=== PATIENT | female | born 1955 | race Hispanic/Latino ===

== ENCOUNTER 2017-12-31 16:38 | Inpatient (IN) | payer OTHER, MEDICAID ==
[2017-12-31] MEDS ORDERED: ONDANSETRON 4 MG/2 ML VIAL ONE ×2 (16:56→17:12)
[2017-12-31] MEDS ORDERED: MORPHINE 4 MG/ML SYR ONE (16:56)
[2017-12-31] MEDS ORDERED: cloNIDine HCl 0.1 MG TAB ONE ×2 (17:12→19:41)
[2017-12-31] MEDS ORDERED: NA CHLORIDE 0.9% 1,000 ML ONE (17:12)
[2017-12-31 17:23] LABS: Absolute Lymphocytes (CBC) 1.5 K/uL (0.7-4.9); Absolute Monocytes 0.6 K/uL (0.1-1.3); Absolute Neutrophil 5.3 K/uL (1.8-8.0); Basophils % 1.1 % (0-1.3); Eosinophils % 1.5 % (0-4.4); Hematocrit 31.8 % (36.0-45.0); Lymphocytes % 19.3 % (15.3-44.8); MCH 29.3 pg (27.0-35.0); MPV 8.7 fL (7.6-11.3); Monocytes % 8.3 % (3.3-12.3)
--- NOTE | 2017-12-31 17:24 | RAD REPORT ---
EXAM DESCRIPTION: RAD - Chest Single View - 12/31/2017 5:18 pm CLINICAL HISTORY: Dyspnea COMPARISON: None. TECHNIQUE: AP portable chest image was obtained 1715 hours . FINDINGS: Lung volumes are low. Film technique, body habitus and shallow inspiration accentuate hear t, vasculature and lung markings. Baseline for the patient is unknown. The prominence of the intersti tial markings is suspected to be edema or infiltrate. Central vasculature is mildly prominent. Mild c ardiomegaly is present. No pneumothorax or large pleural effusion. No gross bony abnormality seen. No acute aortic findings suspected. IMPRESSION: Limited baseline examination shows evidence for a mild failure or volume overload. In the absence of comparison, interstitial infiltrate cannot be excluded.
[2017-12-31 17:45] LABS: ALT/SGPT 31 U/L (12-78); AST/SGOT 25 U/L (15-37); Albumin 3.3 g/dL (3.4-5.0); Alkaline Phosphatase 90 U/L (45-117); BUN Blood Urea Nitrogen 13 mg/dL (7-18); Bicarbonate 25 mmol/L (21-32); Bilirubin Direct < 0.1 mg/dL (0-0.2); Bilirubin Total 0.3 mg/dL (0.2-1.0); Glucose Level 307 mg/dL (74-106); Lipase 150 U/L (73-393); Potassium 4.9 mmol/L (3.5-5.1); Protein, Total 7.4 g/dL (6.4-8.2); Sodium Level 140 mmol/L (136-145)
[2017-12-31] MEDS ORDERED: HYDRALAZINE HCL 20 MG/ML VIAL ONE (18:09)
[2017-12-31 19:02] LABS: Urine Bacteria <20 /HPF (<20); Urine Culture Reflex Order NOT NEEDED; Urine Mucus SLIGHT /HPF (NONE SEEN); Urine RBC <5 /HPF (NONE SEEN)
--- NOTE | 2017-12-31 19:10 | EDPHYS ---
Physician Documentation [facility] Name: Elzbieta Higgins Age: 62 yrs Sex: Female : 1955 Arrival Date: 12/31/2017 Time: 16:42 Bed 3 Private MD: ED Physician Cayden Kolb HPI: 12/31 17:10 This 62 yrs old Female presents to ER via Ambulatory with complaints of High kav Blood Pressure. 17:10 The patient has elevated blood pressure and discovered this at home, with a home kav device. Onset: The symptoms/episode began/occurred acutely, just prior to arrival. Modifying factors: The symptoms are aggravated by unknown, The symptoms are alleviated by nothing. Associated signs and symptoms: Pertinent positives: nausea. Severity of symptoms: At its worst the blood pressure was severe, just prior to arrival. The patient has not experienced similar symptoms in the past. The patient has been recently seen by a physician: Dr. Sherman. current blood pressure medication regimen: Hydralazine po tid, Lisinopril 10 mg po q daily, Metoprolol 100 mg po bid. BP 223/101 on admission to ED. 17:18 Patient reports that her blood pressure has been elevated x 1 week and that her PCP kav increased the dose of her b/p med from Hydralazine 25 mg po tid to Hydralazine 50 mg po tid.. Historical: - Allergies: 16:48 No Known Allergies; aj - Home Meds: 16:48 lisinopril 10 mg Oral tab 1 tab once daily [Active]; metoprolol tartrate 100 mg Oral aj tab 1 tab 2 times per day [Active]; hydralazine 25 mg Oral tab 1 tab three times a day [Active]; Victoza 2-Luca 0.6 mg/0.1 mL (18 mg/3 mL) subcutaneous pnij 0.3 mL once daily [Active]; glimepiride 4 mg Oral tab 1 tab once daily [Active]; Tradjenta 5 mg oral tab 1 tab once daily [Active]; - PMHx: 16:48 Diabetes - IDDM; Hypertension; aj - PSHx: 16:48 None; aj - Immunization history:: Adult Immunizations up to date. - Social history:: Smoking status: Patient/guardian denies using tobacco. - Ebola Screening: : Patient negative for fever greater than or equal to 101.5 degrees Fahrenheit, and additional compatible Ebola Virus Disease symptoms Patient denies exposure to infectious person Patient denies travel to an Ebola-affected area in the 21 days before illness onset No symptoms or risks identified at this time. - Family history:: not pertinent. - Hospitalizations: : No recent hospitalization is reported. - History obtained from: . ROS: 17:19 Constitutional: Negative for fever, chills, and weight loss, Eyes: Negative for injury, kav pain, redness, and discharge, ENT: Negative for injury, pain, and discharge, Neck: Negative for injury, pain, and swelling, Respiratory: Negative for shortness of breath, cough, wheezing, and pleuritic chest pain, Abdomen/GI: Negative for abdominal pain, nausea, vomiting, diarrhea, and constipation, Back: Negative for injury and pain, : Negative for injury, bleeding, discharge, and swelling, MS/Extremity: Negative for injury and deformity, Skin: Negative for injury, rash, and discoloration, Neuro: Negative for headache, weakness, numbness, tingling, and seizure, Psych: Negative for depression, anxiety, suicide ideation, homicidal ideation, and hallucinations, Allergy/Immunology: Negative for hives, rash, and allergies, Endocrine: Negative for neck swelling, polydipsia, polyuria, polyphagia, and marked weight changes, Hematologic/Lymphatic: Negative for swollen nodes, abnormal bleeding, and unusual bruising. 17:19 Cardiovascular: Positive for HTN, Negative for chest pain, edema. Exam: 17:19 Constitutional: This is a well developed, well nourished patient who is awake, alert, kav and in no acute distress. Head/Face: Normocephalic, atraumatic. Eyes: Pupils equal round and reactive to light, extra-ocular motions intact. Lids and lashes normal. Conjunctiva and sclera are non-icteric and not injected. Cornea within normal limits. Periorbital areas with no swelling, redness, or edema. ENT: Nares patent. No nasal discharge, no septal abnormalities noted. Tympanic membranes are normal and external auditory canals are clear. Oropharynx with no redness, swelling, or masses, exudates, or evidence of obstruction, uvula midline. Mucous membranes moist. Neck: Trachea midline, no thyromegaly or masses palpated, and no cervical lymphadenopathy. Supple, full range of motion without nuchal rigidity, or vertebral point tenderness. No Meningismus. Chest/axilla: Normal chest wall appearance and motion. Nontender with no deformity. No lesions are appreciated. Respiratory: Lungs have equal breath sounds bilaterally, clear to auscultation and percussion. No rales, rhonchi or wheezes noted. No increased work of breathing, no retractions or nasal flaring. Abdomen/GI: Soft, non-tender, with normal bowel sounds. No distension or tympany. No guarding or rebound. No evidence of tenderness throughout. Back: No spinal tenderness. No costovertebral tenderness. Full range of motion. Skin: Warm, dry with normal turgor. Normal color with no rashes, no lesions, and no evidence of cellulitis. MS/ Extremity: Pulses equal, no cyanosis. Neurovascular intact. Full, normal range of motion. Neuro: Awake and alert, GCS 15, oriented to person, place, time, and situation. Cranial nerves II-XII grossly intact. Motor strength 5/5 in all extremities. Sensory grossly intact. Cerebellar exam normal. Normal gait. Psych: Awake, alert, with orientation to person, place and time. Behavior, mood, and affect are within normal limits. 17:19 Cardiovascular: Rate: normal. Vital Signs: 16:48 BP 223 / 101; Pulse 111; Resp 20; Temp 98.7; Pulse Ox 98% on R/A; Weight 65.77 kg; aj Height 5 ft. 2 in. (157.48 cm); 17:15 BP 212 / 174; Pulse 106; Resp 18; Pulse Ox 98% on R/A; Pain 3/10; mg2 18:02 BP 202 / 76; Pulse 103; Resp 18; Pulse Ox 97% on R/A; mg2 18:19 BP 177 / 67; Pulse 106; Resp 18; Pulse Ox 100% on R/A; Pain 0/10; mg2 19:44 BP 190 / 73; Pulse 103; Resp 18; Pulse Ox 98% on R/A; Pain 0/10; ea 20:05 BP 179 / 68; Pulse 100; Resp 18; Pulse Ox 98% on R/A; Pain 0/10; ea 21:02 BP 185 / 62; Pulse 99; Resp 18; Pulse Ox 97% on NC; ea 21:17 BP 178 / 69; Pulse 97; Resp 18; Temp 97.8; Pulse Ox 99% on R/A; Pain 0/10; ea 16:48 Body Mass Index 26.52 (65.77 kg, 157.48 cm) aj MDM: 16:43 Patient medically screened. rn 18:10 Data reviewed: vital signs, nurses notes, lab test result(s), EKG, radiologic studies, ka plain films. 18:58 Physician consultation: Jazzmine Oreilly MD was called at 18:58, was contacted at 18:58, [facility] regarding admission, to the telemetry unit. to the medical/surgical unit. and will see patient in ED. 18:58 ED course: Patient status and troponin 0.09 reviewed with ED attending /Dr. Kolb. [facility] Plan: admit to inpatient telemetry. 19:31 ED course: patient report very light chest pain 2/. [facility] 08/09 16:48 Order name: Basic Metabolic Panel; Complete Time: 18:10 rn 09 16:48 Order name: CBC with Diff; Complete Time: 17:40 rn 09 16:48 Order name: Hepatic Function; Complete Time: 18:10 rn 09 16:49 Order name: Lipase; Complete Time: 18:10 rn 09 16:49 Order name: Urine Microscopic Only; Complete Time: 19:12 rn 12/31 16:49 Order name: Troponin (emerg Dept Use Only); Complete Time: 18:10 rn /09 16:49 Order name: XRAY Chest (1 view); Complete Time: 17:40 rn /09 18:40 Order name: Troponin (emerg Dept Use Only): redraw now \T\ 1839; Complete Time: 19:27 [facility] 09 19:09 Order name: Urine Dipstick--Ancillary (enter results); Complete Time: 19:12 or 12/31 16:49 Order name: IV Saline Lock; Complete Time: 17:13 rn 12/31 16:49 Order name: Labs collected and sent; Complete Time: 17:13 rn 09 16:49 Order name: Urine Dipstick-Ancillary (obtain specimen); Complete Time: 19:06 rn 12/31 16:49 Order name: EKG; Complete Time: 16:49 rn 12/31 16:49 Order name: EKG - Nurse/Tech; Complete Time: 17:13 rn 12/31 17:00 Order name: VS Recheck: recheck vital signs 30 min after clonidine administration \T\ kav document; Complete Time: 18:06 12/31 20:09 Order name: EKG - Nurse/Tech: stat; Complete Time: 20:50 kav Administered Medications: 16:53 Not Given (Duplicate Order): morphine 2 mg IVP once kav 16:53 Not Given (Duplicate Order): Zofran 4 mg IVP once; over 2 minutes kav 17:21 Drug: NS 0.9% 1000 ml Route: IV; Rate: 125 ml/hr; Site: left antecubital; mg2 20:00 Follow up: Response: No adverse reaction; IV Status: Infusion continued upon admission ea 17:21 Drug: Zofran 4 mg Route: IVP; Site: left antecubital; mg2 18:07 Follow up: Response: No adverse reaction mg2 17:22 Drug: cloNIDine 0.2 mg Route: PO; mg2 18:08 Follow up: Response: No adverse reaction; Blood pressure is unchanged mg2 18:08 Drug: hydrALAZINE 10 mg Route: IV; Rate: bolus; Site: left antecubital; mg2 19:00 Follow up: Response: No adverse reaction; Blood pressure is lowered; IV Status: ea Completed infusion 19:39 Drug: cloNIDine 0.2 mg Route: PO; ea 20:50 Follow up: Response: Blood pressure is lowered ea Disposition: 12/31/17 19:10 Hospitalization ordered by Jazzmine Oreilly for Observation. Preliminary diagnosis are Hypertensive Urgency, Elevated troponin, ST Elevation, Acute Renal Failure. - Bed requested for Telemetry/MedSurg (observation). - Status is Observation. ea - Condition is Stable. - Problem is new. - Symptoms have improved. UTI on Admission? No Addendum: 01/02/2018 07:07 Co-signature as Attending Physician, Cayden Kolb MD. r n Signatures: Dispatcher [employer] Pilar Ceron RN Sherry Fenton RN RN aj Vern, Katherine, [employer]ING W[employer]ER REC[employer]IL SPRING WINDER Cayden Morris MD MD rn Antunez, Elena, RN RN ea Gardose, Michele, RN RN mg2 Corrections: (The following items were deleted from the chart) 12/31 16:52 16:50 Family history: not pertinent, rn rn 16:52 16:50 Hospitalizations: No recent hospitalization is reported. rn rn 16:52 16:50 The history from the nurse's notes was reviewed. rn rn 16:52 16:49 This 62 yrs old Female presents to ER via Ambulatory with complaints of rn flank pain. rn 16:52 16:50 The patient complains of pain in the right mid back, rn rn 16:52 16:50 The pain radiates to the pelvis, rn rn 16:52 16:50 Onset: The symptoms/episode began/occurred 1.5 hour(s) ago, rn rn 16:52 16:50 Associated signs and symptoms: Pertinent positives: nausea, vomiting, Pertinent rn negatives: fever, urinary frequency, hematuria, rn 16:52 16:50 Severity of pain: At its worst the pain was moderate in the emergency department rn the pain is unchanged rn 16:52 16:50 The patient has not experienced similar symptoms in the past, rn rn 16:52 16:50 Reports sudden onset right flank pain, began at rest, reports assoc with rn nausea/vomiting/diarrhea, no fever, starts right flank and radiates to groin, no hx of kidney stones, intermittent pain, feels like cramping.. rn 16:53 16:50 Constitutional: Negative for fever, chills, and weight loss, Eyes: Negative for rn injury, pain, redness, and discharge, Neck: Negative for injury, pain, and swelling, Cardiovascular: Negative for chest pain, palpitations, and edema, Respiratory: Negative for shortness of breath, cough, wheezing, and pleuritic chest pain, Abdomen/GI: Negative for abdominal pain, nausea, vomiting, diarrhea, and constipation, MS/Extremity: Negative for injury and deformity, Skin: Negative for injury, rash, and discoloration, Neuro: Negative for headache, weakness, numbness, tingling, and seizure, rn 17:06 16:49 Stone Protocol+CT.RAD.MELISSAZ ordered. EDMS EDMS 19:12 19:10 Hospitalization Ordered by Jazzmine Oreilly MD for Observation. Preliminary kav diagnosis is Hypertensive Urgency; Elevated troponin. Bed requested for Telemetry/MedSurg (observation). Status is Observation. Condition is Stable. Problem is new. Symptoms have improved. UTI on Admission? No. kav 19:13 19:12 12/31/2017 19:10 Hospitalization Ordered by Jazzmine Oreilly MD for Observation. kav Preliminary diagnosis is Hypertensive Urgency; Elevated troponin; ST Elevation. Bed requested for Telemetry/MedSurg (observation). Status is Observation. Condition is Stable. Problem is new. Symptoms have improved. UTI on Admission? No. kav 21:11 19:13 12/31/2017 19:10 Hospitalization Ordered by Jazzmine Oreilly MD for Observation. kl Preliminary diagnosis is Hypertensive Urgency; Elevated troponin; ST Elevation; Acute Renal Failure. Bed requested for Telemetry/MedSurg (observation). Status is Observation. Condition is Stable. Problem is new. Symptoms have improved. UTI on Admission? No. kav 21:32 21:11 12/31/2017 19:10 Hospitalization Ordered by Jazzmine Oreilly MD for Observation. ea Preliminary diagnosis is Hypertensive Urgency; Elevated troponin; ST Elevation; Acute Renal Failure. Bed requested for Telemetry/MedSurg (observation). Status is Observation. Condition is Stable. Problem is new. Symptoms have improved. UTI on Admission? No. kl
--- NOTE | 2017-12-31 19:10 | ER ---
Nurse's Notes [facility] Name: Elzbieta Higgins Age: 62 yrs Sex: Female : 1955 Arrival Date: 12/31/2017 Time: 16:42 Bed 3 Private MD: Diagnosis: Hypertensive Urgency;Elevated troponin;ST Elevation;Acute Renal Failure Presentation: 12/31 16:45 Presenting complaint: Patient states: Reports HTN after medication was changed recently aj for poor control. Transition of care: patient was not received from another setting of care. Onset of symptoms was December 31, 2017. Risk Assessment: Do you want to hurt yourself or someone else? Patient reports no desire to harm self or others. Initial Sepsis Screen: Does the patient meet any 2 criteria? No. Patient's initial sepsis screen is negative. Does the patient have a suspected source of infection? No. Patient's initial sepsis screen is negative. Care prior to arrival: None. 16:45 Method Of Arrival: Ambulatory aj 16:45 Acuity: YAMILET 2 aj Triage Assessment: 16:48 General: Appears in no apparent distress. comfortable, Behavior is calm, cooperative, aj appropriate for age. Pain: Complains of pain in face and scalp. Neuro: Level of Consciousness is awake, alert, obeys commands, Oriented to person, place, time, situation, Appropriate for age Reports headache. Respiratory: Airway is patent Respiratory effort is even, unlabored, Respiratory pattern is regular, symmetrical. Derm: Skin is intact, is healthy with good turgor, Skin is pink, warm \T\ dry. normal. Historical: - Allergies: 16:48 No Known Allergies; aj - Home Meds: 16:48 lisinopril 10 mg Oral tab 1 tab once daily [Active]; metoprolol tartrate 100 mg Oral aj tab 1 tab 2 times per day [Active]; hydralazine 25 mg Oral tab 1 tab three times a day [Active]; Victoza 2-Luca 0.6 mg/0.1 mL (18 mg/3 mL) subcutaneous pnij 0.3 mL once daily [Active]; glimepiride 4 mg Oral tab 1 tab once daily [Active]; Tradjenta 5 mg oral tab 1 tab once daily [Active]; - PMHx: 16:48 Diabetes - IDDM; Hypertension; aj - PSHx: 16:48 None; aj - Immunization history:: Adult Immunizations up to date. - Social history:: Smoking status: Patient/guardian denies using tobacco. - Ebola Screening: : Patient negative for fever greater than or equal to 101.5 degrees Fahrenheit, and additional compatible Ebola Virus Disease symptoms Patient denies exposure to infectious person Patient denies travel to an Ebola-affected area in the 21 days before illness onset No symptoms or risks identified at this time. - Family history:: not pertinent. - Hospitalizations: : No recent hospitalization is reported. - History obtained from: . Screenin:22 Abuse screen: Denies threats or abuse. Denies injuries from another. Nutritional mg2 screening: No deficits noted. Tuberculosis screening: No symptoms or risk factors identified. Fall Risk IV access (20 points). Assessment: 17:22 General: Appears in no apparent distress. comfortable, Behavior is calm, cooperative. mg2 Pain: Complains of pain in right mid back Pain does not radiate. Pain currently is 4 out of 10 on a pain scale. Quality of pain is described as aching, Pain began gradually, Is intermittent, Alleviated by rest. Neuro: Level of Consciousness is awake, alert, obeys commands, Oriented to person, place, time, situation. Cardiovascular: Capillary refill < 3 seconds Patient's skin is warm and dry. Respiratory: Airway is patent Respiratory effort is even, unlabored, Respiratory pattern is regular, symmetrical. GI: No signs and/or symptoms were reported involving the gastrointestinal system. : No signs and/or symptoms were reported regarding the genitourinary system. EENT: No signs and/or symptoms were reported regarding the EENT system. Derm: Skin is intact, Skin is pink, warm \T\ dry. normal. Musculoskeletal: No signs and/or symptoms reported regarding the musculoskeletal system. 19:43 General: Appears in no apparent distress. Behavior is calm, cooperative, appropriate ea for age. Pain: Denies pain. Neuro: Level of Consciousness is awake, alert, obeys commands, Oriented to person, place, time, situation. Cardiovascular: Heart tones S1 S2 present Patient's skin is warm and dry. Respiratory: Airway is patent Respiratory effort is even, unlabored, Respiratory pattern is regular, symmetrical, Breath sounds are clear bilaterally. GI: Abdomen is non-distended, Bowel sounds present X 4 quads. : No signs and/or symptoms were reported regarding the genitourinary system. Derm: Skin is pink, warm \T\ dry. Musculoskeletal: No signs and/or symptoms reported regarding the musculoskeletal system. Circulation, motion, and sensation intact. 19:50 Reassessment: Dr. Russell at bedside updating patient and family on plan of care. ea 20:00 Reassessment: Patient and/or family updated on plan of care and expected duration. Pain ea level reassessed. Patient is alert, oriented x 3, equal unlabored respirations, skin warm/dry/pink. 21:03 Reassessment: Patient and/or family updated on plan of care and expected duration. Pain ea level reassessed. Patient is alert, oriented x 3, equal unlabored respirations, skin warm/dry/pink. 21:26 Reassessment: Patient and/or family updated on plan of care and expected duration. Pain ea level reassessed. Patient is alert, oriented x 3, equal unlabored respirations, skin warm/dry/pink. Report given to Leola JESUS on second floor. Vital Signs: 16:48 BP 223 / 101; Pulse 111; Resp 20; Temp 98.7; Pulse Ox 98% on R/A; Weight 65.77 kg; aj Height 5 ft. 2 in. (157.48 cm); 17:15 BP 212 / 174; Pulse 106; Resp 18; Pulse Ox 98% on R/A; Pain 3/10; mg2 18:02 BP 202 / 76; Pulse 103; Resp 18; Pulse Ox 97% on R/A; mg2 18:19 BP 177 / 67; Pulse 106; Resp 18; Pulse Ox 100% on R/A; Pain 0/10; mg2 19:44 BP 190 / 73; Pulse 103; Resp 18; Pulse Ox 98% on R/A; Pain 0/10; ea 20:05 BP 179 / 68; Pulse 100; Resp 18; Pulse Ox 98% on R/A; Pain 0/10; ea 21:02 BP 185 / 62; Pulse 99; Resp 18; Pulse Ox 97% on NC; ea 21:17 BP 178 / 69; Pulse 97; Resp 18; Temp 97.8; Pulse Ox 99% on R/A; Pain 0/10; ea 16:48 Body Mass Index 26.52 (65.77 kg, 157.48 cm) ED Course: 16:42 Patient arrived in ED. mr 16:43 Cayden Kolb MD is Attending Physician. rn 16:46 Triage completed. aj 16:48 Arm band placed on left wrist. Patient placed in an exam room. aj 16:[address] vm2 16:52 [facility] kav 17:05 Blair Esquivel, RN is Primary Nurse. mg2 17:11 EKG done, by mechanical facilities technician. reviewed by Sherrill RICHARDSON. 3 17:12 Initial lab(s) drawn, by dc, sent to lab. Inserted saline lock: 22 gauge in left jb1 antecubital area, using aseptic technique. Blood collected. 17:14 X-ray completed. Portable x-ray completed in exam room. Patient tolerated procedure ml well. 17:16 XRAY Chest (1 view) In Process Unspecified. EDMS 19:00 Patient has correct armband on for positive identification. Bed in low position. Call ea light in reach. Side rails up X2. 19:08 Jazzmine Oreilly MD is Hospitalizing Provider. kav 19:57 No provider procedures requiring assistance completed. Patient admitted, IV remains in ea place. Administered Medications: 16:53 Not Given (Duplicate Order): morphine 2 mg IVP once kav 16:53 Not Given (Duplicate Order): Zofran 4 mg IVP once; over 2 minutes kav 17:21 Drug: NS 0.9% 1000 ml Route: IV; Rate: 125 ml/hr; Site: left antecubital; mg2 20:00 Follow up: Response: No adverse reaction; IV Status: Infusion continued upon admission ea 17:21 Drug: Zofran 4 mg Route: IVP; Site: left antecubital; mg2 18:07 Follow up: Response: No adverse reaction mg2 17:22 Drug: cloNIDine 0.2 mg Route: PO; mg2 18:08 Follow up: Response: No adverse reaction; Blood pressure is unchanged mg2 18:08 Drug: hydrALAZINE 10 mg Route: IV; Rate: bolus; Site: left antecubital; mg2 19:00 Follow up: Response: No adverse reaction; Blood pressure is lowered; IV Status: ea Completed infusion 19:39 Drug: cloNIDine 0.2 mg Route: PO; ea 20:50 Follow up: Response: Blood pressure is lowered ea Outcome: 19:10 Decision to Hospitalize by Provider. kav 19:30 Instructed on the need for admit, Demonstrated understanding of instructions. yoly 21:31 Admitted to Med/surg accompanied by tech, room 232, with chart, Report called to yoly Bhagat RN 21:31 Condition: stable 21:32 Patient left the ED. yoly Signatures: Dispatcher [employer] EDMS Isaiah Spence jb1 Sherry Estevez, RN Sherrill Rivera, WAITER/WAITRESS TOURIST CLASS WAITER/WAITRESS TOURIST CLASS Elzbieta Lucero mr Jevon, Cayden Farfan MD MD rn McGuire, Victoria vm2 Kimberly Pandya RN Blair Teran ea RN Radha Scott 3 Corrections: (The following items were deleted from the chart) 16:52 16:50 Family history: not pertinent, rn oliver 16:52 16:50 Hospitalizations: No recent hospitalization is reported. rn rn 16:52 16:50 The history from the nurse's notes was reviewed. rn rn
[2017-12-31 19:11] LABS: Urine Blood NEGATIVE (NEG); Urine Glucose 2+ (NEG); Urine Protein 3+ (NEG); Urine pH 7.5 (5.0-7.0)
--- NOTE | 2017-12-31 20:08 | P.HP ---
Certification for Inpatient Patient admitted to: Observation With expected LOS: <2 Midnights Practitioner: I am a practitioner with admitting privileges, knowledge of patient current condition, hospital course, and medical plan of care. Services: Services provided to patient in accordance with Admission requirements found in Title 42 Section 412.3 of the Code of Federal Regulations Patient History Date of Service: 12/31/17 Reason for admission: hypertensive urgency History of Present Illness: Ms Higgins is a 62 years old woman with history of DM II HTN, who takes metoprolol, lisinopril and hydralazyne. Last week her PCP increased the dose of hydralazyne since her BP was significantly elevated. She also started taking victoza last week for diabetes mellitus. Today, she felt lightheadedness, headache, and took her blood pressure, and she SBP was above 200. She called her PCP who directed the patient to come to ED for further evaluation. She denied chest pain or SOB. She states that her legs are swollen since about 2 month ago, and her PCP told her that it was a side effect of her previous BP medication, I assume it was amlodipine probably. CXR remarkable for mild venous congestion. EKG sinus rhythm at 108 bpm, ST depression in inferolateral area, possible subendocardial injury. Initial trop I is 0.08. Allergies No Known Allergies Allergy (Unverified 12/31/17 20:04) Home medications list reviewed: Yes - Past Medical/Surgical History -: HTN -: DM II Past Surgical History: Reviewed- Non-Contributory - Family History Family History: Reviewed- Non-Contributory - Social History Smoking Status: Never smoker Alcohol use: No CD- Drugs: No Caffeine use: No Place of Residence: Home Review of Systems 10-point ROS is otherwise unremarkable Physical Examination - Physical Exam General: Alert, In no apparent distress HEENT: Atraumatic, PERRLA, Mucous membr. moist/pink, EOMI, Sclerae nonicteric Neck: Supple, 2+ carotid pulse no bruit, No LAD, Without JVD or thyroid abnormality Respiratory: Clear to auscultation bilaterally, Normal air movement Cardiovascular: Regular rate/rhythm, Normal S1 S2 Gastrointestinal: Normal bowel sounds, No tenderness Musculoskeletal: No tenderness Integumentary: No rashes Neurological: Normal speech, Normal strength at 5/5 x4 extr, Normal tone, Normal affect Lymphatics: No axilla or inguinal lymphadenopathy - Studies Laboratory Data (last 24 hrs) 12/31/17 17:10: WBC 7.7, Hgb 10.8 L, Hct 31.8 L, Plt Count 279 12/31/17 17:10: Sodium 140, Potassium 4.9, BUN 13, Creatinine 1.90 H, Glucose 307 H, Total Bilirubin 0.3, AST 25, ALT 31, Alkaline Phosphatase 90, Lipase 150 Assessment and Plan - Problems (Diagnosis) (1) Diabetes mellitus Current Visit: Yes Status: Acute Qualifiers: Diabetes mellitus type: type 2 Diabetes mellitus prison insulin use: without rn long term care use Diabetes mellitus complication status: with unspecified complications Qualified Code(s): E11.8 - Type 2 diabetes mellitus with unspecified complications (2) Hypertensive urgency Current Visit: Yes Status: Acute (3) Acute renal injury Current Visit: Yes Status: Acute - Plan The patient will be admitted to the hospital due to hypertensive urgency. She has EKG changes consistent with subendocardial injury of unknown age, no previous EKG to compare. She has no chest pain, Trop I is mildly elevated in context of renal failure. Will repeat EKG, will do ECHO, consider to change diagnosis to hypertensive emergency if found signs consistent with acute subendocarial injury. Consult Cardiology team. Will resume beta rola, PO hydralazyne, and PRN IV medication. Will order HGBa1C and SSI for blood sugar control. - Advance Directives Does patient have a Living Will: No Does patient have a Durable POA for Healthcare: No - Code Status/Comfort Care Code Status Assessed: Yes Code Status: Full Code
--- NOTE | 2017-12-31 21:20 | EKG ---
Test Date: 2017-12-31 Test Time: 17:03:32 Blower Room Attendant: VY MEASUREMENT RESULTS: Intervals: Rate: 108 SD: 178 QRSD: 88 QT: 302 QTc: 404 [place]: P: 50 SD: 178 QRS: -19 T: 149 INTERPRETIVE STATEMENTS: Sinus tachycardia Septal infarct, age undetermined Marked ST abnormality, possible lateral subendocardial injury Abnormal ECG No previous ECG available for comparison Electronically Signed On 12-31-17 21:20:01 CDT by Satinder Kruger
[2017-12-31] MEDS ORDERED: ONDANSETRON 4 MG/2 ML VIAL IV PRN (21:58)
[2017-12-31] MEDS: INSULIN -REGULAR HUMAN 50 UNIT/0.5 ML ML SQ SCH (23:03)
[2018-01-01] MEDS: HYDRALAZINE HCL 20 MG/ML VIAL IV PRN (01:30)
[2018-01-01] MEDS: ACETAMINOPHEN 500 MG TAB PO PRN ×2 (05:28→17:25)
[2018-01-01] MEDS ORDERED: METOPROLOL TAR 25 MG TAB PO SCH (06:00)
[2018-01-01 06:05] LABS: Absolute Lymphocytes (CBC) 1.8 K/uL (0.7-4.9); Absolute Monocytes 0.9 K/uL (0.1-1.3); Eosinophils % 1.8 % (0-4.4); Hematocrit 27.3 % (36.0-45.0); Lymphocytes % 20.2 % (15.3-44.8); MCH 30.5 pg (27.0-35.0); MCV 86.9 fL (80-100); MPV 8.6 fL (7.6-11.3); Monocytes % 10.1 % (3.3-12.3); RBC Red Blood Cell Count 3.14 M/uL (3.86-4.86)
[2018-01-01 06:29] LABS: BUN Blood Urea Nitrogen 14 mg/dL (7-18); Bicarbonate 27 mmol/L (21-32); Glucose Level 254 mg/dL (74-106); HDL Cholesterol 38 mg/dL (40-60); LDL Cholesterol, Calculated ND (<130); Phosphorus 4.2 mg/dL (2.5-4.9); Potassium 4.9 mmol/L (3.5-5.1); Sodium Level 140 mmol/L (136-145)
[2018-01-01 06:41] LABS: LDL, Direct 74 mg/dL (100-129)
--- NOTE | 2018-01-01 08:20 | EKG ---
Test Date: 2017-12-31 Test Time: 20:25:14 Plastic Welder: BRUCE MEASUREMENT RESULTS: Intervals: Rate: 101 NM: 186 QRSD: 84 QT: 316 QTc: 409 [place]: P: 41 NM: 186 QRS: -22 T: 154 INTERPRETIVE STATEMENTS: Sinus tachycardia Possible Anteroseptal infarct, age undetermined Marked ST abnormality, possible lateral subendocardial injury Abnormal ECG Compared to ECG 12/31/2017 17:03:32 No significant changes Electronically Signed On 01-01-18 08:19:30 CDT by Satinder Kruger
[2018-01-01] MEDS: INSULIN -REGULAR HUMAN 50 UNIT/0.5 ML ML SQ SCH ×4 (08:56→22:38)
[2018-01-01] MEDS: ASPIRIN 81 MG CHEWABLE TABLET PO SCH (08:57)
[2018-01-01] MEDS: LISINOPRIL 20 MG TAB PO SCH (08:58)
[2018-01-01] MEDS ORDERED: ENOXAPARIN 80 MG/0.8 ML SQ SCH (09:00)
--- NOTE | 2018-01-01 11:54 | CON ---
Identification: A 62-year-old woman. Chief Complaint: Nausea. History Of Present Illness: Ms. Higgins started having nausea as soon as she took a dose of Victoza . She also developed headache, high blood pressure. She did not throw up. She feels back to normal now. She did not have chest pain during any of this. No shortness of breath. There may have been some sweating when she was throwing up. She has never had myocardial infarction or vascular disease before. Her EKG does show an old anterior ND, undetermined age. She has had diabetes for several ye ars. Social History: Uses no tobacco. No illegal drugs. Physical Examination: Vital Signs: 5 feet 2 inches, 145 pounds. HEENT: Normal. Lungs: Clear. Heart: Within normal limits. Abdomen: Soft. Extremities: No cyanosis, clubbing, or edema. Distal pulses are palpable. Skin: Looks healthy, well perfused. Medications: Outpatient medications have been linagliptin, glimepiride, hydralazine, lisinopril, met oprolol, and Victoza, although I think she is planning on not using Victoza anymore. Apparently, she was on amlodipine in the recent past, but it was stopped because she had edema. Primary Care Physician: Karon Sherman D.O. Laboratory Data: Reveals troponin levels that ARE elevated. Impression: The patient probably does have some degree of coronary artery disease. I would be hesit ant to call it unstable angina since she isn't having any chest pain. All of her troponins are exact ly the same. They range from 0.08 to 0.11 over a period of more than 24 hours. I think we would be healy to give her dual anti-platelet therapy, lipid therapy, treat her with higher doses of MELVA inhibi tors or something to get her blood pressure better and do a pharmacologic nuclear stress test and ech o and see if she is a candidate for a cardiac cath or any intervention. At this point with her asymp tomatic minimal troponins, it is probably best to pursue medical therapy with aims at reducing risk o f coronary events. ELISABETH/EMILY Voice ID: [id number] Report ID: [id number]
[2018-01-01] MEDS ORDERED: REGADENOSON 0.4 MG/5 ML SYR IV ONE (12:18)
--- NOTE | 2018-01-01 13:21 | ECHO ---
HEIGHT: 5 ft 2 in WEIGHT: 145 lb 0 oz DATE OF STUDY: 01/01/[address]: 2-DIMENSIONAL: YES M.MODE: YES DOPPLER: YES COLOR FLOW: YES TDS: NO PORTABLE: NO DEFINITY: NO BUBBLE STUDY: NO DIAGNOSIS: UNCONTROLLEC HYPERTENSION CARDIAC HISTORY: CATHERIZATION: NO SURGERY: NO PROSTHETIC VALVE: NO PACEMAKER: NO MEASUREMENTS (cm) DIASTOLIC (NORMALS) SYSTOLIC (NORMALS) IVSd 1.0 (0.6-1.2) LA Diam 3.7 (1.9-4.0) LVEF 63% LVIDd 3.6 (3.5-5.7) LVIDs 2.4 (2.0-3.5) %FS 34% LVPWd 1.0 (0.6-1.2) Ao Diam 2.9 (2.0-3.7) 2 DIMENSIONAL ASSESSMENT: RIGHT ATRIUM: NORMAL LEFT ATRIUM: NORMAL RIGHT VENTRICLE: NORMAL LEFT VENTRICLE: NORMAL TRICUSPID VALVE: NORMAL MITRAL VALVE: NORMAL PULMONIC VALVE: NORMAL AORTIC VALVE: NORMAL PERICARDIAL EFFUSION: NONE AORTIC ROOT: NORMAL LEFT VENTRICULAR WALL MOTION: NORMAL. DOPPLER/COLOR FLOW: MILD TRICUSPID REGURGITATION. NORMAL RIGHT VENTRICULAR SYSTOLIC PRESSURE. COMMENTS: NORMAL 2D ECHOCARDIOGRAM. MILD TRICUSPID REGURGITATION. TECHNOLOGIST: LUCITA CARDENAS RDCS
--- NOTE | 2018-01-01 14:42 | TREADPHA ---
DX: ABNORMAL TROPONIN I Date of Study: 01/01/18 Ht: 5 2 Wt: 145 lb 0 oz Consulting Physician: CHAD MEDICATIONS: TYLENOL, ASPIRIN, LOVENOX, APRESOLINE, NOVLIN-R, PRINIVIL, LOPRESSOR, ZOFRAN. HISTORY: 62 YEAR OLD FEMALE WITH ABNORMAL TROPONIN. HISTORY OF DIABETES, HYPERTENSION. PHYSICIAL EXAMINATION: RESTING B.P.: 170/70 RESTING H.R.: 78 RESTING EKG: SINUS. NORMAL ST. PROTOCOL: LEXISCAN EXERCISE TIME: 3:30 B.P. AT PEAK STRESS: 175/52 IMPRESSION: LEXISCAN INJECTED, CARDIOLITE INJECTED, SEE NUCLEAR MEDICINE REPORT. NON DIAGNOSTIC EKG WITH LEXISCAN STRESS.
--- NOTE | 2018-01-01 14:53 | RAD REPORT ---
EXAM DESCRIPTION: NM - Rest Stress Cardiac Imaging - 01/01/2018 2:45 pm CLINICAL HISTORY: Chest pain, abnormal cardiac enzymes COMPARISON: None. TECHNIQUE: The patient was administered 11 mCi of Tc 99m Sestamibi prior to resting SPECT imaging of the heart. The patient was then administered 33.1 mCi of Tc 99m Sestamibi following exercise or phar macologic stress. Multiplanar SPECT images were reviewed. FINDINGS: The end diastolic volume is 73 ml, the end systolic volume is 25 ml, and the ejection frac tion is 65 %. Small focus of diminished activity on stress imaging in the inferolateral wall not clearly different between rest and stress imaging. Anteroseptal defect near the base on stress imaging is not present o n the rest sequencing. Finding is suspicious for a small focus of stress-induced ischemic change. IMPRESSION: Small focus of stress ischemia anteroseptal wall near the base. Small fixed defect inferolateral wall from scarring or attenuation artifact. Ventricular volumes and ejection fraction are normal range.
--- NOTE | 2018-01-01 16:15 | PN ---
Date of Progress Note: 01/01/2018 Subjective: The patient seen and examined, chart reviewed and case discussed with RN and Dr. Kruger. The patient denies any active chest pain. Blood pressure is improved. The patient went for stress test today which was positive. Review of Systems: Negative except as above. Medications: List reviewed. Objective: Vital Signs: Temperature 97.6, heart rate 80, blood pressure 139/62, respirations 16, O2 95% on room air. General: Awake, alert, oriented x3. Some mild distress. Elderly female, somewhat ill-appearing. CV: S1, S2. Regular rate and rhythm. Peripheral pulses present. No murmurs. Respiratory: Moving air well bilaterally. No wheezing. No stridor. No use of accessory muscles Ga strointestinal: Abdomen is soft, nontender, nondistended. Positive bowel sounds. Extremities: No clubbing, cyanosis, or edema. Neurologic: Nonfocal. Laboratory Data: Sodium 140, potassium 4.9, chloride 108, CO2 27, BUN 14, creatinine 2.20, glucose 2 54. Hemoglobin A1c 8%. Calcium 8.8, phosphorus 4.2. Troponin 0.09, 0.08, 0.1, 0.11. Triglycerides 4.5, cholesterol 152, LDL 74, HDL 38. WBC 8.9, H and H 9.6, 27.3, platelets 248. The echocardiogra m shows EF 34%, mild tricuspid regurgitation. Nuclear stress test shows small focus of stress ischem ia, atrial septal wall near the base, small fixed defect, inferolateral wall from scarring or attenua tion artifact. Assessment: A 62-year-old female with; 1.Hypertensive emergency. The patient's blood pressure is 200 systolic with cardiac injury. Tropon ins are elevated. Blood pressure is significantly better controlled now. We will continue to monito r closely and p.r.n. medications. 2.Acute kidney injury. Creatinine worse today. We will continue with IV fluids. Avoid NSAIDs and continue to monitor, unclear baseline. 3.Diabetes mellitus type 2 without long-term use of insulin, uncontrolled. Hemoglobin A1c 8% with h yperglycemia. 4.Elevated troponin level. Stress test is positive. Discuss with Cardiology regarding further inte rvention. May have to be cautious due to creatinine being elevated if the patient go for cardiac cath eterization. 5.Cardiomyopathy. The patient has reduced ejection fraction 34%. Maybe ischemic. The patient is o n MELVA inhibitor and beta-rola. Plan: Follow up with cardiology regarding further intervention and plan. /EMILY Voice ID: [id number] Report ID: [id number]
[2018-01-01] MEDS: NA CHLORIDE 0.9% 1,000 ML IV SCH ×2 (17:10→22:39)
[2018-01-01] MEDS: METOPROLOL TAR 50 MG TAB PO SCH (17:11)
--- NOTE | 2018-01-01 22:24 | RAD REPORT ---
EXAM DESCRIPTION: US - Renal Ultrasound-Complete - 01/01/2018 9:33 pm CLINICAL HISTORY: Acute kidney injury COMPARISON: None. FINDINGS: The right kidney measures 10.4 x 5.2 x 5.5 cm. The left kidney measures 10.2 x 4.7 x 5.2 cm. Renal cortical thickness and echogenicity are normal. No hydronephrosis. In the upper pole right kidney a 2.1 centimeter oval hyperechoic mass is present. 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 CT i maging could be used for confirmation. No left-sided mass. Bladder cannot be adequately visualized. IMPRESSION: No hydronephrosis. 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 CT could be used for confirmation.
[2018-01-02] MEDS: HYDRALAZINE HCL 20 MG/ML VIAL IV PRN ×2 (03:55→20:23)
[2018-01-02] MEDS: METOPROLOL TAR 50 MG TAB PO SCH ×2 (06:23→18:20)
[2018-01-02 08:42] LABS: Potassium 4.9 mmol/L (3.5-5.1)
[2018-01-02] MEDS: ENOXAPARIN 30 MG/0.3 ML SQ SCH (08:58)
[2018-01-02] MEDS: LISINOPRIL 20 MG TAB PO SCH (08:59)
[2018-01-02] MEDS: CLOPIDOGREL 75 MG TABLET PO SCH (08:59)
[2018-01-02] MEDS: GLIMEPIRIDE 2 MG TABLET PO SCH (08:59)
[2018-01-02] MEDS: INSULIN -REGULAR HUMAN 50 UNIT/0.5 ML ML SQ SCH ×4 (08:59→22:33)
[2018-01-02] MEDS: ASPIRIN 81 MG CHEWABLE TABLET PO SCH (08:59)
[2018-01-02] MEDS: HOME MED 1 EA UNK (Linagliptin [Tradjenta] 1 TAB) PO SCH (09:00)
[2018-01-02] MEDS: ACETYLCYST 20% 800 MG/4 ML VIAL PO SCH ×2 (11:00→22:38)
[2018-01-02 11:53] LABS: Urine Appearance CLEAR; Urine Bilirubin NEGATIVE (NEG); Urine Blood NEGATIVE (NEG); Urine Color YELLOW; Urine Glucose 1+ (NEG); Urine Protein 3+ (NEG); Urine Urobilinogen 0.2 mg/dL (0.2-1.0); Urine pH 6.5 (5.0-7.0)
[2018-01-02 12:05] LABS: Urine Protein/Creatinine Ratio 4.19 ratio (<0.15)
[2018-01-02 12:08] LABS: Urine Bacteria 20-50 /HPF (<20); Urine Culture Reflex Order REFLEXED; Urine RBC NONE SEEN /HPF (NONE SEEN)
--- NOTE | 2018-01-02 12:27 | P.CNS ---
Date of Consult: 01/02/18 Reason for Consult: CONSTANCE Requesting Physician: Griselda Mccarthy Chief Complaint: hypertensive urgency History of Present Illness: 62 yo HF HTN, DM presented to the ER with moderate, persistent lightheadedness in the setting of uncontrolled HTN. Multiple recent medication changes. Discontinued ibuprofen one year ago on advice from her PCP. No urinary difficulties. She is feeling better today except for shoulder pain. Ms Higgins is a 62 years old woman with history of DM II HTN, who takes metoprolol, lisinopril and hydralazyne. Last week her PCP increased the dose of hydralazyne since her BP was significantly elevated. She also started taking victoza last week for diabetes mellitus. Today, she felt lightheadedness, headache, and took her blood pressure, and she SBP was above 200. She called her PCP who directed the patient to come to ED for further evaluation. She denied chest pain or SOB. She states that her legs are swollen since about 2 month ago, and her PCP told her that it was a side effect of her previous BP medication, I assume it was amlodipine probably. CXR remarkable for mild venous congestion. EKG sinus rhythm at 108 bpm, ST depression in inferolateral area, possible subendocardial injury. Initial trop I is 0.08. 17:10 This 62 yrs old Female presents to ER via Ambulatory with complaints of High kav Blood Pressure. 17:10 The patient has elevated blood pressure and discovered this at home, with a home kav device. Onset: The symptoms/episode began/occurred acutely, just prior to arrival. Modifying factors: The symptoms are aggravated by unknown, The symptoms are alleviated by nothing. Associated signs and symptoms: Pertinent positives: nausea. Severity of symptoms: At its worst the blood pressure was severe, just prior to arrival. The patient has not experienced similar symptoms in the past. The patient has been recently seen by a physician: Dr. Sherman. current blood pressure medication regimen: Hydralazine po tid, Lisinopril 10 mg po q daily, Metoprolol 100 mg po bid. BP 223/101 on admission to ED. 17:18 Patient reports that her blood pressure has been elevated x 1 week and that her PCP kav increased the dose of her b/p med from Hydralazine 25 mg po tid to Hydralazine 50 mg po tid.. Allergies No Known Allergies Allergy (Verified 12/31/17 21:46) Home medications list reviewed: Yes Home Medications: Glimepiride 1 tab PO BREAKFAST 12/31/17 Hydralazine HCl 1 tab PO TID 12/31/17 Linagliptin [Tradjenta] 1 tab PO DAILY 12/31/17 Liraglutide [Victoza 2-Luca] 0.6 units SQ BEDTIME 12/31/17 Lisinopril 1 tab PO DAILY 12/31/17 Metoprolol Tartrate [Lopressor] 1 tab PO BID 12/31/17 - Past Medical/Surgical History Diabetic: Yes -: HTN -: DM II -: - Family History Mother History Unknown: Yes Notes: none Father History Unknown: Yes Notes: none - Social History Alcohol use: No CD- Drugs: No Caffeine use: No Place of Residence: Home Review of Systems 10-point ROS is otherwise unremarkable Musculoskeletal: Shoulder Pain Physical Examination Temp Pulse Resp BP Pulse Ox 98.5 F 84 18 122/58 L 97 01/02/18 08:00 01/02/18 08:00 01/02/18 08:00 01/02/18 08:00 01/02/18 08:00 General: In no apparent distress, Oriented x3, Cooperative HEENT: Atraumatic, Mucous membr. moist/pink Neck: Supple Respiratory: Clear to auscultation bilaterally, Normal air movement Cardiovascular: No edema, Regular rate/rhythm, No rubs Gastrointestinal: Soft and benign, Non-distended, No guarding Musculoskeletal: No clubbing, No contractures Integumentary: No rashes, No cyanosis Neurological: Normal speech Blood work reviewed in the chart. Initial serum creatinine 1.9 Imagings Data: EXAM DESCRIPTION: US - Renal Ultrasound-Complete - 01/01/2018 9:33 pm CLINICAL HISTORY: Acute kidney injury COMPARISON: None. FINDINGS: The right kidney measures 10.4 x 5.2 x 5.5 cm. The left kidney measures 10.2 x 4.7 x 5.2 cm. Renal cortical thickness and echogenicity are normal. No hydronephrosis. In the upper pole right kidney a 2.1 centimeter oval hyperechoic mass is present. 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 CT imaging could be used for confirmation. No left-sided mass. Bladder cannot be adequately visualized. IMPRESSION: No hydronephrosis. 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 CT could be used for confirmation. HEIGHT: 5 ft 2 in WEIGHT: 145 lb 0 oz DATE OF STUDY: 01/01/[address]: 2-DIMENSIONAL: YES M.MODE: YES DOPPLER: YES COLOR FLOW: YES TDS: NO PORTABLE: NO DEFINITY: NO BUBBLE STUDY: NO DIAGNOSIS: UNCONTROLLEC HYPERTENSION CARDIAC HISTORY: CATHERIZATION: NO SURGERY: NO PROSTHETIC VALVE: NO PACEMAKER: NO MEASUREMENTS (cm) DIASTOLIC (NORMALS) SYSTOLIC (NORMALS) IVSd 1.0 (0.6-1.2) LA Diam 3.7 (1.9-4.0) LVEF 63% LVIDd 3.6 (3.5-5.7) LVIDs 2.4 (2.0-3.5) %FS 34% LVPWd 1.0 (0.6-1.2) Ao Diam 2.9 (2.0-3.7) 2 DIMENSIONAL ASSESSMENT: RIGHT ATRIUM: NORMAL LEFT ATRIUM: NORMAL RIGHT VENTRICLE: NORMAL LEFT VENTRICLE: NORMAL TRICUSPID VALVE: NORMAL MITRAL VALVE: NORMAL PULMONIC VALVE: NORMAL AORTIC VALVE: NORMAL PERICARDIAL EFFUSION: NONE AORTIC ROOT: NORMAL LEFT VENTRICULAR WALL MOTION: NORMAL DOPPLER/COLOR FLOW: MILD TRICUSPID REGURGITATION. NORMAL RIGHT VENTRICULAR SYSTOLIC PRESSURE. COMMENTS: NORMAL 2D ECHOCARDIOGRAM. MILD TRICUSPID REGURGITATION. Conclusions/Impression: A/ CONSTANCE in the setting of uncontrolled HTN. CKD III with proteinuria. Nephrotic. HTN with CKD. DM II with CKD. Hypocalcemia. Anemia in CKD. P/ Continue current POC and Medications. Give one liter of IVF. Discontinue amlodipine due to hx of edema. Start Doxazosin 2mg at bedtime. Will titrate as needed. Agree with Mucomyst prior to cardiac cath. Encouraged patient to proceed with cardiac cath despite CKD; Risks and benefits discussed. No NSAIDs. AM labs. Daily weight. Thank you kindly for the consultation.
--- NOTE | 2018-01-02 13:40 | PN ---
Date of Progress Note: 01/02/2018 Subjective: The patient seen and examined. Chart reviewed and case discussed with RN. The patient doing well. No chest pain. Shortness of breath has improved. Review of Systems: Negative except as above. Medications: List reviewed. Physical Examination: Vital Signs: Temperature 98.5, heart rate 84, blood pressure 122/58, respirations 18, O2 of 97% on room air. General: Awake, alert, oriented x3. No acute distress. Elderly female. CV: S1, S2. No murmurs. Regular rate and rhythm. Peripheral pulses present. Respiratory: Moving air well bilaterally. No wheezing. No stridor. Gastrointestinal: Abdomen is soft, nontender, nondistended. Positive bowel sounds. Extremities: No clubbing, cyanosis, edema. Neurologic: Nonfocal. Laboratory Data: Sodium 145, potassium 4.9, chloride 116, CO2 of 23, BUN 20, creatinine 2.1, glucose 235. Uric acid is 7, calcium 8. CK level was 46. Echocardiogram shows EF 63%. Assessment And Plan: A 62-year-old female with: 1. Hypertensive emergency, resolved. 2. Acute coronary syndrome. The patient going for heart catheterization on Thursday. Appreciate Dr. Kruger' input. 3. Acute kidney injury. Creatinine is slightly improved. We will continue with IV fluids. Avoid nonsteroidal anti-inflammatory drugs. Nephrology has been consulted. 4. Diabetes mellitus type 2 without long-term use of insulin, uncontrolled. Hemoglobin A1c is 8%. The patient has hyperglycemia. 5. Cardiomyopathy: Ejection fraction of 63%. Continue beta-blockers and MELVA inhibitor. Plan: Anticipate heart catheterization on Thursday. YAMIL Voice ID: [id number] Report ID: [id number] MTDD
--- NOTE | 2018-01-02 14:01 | PN ---
Ms. Higgins has an abnormal troponin, abnormal Cardiolite stress test. I would recommend we do a ca rdiac cath on Thursday, had a long discussion with the son, was hopeful to the point of being a little bit ride that he wanted her to be sent home. I recommended against doing that since she is post ND. She has renal dysfunction. I think we can use this time to try to improve her kidney function and d o a cardiac cath on Thursday. Recent non-STEMI patient, and I do not recommend her to go home. They a re seem to be in understanding at the end of the discussion. ELISABETH/EMILY Voice ID: [id number] Report ID: [id number]
[2018-01-02] MEDS ORDERED: NACHLORIDE 0.45% 1,000 ML IV SCH (21:00)
[2018-01-02] MEDS: DOXAZOSIN 2 MG TAB PO SCH (22:30)
[2018-01-03 04:46] LABS: Absolute Lymphocytes (CBC) 1.8 K/uL (0.7-4.9); Absolute Monocytes 0.8 K/uL (0.1-1.3); Absolute Neutrophil 4.8 K/uL (1.8-8.0); Basophils % 0.8 % (0-1.3); Eosinophils % 2.1 % (0-4.4); Lymphocytes % 24.1 % (15.3-44.8); MCH 30.3 pg (27.0-35.0); MCV 87.2 fL (80-100); MPV 8.9 fL (7.6-11.3); RBC Red Blood Cell Count 2.75 M/uL (3.86-4.86)
[2018-01-03 05:21] LABS: Magnesium 1.9 mg/dL (1.8-2.4); Phosphorus 3.7 mg/dL (2.5-4.9); Potassium 4.2 mmol/L (3.5-5.1); Uric Acid 6.9 mg/dL (2.6-6.0)
[2018-01-03] MEDS: METOPROLOL TAR 50 MG TAB PO SCH ×2 (05:32→17:36)
[2018-01-03 06:24] VITALS: BMI 27.3
[2018-01-03] MEDS: INSULIN -REGULAR HUMAN 50 UNIT/0.5 ML ML SQ SCH ×4 (08:34→21:43)
[2018-01-03] MEDS: LISINOPRIL 20 MG TAB PO SCH (08:35)
[2018-01-03] MEDS: GLIMEPIRIDE 2 MG TABLET PO SCH (08:35)
[2018-01-03] MEDS: HOME MED 1 EA UNK (Linagliptin [Tradjenta] 1 TAB) PO SCH (09:00)
[2018-01-03] MEDS: ACETYLCYST 20% 800 MG/4 ML VIAL PO SCH ×2 (11:15→21:43)
[2018-01-03] MEDS: ENOXAPARIN 30 MG/0.3 ML SQ SCH (11:16)
[2018-01-03] MEDS: CLOPIDOGREL 75 MG TABLET PO SCH (11:16)
[2018-01-03] MEDS: ASPIRIN 81 MG CHEWABLE TABLET PO SCH (11:16)
--- NOTE | 2018-01-03 11:17 | PN ---
Mrs. Higgins is having no more pain. Her renal function is better. She is getting hydration and Mu comyst, and I think with that, we can say it is reasonably safe to do a cardiac cath on her tomorrow. We will do an LV gram. We used the smallest amount of dye possible. We will attempt a radial appr oach first. The patient and her and other family members present seemed to understand. They agreed to proceed. They understand the radial approach may not work out and we will have to use the femoral approach in addition. They seemed to understand the potential benefits, indications, risks, and agreed to proceed. ELISABETH/EMILY Voice ID: [id number] Report ID: [id number]
--- NOTE | 2018-01-03 12:01 | P.PN ---
Date of Service: 01/03/18 Vital Signs Temp Pulse Resp BP Pulse Ox 97.0 F 66 18 171/72 H 98 01/03/18 08:00 01/03/18 08:00 01/03/18 08:00 01/03/18 08:35 01/03/18 08:00 Medications Acetaminophen (Tylenol -Extra Strength) 500 mg PO Q4HP PRN PRN Reason: [id number] Stop: 01/30/18 21:59 Last Admin: 01/01/18 17:25 Dose: 500 mg Acetylcysteine (Mucomyst 20% (Oral)) 600 mg PO BID [facility] Stop: 01/03/18 21:01 Last Admin: 01/03/18 11:15 Dose: 600 mg Aspirin (Aspirin Chewable) 162 mg PO DAILY [facility] Stop: 01/31/18 09:01 Last Admin: 01/03/18 11:16 Dose: 162 mg Clopidogrel Bisulfate (Plavix) 75 mg PO DAILY [facility] Stop: 02/01/18 09:01 Last Admin: 01/03/18 11:16 Dose: 75 mg Doxazosin Mesylate (Cardura) 2 mg PO BEDTIME [facility] Stop: 02/01/18 21:01 Last Admin: 01/02/18 22:30 Dose: 2 mg Enoxaparin Sodium (Lovenox 30 Mg Inj) 30 mg SQ DAILY [facility] Stop: 02/01/18 09:01 Last Admin: 01/03/18 11:16 Dose: 30 mg Glimepiride (Amaryl) 4 mg PO DAILY WITH BREAKFAST [facility] Stop: 02/01/18 08:01 Last Admin: 01/03/18 08:35 Dose: 4 mg Home Med (Linagliptin [Tradjenta]) 1 tab PO DAILY [facility] Stop: 02/01/18 09:01 Last Admin: 01/03/18 09:00 Dose: Not Given Hydralazine HCl (Apresoline) 10 mg IV Q4HP PRN PRN Reason: HIGH BP Stop: 01/30/18 21:59 Last Admin: 01/02/18 20:23 Dose: 10 mg Insulin Human Regular (Novolin -R) 0 unit SQ ACHS [facility]; Protocol Stop: 01/30/18 21:59 Last Admin: 01/03/18 11:51 Dose: 3 unit Lisinopril (Prinivil) 40 mg PO DAILY [facility] Stop: 01/31/18 09:01 Last Admin: 01/03/18 08:35 Dose: 40 mg Metoprolol Tartrate (Lopressor) 100 mg PO BID 6AM 6PM [facility] Stop: 01/31/18 18:01 Last Admin: 01/03/18 05:32 Dose: 100 mg Ondansetron HCl (Zofran) 4 mg IV Q6HP PRN PRN Reason: NAUSEA / VOMITING Stop: 01/30/18 21:59 Sodium Chloride (Normal Saline Flush) 10 ml IV BID [facility] Stop: 01/30/18 21:59 Last Admin: 01/03/18 11:19 Dose: 10 ml Lab Results (last 24 hrs) 01/02/18 11:32: Urine Color Yellow, Urine Appearance Clear, Urine pH 6.5, Ur Specific Babb 1.010, Urine Ketones Negative, Urine Blood Negative, Urine Nitrite Negative, Urine Bilirubin Negative, Urine Urobilinogen 0.2, Ur Leukocyte Esterase Negative, Urine RBC None seen, Urine WBC <5, Ur Squamous Epith Cells 10-20 H, Urine Bacteria 20-50 H, Urine Culture Reflexed Reflexed, Urine Glucose 1+ H, Urine Total Protein 3+ H 01/02/18 11:32: U Random Total Protein 239 H, Urine Creatinine 57.0, Protein/ Creatinin Ratio 4.19 H 01/02/18 11:32: Ur Random Microalbumin 205.0 H, Urine Creatinine 56.0, Microalb/ Creat Ratio 3660.7 H 01/02/18 11:14: POC Glucose 213 H Microbiology Results 01/02/18 11:32 Clean Catch Urine [place] Count - Preliminary <10,000 CFU/ML. 01/02/18 11:32 Clean Catch Urine - Preliminary Assessment/ Plan: Nephrology Doing well. CPS stable without CP or SOB. Good urine output. Vitals, medications, blood work and imaging reviewed in the chart. General: In no apparent distress, Oriented x3, Cooperative HEENT: Atraumatic, Mucous membr. moist/pink Neck: Supple Respiratory: Clear to auscultation bilaterally, Normal air movement Cardiovascular: No edema, Regular rate/rhythm, No rubs Gastrointestinal: Soft and benign, Non-distended, No guarding Musculoskeletal: No clubbing, No contractures Integumentary: No rashes, No cyanosis Neurological: Normal speech Blood work reviewed in the chart. Initial serum creatinine 1.9 Imagings Data: EXAM DESCRIPTION: US - Renal Ultrasound-Complete - 01/01/2018 9:33 pm CLINICAL HISTORY: Acute kidney injury COMPARISON: None. FINDINGS: The right kidney measures 10.4 x 5.2 x 5.5 cm. The left kidney measures 10.2 x 4.7 x 5.2 cm. Renal cortical thickness and echogenicity are normal. No hydronephrosis. In the upper pole right kidney a 2.1 centimeter oval hyperechoic mass is present. 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 CT imaging could be used for confirmation. No left-sided mass. Bladder cannot be adequately visualized. IMPRESSION: No hydronephrosis. 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 CT could be used for confirmation. HEIGHT: 5 ft 2 in WEIGHT: 145 lb 0 oz DATE OF STUDY: 01/01/[address]: 2-DIMENSIONAL: YES M.MODE: YES DOPPLER: YES COLOR FLOW: YES TDS: NO PORTABLE: NO DEFINITY: NO BUBBLE STUDY: NO DIAGNOSIS: UNCONTROLLEC HYPERTENSION CARDIAC HISTORY: CATHERIZATION: NO SURGERY: NO PROSTHETIC VALVE: NO PACEMAKER: NO MEASUREMENTS (cm) DIASTOLIC (NORMALS) SYSTOLIC (NORMALS) IVSd 1.0 (0.6-1.2) LA Diam 3.7 (1.9-4.0) LVEF 63% LVIDd 3.6 (3.5-5.7) LVIDs 2.4 (2.0-3.5) %FS 34% LVPWd 1.0 (0.6-1.2) Ao Diam 2.9 (2.0-3.7) 2 DIMENSIONAL ASSESSMENT: RIGHT ATRIUM: NORMAL LEFT ATRIUM: NORMAL RIGHT VENTRICLE: NORMAL LEFT VENTRICLE: NORMAL TRICUSPID VALVE: NORMAL MITRAL VALVE: NORMAL PULMONIC VALVE: NORMAL AORTIC VALVE: NORMAL PERICARDIAL EFFUSION: NONE AORTIC ROOT: NORMAL LEFT VENTRICULAR WALL MOTION: NORMAL DOPPLER/COLOR FLOW: MILD TRICUSPID REGURGITATION. NORMAL RIGHT VENTRICULAR SYSTOLIC PRESSURE. COMMENTS: NORMAL 2D ECHOCARDIOGRAM. MILD TRICUSPID REGURGITATION. Conclusions/Impression: A/ CONSTANCE in the setting of uncontrolled HTN. CKD III with proteinuria. Nephrotic. HTN with CKD. DM II with CKD. Hypocalcemia. Anemia in CKD. P/ Continue current POC and Medications. Will consider a liter of bicarb overnight in preparation for cardiac cath. Will titrate doxazosin as needed. Agree with Mucomyst prior to cardiac cath. Plan for cardiac cath in AM. No NSAIDs. AM labs. Daily weight.
--- NOTE | 2018-01-03 13:33 | PN ---
Date of Progress Note: 01/03/2018 Subjective: The patient seen and examined. Chart reviewed and case discussed with RN. The patient states she feels better. No shortness of breath or chest pain. Review of Systems: Negative except as above. Medications: Reviewed. Physical Examination: Vital Signs: Temperature 97, heart rate 66, blood pressure 171/72, respirations 18, O2 98% on room a ir. General: Awake, alert, oriented x3, not in any acute distress. Elderly female. CV: S1, S2. No murmurs. Regular rate and rhythm. Peripheral pulses present. Respiratory: Moving air well bilaterally. No wheezing. No stridor. No use of accessory muscles. Gastrointestinal: Abdomen is soft, nontender, nondistended. Positive bowel sounds. No guarding or rigidity. Extremities: No clubbing, cyanosis, or edema. Neurologic: Nonfocal. Laboratory Data: Sodium 142, potassium 4.2, chloride 112, CO2 21, BUN 19, creatinine 1.6, glucose 14 1, uric acid 6.9, calcium 8.1, phosphorus 3.7, magnesium 1.9. WBC 7.6, H and H 8.3 and 24, platelets 204. Urine culture, mixed parker. Assessment And Plan: 1.Acute coronary syndrome. 2.Hypertensive emergency. 3.Acute kidney injury. Creatinine has improved. We will continue with IV fluids. Appreciate Nephr ology input. Avoid NSAIDs. 4.Diabetes mellitus type 2 without long-term use of insulin, uncontrolled. Hemoglobin A1c 8% with h yperglycemia. 5.Cardiomyopathy. Plan: Heart catheterization in a.m., kidney function has improved. We will discuss further with [facility] hrology. /EMILY Voice ID: [id number] Report ID: [id number]
[2018-01-03] MEDS: VITAMIN D 5,000 UNIT CAP PO SCH (13:49)
[2018-01-03] MEDS: CALCITROL 0.25 MCG CAP PO SCH (13:49)
[2018-01-03] MEDS ORDERED: D5W 1,000 ML with NA BICARB 8.4% 50 MEQ IV SCH ×2 (19:30)
[2018-01-03] MEDS: DOXAZOSIN 2 MG TAB PO SCH (21:42)
[2018-01-04 05:03] LABS: Absolute Monocytes 0.9 K/uL (0.1-1.3); Basophils % 0.9 % (0-1.3); Eosinophils % 2.7 % (0-4.4); Hematocrit 23.7 % (36.0-45.0); Lymphocytes % 28.3 % (15.3-44.8); MCH 30.2 pg (27.0-35.0); MCV 86.4 fL (80-100); MPV 8.9 fL (7.6-11.3); Monocytes % 12.3 % (3.3-12.3); RBC Red Blood Cell Count 2.74 M/uL (3.86-4.86)
[2018-01-04 05:51] LABS: Folic Acid, (Folate) 18.9 ng/mL (3.1-17.5); Magnesium 2.1 mg/dL (1.8-2.4); Phosphorus 3.3 mg/dL (2.5-4.9); Uric Acid 7.3 mg/dL (2.6-6.0)
[2018-01-04] MEDS: CLOPIDOGREL 75 MG TABLET PO SCH (06:05)
[2018-01-04] MEDS: ASPIRIN 81 MG CHEWABLE TABLET PO SCH (06:06)
[2018-01-04] MEDS: LISINOPRIL 20 MG TAB PO SCH (06:07)
[2018-01-04] MEDS: METOPROLOL TAR 50 MG TAB PO SCH (06:07)
[2018-01-04] MEDS ORDERED: NA CHLORIDE 0.9% 500 ML ONE (07:34)
[2018-01-04] MEDS ORDERED: HEPA 1000U/500MLS 1,000 UNIT/500 ML BAG IV ONE (07:34)
[2018-01-04] MEDS ORDERED: LIDOCAINE 1% MPF 2 ML AMPULE ONE (07:34)
[2018-01-04] MEDS ORDERED: NA CHLORIDE 0.9% 0 ML ONE (07:35)
[2018-01-04] MEDS ORDERED: ATROPINE SULF 1 MG/10 ML SYR IV ONE (07:35)
[2018-01-04] MEDS ORDERED: FENTANYL CITR 100 MCG/2 ML ONE (07:35)
[2018-01-04] MEDS ORDERED: NICARDIPINE HCL 25 MG/10 ML IV ONE (07:35)
[2018-01-04] MEDS ORDERED: NITROGLYCERIN/D5W 25 MG/250 ML BTL IV ONE (07:35)
[2018-01-04] MEDS ORDERED: MIDAZOLAM HCL 2 MG/2 ML INJ ONE (07:35)
[2018-01-04] MEDS ORDERED: HEPARIN 5000 UNIT/ML 1 ML VIAL ONE (07:38)
[2018-01-04] MEDS ORDERED: LIDOCAINE 1% MPF 5 ML VIAL ONE (07:53)
[2018-01-04] MEDS: GLIMEPIRIDE 2 MG TABLET PO SCH (08:00)
[2018-01-04] MEDS ORDERED: HYDRALAZINE HCL 20 MG/ML VIAL ONE (08:02)
[2018-01-04] MEDS: HOME MED 1 EA UNK (Linagliptin [Tradjenta] 1 TAB) PO SCH (09:00)
[2018-01-04] MEDS: VITAMIN D 5,000 UNIT CAP PO SCH (09:00)
[2018-01-04] MEDS: CALCITROL 0.25 MCG CAP PO SCH (09:00)
[2018-01-04] MEDS: INSULIN -REGULAR HUMAN 50 UNIT/0.5 ML ML SQ SCH ×2 (09:03→12:22)
[2018-01-04] MEDS ORDERED: INSULIN -REGULAR HUMAN 50 UNIT/0.5 ML ML ONE (09:06)
[2018-01-04 12:13] VITALS: BP 132/63; TEMP 97.2
[2018-01-04 12:14] VITALS: O2SAT 97
--- NOTE | 2018-01-04 12:21 | OP ---
Surgeon: Satinder Kruger MD Procedure: Left heart catheterization, coronary angiography, left ventricular angiogram was not done . Procedure Findings: The patient has a right coronary that is free of any stenosis. Her left coronar y system in general is small in diameter, diffusely diseased. LAD has sequential stenosis of 90%. C ircumflex has a 99% and a 70% lesion. Her ejection fraction was normal by echocardiography a few day s ago and the recommendation is that she undergo bypass surgery. Procedure In Detail: The patient was brought to the cardiac maintenance shop laborer in a fasting state sedated with Versed and fentanyl. Prepared and draped in usual sterile fashion. First the right radial approach was used. The artery was entered using a 21-gauge needle, 0.021 inch diameter guidewire, 6-Pu[place]ican T erumo radial sheath, flushed, radial cocktail was given. We were then able to guide the catheter int o the ascending aorta, but there was so much tortuosity of the brachiocephalic artery in the aorta an d aortic root, we could not manipulate the catheter at all. So we abandoned the radial approach, tur paul our attention to the right femoral artery. We were able to angiogram left coronary with a JL-4, right coronary with a 3DRC, all 4-Pu[place]ican. We entered the artery using modified Seldinger technique. After lidocaine, 0.035 inch, a short J-wire was used modified, Seldinger technique, 4-[place]ican sheath, JL4, 3DRC. We took pressures in the left ventricle using the 3DRC catheter, but did not do an LV gr am. Estimated blood loss 20 cc. No complications. Closure of the right femoral artery arteriotomy was done with Angio-Seal, right radial artery using a TR band. ELISABETH/EMILY Voice ID: [id number] Report ID: [id number]
--- NOTE | 2018-01-05 11:43 | DS ---
Date of Discharge: 01/04/2018 Consultants: Dr. Kruger with Cardiology, Dr. Crenshaw with Nephrology. Procedures: On 01/04/2018, cardiac catheterization showed right coronary free of stenosis, left david nary system small in diameter, diffusely diseased LAD, sequential stenosis of 90%. Circumflex has a 99% and a 70% lesion. EF normal by echocardiography. Recommended to undergo bypass surgery. Admitting Diagnoses: 1.Diabetes mellitus type 2 without long-term use of insulin. 2.Hypertensive emergency. 3.Acute kidney injury. Discharge Diagnoses: 1.Acute coronary syndrome. 2.Hypertensive emergency. 3.Acute kidney injury. 4.Diabetes mellitus type 2 without long-term use of insulin, uncontrolled. Hemoglobin A1c 8% with h yperglycemia. 5.Cardiomyopathy. Hospital Course: The patient is a 62-year-old female with past medical history of diabetes, hyperten galina, comes in with uncontrolled blood pressure and with lightheadedness and headache. Systolic was in the 200s. She had abnormal EKG with some ST depressions in inferior lateral area. Troponin was 0 .08. The patient's blood pressure was controlled with IV medications. The patient did have some hector vated creatinine level above her baseline. The patient was seen by Nephrology. IV fluids were initi ated. She did have some improvement in her creatinine. Her hemoglobin A1c showed 8%, which is not w ell controlled. She was seen by Dr. Kruger with Cardiology, recommended the heart catheterization. In the meanwhile, she was on dual anti-platelet therapy. The patient was taken for the procedure as mentioned above, tolerated the procedure well. Had diffuse disease and Dr. Kruger recommended transf er to [facility] for coronary artery bypass graft. Transfer was initiated, the patient was accepted an d transferred to [facility] in a stable condition. Total time spent transferring the patient was 37 minutes. Physical Examination: General: Awake, alert, oriented x3. Mild distress. CV: S1, S2. No murmurs. Peripheral pulses present. Respiratory: Moving air well bilaterally. Abdomen: Soft, nontender, nondistended. Positive bowel sounds. Extremities: No clubbing, cyanosis, or edema. Cath site, no hematoma. Neurologic: Nonfocal. SA/MODL Voice ID: [id number] Report ID: [id number]
== END 2018-01-04 12:50 | disposition short-term general hospital (02) | DRG 281 ==
LOC: ER 16:38 → ERHOLD 20:01 → 2ND 21:15 → 4TH 01-01 21:31 → OBSVTOIN 01-02 12:41
PROVIDERS: ADMIT Internal Medicine; ATTEND Family Medicine
PROC: 4A023N7 Measurement of Cardiac Sampling and Pressure, Left Heart, Percutaneous Approach (ICD-10-PCS; principal; 2018-01-04)
PROC: B2111ZZ Fluoroscopy of Multiple Coronary Arteries using Low Osmolar Contrast (ICD-10-PCS; 2018-01-04)
DX: I21.4 Non-ST elevation (NSTEMI) myocardial infarction (principal); N17.9 Acute kidney failure, unspecified; I25.10 Atherosclerotic heart disease of native coronary artery without angina pectoris; I16.0 Hypertensive urgency; E11.65 Type 2 diabetes mellitus with hyperglycemia; I25.5 Ischemic cardiomyopathy; E11.22 Type 2 diabetes mellitus with diabetic chronic kidney disease; I12.9 Hypertensive chronic kidney disease with stage 1 through stage 4 chronic kidney disease, or unspecified chronic kidney disease; N18.3 Chronic kidney disease, stage 3 (moderate); D63.1 Anemia in chronic kidney disease; E83.51 Hypocalcemia
CPT/HCPCS: 36415; 71045; 76770; 78452; 80048; 80061; 80076; 81001; 81003; 81015; 82043; 82550; 82570; 82607; 82746; 82962; 83036; 83540; 83690; 83735; 84100; 84156; 84300; 84466; 84484; 84550; 85025; 86335; 87086; 87088; 93005; 93017; 93306; 96361; 96365; 96375; 99285; A9500; G0378; J0360; J0583; J1644; J1650; J2001; J2250; J2405; J2785; J3010; J7030

== ENCOUNTER 2018-01-27 22:43 | Emergency (ER) | payer OTHER, MEDICAID ==
--- OUTSIDE RECORDS SUMMARY | 2018-01-27 22:46 | XMS REPORT ---
:1955 Author Organization e[employer] Care Team Providers Name Role Phone Sherman, Na Provider Role Unavailable Allergies, Adverse Reactions, Alerts Substance Reaction Event Type N.K.D.A. Info Not Available Non Drug Allergy Problems Problem Type Condition Code Onset Dates Condition Status Problem Lymphadenopathy R59.1 Active Problem Type 2 diabetes E11.9 Active Problem CKD (chronic kidney disease) stage N18.3 Active 3, GFR 30-59 ml/min Problem Vitreous hemorrhage, bilateral H43.13 Active Assessment Proteinuria, unspecified R80.9 Active Problem Iron deficiency anemia, unspecified D50.9 Active iron deficiency anemia type Assessment Type 2 diabetes mellitus with other E11.29 Active diabetic kidney complication Problem Type 2 diabetes mellitus with other E11.29 Active diabetic kidney complication Problem Hypertension I10 Active Problem Cataract H26.9 Active Problem 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, without long-term current use of insulin, unspecified retinopathy severity Problem Hyperlipidemia E78.5 Active Assessment Hyperlipidemia E78.5 Active Assessment Hypertension I10 Active Assessment CKD (chronic kidney disease) stage N18.3 Active 3, GFR 30-59 ml/min Assessment Iron deficiency anemia, unspecified D50.9 Active iron deficiency anemia type Problem Goiter E04.9 Active Problem Iron deficiency anemia due to D50.0 Active chronic blood loss Assessment 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, without long-term current use of insulin, unspecified retinopathy severity Problem Subclinical hyperthyroidism E05.90 Active Problem Thyromegaly E04.9 Active Medications Medication Code Code Instructions Start End Status Dosage System Date Date HydrALAZINE HCl [facility] 40809226963 25 MG Orally November 17, Active 1 tablet Three times a 2018 with food day Metoprolol ND 11160006285 100 MG Orally Active 1 tablet Succinate ER Once a day Amlodipine ND 42686788320 10 MG Orally Active 1 tablet Besylate Once a day Tradjenta ND 92443988750 5 MG Orally November 17, Active 1 tablet Once a day 2017 Amlodipine [facility] 87180995662 10 MG Orally Inactive 1 tablet Besylate Once a day Lisinopril [facility] 76965084181 10MG Active TAKE ONE TABLET BY MOUTH ONCE DAILY Ferrous Sulfate [facility] 50444461643 325 (65 Fe) MG Active 1 tablet Orally three times a day Atorvastatin [facility] 40880210525 40MG Active TAKE ONE Calcium TABLET BY MOUTH ONCE DAILY Glimepiride [facility] 48670541887 4 MG Orally November 17, Active 1 tablet Once a day 2017 with breakfast or the first main meal of the day GlipiZIDE-Metfo [facility] 32245032051 5-500MG Inactive TAKE TWO rmin HCl TABLETS BY MOUTH TWICE DAILY Lipitor [facility] 34305289323 40 MG Orally Active 1 tablet Once a day Metoprolol [facility] 64557010814 100MG Active TAKE ONE Tartrate TABLET BY MOUTH TWICE DAILY Results Name Result Date Reference Range Unit Abnormality Flag HEMOGLOBIN A1c MICROALBUMIN, RANDOM URINE (W/CREATININE) Summary Purpose eClinicalWorks Submission
--- OUTSIDE RECORDS SUMMARY | 2018-01-27 22:46 | XMS REPORT ---
:1955 Author Organization [employer] Care Team Providers Name Role Phone Sherman, Na Provider Role Unavailable Allergies, Adverse Reactions, Alerts Substance Reaction Event Type N.K.D.A. Info Not Available Non Drug Allergy Problems Problem Type Condition Code Onset Dates Condition Status Problem Goiter E04.9 Active Problem Subclinical hyperthyroidism E05.90 Active Problem Iron deficiency anemia due to D50.0 Active chronic blood loss Problem Hypertension I10 Active Problem Cataract H26.9 Active Problem Hyperlipidemia E78.5 Active Problem Lymphadenopathy R59.1 Active Problem Thyromegaly E04.9 Active Problem Type 2 diabetes E11.9 Active Problem CKD (chronic kidney disease) stage N18.3 Active 3, GFR 30-59 ml/min Assessment Welcome to Medicare preventive Z00.00 Active visit Problem 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 65154549512 10 MG Orally August 20, Active 1 tablet Besylate Once a day 2017 Ferrous [place] 72110696022 325 (65 Fe) MG Active 1 tablet Sulfate Orally three times a day GlipiZIDE-Metf [facility] 52771051293 5-500MG Active TAKE TWO ormin HCl TABLETS BY MOUTH TWICE DAILY Lisinopril [facility] 82171460802 10MG Active TAKE ONE TABLET BY MOUTH ONCE DAILY Metoprolol ND 49032689786 100 MG Orally Active 1 tablet Succinate ER Once a day Lipitor ND 06293403391 40 MG Orally Active 1 tablet Once a day Results No Known Results Summary Purpose eClinicalWorks Submission
--- OUTSIDE RECORDS SUMMARY | 2018-01-27 22:46 | XMS REPORT | Clinical Summary ---
:1955 Author Organization [facility] Address [address] [place] [address] Phone Care Team Providers Name Role Phone Unavailable Primary Care Provider Unavailable Allergies No Known Allergies Current Medications Prescription Sig. Disp. Refills Start End Date Status Date amiodarone Take 1 tablet (200 60 tablet 1 01/22/20 Active (PACERONE) 200 MG mg total) by mouth 8 19 tablet 2 (two) times daily. aspirin 81 MG Take 1 tablet (81 30 tablet 1 01/23/20 Active chewable tablet mg total) by mouth 8 19 daily. atorvastatin Take 1 tablet (80 30 tablet 1 01/22/20 Active (LIPITOR) 80 MG mg total) by mouth 8 19 tablet nightly. carvedilol Take 1 tablet (25 60 tablet 1 01/22/20 Active (COREG) 25 MG mg total) by mouth 8 19 tablet 2 (two) times daily. hydrALAZINE Take 3 tablets (75 360 tablet 1 01/22/20 Active (APRESOLINE) 25 mg total) by mouth 8 19 MG tablet every 6 (six) hours. lisinopril Take 1 tablet (20 30 tablet 1 01/23/20 Active (PRINIVIL,ZESTRIL mg total) by mouth 8 19 ) 20 MG tablet daily. isosorbide Take 1 tablet (30 30 tablet 1 01/23/20 Active mononitrate mg total) by mouth 8 19 (IMDUR) 30 MG 24 daily. hr tablet insulin glargine Inject 25 Units 15 mL 0 Active (LANTUS SOLOSTAR subcutaneously 8 U-100 INSULIN) every morning And 100 unit/mL (3 15 units sq qhs. mL) InPn insulin lispro Inject 8 Units 3 mL 1 Active (HUMALOG KWIKPEN subcutaneously 3 8 INSULIN) 100 (three) times daily unit/mL InPn with meals. metoprolol Take 100 mg by 01/22/20 Discontinued (LOPRESSOR) 100 mouth 2 (two) times 18 MG tablet daily. lisinopril Take 10 mg by mouth 01/22/20 Discontinued (PRINIVIL,ZESTRIL daily. 18 ) 10 MG tablet hydrALAZINE Take 50 mg by mouth 01/22/20 Discontinued (APRESOLINE) 25 3 (three) times 18 MG tablet daily. glimepiride Take 4 mg by mouth 01/22/20 Discontinued (AMARYL) 4 MG every morning 18 tablet before breakfast. linagliptin Take 5 mg by mouth 01/22/20 Discontinued (TRADJENTA) 5 mg daily. 18 Tab liraglutide 0.6 Inject 01/22/20 Discontinued mg/0.1 mL (18 subcutaneously 18 mg/3 mL) PnIj nightly. 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) Respiratory insufficiency 01/11/2018 Anemia due to blood loss 01/11/2018 Hyperglycemia 01/11/2018 CAD (coronary artery disease), [place] coronary artery 01/04/2018 Encounters Date Type Specialty Care Team Description 01/11/2018 Procedure Pass 01/11/2018 Surgery Dioni Smith BYPASS,AORTO CORONARY MD Jason SAL/SVG 01/05/2018 Procedure Pass 01/04/2018 - Hospital Encounter Cardiology Meño Paredes Coronary artery 01/21/2018 MD Winston disease involving Dioni Smith [place] artery of MD Jason transplanted heart Brian Smith V., with unstable angina MD pectoris (HCC) 01/04/2018 Anesthesia Event Corby Hanson MD 01/04/2018 Orders Only Dioni Smith MD after 01/26/2017 Social History Tobacco Use Types Packs/Day Years Used Date Never Assessed Sex Assigned at Date Recorded Not on file Last Filed Vital Signs Vital Sign Reading Time Taken Blood Pressure 157/66 01/21/2018 7:39 AM CDT Pulse 81 01/21/2018 7:39 AM CDT Temperature 37.2 C (99 F) 01/21/2018 7:39 AM CDT Respiratory Rate 18 01/21/2018 7:39 AM CDT Oxygen Saturation 93% 01/21/2018 7:39 AM CDT Inhaled Oxygen Concentration - - Weight 66.8 kg (147 lb 4.8 oz) 01/20/2018 5:35 AM CDT Height 157.5 cm (5' 2") 01/05/2018 2:00 AM CDT Body Mass Index 26.94 01/20/2018 5:35 AM CDT Plan of Treatment Date Type Specialty Care Team Description 02/01/2018 Office Visit Cardiology Dioni Smith MD [address] [facility] [address] [id number] Procedures Procedure Name Priority Date/Time Associated Diagnosis Comments ENDOSCOPIC HARVEST,VEIN 01/11/2018 9:00 AM Coronary artery CDT disease due to calcified coronary lesion BYPASS,AORTO CORONARY 01/11/2018 9:00 AM Coronary artery SAL/SVG CDT disease due to calcified coronary lesion after 01/26/2017 Results RHYTHM STRIP - SCAN (01/22/2018 10:40 AM)VASCULAR DIAGRAM -SCAN (01/22/2018 10: 40 AM)POC-Glucose meter (01/21/2018 9:34 AM)Only the most recent of72 resultswithin the time period is included. Component Value Ref Range POC-Glucose Meter 120 (H)Comment: TESTED AT [address] 70 - 110 mg/[place] [address] Specimen Performing Laboratory Blood [facility] [address] [address] Basic Metabolic Panel (01/21/2018 5:00 AM)Only the most recent of18 resultswithin the time period is included. Component Value Ref Range Sodium 138 136 - 145 meq/L Potassium 4.0 3.5 - 5.1 meq/L Chloride 103 98 - 107 meq/L CO2 26 22 - 29 meq/L BUN 21 7 - 21 mg/dL Creatinine 1.90 (H) 0.57 - 1.25 mg/dL Glucose 112 (H) 70 - 105 mg/dL Calcium 8.6 8.4 - 10.2 mg/dL EGFR Comment: INSUFFICIENT CLINICAL DATA TO CALCULATE mL/min/1.73 sq m ESTIMATED GFR. Specimen Performing Laboratory Blood - Arm, Right [facility] [address] [address] XR chest 1 view portable / bedside (01/19/2018 12:47 PM)Only the most recent of5 resultswithin the time period is included. Specimen Performing Laboratory GE RIS Narrative FINAL REPORT TECHNIQUE: Frontal chest radiograph dated 01/19/2018. CLINICAL HISTORY: Possible fluid overload COMPARISON STUDY: Chest radiograph dated 01/13/2018 IMPRESSION: No change in airspace opacity in the left lung base. Minimal atelectasis is seen in the right lung base. No pleural effusion or pneumothorax. Cardiomediastinal silhouette is stable in size. No pulmonary edema. Midline sternotomy wires are intact and well aligned. No fracture. Signed: Lulu Nino MD Report Verified Date/Time:01/19/2018 13:20:02 Reading Location: [facility] Radiology Reading Room Procedure Note Interface, External Ris In - 01/19/2018 1:22 PM CDT FINAL REPORT TECHNIQUE: Frontal chest radiograph dated 01/19/2018. CLINICAL HISTORY: Possible fluid overload COMPARISON STUDY: Chest radiograph dated 01/13/2018 IMPRESSION: No change in airspace opacity in the left lung base. Minimal atelectasis is seen in the right lung base. No pleural effusion or pneumothorax. Cardiomediastinal silhouette is stable in size. No pulmonary edema. Midline sternotomy wires are intact and well aligned. No fracture. Signed: Lulu Nino MD Report Verified Date/Time: 01/19/2018 13:20:02 Reading Location: [facility] Radiology Reading Room with platelet count + automated diff (01/19/2018 10:31 AM)Only the most recent of16 resultswithin the time period is included. Component Value Ref Range WBC 12.6 (H) 3.5 - 10.5 K/L RBC 3.09 (L) 3.93 - 5.22 M/L Hemoglobin 8.8 (L) 11.2 - 15.7 GM/DL Hematocrit 28.0 (L) 34.1 - 44.9 % MCV 90.6 79.4 - 94.8 fL MCH 28.5 25.6 - 32.2 pg MCHC 31.4 (L) 32.2 - 35.5 GM/DL RDW 14.3 11.7 - 14.4 % Platelets 407 150 - 450 K/CU MM MPV 9.9 9.4 - 12.3 fL nRBC 0 0 - 0 /100 WBC % Neutros 71 % % Lymphs 15 % % Monos 10 % % Eos 2 % % Baso 1 % # Neutros 8.95 (H) 1.56 - 6.13 K/L # Lymphs 1.94 1.18 - 3.74 K/L # Monos 1.29 (H) 0.24 - 0.36 K/L # Eos 0.20 0.04 - 0.36 K/L # Baso 0.08 0.01 - 0.08 K/L Immature Granulocytes-Relative 1 0 - 1 % Specimen Performing Laboratory Blood [address] [address] CBC with platelet count + automated diff (01/19/2018 10:31 AM)Only the most recent of16 resultswithin the time period is included. Specimen Performing Laboratory Blood Narrative The following orders were created for panel order CBC with platelet count + automated diff. Procedure Abnormality Status --------- ------ CBC with platelet count ...[[id number]]AbnormalFinal result Please view results for these tests on the individual orders. B-type Natriuretic Factor (BNP) (01/19/2018 10:31 AM) Component Value Ref Range BNP 1089 (H) 0 - 100 pg/mL Specimen Performing Laboratory Blood [address] [address] Magnesium (01/15/2018 5:12 AM)Only the most recent of15 resultswithin the time period is included. Component Value Ref Range Magnesium 2.5 1.6 - 2.6 mg/dL Specimen Performing Laboratory Blood - Arm, Left [address] [address] TRANSFUSION SERVICE REPORT - SCAN (01/13/2018 6:00 PM)Only the most recent of4 resultswithin the time period is included.Urinalysis w/Microscopic + Reflex to Culture (01/13/2018 4:52 PM) Component Value Ref Range Color, UA Yellow Clarity, UA Hazy Specific [place], UA 1.016 1.001 - 1.035 pH, UA 5.5 5.0 - 8.0 Protein, UA 200 mg/dL (A) Negative Glucose, UA 30 mg/dL (A) Negative Ketones, UA Trace (A) Negative Bilirubin, UA Negative Negative Blood, UA Negative Negative Nitrite, UA Negative Negative Leukocytes, UA Negative Negative Urobilinogen, UA 0.2 0.2 - 1.0 mg/dL RBC, UA 1 /HPF WBC, UA 3 /HPF Bacteria, UA Rare Mucus Rare Squam Epithel, UA 2 /HPF Specimen Source Specimen Performing Laboratory Urine - Urine, Clean Catch [address] [address] EKG 12 lead (01/13/2018 6:58 AM)Only the most recent of5 resultswithin the time period is included. Specimen Performing Laboratory GE MUSE Narrative Ventricular Rate 80 BPM Atrial Rate 80 BPM P-R Interval 172 ms QRS Duration 82 ms Q-T Interval 336 ms QTC Calculation(Bazett) 387 ms P [place] 27 degrees R [place] -16 degrees T [place] 19 degrees Normal sinus rhythm Possible Anterolateral infarct , age undetermined Abnormal ECG When compared with ECG of 11-JAN-2018 ST-T abnormality has resolved Reconfirmed by MD NIRMAL, IHAB ([id number]) on 01/13/2018 2:49:19 PM Procedure Note Interface, External Ris In - 01/13/2018 2:49 PM CDT Ventricular Rate 80 BPM Atrial Rate 80 BPM P-R Interval 172 ms QRS Duration 82 ms Q-T Interval 336 ms QTC Calculation(Bazett) 387 ms P [place] 27 degrees R [place] -16 degrees T [place] 19 degrees Normal sinus rhythm Possible Anterolateral infarct , age undetermined Abnormal ECG When compared with ECG of 11-JAN-2018 ST-T abnormality has resolved Reconfirmed by MD NIRMAL, IHAB ([id number]) on 01/13/2018 2:49:19 PM pH, venous (01/13/2018 6:41 AM) Component Value Ref Range pH, Clive 7.31 (L) 7.32 - 7.42 Specimen Performing Laboratory Blood [address] [address] Manual Differential (01/13/2018 5:12 AM) Component Value Ref Range % Neutros 83 % % Lymphs 3 % % Monos 3 % % Bands 11 (H) 0 - 10 % # Neutros 13.86 (H) 1.56 - 6.13 K/ul # Lymphs 0.50 (L) 1.18 - 3.74 K/ul # Monos 0.50 (H) 0.24 - 0.36 K/uL # Bands 1.84 (H) 0.00 - 0.80 K/uL Total Counted 100 WBC Morphology Normal Platelet Morphology Normal Polychromasia 1+ few Anisocytosis 1+ few Artifact Present Platelet Conc Adequate Specimen Performing Laboratory Blood - Arm, [address] [address] Narrative Received comment: User comments: Slide comments: Phosphorus (01/13/2018 5:12 AM)Only the most recent of4 resultswithin the time period is included. Component Value Ref Range Phosphorus 6.4 (H) 2.3 - 4.7 mg/dL Specimen Performing Laboratory Blood - Arm, [address] [address] Prepare RBC (01/12/2018 11:54 PM) Component Value Ref Range CROSSMATCH COMPATIBLE Unit ABO O Pos UNIT NUMBER [id number] Status TRANSFUSED Blood Bank Product RED BLOOD CELLS PRODUCT CODE R0605N92 CROSSMATCH COMPATIBLE Unit ABO O Pos UNIT NUMBER [id number] Status RETURNED FROM ISSUE Blood Bank Product RED BLOOD CELLS PRODUCT CODE E2983L58 CROSSMATCH COMPATIBLE Unit ABO O Pos UNIT NUMBER [id number] Status TRANSFUSED Blood Bank Product RED BLOOD CELLS PRODUCT CODE D6428A08 CROSSMATCH COMPATIBLE Unit ABO O Pos UNIT NUMBER [id number] Status RETURNED FROM ISSUE Blood Bank Product RED BLOOD CELLS PRODUCT CODE [id number] Specimen Performing Laboratory [place] Blood gas, arterial (01/11/2018 10:33 PM)Only the most recent of9 resultswithin the time period is included. Component Value Ref Range pH, Arterial 7.33 (L) 7.35 - 7.45 pCO2, Arterial 39 35 - 45 mmHg pO2, Arterial 96 (H) 80 - 90 mmHg O2 Sat, Arterial 96.9 96.0 - 97.0 % HCO3, Arterial 20 (L) 21 - 29 mmol/L Base Excess, Arterial -5.2 (L) -2.0 - 3.0 mmol/L Patient Temperature 37.3 C FIO2 36.0 % Specimen Performing Laboratory Blood, Arterial - Line, Arterial [address] [address] Potassium-Stat Lab (01/11/2018 6:00 PM)Only the most recent of7 resultswithin the time period is included. Component Value Ref Range Potassium 4.6 3.6 - 5.5 meq/L Specimen Performing Laboratory Blood, Arterial - Line, Arterial [address] [address] Potassium-STAT (01/11/2018 4:20 PM) Component Value Ref Range Potassium 5.4 (H) 3.5 - 5.1 meq/L Specimen Performing Laboratory Blood - Line, [address] [address] Narrative Done at stat lab. Glucose-STAT (01/11/2018 4:20 PM)Only the most recent of2 resultswithin the time period is included. Component Value Ref Range Glucose 189 (H) 70 - 105 mg/dL Specimen Performing Laboratory Blood - Line, [address] [address] Narrative Done at stat lab. Lactic acid, arterial, whole blood (01/11/2018 3:39 PM) Component Value Ref Range Lactate, Art 0.7 0.5 - 2.2 mmol/L Specimen Performing Laboratory Blood, Arterial - Line, Arterial [address] [address] Narrative Effective 09/26/2015: Units/Reference Range Change New: 0.5-2.2 mmol/LPrevious: 5-20 mg/dL Oxygen saturation, measured (01/11/2018 3:05 PM) Component Value Ref Range O2 Saturation (Measured) 76.7 % Specimen Performing Laboratory Blood [address] [address] RRL Critical Labs (ABG,NA,K,H&H,GLU) (01/11/2018 3:00 PM)Only the most recent of6 resultswithin the time period is included. Specimen Performing Laboratory Blood, Arterial Narrative The following orders were created for panel order L Critical Labs (ABG,NA,K,H&H,GLU). Procedure Abnormality Status --------- ------ Blood gas, arterial[[id number]]AbnormalFinal result Sodium Na-Stat Lab[[id number]] NormalFinal result Potassium-Stat Lab[[id number]] AbnormalFinal result Glucose-Stat Lab[[id number]] AbnormalFinal result HGB/HCT (H&H)-Stat Lab[[id number]] Abnormal Final result Please view results for these tests on the individual orders. Sodium Na-Stat Lab (01/11/2018 3:00 PM)Only the most recent of6 resultswithin the time period is included. Component Value Ref Range Sodium 141 135 - 148 meq/L Specimen Performing Laboratory Blood, Arterial [address] [address] Glucose-Stat Lab (01/11/2018 3:00 PM)Only the most recent of6 resultswithin the time period is included. Component Value Ref Range Glucose 182 (H) 70 - 110 mg/dL Specimen Performing Laboratory Blood, Arterial [address] [address] HGB/HCT (H&H)-Stat Lab (01/11/2018 3:00 PM)Only the most recent of6 resultswithin the time period is included. Component Value Ref Range Hemoglobin 9.8 (L) 12.0 - 15.0 g/dL Hematocrit 29.0 (L) 36.0 - 45.0 % Specimen Performing Laboratory Blood, Arterial [address] [address] Sodium (01/11/2018 3:00 PM) Component Value Ref Range Sodium 140 136 - 145 meq/L Specimen Performing Laboratory Blood [address] [address] Calcium, Ionized (01/11/2018 1:37 PM)Only the most recent of2 resultswithin the time period is included. Component Value Ref Range Calcium, Ion 1.02 (L) 1.12 - 1.27 mmol/L pH, Blood 7.28 Specimen Performing Laboratory [address] [address] POC ACTIVATED CLOTTING TIME (01/11/2018 1:37 PM)Only the most recent of4 resultswithin the time period is included. Component Value Ref Range Activated Clotting Time 120Comment: TESTED AT [address] sec [address] Specimen Performing Laboratory [address] [address] Blood gas, venous (01/11/2018 12:49 PM) Component Value Ref Range pH, Clive 7.30 (L) 7.32 - 7.42 pCO2, Clive 43 41 - 51 mmHg pO2, Clive 43 (H) 25 - 40 mmHg O2 Sat, Clive 89.5 (H) 40.0 - 70.0 % HCO3, Clive 22 21 - 29 mmol/L Base Excess, Clive -5.2 (L) -2.0 - 3.0 mmol/L Patient Temperature 30.0 C FIO2 60.0 % Specimen Performing Laboratory [address] [address] PT/aPTT (01/11/2018 4:07 AM)Only the most recent of2 resultswithin the time period is included. Component Value Ref Range Protime 14.2 11.7 - 14.7 seconds INR 1.1 <=5.9 PTT 41.3 (H) 22.5 - 36.0 seconds Specimen Performing Laboratory Blood [address] [address] Narrative RECOMMENDED COUMADIN/WARFARIN INR THERAPY RANGES STANDARD DOSE: 2.0 - 3.0 Includes: PROPHYLAXIS for venous thrombosis, systemic embolization; TREATMENT for venous thrombosis and/or pulmonary embolus. HIGH RISK: Target INR is 2.5-3.5 for patients with mechanical heart valves. aPTT (01/11/2018 4:07 AM)Only the most recent of2 resultswithin the time period is included. Component Value Ref Range PTT 41.3 (H) 22.5 - 36.0 seconds Specimen Performing Laboratory Blood [address] [address] Prothrombin time/INR (01/11/2018 4:07 AM)Only the most recent of2 resultswithin the time period is included. Component Value Ref Range Protime 14.2 11.7 - 14.7 seconds INR 1.1 <=5.9 Specimen Performing Laboratory Blood [address] [address] Narrative RECOMMENDED COUMADIN/WARFARIN INR THERAPY RANGES STANDARD DOSE: 2.0 - 3.0 Includes: PROPHYLAXIS for venous thrombosis, systemic embolization; TREATMENT for venous thrombosis and/or pulmonary embolus. HIGH RISK: Target INR is 2.5-3.5 for patients with mechanical heart valves. TSH (01/11/2018 4:07 AM)Only the most recent of2 resultswithin the time period is included. Component Value Ref Range TSH 0.13 (L) 0.35 - 4.94 uIU/mL Specimen Performing Laboratory Blood [address] [address] Hemoglobin A1c (01/11/2018 4:07 AM)Only the most recent of3 resultswithin the time period is included. Component Value Ref Range Hemoglobin A1C 7.7 (H) 4.3 - 6.1 % Specimen Performing Laboratory Blood [address] [address] Lipid panel (01/11/2018 4:07 AM)Only the most recent of2 resultswithin the time period is included. Component Value Ref Range Triglycerides 227 mg/dL Cholesterol 156 mg/dL HDL 38 mg/dL LDL Calculated 73 mg/dL Specimen Performing Laboratory [address] [address] Narrative Triglyceride Reference Range: Low Risk <150 [id number] High Risk 200-499 Very High Risk>=500 Cholesterol Reference Range: Low Risk <200 Musycmcifv651-474 High Risk>240 HDL Cholesterol Reference Range: Low Risk >=60 High Risk <40 LDL Cholesterol Reference Range: Optimal<100 Near Bvpqprx824-250 Ditlcantld166-240 Bhhy774-293 Very High >=190 Comprehensive metabolic panel (01/11/2018 4:07 AM)Only the most recent of2 resultswithin the time period is included. Component Value Ref Range Protein, Total 5.8 (L) 6.0 - 8.3 gm/dL Albumin 3.0 (L) 3.5 - 5.0 g/dL Alkaline Phosphatase 64 40 - 150 U/L Total Bilirubin 0.2 0.2 - 1.2 mg/dL Sodium 139 136 - 145 meq/L Potassium 4.2 3.5 - 5.1 meq/L Chloride 112 (H) 98 - 107 meq/L CO2 19 (L) 22 - 29 meq/L BUN 28 (H) 7 - 21 mg/dL Creatinine 1.91 (H) 0.57 - 1.25 mg/dL Glucose 158 (H) 70 - 105 mg/dL Calcium 8.7 8.4 - 10.2 mg/dL AST 19 5 - 34 U/L ALT 20 6 - 55 U/L EGFR Comment: INSUFFICIENT CLINICAL DATA TO mL/min/1.73 sq m CALCULATE ESTIMATED GFR. Specimen Performing Laboratory Blood [address] [address] Type and screen, automated (01/10/2018 4:12 PM)Only the most recent of2 resultswithin the time period is included. Component Value Ref Range ABO/RH AUTOMATED (BEAKER) O POSITIVE Ab Scrn NEGATIVE Specimen Performing Laboratory Blood [address] [address] Urine Protein Electrophoresis, random (01/08/2018 5:07 AM) Component Value Ref Range Protein, Urine 276 (H) 0 - 14 mg/dL Albumin %, Urine 63.2 % Globulin %, Urine 36.8 % UPEP,ID No monoclonal bands detected. Pathologist: Ping Chiang MD (electronic signature) Specimen Performing Laboratory Urine [address] [address] HIV-1 Antigen with HIV-1/2 Antibody (01/08/2018 4:44 AM) Component Value Ref Range HIV-1 Antigen with HIV 1&2 Antibody Nonreactive Nonreactive Specimen Performing Laboratory Blood - Arm, Right [address] [address] Hepatitis panel, acute (01/08/2018 4:44 AM) Component Value Ref Range Hep A IgM Nonreactive Nonreactive Hep B C IgM Nonreactive Nonreactive Hepatitis C Ab Nonreactive Nonreactive hepatitis B Surface Ag Nonreactive Nonreactive Specimen Performing Laboratory Blood - Arm, Right [address] [address] RPR (01/08/2018 4:44 AM) Component Value Ref Range RPR Nonreactive Nonreactive Specimen Performing Laboratory Blood - Arm, Right [address] [address] Protein electrophoresis, serum (01/08/2018 4:44 AM) Component Value Ref Range Albumin Fraction 2.6 (L) 3.5 - 5.5 g/dL Alpha 1 Fraction 0.3 0.2 - 0.4 g/dL Alpha 2 Fraction 0.9 0.5 - 0.9 g/dL Beta Fraction 0.8 0.6 - 1.1 g/dL Gamma Globulin Fraction 0.8 0.7 - 1.7 g/dL Interpretation Pattern consistent with acute inflammatory response. No monoclonal bands detected. Pathologist: Ping Chiang MD (electronic signature) Protein, Total 5.4 (L) 6.0 - 8.3 gm/dL Specimen Performing Laboratory Blood - Arm, Right [address] [address] US renal complete (01/07/2018 4:07 AM) Specimen Performing Laboratory feedPack FINAL REPORT EXAM: RENAL ULTRASOUND CLINICAL HISTORY:ACUTE RENAL FAILURE TECHNIQUE: A complete renal ultrasound was performed in the usual fashion with transabdominal imaging. FINDINGS: The right kidney measures 11 x 5 x 5 cm. The left kidney measures 11 x 5 x 6 cm. No evidence of hydronephrosis or nephrolithiasis. The kidneys demonstrate subtle diffuse increased cortical echogenicity. The right renal cortical thickness measures 1.5 cm. The left renal cortical thickness measures 1.6 cm. The interpolar region of the right kidney is associated with an echogenic 1.9 cm nodule. The superior-lateral aspect of the left kidney is associated with a 1.5 cm echogenic nodule. The main renal arteries and veins were patent where visible. The bladder volume was 96 cc. IMPRESSION: Small echogenic cortical nodules involving both kidneys. Findings are nonspecific and may reflect cortical scarring and/or angiomyolipomas. However, a more aggressive underlying renal neoplasm cannot be excluded. A dedicated renal protocol CT or MRI would be beneficial in further characterization. Mild increased renal echogenicity suggesting a component of chronic medical renal disease. No evidence of an acute obstructive uropathy. Signed: Toribio Becerril MD Report Verified Date/Time:01/07/2018 04:53:04 Reading Location: [address] Transitional Reading Room Procedure Note Interface, External Ris In - 01/07/2018 4:55 AM CDT FINAL REPORT EXAM: RENAL ULTRASOUND CLINICAL HISTORY: ACUTE RENAL FAILURE TECHNIQUE: A complete renal ultrasound was performed in the usual fashion with transabdominal imaging. FINDINGS: The right kidney measures 11 x 5 x 5 cm. The left kidney measures 11 x 5 x 6 cm. No evidence of hydronephrosis or nephrolithiasis. The kidneys demonstrate subtle diffuse increased cortical echogenicity. The right renal cortical thickness measures 1.5 cm. The left renal cortical thickness measures 1.6 cm. The interpolar region of the right kidney is associated with an echogenic 1.9 cm nodule. The superior-lateral aspect of the left kidney is associated with a 1.5 cm echogenic nodule. The main renal arteries and veins were patent where visible. The bladder volume was 96 cc. IMPRESSION: Small echogenic cortical nodules involving both kidneys. Findings are nonspecific and may reflect cortical scarring and/or angiomyolipomas. However, a more aggressive underlying renal neoplasm cannot be excluded. A dedicated renal protocol CT or MRI would be beneficial in further characterization. Mild increased renal echogenicity suggesting a component of chronic medical renal disease. No evidence of an acute obstructive uropathy. Signed: Toribio Becerril MD Report Verified Date/Time: 01/07/2018 04:53:04 Reading Location: [address] Transitional Reading Room Protein, random urine (01/05/2018 7:38 PM)Only the most recent of2 resultswithin the time period is included. Component Value Ref Range Protein, Urine 455 (H) 0 - 14 mg/dL Specimen Performing Laboratory Urine [facility] [address] [address] Creatinine, random urine (01/05/2018 7:38 PM)Only the most recent of2 resultswithin the time period is included. Component Value Ref Range Creatinine, Ur 68.6 mg/dL Specimen Performing Laboratory Urine [facility] [address] [address] Narrative Reference Range: No Normals CT chest with IV contrast (01/05/2018 12:19 AM) Specimen Performing Laboratory GE RIS Narrative FINAL REPORT CT, CHEST, WITH CONTRAST INDICATION: mediastinal mass mediastinal mass COMPARISON: None TECHNIQUE:Noncontrast axially oriented images were obtained from the thoracic inlet through the lung bases.Coronal and sagittal reformats were provided. DOSE REDUCTION: Dose modulation, iterative reconstruction, and/or weight-based adjustment of the mA/kV was utilized to reduce the radiation dose to as low as reasonably achievable. FINDINGS: There is a large, partially calcified mass arising from the left thyroid lobe, extending superiorly outside the imaging volume. There is inferior extension into the superior mediastinum with mass effect displacing the trachea laterally to the right. Maximal dimensions are 5.2 x 5.5 x 3.0 cm. A smaller, similar mass is present in the right thyroid lobe, also extending superiorly outside the imaging volume. Neither of these lesions demonstrate extension outside the thyroid capsule. There is no pathologic adenopathy within the mediastinum, axillary or supraclavicular station. Cardiac size is within normal limits. There is no pericardial effusion. Calcified coronary artery disease is present. The trachea and mainstem bronchi are patent. Great thoracic vessels demonstrate normal caliber. There is no focal consolidation in the lungs. No effusion or pneumothorax is present. Review of osseous structures reveals no aggressive lesion. Included portions of the upper abdomen demonstrate no acute abnormalities. IMPRESSION: Partially calcified masses in both thyroid lobes with extension into the superior mediastinum. No invasive features. Correlation with thyroid function tests recommended. Mass effect displaces the trachea laterally to the right without invasion or occlusion. No evidence of intrathoracic metastatic disease. Signed: JR Velásquez Robert MD Report Verified Date/Time:01/05/2018 00:35:47 Reading Location: [facility] B1 C013Y CT Body Reading Room Procedure Note Interface, External Ris In - 01/05/2018 12:38 AM CDT FINAL REPORT CT, CHEST, WITH CONTRAST INDICATION: mediastinal mass mediastinal mass COMPARISON: None TECHNIQUE: Noncontrast axially oriented images were obtained from the thoracic inlet through the lung bases. Coronal and sagittal reformats were provided. DOSE REDUCTION: Dose modulation, iterative reconstruction, and/or weight-based adjustment of the mA/kV was utilized to reduce the radiation dose to as low as reasonably achievable. FINDINGS: There is a large, partially calcified mass arising from the left thyroid lobe, extending superiorly outside the imaging volume. There is inferior extension into the superior mediastinum with mass effect displacing the trachea laterally to the right. Maximal dimensions are 5.2 x 5.5 x 3.0 cm. A smaller, similar mass is present in the right thyroid lobe, also extending superiorly outside the imaging volume. Neither of these lesions demonstrate extension outside the thyroid capsule. There is no pathologic adenopathy within the mediastinum, axillary or supraclavicular station. Cardiac size is within normal limits. There is no pericardial effusion. Calcified coronary artery disease is present. The trachea and mainstem bronchi are patent. Great thoracic vessels demonstrate normal caliber. There is no focal consolidation in the lungs. No effusion or pneumothorax is present. Review of osseous structures reveals no aggressive lesion. Included portions of the upper abdomen demonstrate no acute abnormalities. IMPRESSION: Partially calcified masses in both thyroid lobes with extension into the superior mediastinum. No invasive features. Correlation with thyroid function tests recommended. Mass effect displaces the trachea laterally to the right without invasion or occlusion. No evidence of intrathoracic metastatic disease. Signed: JR Christen, Migel VALVERDE Report Verified Date/Time: 01/05/2018 00:35:47 Reading Location: [facility] C0Y CT Body Reading Room Urinalysis Microscopic Only (01/04/2018 6:29 PM) Component Value Ref Range RBC, UA 0 /HPF WBC, UA 2 /HPF Bacteria, UA Occasional Mucus Rare Squam Epithel, UA 1 /HPF Specimen Performing Laboratory Urine - Urine, Voided [facility] [address] [address] Urinalysis with Microscopic If Indicated (01/04/2018 6:29 PM) Component Value Ref Range Color, UA Light Yellow Clarity, UA Clear Specific [place], UA 1.020 1.001 - 1.035 pH, UA 6.0 5.0 - 8.0 Protein, UA 300 mg/dL (A) Negative Glucose, UA 150 mg/dL (A) Negative Ketones, UA Negative Negative Bilirubin, UA Negative Negative Blood, UA Negative Negative Nitrite, UA Negative Negative Leukocytes, UA Negative Negative Urobilinogen, UA 0.2 0.2 - 1.0 mg/dL Specimen Source Specimen Performing Laboratory Urine - Urine, Voided [address] [address] Sodium, random urine (01/04/2018 6:29 PM) Component Value Ref Range Sodium Urine 46 meq/L Specimen Performing Laboratory Urine - Urine, Voided [address] [address] Narrative Reference Range: No Normals TSH/Free T4 If Indicated (01/04/2018 4:24 PM) Component Value Ref Range TSH 0.08 (L) 0.35 - 4.94 uIU/mL Specimen Performing Laboratory Blood [address] [address] T4, free (01/04/2018 4:24 PM) Component Value Ref Range Free T4 1.25 0.70 - 1.48 ng/dL Specimen Performing Laboratory Blood [address] [address] Hepatic function panel (01/04/2018 4:24 PM) Component Value Ref Range Protein, Total 5.9 (L) 6.0 - 8.3 gm/dL Albumin 3.1 (L) 3.5 - 5.0 g/dL Total Bilirubin 0.2 0.2 - 1.2 mg/dL Bilirubin, Direct 0.1 0.1 - 0.5 mg/dL Alkaline Phosphatase 67 40 - 150 U/L AST 54 (H) 5 - 34 U/L ALT 50 6 - 55 U/L Specimen Performing Laboratory Blood [address] [address] after 01/26/2017
--- OUTSIDE RECORDS SUMMARY | 2018-01-27 22:46 | XMS REPORT ---
:1955 Author Organization eClinicalWorks Care Team Providers Name Role Phone Sherman, Na Provider Role Unavailable Allergies No Known Allergies Problems Problem Type Condition Code Onset Dates Condition Status Problem Lymphadenopathy R59.1 Active Problem Type 2 diabetes E11.9 Active Problem CKD (chronic kidney disease) stage N18.3 Active 3, GFR 30-59 ml/min Problem Vitreous hemorrhage, bilateral H43.13 Active Problem Iron deficiency anemia, unspecified D50.9 Active iron deficiency anemia type Problem Type 2 diabetes mellitus with other E11.29 Active diabetic kidney complication Problem Hypertension I10 Active Problem Cataract H26.9 Active Problem 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, without long-term current use of insulin, unspecified retinopathy severity Problem Hyperlipidemia E78.5 Active Problem Goiter E04.9 Active Problem Iron deficiency anemia due to D50.0 Active chronic blood loss Assessment 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, without long-term current use of insulin, unspecified retinopathy severity Problem Subclinical hyperthyroidism E05.90 Active Problem Thyromegaly E04.9 Active Medications Medication Code Code Instructions Start End Status Dosage System Date Date GlipiZIDE-Metf [facility] 33092750201 5-500 MG Orally November 26, Inactive 2 tablet ormin HCl Twice a day 2017 with a meal Glimepiride ND 35770784009 4 MG Orally November 17, Active 1 tablet Once a day 2017 with breakfast or the first main meal of the day Amlodipine ND 18964925300 10 MG Orally Inactive 1 tablet Besylate Once a day Results No Known Results Summary Purpose eClinicalWorks Submission
--- OUTSIDE RECORDS SUMMARY | 2018-01-27 22:46 | XMS REPORT ---
[...] Problem Thyromegaly E04.9 Active Medications Medication Code System Code Instructions Start Date End Date Status Dosage Tradjenta [facility] [id number] 5 MG Orally Once November 17, Active 1 tablet a day 2017 Results No Known Results Summary Purpose eClinicalWorks Submission
--- OUTSIDE RECORDS SUMMARY | 2018-01-27 22:46 | XMS REPORT ---
[...] to D50.0 Active chronic blood loss Problem Subclinical hyperthyroidism E05.90 Active Problem Thyromegaly E04.9 Active Medications Medication Code Code Instructions Start End Date Status Dosage System Date [facility] 69778689679 5-500 MG Orally November 26, Active 2 tablet ormin HCl Twice a day 2017 with a meal Results No Known Results Summary Purpose eClinicalWorks Submission
--- OUTSIDE RECORDS SUMMARY | 2018-01-27 22:46 | XMS REPORT ---
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 03402468773 100 MG Orally Active 1 tablet Succinate ER Once a day Lisinopril [facility] 94560973603 10MG Active TAKE ONE TABLET BY MOUTH ONCE DAILY Ferrous [facility] [address]-72 325 (65 Fe) MG Active 1 tablet Sulfate Orally three times a day Amlodipine ND 75226520514 10 MG Orally July Active 1 tablet Besylate Once a day 2017 Lipitor [facility] 49606076422 40 MG Orally Active 1 tablet Once a day GlipiZIDE-Metf [facility] 78909850655 5-500MG Active TAKE TWO ormin HCl TABLETS BY MOUTH TWICE DAILY Results No Known Results Summary Purpose eClinicalWorks Submission
--- OUTSIDE RECORDS SUMMARY | 2018-01-27 22:47 | XMS REPORT ---
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, without long-term current use of insulin, unspecified retinopathy severity Problem Type 2 diabetes mellitus with other E11.29 Active diabetic kidney complication Problem Vitreous hemorrhage, bilateral H43.13 Active Problem CKD (chronic kidney disease) stage N18.3 Active 3, GFR 30-59 ml/min Problem Hypertension I10 Active Problem Hyperlipidemia E78.5 Active Problem Type 2 diabetes E11.9 Active Problem Goiter E04.9 Active Problem Cataract H26.9 Active Problem Iron deficiency anemia due to D50.0 Active chronic blood loss Medications No Known Medications Results No Known Results Summary Purpose eClinicalWorks Submission
[2018-01-27 23:19] LABS: Absolute Lymphocytes (CBC) 1.2 K/uL (0.7-4.9); Absolute Monocytes 0.8 K/uL (0.1-1.3); Basophils % 1.1 % (0-1.3); Eosinophils % 2.9 % (0-4.4); Hematocrit 21.4 % (36.0-45.0); MCH 30.1 pg (27.0-35.0); MCV 86.4 fL (80-100); MPV 7.9 fL (7.6-11.3); Monocytes % 8.6 % (3.3-12.3); RBC Red Blood Cell Count 2.48 M/uL (3.86-4.86)
[2018-01-27 23:22] LABS: Protime INR 0.98
[2018-01-27 23:34] LABS: Albumin 2.5 g/dL (3.4-5.0); Bilirubin Direct 0.1 mg/dL (0-0.2); Bilirubin Total 0.3 mg/dL (0.2-1.0); Magnesium 2.2 mg/dL (1.8-2.4); Potassium 4.9 mmol/L (3.5-5.1); Protein, Total 6.4 g/dL (6.4-8.2); Troponin (Emerg Dept Use Only) 0.02 ng/mL (0.0-0.045)
[2018-01-27] MEDS ORDERED: FUROSEMIDE 40 MG/4 ML VIAL ONE (23:49)
[2018-01-28 00:43] LABS: Urine Blood NEGATIVE (NEG); Urine Glucose NEGATIVE (NEG); Urine Protein 2+ (NEG); Urine Specific Gravity 1.015 (1.005-1.030)
--- NOTE | 2018-01-28 01:40 | ER ---
Nurse's Notes [facility] Name: Elzbieta Higgins Age: 62 yrs Sex: Female : 1955 Arrival Date: 01/27/2018 Time: 22:44 Bed 4 Private MD: Karon Sherman Diagnosis: Chest pain, unspecified;Pleural effusion in conditions classified elsewhere Presentation: 01/27 22:48 Presenting complaint: Patient states: that she is having right upper quad pain along fc with chest pain. All started yesterday. Positive cough and shortness of breath but no nausea or vomiting. Also bloated but had bm yesterday. Pt is status post double bypass on 01/11/18 at [facility] in [place]. Transition of care: patient was not received from another setting of care. Onset of symptoms was January 26, 2018. Risk Assessment: Do you want to hurt yourself or someone else? Patient reports no desire to harm self or others. Initial Sepsis Screen: Does the patient meet any 2 criteria? No. Patient's initial sepsis screen is negative. Does the patient have a suspected source of infection? No. Patient's initial sepsis screen is negative. 22:48 Method Of Arrival: Ambulatory fc 22:48 Acuity: YAMILET 2 fc 23:46 Care prior to arrival: None. ak1 Historical: - Allergies: 23:10 No Known Allergies; fc - Home Meds: 23:10 Novolog 100 unit/mL Sub-Q soln sliding scale with meals [Active]; aspirin 81 mg Oral fc TbEC 1 tab once daily [Active]; lisinopril 20 mg oral tab 1 tab once daily [Active]; isosorbide mononitrate 30 mg Oral Tb24 1 tab once daily [Active]; Levemir 100 unit/mL subcutaneous soln 25 units in am and 15 units pm [Active]; atorvastatin 80 mg oral tab 1 tab once daily [Active]; hydralazine 25 mg Oral tab 3 tab q 6 hrs [Active]; amiodarone 200 mg Oral tab 1 tab 2 times per day [Active]; Coreg 25 mg Oral tab 1 tab 2 times per day [Active]; - PMHx: 23:10 Diabetes - IDDM; Hypertension; CAD; fc - PSHx: 23:10 CABG; fc - Immunization history:: Last tetanus immunization: up to date. - Social history:: Smoking status: Patient/guardian denies using tobacco. - Ebola Screening: : Patient negative for fever greater than or equal to 101.5 degrees Fahrenheit, and additional compatible Ebola Virus Disease symptoms Patient denies exposure to infectious person Patient denies travel to an Ebola-affected area in the 21 days before illness onset. Screenin:48 Abuse screen: Denies threats or abuse. Nutritional screening: No deficits noted. fc Tuberculosis screening: No symptoms or risk factors identified. Fall Risk None identified. Assessment: 23:08 General: Appears uncomfortable, Behavior is anxious. Pain: Complains of pain in lp1 epigastric area Pain radiates to chest Pain began gradually. Neuro: Level of Consciousness is awake, alert, obeys commands, Oriented to person, place, time, situation. Cardiovascular: Patient's skin is warm and dry. Rhythm is sinus rhythm. Respiratory: Reports shortness of breath Respiratory effort is even, unlabored, Respiratory pattern is regular, Breath sounds are clear bilaterally. GI: Abdomen is distended, Bowel sounds present X 4 quads. Abdomen is tender to palpation in epigastric area Reports bloating. : No signs and/or symptoms were reported regarding the genitourinary system. EENT: No signs and/or symptoms were reported regarding the EENT system. Derm: Skin is pink, warm \T\ dry. Sutures intact to mid sternal chest. Musculoskeletal: Circulation, motion, and sensation intact. 23:52 Neuro: Level of Consciousness is awake, alert, obeys commands. Respiratory: Respiratory lp1 effort is even, shallow, Respiratory pattern is symmetrical. 01/28 01:01 Reassessment: Assisted patient to bedside commode. [facility] 01:36 Reassessment: Patient and family asked if patient could take home med of Hydralazine lp1 25mg tablet, 3 tabs PO, Provider states okay. 02:07 Reassessment: Patient assisted to bedside commode; family at bedside; Aware of pending 1 transfer to [facility]. General: Appears in no apparent distress. Neuro: Level of Consciousness is awake, alert, obeys commands. Respiratory: Respiratory effort is even, shallow, Respiratory pattern is regular. 02:10 Reassessment: Report given to Erin Lima RN at [facility] for patient going to 1 room 1046. 02:42 Reassessment: EMS at bedside. lp1 Vital Signs: 01/27 22:48 BP 148 / 62; Pulse 70; Resp 20; Temp 97.5(T); Pulse Ox 92% on R/A; Weight 68.95 kg (R); fc Height 5 ft. 2 in. (157.48 cm) (R); Pain 4/10; 23:31 BP 147 / 53; Pulse 64; Resp 26; Pulse Ox 95% on R/A; lp1 23:45 BP 146 / 51; Pulse 65; Pulse Ox 95% on R/A; ak1 23:52 Pulse Ox 97% on 2 lpm NC; lp1 01/28 00:24 BP 158 / 68; Pulse 66; Resp 28; Pulse Ox 96% on 2 lpm NC; ak1 01:30 BP 166 / 72; Pulse 67; Resp 20; Pulse Ox 97% on 2 lpm NC; lp1 02:06 BP 155 / 64; Pulse 67; Resp 23; Pulse Ox 97% on 2 lpm NC; lp1 02:30 BP 152 / 60; Pulse 66; Resp 21; Pulse Ox 97% on 2 lpm NC; lp1 01/27 22:48 Body Mass Index 27.80 (68.95 kg, 157.48 cm) fc ED Course: 01/27 22:44 Patient arrived in ED. am2 22:45 Karon Sherman MD is Private Physician. am2 22:48 Arm band placed on Patient placed in an exam room, on a stretcher. fc 22:48 Patient has correct armband on for positive identification. Placed in gown. Bed in low fc position. Call light in reach. quality assurance monitor chassis on. Pulse ox on. NIBP on. 22:48 No provider procedures requiring assistance completed. Patient maintains SpO2 fc saturation greater than 95% on room air. 22:51 Luis A Humphrey PA is PHCP. jr8 22:51 Cayden Kolb MD is Attending Physician. jr8 23:05 Triage completed. fc 23:06 Gauri Pino, EDIN is Primary Nurse. lp1 23:07 EKG done, by ED staff, reviewed by Luis A AHUJA. lp1 23:08 Missed attempt(s): 22 gauge in right antecubital area. mt 23:10 Inserted saline lock: 22 gauge in right antecubital area, using aseptic technique. ak1 23:25 X-ray completed. Portable x-ray completed in exam room. Patient tolerated procedure az well. 23:25 Notified Nurse Practitioner and/or Physician [facility] [employer] of a critical lab result(s), hemoglobin of 7.5. 23:26 XRAY Chest (1 view) In Process Unspecified. EDMS 23:[address] stretcher. lp1 01/28 00:16 Chest Abd Pelvis Wo Con In Process Unspecified. EDMS 00:30 CT completed. Patient tolerated procedure well. Patient moved back from CT. 02:43 Patient transferred, IV remains in place. lp1 Administered Medications: 01/27 23:51 Drug: Lasix 40 mg Route: IVP; Site: right antecubital; lp1 01/28 01:07 Follow up: Urine output 750 ml; Response: No adverse reaction lp1 Output: 01:06 Urine: 450ml (Voided); Total: 450ml. lp1 01:07 Urine: 750ml; Total: 1200ml. lp1 Outcome: 01:40 ER care complete, transfer ordered by . binh 02:43 Transferred by ground EMS to [facility], Transfer form completed. lp1 X-rays sent w/ patient. 02:43 Condition: stable 02:43 Instructed on the need for transfer. 02:49 Patient left the ED. lp1 Signatures: Dispatcher [employer] EDWI Jonah Cabezas Evon Clement RN RN Gauri Pino RN RN lp1 Luis A Humphrey PA PA Liset Rosales RN RN Sherry Duran Moriah mt Zavala, Araceli az Corrections: (The following items were deleted from the chart) 01/27 23:20 23:08 Cardiovascular: Patient's skin is warm and dry. lp1 lp1 23:34 23:08 Derm: Skin is pink, warm \T\ dry. lp1 lp1
--- NOTE | 2018-01-28 01:41 | EDPHYS ---
Physician Documentation [facility] Name: Elzbieta Higgins Age: 62 yrs Sex: Female : 1955 Arrival Date: 01/27/2018 Time: 22:44 Bed 4 Private MD: Karon Sherman ED Physician Cayden Kolb HPI: 01/27 23:45 This 62 yrs old Female presents to ER via Ambulatory with complaints of Chest jr8 Pain > 30 y/o, Post Surgical Pain. 23:45 Onset: acutely, today. The pain does not radiate. Associated signs and symptoms: jr8 Pertinent positives: abdominal pain. The chest pain is described as sharp. Duration: The patient or guardian reports multiple episodes. Modifying factors: The symptoms are alleviated by nothing. the symptoms are aggravated by nothing. Severity of pain: At its worst the pain was moderate in the emergency department the pain is unchanged. The patient has not experienced similar symptoms in the past. The patient has been recently seen by a physician:. Family stated that patient had a CABG done 2 weeks ago. Today started with chest pain and abdominal pain . Historical: - Allergies: 23:10 No Known Allergies; fc - Home Meds: 23:10 Novolog 100 unit/mL Sub-Q soln sliding scale with meals [Active]; aspirin 81 mg Oral fc TbEC 1 tab once daily [Active]; lisinopril 20 mg oral tab 1 tab once daily [Active]; isosorbide mononitrate 30 mg Oral Tb24 1 tab once daily [Active]; Levemir 100 unit/mL subcutaneous soln 25 units in am and 15 units pm [Active]; atorvastatin 80 mg oral tab 1 tab once daily [Active]; hydralazine 25 mg Oral tab 3 tab q 6 hrs [Active]; amiodarone 200 mg Oral tab 1 tab 2 times per day [Active]; Coreg 25 mg Oral tab 1 tab 2 times per day [Active]; - PMHx: 23:10 Diabetes - IDDM; Hypertension; CAD; fc - PSHx: 23:10 CABG; fc - Immunization history:: Last tetanus immunization: up to date. - Social history:: Smoking status: Patient/guardian denies using tobacco. - Ebola Screening: : Patient negative for fever greater than or equal to 101.5 degrees Fahrenheit, and additional compatible Ebola Virus Disease symptoms Patient denies exposure to infectious person Patient denies travel to an Ebola-affected area in the 21 days before illness onset. ROS: 23:45 Eyes: Negative for injury, pain, redness, and discharge, ENT: Negative for injury, jr8 pain, and discharge, Neck: Negative for injury, pain, and swelling, Respiratory: Negative for shortness of breath, cough, wheezing, and pleuritic chest pain, Back: Negative for injury and pain, MS/Extremity: Negative for injury and deformity, Skin: Negative for injury, rash, and discoloration, Neuro: Negative for headache, weakness, numbness, tingling, and seizure. 23:45 Cardiovascular: Positive for chest pain, Negative for edema, orthopnea, palpitations, paroxysmal nocturnal dyspnea. 23:45 Abdomen/GI: Positive for abdominal pain, Negative for nausea, vomiting, and diarrhea, abdominal cramps, abdominal distension, anorexia, dysphagia, hematemesis, black/tarry stool, rectal pain, rectal bleeding, bowel incontinence, flatulence. Exam: 23:45 Eyes: Pupils equal round and reactive to light, extra-ocular motions intact. Lids and jr8 lashes normal. Conjunctiva and sclera are non-icteric and not injected. Cornea within normal limits. Periorbital areas with no swelling, redness, or edema. ENT: Nares patent. No nasal discharge, no septal abnormalities noted. Tympanic membranes are normal and external auditory canals are clear. Oropharynx with no redness, swelling, or masses, exudates, or evidence of obstruction, uvula midline. Mucous membranes moist. Neck: Trachea midline, no thyromegaly or masses palpated, and no cervical lymphadenopathy. Supple, full range of motion without nuchal rigidity, or vertebral point tenderness. No Meningismus. Cardiovascular: Regular rate and rhythm with a normal S1 and S2. No gallops, murmurs, or rubs. Normal PMI, no JVD. No pulse deficits. Back: No spinal tenderness. No costovertebral tenderness. Full range of motion. Skin: Warm, dry with normal turgor. Normal color with no rashes, no lesions, and no evidence of cellulitis. MS/ Extremity: Pulses equal, no cyanosis. Neurovascular intact. Full, normal range of motion. Neuro: Awake and alert, GCS 15, oriented to person, place, time, and situation. Cranial nerves II-XII grossly intact. Motor strength 5/5 in all extremities. Sensory grossly intact. Cerebellar exam normal. Normal gait. 23:45 Respiratory: the patient does not display signs of respiratory distress, Respirations: tachypnea, Breath sounds: decreased breath sounds, that are moderate, are heard in the left upper lobe, left lower lobe, left posterior upper lobe and left posterior lower lobe. 23:45 Abdomen/GI: Inspection: obese Bowel sounds: active, all quadrants, Palpation: soft, in all quadrants, moderate abdominal tenderness, in the epigastric area, Indicators: McBurney's point is not tender, Rico's sign is negative, Rovsing's sign is negative, Liver: tenderness, is not appreciated. Vital Signs: 22:48 BP 148 / 62; Pulse 70; Resp 20; Temp 97.5(T); Pulse Ox 92% on R/A; Weight 68.95 kg (R); fc Height 5 ft. 2 in. (157.48 cm) (R); Pain 4/10; 23:31 BP 147 / 53; Pulse 64; Resp 26; Pulse Ox 95% on R/A; lp1 23:45 BP 146 / 51; Pulse 65; Pulse Ox 95% on R/A; ak1 23:52 Pulse Ox 97% on 2 lpm NC; lp1 01/28 00:24 BP 158 / 68; Pulse 66; Resp 28; Pulse Ox 96% on 2 lpm NC; ak1 01:30 BP 166 / 72; Pulse 67; Resp 20; Pulse Ox 97% on 2 lpm NC; lp1 02:06 BP 155 / 64; Pulse 67; Resp 23; Pulse Ox 97% on 2 lpm NC; lp1 02:30 BP 152 / 60; Pulse 66; Resp 21; Pulse Ox 97% on 2 lpm NC; lp1 01/27 22:48 Body Mass Index 27.80 (68.95 kg, 157.48 cm) fc MDM: 01/27 22:51 Patient medically screened. jr8 01/28 01:38 Data reviewed: vital signs, nurses notes, lab test result(s), EKG, radiologic studies, jr8 CT scan, plain films, and as a result, I will admit patient. Data interpreted: Pulse oximetry: on room air is 90 %. Interpretation: borderline. Counseling: I had a detailed discussion with the patient and/or guardian regarding: the historical points, exam findings, and any diagnostic results supporting the discharge/admit diagnosis, lab results, radiology results, the need to transfer to another facility, [facility] does not immediately have the required specialist. 01/27 22:51 Order name: Basic Metabolic Panel; Complete Time: 23:37 01/27 22:51 Order name: CBC with Diff; Complete Time: 23:26 01/27 22:51 Order name: CPK; Complete Time: 23:37 01/27 22:51 Order name: LFT's; Complete Time: 23:37 01/27 22:51 Order name: Magnesium; Complete Time: 23:37 01/27 22:51 Order name: NT PRO-BNP; Complete Time: 23:37 01/27 22:51 Order name: PT-INR; Complete Time: 23:33 01/27 22:51 Order name: Ptt, Activated; Complete Time: 23:33 01/27 22:51 Order name: Troponin (emerg Dept Use Only); Complete Time: 23:37 01/27 22:51 Order name: XRAY Chest (1 view) 01/27 22:58 Order name: Lipase; Complete Time: 23:33 01/28 00:11 Order name: Chest Abd Pelvis Wo Con EDMS 01/28 00:26 Order name: Urine Dipstick--Ancillary (enter results); Complete Time: 00:49 2 01/27 22:51 Order name: EKG; Complete Time: 22:52 01/27 22:51 Order name: Cardiac monitoring; Complete Time: 23:07 01/27 22:51 Order name: EKG - Nurse/Tech; Complete Time: 23:07 01/27 22:51 Order name: IV Saline Lock; Complete Time: 23:01/27 22:51 Order name: Labs collected and sent; Complete Time: 23:08 01/27 22:51 Order name: O2 Per Protocol; Complete Time: 23:08 01/27 22:51 Order name: O2 Sat Monitoring; Complete Time: 23:08 01/27 22:51 Order name: Urine Dipstick-Ancillary (obtain specimen); Complete Time: 00:43 Administered Medications: 01/27 23:51 Drug: Lasix 40 mg Route: IVP; Site: right antecubital; lp1 01/28 01:07 Follow up: Urine output 750 ml; Response: No adverse reaction lp1 Disposition: 04:49 Co-signature as Attending Physician, Cayden Kolb MD. rn Disposition: 01/28/18 01:40 Transfer ordered to [facility]. Diagnosis are Chest pain, unspecified, Pleural effusion in conditions classified elsewhere. - Reason for transfer: Higher level of care. - Accepting physician is Dr. Smith . - Condition is Stable. - Problem is new. - Symptoms have improved. Signatures: Dispatcher [employer] [facility] Evon Clement RN Cayden Jenkins MD MD rn Pena, Laura, RN RN lp1 Luis A Humphrey PA PA jr8 Corrections: (The following items were deleted from the chart) 00:11 01/27 23:38 Abdomen Pelvis Wo Con+CT.RAD.BRZ ordered. [facility] 01/28 02:49 01:40 01/28/2018 01:40 Transfer ordered to [facility]. Diagnosis is lp1 Chest pain, unspecified; Pleural effusion in conditions classified elsewhere. Reason for transfer: Higher level of care. Accepting physician is Dr. Smith . Condition is Stable. Problem is new. Symptoms have improved. jr8
[2018-01-28 03:04] VITALS: BP 152/60
[2018-01-28 03:15] VITALS: TEMP 97.8; O2SAT 100
--- NOTE | 2018-01-28 06:48 | EKG ---
Test Date: 2018-01-27 Test Time: 22:56:36 Physician Relations Manager: MALIA MEASUREMENT RESULTS: Intervals: Rate: 69 ME: 196 QRSD: 90 QT: 414 QTc: 443 [place]: P: 27 ME: 196 QRS: -9 T: 96 INTERPRETIVE STATEMENTS: Normal sinus rhythm Septal infarct, age undetermined Abnormal ECG Compared to ECG 12/31/2017 20:25:14 Sinus tachycardia no longer present ST (T wave) deviation no longer present Myocardial infarct finding still present Electronically Signed On 01-28-18 06:47:09 CDT by Rolo Keane
--- NOTE | 2018-01-28 08:28 | RAD REPORT ---
EXAM DESCRIPTION: CT - Chest Abd Pelvis Wo Con - 01/28/2018 2:26 am CLINICAL HISTORY: Chest and abdomen pain. no iv or oral;Abd pain COMPARISON: No comparisons TECHNIQUE: A limited noncontrast study was performed. All CT scans are performed using dose optimization technique as appropriate and may include automated exposure control or mA/KV adjustment according to patient size. FINDINGS: Prominent thyroid goiter noted with multiple calcified nodules. Large left pleural effusion is seen with evidence of loculation superiorly. Minimal right pleural flu id is noted. Airspace opacity in the left lower lobe is noted probably representing atelectasis altho ugh pneumonia not excluded in this region.Changes of a recent CABG noted.Trace pericardial fluid seen .No intrathoracic adenopathy. The liver, spleen, pancreas, adrenal glands and left kidney are within normal limits. 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 Aortoiliac atherosclerosis. No bowel obstruction, free air, free fluid or abscess. Normal appendix. Small fat containing right in guinal hernia. No pathologic lymphadenopathy in the abdomen or pelvis. No worrisome osseous finding. IMPRESSION: Large left pleural effusion is present with compressive atelectasis or pneumonia in the left base. Trace right pleural effusion. Thyroid goiter with multiple calcified nodules. No acute intra-abdominal/pelvic finding.
--- NOTE | 2018-01-28 08:29 | RAD REPORT ---
EXAM DESCRIPTION: RAD - Chest Single View - 01/27/2018 11:28 pm CLINICAL HISTORY: CHEST PAIN Chest pain. COMPARISON: Chest Single View dated 12/31/2017 FINDINGS: Portable technique limits examination quality. Moderate to large left pleural effusion is noted. The right lung is grossly clear. The heart is enlar ged in size with sternotomy wires present. No acute fracture demonstrated.
== END 2018-01-28 02:49 | disposition short-term general hospital (02) ==
LOC: ER 22:43
DX: J90 Pleural effusion, not elsewhere classified (principal); I10 Essential (primary) hypertension; E11.9 Type 2 diabetes mellitus without complications; Z79.4 Long term (current) use of insulin; Z79.82 Long term (current) use of aspirin; Z95.1 Presence of aortocoronary bypass graft
CPT/HCPCS: 36415; 71045; 71250; 74176; 80048; 80076; 81003; 82550; 83690; 83735; 83880; 84484; 85025; 85610; 85730; 93005; 96374; 99285

== ENCOUNTER 2018-03-24 09:53 | Inpatient (IN) | payer OTHER ==
[2018-03-24] MEDS ORDERED: IPRATROPIUM BROM 0.5MG/2.5ML ONE (11:01)
[2018-03-24] MEDS ORDERED: ALBUTEROL 2.5 MG/3 ML NEB SOL ONE (11:01)
[2018-03-24 11:12] LABS: Absolute Monocytes 0.7 K/uL (0.1-1.3); Absolute Neutrophil 6.9 K/uL (1.8-8.0); Basophils % 0.8 % (0-1.3); Eosinophils % 1.1 % (0-4.4); Lymphocytes % 11.9 % (15.3-44.8); MCH 29.6 pg (27.0-35.0); MCV 87.7 fL (80-100); MPV 8.5 fL (7.6-11.3); Monocytes % 7.8 % (3.3-12.3); RBC Red Blood Cell Count 3.19 M/uL (3.86-4.86)
[2018-03-24 11:14] LABS: Protime INR 0.98
--- NOTE | 2018-03-24 11:17 | RAD REPORT ---
EXAM DESCRIPTION: [place] Single View03/24/2018 10:49 am CLINICAL HISTORY: Shortness of breath COMPARISON: March 05, 2018 FINDINGS: Moderate left pleural effusion is present. Mild bilateral pulmonary opacities are seen. The heart is enlarged. Postsurgical changes involve the chest. IMPRESSION: These findings most likely represent CHF
[2018-03-24 11:25] LABS: Albumin 3.3 g/dL (3.4-5.0); Bilirubin Direct 0.1 mg/dL (0-0.2); Bilirubin Total 0.3 mg/dL (0.2-1.0); Magnesium 2.4 mg/dL (1.8-2.4); Protein, Total 6.9 g/dL (6.4-8.2); Troponin (Emerg Dept Use Only) 0.02 ng/mL (0.0-0.045)
[2018-03-24 11:36] LABS: Arterial Blood Carboxyhemoglob 1.1 % (0-1.5)
[2018-03-24] MEDS ORDERED: FUROSEMIDE 40 MG/4 ML VIAL ONE (11:57)
[2018-03-24] MEDS ORDERED: HYDRALAZINE HCL 20 MG/ML VIAL ONE ×2 (12:12→17:12)
--- NOTE | 2018-03-24 12:22 | ER ---
Nurse's Notes [facility] Name: Elzbieta Higgins Age: 62 yrs Sex: Female : 1955 Arrival Date: 03/24/2018 Time: 09:53 Bed 14 Private MD: Karon Sherman Diagnosis: Pleural effusion in other conditions classified elsewhere;Unspecified combined systolic (congestive) and diastolic (congestive) heart failure Presentation: 03/24 10:14 Presenting complaint: Patient states: SOB and dyspnea with exertion, back pain since sv Thursday. Transition of care: patient was not received from another setting of care. Onset of symptoms was March 22, 2018. Care prior to arrival: None. 10:14 Method Of Arrival: Wheelchair sv 10:14 Acuity: YAMILET 3 sv 10:48 Risk Assessment: Do you want to hurt yourself or someone else? Patient reports no la1 desire to harm self or others. Initial Sepsis Screen: Does the patient meet any 2 criteria? No. Patient's initial sepsis screen is negative. Does the patient have a suspected source of infection? No. Patient's initial sepsis screen is negative. 10:48 Acuity: YAMILET 2 la1 Historical: - Allergies: 12:00 No Known Allergies; la1 - Home Meds: 12:00 lisinopril 20 mg Oral tab 1 tab once daily [Active]; amiodarone 200 mg Oral tab 1 tab 2 la1 times per day [Active]; aspirin 81 mg Oral TbEC 1 tab once daily [Active]; atorvastatin 80 mg Oral tab 1 tab once daily [Active]; Coreg 25 mg Oral tab 1 tab 2 times per day [Active]; hydralazine 25 mg Oral tab 3 tab q 6 hrs [Active]; isosorbide mononitrate 30 mg Oral Tb24 1 tab once daily [Active]; Levemir 100 unit/mL subcutaneous soln 25 units in am and 15 units pm [Active]; Novolog 100 unit/mL Sub-Q soln sliding scale with meals [Active]; - PMHx: 10:15 CAD; Diabetes - IDDM; Hypertension; CHF; sv - PSHx: 10:15 CABG; sv - Immunization history:: Adult Immunizations up to date. - Social history:: Smoking status: Patient/guardian denies using tobacco. - Ebola Screening: : No symptoms or risks identified at this time. Screenin:58 Abuse screen: Denies threats or abuse. Nutritional screening: No deficits noted. la1 Tuberculosis screening: No symptoms or risk factors identified. Fall Risk None identified. Assessment: 10:57 General: Appears uncomfortable, Behavior is cooperative. Pain: Denies pain. Neuro: la1 Level of Consciousness is awake, alert, obeys commands, Oriented to person, place, time, situation. Cardiovascular: Heart tones S1 S2 present Patient's skin is warm and dry. Rhythm is sinus rhythm Chest pain is denied. Respiratory: Airway is patent Respiratory effort is even, labored, Respiratory pattern is regular, tachypnea Breath sounds are coarse Breath sounds are diminished bilaterally. GI: No signs and/or symptoms were reported involving the gastrointestinal system. : No signs and/or symptoms were reported regarding the genitourinary system. 11:22 Reassessment: Respiratory at bedside evaluating pt for bipap due to worsening dyspnea. la1 12:33 Reassessment: Patient appears in no apparent distress at this time. No changes from la1 previously documented assessment. Patient states feeling better. Patient states symptoms have improved. 13:30 Respiratory: Airway is patent Respiratory effort is even, labored, Respiratory pattern la1 is regular, tachypnea Pt on bipap, tolerating it well, air huger improving. Vital Signs: 10:16 BP 176 / 53; Pulse 67; Resp 20; Temp 97.5; Pulse Ox 88% on R/A; Weight 64.86 kg; Height sv 5 ft. 2 in. (157.48 cm); Pain 7/10; 10:57 Resp 36; Pulse Ox 94% on 3 lpm NC; la1 11:22 BP 200 / 76; Pulse 61; Resp 35; Pulse Ox 94% on 3 lpm NC; la1 11:51 BP 207 / 63; Pulse 65; Resp 30; Pulse Ox 97% on BiPAP; la1 12:18 BP 200 / 59; Pulse 64; Resp 28; Pulse Ox 98% on BiPAP; la1 12:51 BP 198 / 55; Pulse 64; Resp 23; Pulse Ox 98% on BiPAP; kr2 13:28 BP 188 / 54; Pulse 61; Resp 16; Pulse Ox 98% on BiPAP; la1 14:41 BP 181 / 61; Pulse 61; Resp 26; Pulse Ox 98% on BiPAP; la1 10:16 Body Mass Index 26.15 (64.86 kg, 157.48 cm) sv 10:16 Pt placed on O2 \T\ 3L per NC. O2 sat up to 94%. sv ED Course: 09:53 Patient arrived in ED. mr 09:54 Karon Sherman MD is Private Physician. mr 10:15 Triage completed. sv 10:21 Lai Medina, RN is Primary Nurse. la1 10:24 Arm band placed on Patient placed in an exam room, on a stretcher, on pulse oximetry. sv 10:31 Roman Godinez PA is PHCP. cp 10:31 Roman Neal MD is Attending Physician. cp 10:48 XRAY Chest (1 view) In Process Unspecified. EDMS 10:58 Placed in gown. Bed in low position. Call light in reach. relay man on. Pulse ox la1 on. NIBP on. 10:59 Inserted saline lock: 20 gauge in right antecubital area, using aseptic technique. la1 Blood collected. 11:06 EKG done, by poured concrete wall technician. reviewed by Roman Neal MD. dt2 12:17 Monica Busby MD is Hospitalizing Provider. cp Administered Medications: 10:57 Drug: Albuterol - atroVENT (3:1) (2.5 mg - 0.5 mg) 3 ml Route: Nebulizer; la1 11:34 Follow up: Response: No adverse reaction la1 11:57 Drug: Lasix 40 mg Route: IVP; Site: right antecubital; la1 13:29 Follow up: Response: increased urinary output la1 12:10 Drug: hydrALAZINE 5 mg Route: IV; Rate: calculated rate; Site: right antecubital; la1 13:29 Follow up: IV Status: Completed infusion la1 Outcome: 12:20 Decision to Hospitalize by Provider. cp 14:41 Patient left the ED. la1 Signatures: Dispatcher [employer] EDKY Narda Alvares RN RN sv RobertDoris mr Lai Medina RN RN la1 Roman Godinez PA PA cp Portia Larry RN RN kr2 Teague, Danielle dt2 Corrections: (The following items were deleted from the chart) 12:00 10:15 Allergies: No Known Allergies; sv la1
--- NOTE | 2018-03-24 12:22 | EDPHYS ---
Physician Documentation [facility] Name: Elzbieta Higgins Age: 62 yrs Sex: Female : 1955 Arrival Date: 03/24/2018 Time: 09:53 Bed 14 Private MD: Karon Sherman ED Physician Roman Neal HPI: 03/24 10:46 This 62 yrs old Female presents to ER via Wheelchair with complaints of cp shortness of breath. 10:46 The patient has shortness of breath at rest. cp 10:46 Onset: The symptoms/episode began/occurred 2 day(s) ago. cp 10:46 Duration: The symptoms are continuous, and are steadily getting worse. The patient's cp shortness of breath is aggravated by light activity. Associated signs and symptoms: Pertinent positives: right upper back pain, Pertinent negatives: chest pain, productive cough, diaphoresis, fever, hemoptysis, vomiting. Severity of symptoms: in the emergency department the symptoms are unchanged despite home interventions. Historical: - Allergies: 12:00 No Known Allergies; la1 - Home Meds: 12:00 lisinopril 20 mg Oral tab 1 tab once daily [Active]; amiodarone 200 mg Oral tab 1 tab 2 la1 times per day [Active]; aspirin 81 mg Oral TbEC 1 tab once daily [Active]; atorvastatin 80 mg Oral tab 1 tab once daily [Active]; Coreg 25 mg Oral tab 1 tab 2 times per day [Active]; hydralazine 25 mg Oral tab 3 tab q 6 hrs [Active]; isosorbide mononitrate 30 mg Oral Tb24 1 tab once daily [Active]; Levemir 100 unit/mL subcutaneous soln 25 units in am and 15 units pm [Active]; Novolog 100 unit/mL Sub-Q soln sliding scale with meals [Active]; - PMHx: 10:15 CAD; Diabetes - IDDM; Hypertension; CHF; sv - PSHx: 10:15 CABG; sv - Immunization history:: Adult Immunizations up to date. - Social history:: Smoking status: Patient/guardian denies using tobacco. - Ebola Screening: : No symptoms or risks identified at this time. ROS: 10:50 Constitutional: Negative for body aches, chills, fever, poor PO intake. cp 10:50 Eyes: Negative for injury, pain, redness, and discharge. cp 10:50 ENT: Negative for drainage from ear(s), ear pain, sore throat, difficulty swallowing, difficulty handling secretions. 10:50 Cardiovascular: Positive for edema, Negative for chest pain, palpitations. 10:50 Respiratory: Positive for shortness of breath, Negative for wheezing. 10:50 Abdomen/GI: Negative for abdominal pain, nausea, vomiting, and diarrhea, black/tarry stool, rectal bleeding. 10:50 Back: Positive for pain at rest, of the right trapezius and right scapular area. 10:50 Skin: Negative for cellulitis, rash. 10:50 Neuro: Negative for altered mental status, headache, syncope, near syncope, weakness. 10:50 All other systems are negative. Exam: 11:00 Head/Face: Normocephalic, atraumatic. Eyes: Pupils equal round and reactive to light, cp extra-ocular motions intact. Lids and lashes normal. Conjunctiva and sclera are non-icteric and not injected. Cornea within normal limits. Periorbital areas with no swelling, redness, or edema. ENT: Nares patent. No nasal discharge, no septal abnormalities noted. Tympanic membranes are normal and external auditory canals are clear. Oropharynx with no redness, swelling, or masses, exudates, or evidence of obstruction, uvula midline. Mucous membranes moist. 11:00 Constitutional: The patient appears alert, awake, non-diaphoretic, non-toxic, well developed, well nourished, in obvious distress, mildly distressed. 11:00 Neck: ROM/movement: is normal, is supple, no range of motions limitations, no meningismus, no nuchal rigidity, Lymph nodes: no appreciated lymphadenopathy. 11:00 Chest/axilla: Inspection: normal, Palpation: is normal, no crepitus, no tenderness. 11:00 Cardiovascular: Rate: normal, Rhythm: regular, Pulses: Pulses are 2+ in right radial artery and left radial artery. Edema: bilateral lower legs, JVD: is not appreciated. 11:00 Respiratory: mild respiratory distress is noted, Respirations: labored breathing, that is mild, tachypnea, that is mild, Breath sounds: decreased breath sounds, are located in both bases, stridor, is not appreciated, wheezing: is not appreciated. 11:00 Abdomen/GI: Inspection: abdomen appears normal, Bowel sounds: active, all quadrants, Palpation: abdomen is soft and non-tender, in all quadrants, rebound tenderness, is not appreciated, involuntary guarding, is not appreciated. 11:00 Back: pain, that is mild, of the right trapezius and right scapular area, ROM is normal, vertebral tenderness, is not appreciated. 11:00 Musculoskeletal/extremity: Exam is negative for calf tenderness, decreased range of motion, deformity, injury. 11:00 Skin: cellulitis, is not appreciated, no rash present. 11:00 Neuro: Orientation: to person, place \T\ time. Mentation: is normal, Cerebellar function: is grossly normal, Motor: moves all fours, strength is normal, Sensation: no obvious gross deficits. 11:05 ECG was reviewed by the Attending Physician. cp Vital Signs: 10:16 BP 176 / 53; Pulse 67; Resp 20; Temp 97.5; Pulse Ox 88% on R/A; Weight 64.86 kg; Height sv 5 ft. 2 in. (157.48 cm); Pain 7/10; 10:57 Resp 36; Pulse Ox 94% on 3 lpm NC; la1 11:22 BP 200 / 76; Pulse 61; Resp 35; Pulse Ox 94% on 3 lpm NC; la1 11:51 BP 207 / 63; Pulse 65; Resp 30; Pulse Ox 97% on BiPAP; la1 12:18 BP 200 / 59; Pulse 64; Resp 28; Pulse Ox 98% on BiPAP; la1 12:51 BP 198 / 55; Pulse 64; Resp 23; Pulse Ox 98% on BiPAP; kr2 13:28 BP 188 / 54; Pulse 61; Resp 16; Pulse Ox 98% on BiPAP; la1 14:41 BP 181 / 61; Pulse 61; Resp 26; Pulse Ox 98% on BiPAP; la1 10:16 Body Mass Index 26.15 (64.86 kg, 157.48 cm) sv 10:16 Pt placed on O2 \T\ 3L per NC. O2 sat up to 94%. sv MDM: 10:31 Patient medically screened. cp 12:00 Data reviewed: vital signs, nurses notes, lab test result(s), EKG, radiologic studies, cp plain films, and as a result, I will admit patient. 12:00 Antibiotic administration: Not indicated, the patient does not have an appreciated cp infiltrate. Test interpretation: by ED physician or midlevel provider: ECG, plain radiologic studies. Response to treatment: the patient's symptoms have markedly improved after treatment. 12:15 Physician consultation: Monica Busby MD was called at 12:15, was contacted at 12:15, regarding admission, to the telemetry unit. patient's condition. 03/24 10:37 Order name: Basic Metabolic Panel; Complete Time: 11:26 cp 03/24 11:26 Interpretation: Normal except: CL 110; CO2 19; GLUC 186; BUN 40; CRE 2.20; GFR 23. cp 03/24 10:37 Order name: CBC with Diff; Complete Time: 11:15 cp 03/24 11:15 Interpretation: Normal except: RBC 3.19; HGB 9.4; HCT 28.0; RDW 15.6; JIL% 78.4; LYM% cp 11.9. 03/24 10:37 Order name: LFT's; Complete Time: 11:27 cp 03/24 11:27 Interpretation: Normal except: ALB 3.3; GLOB 3.6; A/G 0.9. cp 03/24 10:37 Order name: Magnesium; Complete Time: 11:27 cp 03/24 10:37 Order name: NT PRO-BNP; Complete Time: 11:26 cp 03/24 11:26 Interpretation: Abnormal: NT PRO-BNP 9733. cp 03/24 10:37 Order name: PT-INR; Complete Time: 11:26 cp 03/24 10:37 Order name: Troponin (emerg Dept Use Only); Complete Time: 11:27 cp 03/24 10:37 Order name: Blood Culture Adult (2) cp 03/24 10:37 Order name: Procalcitonin; Complete Time: 11:59 cp 03/24 11:59 Interpretation: Reviewed. cp 03/24 10:37 Order name: Lactate; Complete Time: 11:26 cp 03/24 11:31 Order name: ABG eb 03/24 12:33 Order name: CBC with Automated Diff EDMS 03/24 12:34 Order name: CBC with Automated Diff EDMS 03/24 12:34 Order name: CBC with Automated Diff EDMS 03/24 10:37 Order name: XRAY Chest (1 view); Complete Time: 11:26 cp 03/24 10:37 Order name: EKG; Complete Time: 10:38 cp 03/24 10:37 Order name: Cardiac monitoring; Complete Time: 10:49 cp 03/24 10:37 Order name: EKG - Nurse/Tech; Complete Time: 10:49 cp 03/24 10:37 Order name: IV Saline Lock; Complete Time: 10:49 cp 03/24 12:33 Order name: CONS Physician Consult EDMD 03/24 12:33 Order name: Heart Healthy EDMD 03/24 12:34 Order name: CBC with Automated Diff EDMD 03/24 12:34 Order name: Comprehensive Metabolic Panel EDMD 03/24 12:34 Order name: Comprehensive Metabolic Panel EDMD 03/24 12:34 Order name: Comprehensive Metabolic Panel EDMD 03/24 12:34 Order name: Comprehensive Metabolic Panel EDMD 03/24 13:44 Order name: Urine Dipstick--Ancillary (enter results) 03/24 10:37 Order name: Labs collected and sent; Complete Time: 10:49 cp 03/24 10:37 Order name: O2 Per Protocol; Complete Time: 10:49 cp 03/24 10:37 Order name: O2 Sat Monitoring; Complete Time: 10:49 cp EC:05 Rate is 66 beats/min. Rhythm is regular. NV interval is normal. QRS interval is cp prolonged at 102 msec. QT interval is normal. T waves are Inverted in lead aVL. Interpreted by me. Reviewed by me. Administered Medications: 10:57 Drug: Albuterol - atroVENT (3:1) (2.5 mg - 0.5 mg) 3 ml Route: Nebulizer; la1 11:34 Follow up: Response: No adverse reaction la1 11:57 Drug: Lasix 40 mg Route: IVP; Site: right antecubital; la1 13:29 Follow up: Response: increased urinary output la1 12:10 Drug: hydrALAZINE 5 mg Route: IV; Rate: calculated rate; Site: right antecubital; la1 13:29 Follow up: IV Status: Completed infusion la1 Disposition: 03/25 06:46 Co-signature as Attending Physician, Roman VALVERDE I agree with the assessment and mark plan of care. Disposition: 03/24/18 12:20 Hospitalization ordered by Monica Busby for Inpatient Admission. Preliminary diagnosis are Pleural effusion in other conditions classified elsewhere, Unspecified combined systolic (congestive) and diastolic (congestive) heart failure. - Bed requested for Telemetry/MedSurg (Inpatient). - Status is Inpatient Admission. la1 - Condition is Stable. - Problem is an acute exacerbation. - Symptoms have improved. UTI on Admission? No Signatures: Dispatcher [employer] EDMS Narda Alvares RN RN Roman Neal MD MD cha Attema, Lee, RN RN la Roman Godinez PA PA cp Botello, Elizabeth eb Corrections: (The following items were deleted from the chart) 03/24 12:00 10:15 Allergies: No Known Allergies; la1 13:48 12:20 Hospitalization Ordered by Monica Busby MD for Inpatient Admission. Preliminary eb diagnosis is Pleural effusion in other conditions classified elsewhere; Unspecified combined systolic (congestive) and diastolic (congestive) heart failure. Bed requested for Telemetry/MedSurg (Inpatient). Status is Inpatient Admission. Condition is Stable. Problem is an acute exacerbation. Symptoms have improved. UTI on Admission? No. cp 14:41 13:48 03/24/2018 12:20 Hospitalization Ordered by Monica Busby MD for Inpatient la1 Admission. Preliminary diagnosis is Pleural effusion in other conditions classified elsewhere; Unspecified combined systolic (congestive) and diastolic (congestive) heart failure. Bed requested for Telemetry/MedSurg (Inpatient). Status is Inpatient Admission. Condition is Stable. Problem is an acute exacerbation. Symptoms have improved. UTI on Admission? No. eb
[2018-03-24] MEDS ORDERED: GLUCAGON 1 MG/VIAL IM PRN (12:32)
[2018-03-24] MEDS ORDERED: D50W 25 GM/50 ML SYRINGE IV PRN (12:32)
--- NOTE | 2018-03-24 15:17 | EKG ---
Test Date: 2018-03-24 Test Time: 10:56:58 Obiee Consultant: MAVIS MEASUREMENT RESULTS: Intervals: Rate: 66 LA: 194 QRSD: 102 QT: 434 QTc: 454 [place]: P: 40 LA: 194 QRS: 2 T: 84 INTERPRETIVE STATEMENTS: Normal sinus rhythm Nonspecific T wave abnormality Abnormal ECG Compared to ECG 01/27/2018 22:56:36 T-wave abnormality now present Myocardial infarct finding no longer present Electronically Signed On 03-24-18 15:16:27 CDT by Satinder Kruger
[2018-03-24] MEDS: HYDRALAZINE HCL 20 MG/ML VIAL IV ONE ×2 (16:15→17:30)
[2018-03-24] MEDS: INSULIN -REGULAR HUMAN 50 UNIT/0.5 ML ML SQ SCH ×2 (16:30→21:00)
[2018-03-24 17:00] LABS: Urine Blood NEGATIVE (NEG); Urine Glucose NEGATIVE (NEG); Urine Protein 3+ (NEG); Urine pH 5.5 (5.0-7.0)
[2018-03-24] MEDS ORDERED: ENOXAPARIN 40 MG/0.4 ML SQ SCH (17:00)
[2018-03-24] MEDS ORDERED: FUROSEMIDE 40 MG/4 ML VIAL IV SCH ×2 (17:00)
[2018-03-24] MEDS ORDERED: INSULIN DETEMIR 15 UNIT SQ SCH (17:00)
--- NOTE | 2018-03-24 17:55 | RAD REPORT ---
EXAM DESCRIPTION: USExtremity Venous Uni Ltd03/24/2018 5:35 pm CLINICAL HISTORY: left leg pain and swelling. COMPARISON: None. FINDINGS: Left common femoral, superficial femoral, popliteal and posterior tibial veins are compre ssible and demonstrate augmentation. Doppler demonstrates good flow. IMPRESSION: No evidence of deep venous thrombosis involving the left lower extremity.
[2018-03-24 19:47] VITALS: BMI 25.4
[2018-03-24] MEDS ORDERED: METOPROLOL TAR 25 MG TAB PO SCH (21:00)
--- NOTE | 2018-03-24 21:02 | CON ---
History Of Present Illness: Ms. Higgins came to the hospital with dyspnea, orthopnea, weight gain, was found to have left pleural effusion, congestive heart failure, volume overload. She had bypass surgery in December of this year. Her arteries were diffusely diseased. She seemed to do well for a few months. She just started getting her symptoms 48 hours before admission. Medications: Outpatient medications have been Tradjenta, glimepiride, hydralazine, lisinopril, metoprolol, and Victoza. I feel certain that the patient has been on a statin and not sure why it is not on the list of medicine she takes. She should be on a statin. She is also known to be taking amiodarone 200 mg daily, atorvastatin 80 mg per day, Coreg, hydralazine, isosorbide mononitrate. She is known to have severe renal dysfunction. Physical Examination: General: She is alert, oriented, pleasant, not in distress. Lungs: Reveal decreased breath sounds in both lung bases, probably more so on the left than the right. There are pulmonary crackles. Heart: Regular rate and rhythm. Abdomen: Mildly obese, nontender. All of her wounds look great. Diagnostic Data: Her EKG shows sinus rhythm, nonspecific T-wave abnormality. Recommendations: I am going to recommend that we stop the amiodarone. I consider it a possibility that she has pulmonary toxicity from amiodarone. Continue the Coreg, Lipitor, and she needs to be diuresed with regular doses of Lasix. We will get an echocardiogram tomorrow. ELISABETH/EMILY Voice ID: [id number] Report ID: [id number] MICHELL
[2018-03-24] MEDS: CARVEDILOL 25 MG TAB PO SCH (22:10)
[2018-03-24] MEDS: ATORVASTATIN 80 MG TAB PO SCH (22:10)
--- NOTE | 2018-03-25 04:28 | HP ---
Date of Admission: 03/24/2018 Chief Complaint: Shortness of breath and weakness. Code Status: Full. Consultants: Dr. Kruger, Cardiology; Dr. Sanchez, Pulmonology. History Of Present Illness: The patient is a 62-year-old female with past medical history of hyperte nsion; diabetes mellitus type 2, insulin requiring; as well as coronary artery disease with recent co ronary artery bypass graft at [facility], 2-vessel disease. The patient was adm itted to this facility in December with chest pain and elevated blood pressure. Had a cardiac cath wit h severe multivessel disease, was transferred to [facility], had a 2-vessel CABG done on December h. The patient stayed in the hospital for approximately 1 week at [facility]. The patien t did well. She was discharged; however, 3 days later, developed shortness of breath. Returned to [facility] ER, was transferred back to [facility] and had a drainage procedure for pleural effusion. The p atahmet subsequently has been doing okay. Has followed up with her CT surgeon, who did not recommend any further intervention and the patient's graft was doing well. The patient since the past several days has been complaining of progressive shortness of breath, worse with exertion, along with general ized weakness. The patient denies any cough, fever, chills. No ill contacts. The patient's symptom s are constant, moderate, progressively worsening. Alleviated by resting. The patient also reported some lower extremity edema, especially of her left lower extremity with a vein graft was taken. The patient otherwise denies any chest pain, but states that her blood pressure is out of control. The patient therefore came into the ER for further evaluation. Upon arrival, her vital signs were stable . Her blood pressure was elevated at 176/53. The patient did receive hydralazine in the ER as her b lood pressure climbed up to 190 systolic. Her workup revealed a creatinine level of 2.2, which is ab ove her baseline of 1.5. The patient's BNP is elevated at 9733. Troponin level is negative. Procal citonin and lactate were also negative. White count was normal. The patient was therefore referred for admission for acute CHF exacerbation. Her chest x-ray did show CHF findings. When the patient w as seen in the ER, she was awake, alert, oriented x3. The patient is primarily English speaking with limited Burmese proficiency. [employer] plant clerk was in [place]; however, daughter declined the use of the plant clerk stated that she would rather interpret for the patient. Past Medical History: Hypertension; diabetes mellitus type 2, insulin requiring; coronary artery dis ease, status post CABG. Past Surgical History: Coronary artery bypass graft on 01/21/2018 at [facility] 2-vessel [facility]. Allergies: NO KNOWN DRUG ALLERGIES. Medications: List reviewed. Family History: The patient denies any premature coronary artery disease in the family. Social History: The patient denies any tobacco use, alcohol use, or illicit drug use. Review of Systems: An 11-point system reviewed, negative except as per HPI. Physical Examination: Vital Signs: Temperature 97.5, heart rate 67, blood pressure 176/53, respirations 20, O2 88%, improv ed to 94% on 3 L via nasal cannula and eventually put on BiPAP. General: Awake, alert, oriented x3, ill-appearing female in moderate respiratory distress. HEENT: Normocephalic, atraumatic. PERRLA. EOMI. Dry mucous membranes. Oropharynx is clear. Conjunctiva is anicteric. Normal dentition. Ne ck: Supple. The patient does have jugular venous distention. Trachea midline. CV: S1 and S2. Re gular rate and rhythm. No murmurs. Peripheral pulses present. Respiratory: Diminished breath sounds. No wheezing or stridor. The patient is tachypneic. No use of accessory muscles. Gastrointestinal: Abdomen is soft, nontender, nondistended. Positive bowel s ounds. No guarding or rigidity. Extremities: No clubbing, cyanosis. The patient does have 3+ edema of the left lower extremity. Ri ght lower extremity is not edematous. Skin: Healing incision scar from previous CABG and leg vein g raft on the left lower extremity. No rashes. Neuro: Cranial nerves 2 through 12 intact grossly. N o focal neurological deficit. Speech is normal. Strength is 5/5 bilateral upper and lower extremiti es. Sensation intact to light touch. Psych: Deferred. Laboratory Data: ABG, pH 7.35, pCO2 32, pO2 75, bicarb 17. UA is pending. Sodium 137, potassium 5, chloride 110, CO2 19, BUN 40, creatinine 2.2, glucose 186, lactate 1.2, calcium 8.7, magnesium 2.4. BNP 9733. Troponin 0.02. Albumin 3.3. Procalcitonin was less than 0.05. INR 0.98. WBC 8.9, H an d H 9.4 and 28, platelets 293, neutrophils 78%. Blood cultures pending. Chest x-ray shows CHF findi ngs. EKG shows normal sinus rhythm, nonspecific T-wave abnormality, rate of 66, compared to previous . T-wave abnormalities now present. Assessment And Plan: A 62-year-old female with: 1.Acute respiratory distress secondary to pulmonary edema. 2.Acute congestive heart failure, likely systolic dysfunction. Suspect that her EF has declined sin ce her surgery. We will continue with diuresis. Started on congestive heart failure guidelines. Ho ld lisinopril due to elevated creatinine level. Appreciate Dr. Kruger' input. We will repeat echoca rdiogram to assess LV function. We will monitor I's and O's. Fluid-restricted diet, 2-gram sodium r estriction, daily weights. 3.Hypertensive emergency. The patient's blood pressure is 200 systolic. The patient did receive hy dralazine in the ER, likely cause of her flash pulmonary edema may be due to her elevated and uncontr olled blood pressure. We will add p.r.n. medications and monitor closely. Resume home medications. Hold MELVA inhibitor due to elevated creatinine. 4.Acute versus qwmfu-ic-dysxjmn kidney injury. Baseline from previous visit in December will show 1.5 at best. However, true baseline is unknown. We will avoid NSAIDs and nephrotoxins for now. We emil l continue to monitor creatinine. Avoid IV fluids due to congestive heart failure. We will hold MELVA inhibitor and amiodarone. 5.Diabetes mellitus type 2. We will resume home dose of insulin. Start on sliding scale insulin an d monitor Accu-Cheks. 6.Normocytic normochromic anemia. We will monitor H and H, likely anemia of chronic disease. Plan: Admit the patient to Med-Surg, place as inpatient with remote cardiac telemetry. Estimated le ngth of stay greater than 2 midnights. Overall, the patient has a poor prognosis. Dr. aSnchez with Pulmonology has been consulted as well. We will obtain venous Doppler to rule out DVT of the left lo wer extremity. YAMIL Voice ID: [id number]
[2018-03-25] MEDS: ACETAMINOPHEN 500 MG TAB PO PRN ×2 (04:50→15:40)
[2018-03-25] MEDS: HYDRALAZINE HCL 20 MG/ML VIAL IV PRN (04:51)
[2018-03-25 06:12] LABS: Absolute Lymphocytes (CBC) 1.3 K/uL (0.7-4.9); Absolute Neutrophil 5.5 K/uL (1.8-8.0); Basophils % 1.1 % (0-1.3); Eosinophils % 1.9 % (0-4.4); Lymphocytes % 16.1 % (15.3-44.8); MCV 86.5 fL (80-100); MPV 8.6 fL (7.6-11.3); Monocytes % 12.2 % (3.3-12.3)
[2018-03-25 06:31] LABS: Albumin 3.2 g/dL (3.4-5.0); Bilirubin Total 0.3 mg/dL (0.2-1.0); Potassium 4.7 mmol/L (3.5-5.1); Protein, Total 6.5 g/dL (6.4-8.2)
[2018-03-25] MEDS: INSULIN -REGULAR HUMAN 50 UNIT/0.5 ML ML SQ SCH ×4 (07:30→21:00)
[2018-03-25] MEDS ORDERED: HOME MED 1 EA UNK (Insulin Detemir [Levemir] 25 UNITS) SQ SCH (08:00)
--- NOTE | 2018-03-25 08:41 | P.CNS ---
Date of Consult: 03/25/18 Reason for Consult: Pleural effusion Chief Complaint: Shortness of breath History of Present Illness: Patient is 62 years of age I had CABG done about 2 months ago admitted with shortness of breath Nauruan-speaking only denies any arm fever chills has some chest discomfort patient has at thoracenteses before has significant effusion on the left side otherwise she feels fine Allergies No Known Allergies Allergy (Verified 12/31/17 21:46) Home Medications: Amiodarone HCl [Pacerone] 200 mg PO BID 03/24/18 Aspirin [Adult Low Dose Aspirin EC] 81 mg PO DAILY 03/24/18 Atorvastatin Calcium [Lipitor] 80 mg PO DAILY 03/24/18 Carvedilol [Coreg*] 25 mg PO BID 03/24/18 Hydralazine [Apresoline] 75 mg PO Q6HR 03/24/18 Insulin Detemir [Levemir] 15 units SQ DAILY AT SUPPER 03/24/18 Insulin Detemir [Levemir] 25 units SQ DAILY WITH BREAKFAST 03/24/18 Isosorbide Mononitrate [Isosorbide Mononitrate ER] 30 mg PO DAILY 03/24/18 Lisinopril [Zestril] 20 mg PO DAILY 03/24/18 - Past Medical/Surgical History Diabetic: Yes -: HTN -: DM II -: CHF -: -: C.A. Bypass - Family History Mother Notes: none Father Notes: none - Social History Alcohol use: No CD- Drugs: No Caffeine use: No Place of Residence: Home Review of Systems is unable to be obtained Physical Examination Temp Pulse Resp BP Pulse Ox 97.8 F 70 22 H 137/60 98 03/25/18 04:00 03/25/18 06:19 03/25/18 04:00 03/25/18 06:19 03/25/18 04:00 General: Alert HEENT: Atraumatic Neck: Supple Respiratory: Diminished (Diminished on the left side) Cardiovascular: No edema, Normal S1 S2 Laboratory Data (last 24 hrs) 03/24/18 10:45: PT 11.6, INR 0.98 03/24/18 10:45: WBC 8.9, Hgb 9.4 L, Hct 28.0 L, Plt Count 293 10/31/18 10:45: Sodium 137, Potassium 5.0, BUN 40 H, Creatinine 2.20 H, Glucose 186 H, Magnesium 2.4, Total Bilirubin 0.3, AST 19, ALT 43, Alkaline Phosphatase 80 - Problems (1) Pleural effusion Current Visit: Yes Status: Acute Plan: Patient is 62 years of age admitted with shortness of breath recurrent left- sided pleural effusions is status post 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 I have also added some colchicine 0.5 mg twice a day for 30 days patient is scheduled for a left-sided thoracentesis and possible discharge home 2D echo with Doppler BNP is also elevated possible underlying heart failure agree with Lasix warp changer to p.o. reduce dose of Lasix patient does not take Lasix at home echocardiogram pending possible discharge home today follow up with me in 2 weeks room-air oxygenation satisfactory
[2018-03-25] MEDS ORDERED: ASPIRIN EC 81 MG TAB PO SCH (09:00)
[2018-03-25] MEDS ORDERED: LISINOPRIL 10 MG TAB PO SCH (09:00)
[2018-03-25] MEDS ORDERED: ATORVASTATIN 80 MG TAB PO SCH (09:00)
[2018-03-25] MEDS: INSULIN GLARGINE 100 UNITS/ML SQ SCH ×2 (09:28→18:38)
[2018-03-25] MEDS: CARVEDILOL 25 MG TAB PO SCH ×2 (09:29→21:48)
[2018-03-25] MEDS: ISOSORBIDE MONO SR 30 MG TAB PO SCH (09:29)
[2018-03-25] MEDS: FUROSEMIDE 40 MG/4 ML VIAL IV SCH (09:29)
--- NOTE | 2018-03-25 13:09 | ECHO ---
HEIGHT: 5 ft 2 in WEIGHT: 136 lb 1.6 oz DATE OF STUDY: 03/25/[address]: Griselda Mccarthy MD 2-DIMENSIONAL: YES M.MODE: YES DOPPLER: YES COLOR FLOW: YES TDS: YES PORTABLE: NO DEFINITY: NO BUBBLE STUDY: NO DIAGNOSIS: CONGESTIVE HEART FAILURE; ACUTE DECOMPENSATION CARDIAC HISTORY: CATHERIZATION: NO SURGERY: YES PROSTHETIC VALVE: NO PACEMAKER: NO MEASUREMENTS (cm) DIASTOLIC (NORMALS) SYSTOLIC (NORMALS) IVSd (0.6-1.2) LA Diam 5.0 (1.9-4.0) LVEF 74% LVIDd (3.5-5.7) LVIDs 2.3 (2.0-3.5) %FS 43% LVPWd (0.6-1.2) Ao Diam (2.0-3.7) 2 DIMENSIONAL ASSESSMENT: RIGHT ATRIUM: NORMAL LEFT ATRIUM: DILATED RIGHT VENTRICLE: NORMAL LEFT VENTRICLE: NORMAL TRICUSPID VALVE: NORMAL MITRAL VALVE: NORMAL PULMONIC VALVE: NORMAL AORTIC VALVE: NORMAL PERICARDIAL EFFUSION: NONE AORTIC ROOT: NORMAL LEFT VENTRICULAR WALL MOTION: NORMAL DOPPLER/COLOR FLOW: MILD TRICUSPID REGURGITATION. COMMENTS: MILD TRICUSPID REGURGITATION. NORMAL LEFT VENTRICULAR SIZE AND FUNCTION. LEFT ATRIAL ENLARGEMENT. NO PERICARDIAL EFFUSION. TECHNOLOGIST: Kemar JUAREZ
--- NOTE | 2018-03-25 16:10 | PN ---
Date of Progress Note: 03/25/2018 The patient is 62, was admitted by Dr. Mccarthy for shortness of breath. She was found to have a left p leural effusion. She is status post CABG. 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 She is still short of breath. Examination shows decreased breath sounds in the left l rom, otherwise her vital signs are stable. She was afebrile. Dr. Sanchez saw the patient. She is now on colchicine. There is a thoracentesis planned. 2D echocardiogram is pending. I agree with th e present regimen by Dr. Mccarthy and Dr. Sanchez. No changes in her cardiac therapy at this point. ENRIQUETA/EMILY Voice ID: [id number] Report ID: [id number]
[2018-03-25] MEDS: HYDRALAZINE HCL 25 MG TABLET PO SCH (18:39)
--- NOTE | 2018-03-25 20:17 | PN ---
Date of Progress Note: 03/25/2018 Subjective: The patient is seen and examined. Chart reviewed and case discussed with RN and Dr. Sanchez. The patient will be scheduled for thoracentesis. Review of Systems: Negative except as above. Medications: List reviewed. Physical Examination: Vital Signs: Temperature 98, heart rate 63, blood pressure 138/52, respirations 18, O2 of 97% on 1 L via nasal cannula. General: Awake, alert, oriented x3. Some mild respiratory distress, now off BiPAP. CV: S1, S2. Peripheral pulses present. No murmurs. Respiratory: Diminished breath sounds in the bases, somewhat improved from previous. Gastrointestinal: Abdomen is soft, nontender, nondistended. Positive bowel sounds. Extremities: No clubbing or cyanosis. The patient has left lower extremity edema. Neurologic: Nonfocal. Laboratory Data: Sodium 143, potassium 4.7, chloride 112, CO2 of 22, BUN 41, creatinine 2.1, glucose 109, calcium 8.8. WBC 8, H and H 8.7/26, platelets 286. Blood cultures, no growth to date. Doppler venous shows no DVT in the left lower extremity. Echocardiogram shows EF 74%, mild tricuspid regurg, left atrial enlargement. No pericardial effusion. Assessment And Plan: A 62-year-old female with: 1. Acute respiratory distress, secondary to pulmonary edema. 2. Acute congestive heart failure, diastolic dysfunction, EF is 74%. Continue diuresis. Lasix dose has been adjusted. Continue congestive heart failure guidelines. Hold MELVA inhibitor due to elevated creatinine. Appreciate Cardiology input. Echocardiogram reviewed. We will continue with a fluid- restricted diet and monitor daily weights. 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 Hypertensive emergency. Blood pressure was initially 200s systolic, significantly improved. Medications have been adjusted. The patient is still requiring IV hydralazine. We will adjust medications further. 4. Acute versus nwtfj-se-verwjss kidney injury. Baseline from previous visit was 1.5, baseline unclear. We will avoid NSAIDs and nephrotoxins. Continue monitoring creatinine. Somewhat trending down, creatinine 2.1. Hold MELVA inhibitor. 5. Diabetes mellitus type 2 with hyperglycemia, insulin requiring. We will continue home dose of insulin and sliding scale insulin. Monitor Accu-Cheks. 6. Normocytic, normochromic anemia, likely anemia of chronic disease. Monitor hemoglobin and hematocrit and transfuse if needed. 7. Gastrointestinal and deep venous thrombosis prophylaxis. Hold Lovenox for thoracentesis. 8. Moderate left pleural effusion, going for thoracentesis. We will follow up on cytology results. Appreciate Dr. Sanchez's input. Disposition: Home in 48 to 72 hours with home health. YAMIL Voice ID: [id number] Report ID: [id number] MTDD
[2018-03-25] MEDS: ATORVASTATIN 80 MG TAB PO SCH (21:48)
[2018-03-26] MEDS: HYDRALAZINE HCL 25 MG TABLET PO SCH ×4 (00:46→17:42)
[2018-03-26] MEDS: INSULIN -REGULAR HUMAN 50 UNIT/0.5 ML ML SQ SCH ×4 (07:30→21:00)
[2018-03-26] MEDS ORDERED: MORPHINE 2 MG/ML SYR IV ONE (07:58)
[2018-03-26] MEDS: INSULIN GLARGINE 100 UNITS/ML SQ SCH ×2 (08:00→17:00)
[2018-03-26 08:20] LABS: Albumin 3.1 g/dL (3.4-5.0); Bilirubin Total 0.3 mg/dL (0.2-1.0); Potassium 4.1 mmol/L (3.5-5.1); Protein, Total 6.5 g/dL (6.4-8.2)
[2018-03-26 08:22] LABS: Absolute Lymphocytes (CBC) 1.4 K/uL (0.7-4.9); Absolute Monocytes 0.9 K/uL (0.1-1.3); Absolute Neutrophil 5.4 K/uL (1.8-8.0); Eosinophils % 3.3 % (0-4.4); Hematocrit 26.5 % (36.0-45.0); Lymphocytes % 17.4 % (15.3-44.8); MCH 29.2 pg (27.0-35.0); MCV 87.2 fL (80-100); Monocytes % 11.3 % (3.3-12.3); RBC Red Blood Cell Count 3.04 M/uL (3.86-4.86)
[2018-03-26] MEDS: FUROSEMIDE 40 MG/4 ML VIAL IV SCH ×2 (09:00→13:44)
[2018-03-26] MEDS: ISOSORBIDE MONO SR 30 MG TAB PO SCH ×2 (09:00→13:43)
[2018-03-26] MEDS: CARVEDILOL 25 MG TAB PO SCH ×3 (09:00→20:39)
[2018-03-26] MEDS ORDERED: D5 0.45 NS 1,000 ML IV SCH (10:00)
[2018-03-26] MEDS ORDERED: HYDROCODONE/APAP 7.5/325 MG TAB PO PRN (11:33)
[2018-03-26] MEDS: HYDRALAZINE HCL 20 MG/ML VIAL IV PRN (11:37)
--- NOTE | 2018-03-26 11:56 | RAD REPORT ---
EXAM DESCRIPTION: US - Thoracentesis w/ US Guide - 03/26/2018 10:56 am CLINICAL HISTORY: Left pleural effusion COMPARISON: Portable chest March 24 TECHNIQUE: The patient presents for ultrasound-guided left-sided thoracentesis. The procedure, risk s and alternatives were discussed with the patient in detail. Oral and written consent were obtained. Time out procedure was performed. Video news copy editor service was utilized for this procedure. The pat ient had no contraindicated allergy or medication history. Patient was sufficiently off anticoagulati on medication. Preliminary sonographic evaluation identified posterior left chest access site. The skin and deeper tissues were anesthetized with 1 percent lidocaine. Under direct sonographic visualization, a Safe-T -Centesis thoracentesis catheter was advanced into the posterior left pleural cavity. Approximately 950 mL of pleural fluid removed. Approximately 20 mL of fluid retained for laboratory studies. At the conclusion of the procedure, catheter was withdrawn and a bandage placed at the puncture site. Post thoracentesis chest film was obtained. Patient was transferred back to the floor for continued care. Nursing service was notified that the pleural fluid sample was delivered to the laboratory. Nursing s ervice was notified by the technologist that fluid was present in the lab awaiting orders. Referring physician was notified by interpreting radiologist as well. IMPRESSION: Ultrasound-guided left-sided thoracentesis performed as detailed.
--- NOTE | 2018-03-26 11:58 | RAD REPORT ---
EXAM DESCRIPTION: RAD - Chest Single View - 03/26/2018 11:11 am CLINICAL HISTORY: Post thoracentesis chest film COMPARISON: Portable chest March 24 TECHNIQUE: AP portable chest image was obtained in expiration at 1054 hours . FINDINGS: Left-sided pleural fluid collection has substantially reduced. There remains minimal left costophrenic angle blunting and left lung base atelectasis. No pneumothorax is identifiable on this i mmediate post thoracentesis chest film. No change to the right hemithorax. Trachea remains midline. H eart size is upper normal. IMPRESSION: No post thoracentesis pneumothorax identifiable.
[2018-03-26 12:28] LABS: Body Fluid WBC 466 /mm^3
[2018-03-26 13:10] LABS: Appearance SLT. TURBID (CLEAR); Body Fluid Source PLEURAL; Color of fluid Yellow (COLORLESS)
--- NOTE | 2018-03-26 13:40 | P.PN ---
Subjective Date of Service: 03/26/18 Chief Complaint: Status post thoracentesis Patient is currently drowsy status post thoracentesis approximately 900 cc of fluid was removed from her left chest by radiology Review of Systems is unable to be obtained Physical Examination - Vital Signs Temperature: 97.7 F Blood Pressure: 183/73 Pulse: 70 Respirations: 18 Pulse Ox (%): 100 - Physical Exam General: Unresponsive (The shortly after her procedure) Respiratory: Clear to auscultation bilaterally Assessment & Plan - Problems (Diagnosis) (1) Pleural effusion Onset Date: 03/25/18 Current Visit: Yes Status: Acute Plan: Patient is status post right-sided thoracentesis fluid has been sent for appropriate chemistries cytology chest x-ray is clear repeat chest x-ray 2:00 p.m. I have added colchicine 0.6 mg twice a day for 30 days and Lasix 40 mg daily patient's echocardiogram is normal patient has renal insufficiency pleural fluid shows a predominance of lymphocytes and be discharged home if chest x-ray negative postprocedure follow up with me in 2 weeks
--- NOTE | 2018-03-26 15:28 | RAD REPORT ---
EXAM DESCRIPTION: Nickt Single View03/26/2018 3:04 pm CLINICAL HISTORY: Thoracentesis COMPARISON: 03/26/2018 FINDINGS: A pneumothorax is not seen status post thoracentesis. Mild bibasilar lung opacities are n oted. Heart is mildly enlarged. Postsurgical changes involve the chest IMPRESSION: No pneumothorax status post thoracentesis
--- NOTE | 2018-03-26 16:02 | PN ---
Date of Progress Note: 03/26/2018 Subjective: The patient is seen and examined. Chart reviewed, and case discussed with RN. Spoke wi th son at length yesterday. Treatment plan was explained. All questions were answered. The patient going for thoracentesis today. Complaining of some back pain. Continues to have shortness of breat h. Review of Systems: Negative except as above. Medications: List reviewed. Physical Examination: Vital Signs: Temperature 98.7, heart rate 65, blood pressure 176/74, respirations 18, O2 of 100% on 1 L via nasal cannula. General: Awake, alert, oriented x3, in mild distress. An ill-appearing female. CV: S1, S2. Regular rate and rhythm. Peripheral pulses present. Respiratory: Diminished breath sounds. No wheezing or crackles. Gastrointestinal: Abdomen is soft, nontender, nondistended. Positive bowel sounds. No guarding or rigidity. Extremities: No clubbing or cyanosis. Pedal edema. Neurologic: Nonfocal. Laboratory Data: Sodium 143, potassium 4.1, chloride 113, CO2 of 22, BUN 41, creatinine 2, glucose 7 7, calcium 8.8. WBC 8, H and H of 8.9 and 26.5, platelets 278, neutrophils 67. Blood cultures, no g rowth to date. Assessment: A 62-year-old female with: 1.Acute respiratory distress with hypoxia, secondary to pulmonary edema. The patient is still requi ring supplemental oxygen. Will need thoracentesis for significant improvement. 2.Acute congestive heart failure, diastolic dysfunction, EF is 74%. We will continue diuresis, Lasi x 40 mg IV. We will continue congestive heart failure guidelines. Hold lisinopril due to elevated c reatinine. Continue daily weight monitoring and fluid-restricted diet. 3.Hypertensive emergency. Blood pressure still requiring p.r.n. medications, however, improved, cur rently in the 160s to 170s. Hydralazine added. 4.Acute versus unchc-jn-oiasvui kidney injury. Creatinine is somewhat improved today at 2, however, not quite back to baseline. We will continue to monitor creatinine and avoid nephrotoxins and avoid NSAIDs, MELVA inhibitor. 5.Diabetes mellitus type 2 with hyperglycemia, insulin requiring. We will continue sliding scale in sulin. Monitor Accu-Cheks. The patient was somewhat lower today at 80 due to being n.p.o. We will add D5 half NS until procedure, which is in the afternoon time. 6.Normocytic, normochromic anemia, likely anemia of chronic disease. We will monitor hemoglobin and hematocrit. No need for transfusion at this time. 7.Moderate left pleural effusion, going for thoracentesis today. Follow up on cytology results. Dr Leandro Sanchez on board. 8.Gastrointestinal and deep venous thrombosis prophylaxis. Lovenox on hold for thoracentesis. Plan: We will monitor the patient post procedure. Likely discharge in the next 24 to 48 hours depen hank on clinical improvement. Watch for signs of complications from thoracentesis including pneumoth orax. SA/MODL Voice ID: [id number] Report ID: [id number]
[2018-03-26] MEDS: ONDANSETRON 4 MG/2 ML VIAL IV PRN ×2 (16:42→20:45)
[2018-03-26] MEDS: ATORVASTATIN 80 MG TAB PO SCH (20:39)
[2018-03-27] MEDS: HYDRALAZINE HCL 25 MG TABLET PO SCH ×3 (00:30→12:00)
[2018-03-27 05:07] LABS: Absolute Lymphocytes (CBC) 1.1 K/uL (0.7-4.9); Absolute Monocytes 0.9 K/uL (0.1-1.3); Absolute Neutrophil 5.4 K/uL (1.8-8.0); Basophils % 0.8 % (0-1.3); Eosinophils % 1.1 % (0-4.4); Hematocrit 24.6 % (36.0-45.0); Lymphocytes % 14.5 % (15.3-44.8); MCH 29.6 pg (27.0-35.0); MCV 87.1 fL (80-100); MPV 8.1 fL (7.6-11.3); Monocytes % 12.1 % (3.3-12.3); RBC Red Blood Cell Count 2.82 M/uL (3.86-4.86)
[2018-03-27 05:18] LABS: Albumin 2.8 g/dL (3.4-5.0); Bilirubin Total 0.2 mg/dL (0.2-1.0); Potassium 4.6 mmol/L (3.5-5.1)
[2018-03-27] MEDS: INSULIN -REGULAR HUMAN 50 UNIT/0.5 ML ML SQ SCH ×2 (07:30→11:30)
[2018-03-27] MEDS: INSULIN GLARGINE 100 UNITS/ML SQ SCH (08:00)
[2018-03-27 08:45] VITALS: O2SAT 99
[2018-03-27] MEDS: ISOSORBIDE MONO SR 30 MG TAB PO SCH (10:33)
[2018-03-27] MEDS: CARVEDILOL 25 MG TAB PO SCH (10:33)
[2018-03-27] MEDS: FUROSEMIDE 40 MG/4 ML VIAL IV SCH (10:34)
[2018-03-27 12:39] VITALS: BP 124/56; TEMP 97.9
--- NOTE | 2018-03-27 13:46 | PN ---
Ms. Higgins is diuresed nicely. She feels well, and I believe she is ready to be discharged home. She got volume overloaded. I hope they have gotten the message about sodium restriction. There is a language barrier. I am never quite sure what they understand. I do plan to follow her as an outpat ient in the office. ALCIRA Voice ID: [id number] Report ID: [id number]
--- NOTE | 2018-03-27 22:11 | DS ---
Date of Discharge: 03/27/2018 Consultants: Dr. Sanchez with Pulmonology, Dr. Keane with Cardiology. Procedures: Thoracentesis in 03/2018 by Interventional Radiology. Admitting Diagnoses: 1.Acute respiratory distress. 2.Acute congestive heart failure. 3.Hypertensive emergency. 4.Acute versus acute on chronic kidney injury. 5.Diabetes mellitus type 2. 6.Normocytic normochromic anemia. 7.Coronary artery disease status post recent coronary artery bypass graft. Discharge Diagnoses: 1.Acute respiratory distress with hypoxia, improved. 2.Acute congestive heart failure, diastolic dysfunction, ejection fraction 74%, resolving. 3.Hypertensive emergency. Blood pressure improved. 4.Acute on chronic kidney injury stage IIIB. 5.Diabetes mellitus type 2 with hyperglycemia, insulin requiring. 6.Normocytic normochromic anemia, anemia of chronic disease. 7.Moderate left pleural effusion status post thoracentesis. 8.Coronary artery disease status post recent coronary artery bypass graft. 9.Sahra syndrome. Hospital Course: The patient is a 62-year-old female with recent bypass surgery at [facility], who returns to the hospital several weeks after the surgery with shortness of breath, weakn ess, and pain. The patient was found to have pleural effusion, which required drainage as mentioned above. The patient was seen by Dr. Sanchez with Pulmonology. The patient was thought to have Dress ler syndrome, was started on colchicine, which improved her symptoms. Cardiology also saw the patien t. The patient's echocardiogram showed an EF of 74%. She has diastolic dysfunction. The patient wi ll now be on Lasix going forward. The patient also had severely elevated blood pressure with hyperte nsive emergency, systolic in the 200s. Her medications were adjusted. She did improve with treatmen t. Cardiology recommended discontinuing amiodarone due to pulmonary toxicity, which was discontinued . Her kidney function did improve slightly close to baseline. The patient does have chronic kidney disease. After the thoracentesis, the patient felt better. Approximately 950 mL were taken out and removed. Cytology studies were sent off which are currently pending. The patient did well. She was able to be weaned off oxygen, initially required BiPAP. She did require multiple p.r.n. medications for her blood pressure. The patient will need repeat chest x-ray in 1 to 2 weeks. Her kidney funct ion needs to be repeated in about a week to ensure that her kidney function is not worsening, given n ew medications including Lasix, and to monitor her potassium level. The patient was then cleared for discharge. Will need to follow up with her primary care physician in 2 to 3 days. Needs to follow up with net finisher, Dr. Sanchez in 2 weeks. Follow up with stores assistant, Dr. Kruger in 2 weeks. Follow up with CT surgeon in [place] as scheduled. Return to ER for worsening condition. Diet: Low-sodium, fluid-restricted diet. Activity: As tolerated. Medications: As per medication reconciliation list. Physical Examination: General: Awake, alert, oriented x3, not in any acute distress, elderly female. CV: S1, S2. No murmurs. Respiratory: Moving air well bilaterally. Abdomen: Soft, nontender, nondistended. Positive bowel sounds. Extremities: No clubbing, cyanosis. Trace pedal edema. Neurologic: Nonfocal. Total time spent discharging the patient was 41 minutes. Family at the bedside, explained treatment plan and went over discharge instructions with the son as well as the patient. /EMILY Voice ID: [id number] Report ID: [id number]
== END 2018-03-27 16:02 | disposition home or self-care (01) | DRG 291 ==
LOC: ER 09:53 → ERHOLD 13:13 → 4TH 14:24
PROVIDERS: ADMIT Family Medicine; ATTEND Family Medicine
PROC: 0W9B3ZX Drainage of Left Pleural Cavity, Percutaneous Approach, Diagnostic (ICD-10-PCS; principal; 2018-03-26)
DX: I13.0 Hypertensive heart and chronic kidney disease with heart failure and stage 1 through stage 4 chronic kidney disease, or unspecified chronic kidney disease (principal); I50.33 Acute on chronic diastolic (congestive) heart failure; I24.1 Dressler's syndrome; N17.9 Acute kidney failure, unspecified; J90 Pleural effusion, not elsewhere classified; I16.1 Hypertensive emergency; I25.10 Atherosclerotic heart disease of native coronary artery without angina pectoris; Z95.1 Presence of aortocoronary bypass graft; N18.3 Chronic kidney disease, stage 3 (moderate); E11.22 Type 2 diabetes mellitus with diabetic chronic kidney disease; E11.65 Type 2 diabetes mellitus with hyperglycemia; Z79.4 Long term (current) use of insulin; D63.1 Anemia in chronic kidney disease; R06.03 Acute respiratory distress
CPT/HCPCS: 32555; 36415; 71045; 80048; 80053; 80076; 81003; 82805; 82962; 83605; 83735; 83880; 84145; 84484; 85025; 85610; 85730; 87040; 87070; 88108; 88305; 89050; 89060; 93005; 93306; 93971; 94640; 94660; 94760; 96365; 96375; 99285; J0360; J1650; J2270; J2405

== ENCOUNTER 2021-06-28 14:43 | Inpatient (IN) | payer OTHER ==
--- OUTSIDE RECORDS SUMMARY | 2021-06-28 14:51 | XMS REPORT | Continuity of Care Document ---
:1955 Author Organization [facility] t Address [address] [place] [address] Care Team Providers Name Role Phone [facility] Physician Jodi Sherman Attending Clinician Unavailable SIMON Attending Clinician Unavailable Doctor Unassigned, Name Attending Clinician Unavailable Kemar SMITH Attending Clinician Unavailable LUCY WEBB Attending Clinician Unavailable Kemar SMITH Admitting Clinician Unavailable LUCY WEBB Admitting Clinician Unavailable Payers Payer Name Policy Type Policy Number Effective Date Expiration Date S ource Problems Condition Condition Condition Status Onset Resolution Last Treating Co mments Source Name Details Category Date Date Treatment Clinician Date 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 Social History Social Habit Start Date Stop Date Quantity Comments Source Alcohol intake 2015-03-27 2015-03-27 0 /d [facility] 00:00:00 00:00:00 Medical Branch Sex Ass[birth year] [facility] 00:00:00 00:00:00 Medical Branch Smoking Status Start Date Stop Date Source Never smoker [facility] Branch Medications Ordered Filled Start Stop Current Ordering Indication Dosage Frequency Signature Comments Components Source Medication Medication Date Date Medication? Clinician (SIG) Name Name HydrALAZINE HydrALAZINE Yes Na Sherman [address] [facility] HCl HCl 8-07 with food [facility] 00[facility]: [facility] 00 [facility] Victoza Victoza Yes Na Sherman as [facility] 8-07 directed [facility] - 00:[facility]: [facility] 00 [facility] NovoFine NovoFine Yes Na Sherman as [facility] Plus Plus 8-07 directed [facility] - 00:00: [facility]oria [facility] HydrALAZINE HydrALAZINE Yes Na Sherman [address] [facility] HCl HCl 6-26 with food [facility] - 00:00: [facility] 00 [facility] Blood 2014-05 Yes [id number] Use as Univer s Pressure 03 directed ity of Monitor 00:00: [place] (BLOOD 00 Medical PRESSURE Branch KIT) Kit metoprolol 2014-05 Yes Univers tartrate 0-27 ity of (LOPRESSOR) 00:00: [place] 25 mg 00 Medical tablet Branch glipizide-m 2014-05 Yes Univmaxim s etformin 0-13 ity of (METAGLIP) 00:00: [place] 2.5-250 mg 00 Medical per tablet Branch lisinopril 2014-05 Yes Univers (PRINIVIL,Z 0-05 ity of ESTRIL) 10 00:00: [place] mg tablet 00 Medical Branch ferrous Yes Univers sulfate 325 09 ity of mg (65 mg 00:00: [place] iron) 00 Medical tablet Branch atorvastati Yes Univmaxim s n (LIPITOR) 01-31 ity of 20 mg 00:00: [place] tablet 00 Medical Branch Isosorbide Isosorbide Yes Na Sherman [address] [facility] Mononitrate Mononitrate in the [facility] ER morning [facility] Atorvastati Atorvastati Yes Na Sherman [address] [facility] n Calcium n Calcium [facility] Carvedilol Carvedilol Yes Na Sherman [address] [facility] Tradjenta Tradjenta Yes Na Sherman [address] [facility] Atorvastati Atorvastati Yes Na Sherman [address] [facility] n Calcium n Calcium [facility] Methimazole Methimazole Yes Na Sherman TAKE [address] [facility] TABLET BY [facility] - MOUTH Memoria THREE l TIMES Outpati DAILY WITH ent FOOD FOR Clinics 90 DAYS Levemir Levemir Yes Na Sherman [address] FlexTouch FlexTouch in AM and [facility] - 15 units [facility] Amiodarone Amiodarone Yes Na Sherman [address] [facility] HCl HCl [facility] Levemir Levemir Yes Na Sherman as [facility] directed [facility] Furosemide Furosemide Yes Na Sherman [address] [facility] Lisinopril Lisinopril Yes Na Sherman TAKE ONE [facility] TABLET BY [facility] - MOUTH ONCE [facility] DA[facility] Aspir-Low Aspir-Low Yes Na Sherman [address] [facility] Metoprolol Metoprolol Yes Na Sherman [address] [facility] [address] Succinate Succinate [facility] Metoprolol Metoprolol Yes Na Sherman TAKE ONE [facility] Tartrate Tartrate TABLET BY Dora kes - MOUTH Memoria TWICE l DAILY [facility] Ferrous Ferrous Yes Na Sherman [address] Sulfate Sulfate [facility] glipiZIDE-m glipiZIDE-m Yes Na Sherman [address] etFORMIN etFORMIN with a [facility] - HCl HCl meal [facility] Sertraline Sertraline Yes Na Sherman [address] HCl HCl [facility] GlipiZIDE GlipiZIDE Yes Na Sherman [address] [facility] with main [facility] - meal [facility] Amiodarone Amiodarone Yes Na Sherman [address] [facility] [facility] HCl HCl [facility] NovoLog NovoLog Yes Na Sherman as [facility] Flexpen Flexpen directed [facility] Procedures Procedure Date / Time Performed Performing Clinician [facility] e REFERRAL- 2021-03-12 05:01:00 Doctor Unassigned, No [facility] REQUEST/RESPONSE Name Medical Branch Encounters Start End Encounter Admission Attending Care Care Encounter Source Date/Time Date/Time Type Type Clinicians Facility Department ID 2021-06-[address], Na STLMLC STLMLC [id number] [facility] [address] 14:31:43 [facility] 2021-06-[address], Na STLMLC STLMLC [id number] [facility] 12:52:59 [id number] [facility] 2021-06-[address], Na STLMLC STLMLC [id number] 12:52:27 [id number] [facility] 2021-06-[address], Na STLMLC STLMLC [id number] 12:04:32 [id number] [facility] 2021-06-[address], Na STLMLC STLMLC [id number] 11:37:27 [id number] [facility] 2021-06-[address], Na STLMLC STLMLC [id number] 11:34:05 [id number] [facility] 2021-06-19 Outpatient Sherman, Na STLMLC STLMLC [id number] 11:33:47 [id number] [facility] 2021-06-19 Outpatient Sherman, Na STLMLC STLMLC [id number] 10:58:14 [id number] [facility] 2021-06-19 Outpatient Sherman, Na STLMLC STLMLC [id number] 10:57:55 [id number] [facility] 2021-05-13 2021-05-13 ambulatory STLMLC [facility]LML[facility] [id number] [facility] 2021 2021 ambulatory STLMLC [facility]LMLC [id number] [facility] 2021-05-01 2021-05-02 Outpatient [facility] [id number] 00:00:00 00:00:00 JAYLEN [address] 2021-04-26 2021-04-26 ambulatory STLMLC STLC [id number] [facility] 2021-04-23 2021-04-23 ambulatory STLMLC STLC [id number] [facility] 2021-03-12 2021-03-12 Orders Doctor MODESTA [id number] Univers 00:00:00 00:00:00 Only Unassigned, [place] [id number] ity of Silas [facility] [id number] Chris as [phone] [place] [id number] Branch 2021-01-08 2021-01-08 [facility]patient [facility] [id number] 00:00:00 00:00:00 JAYLEN [address] 2020-12-27 2020-12-27 Outpatient STLMLC STLC [id number] [facility] 2020-12-13 2020-12-13 Outpatient STLMLC STLMLC [id number] [facility] 2020-09-13 2020-09-13 Outpatient STLMLC STLMLC [id number] [facility] 2020-09-07 2020-09-07 Outpatient STLMLC STLMLC [id number] [facility] 2020-09-07 2020-09-07 Outpatient STLMLC STLMLC [id number] [facility] 2020-07-02 2020-07-02 Outpatient STLMLC STLMLC [id number] [facility] 2020-04-16 2020-04-16 Outpatient STLMLC STLMLC [id number] [facility] 2020-04-16 2020-04-16 Outpatient STLMLC STLMLC [id number] [facility] 2020-04-09 2020-04-09 Outpatient [facility]LMLC STLC [id number] [facility] 2020-01-23 2020-01-23 [facility] [id number] 10:55:00 10:55:[address] Luke s - Drive [facility] l Medicine Outpati ent Clinics 2020-01-09 2020-01-09 [facility] [id number] 10:40:00 10:40:00 [place] [employer] Luke s - Drive [facility] Medicine Outpati ent Clinics 2019-08-22 2019-08-22 [facility] [id number] 16:56:00 16:56:00 [place] [employer] Luke s - Drive [facility] Medicine Outpati ent Clinics 2019-08-22 2019-08-22 [facility] [id number] 13:29:00 13:29:[address] Luke s - Drive [facility] Medicine Outpati ent Clinics 2019-08-17 2019-08-17 [facility] [id number] 11:57:00 11:57:[address] Luke s - Drive [facility] Medicine Outpati ent Clinics 2019-05-30 2019-05-30 [facility] [id number] 11:40:00 11:40:[address] Luke s - Drive [facility] Medicine l Medicine Outpati ent Clinics 2019-05-11 2019-05-11 [facility] [id number] 08:55:00 08:55:[address] Luke s - Drive [facility] Medicine l Medicine Outpati ent Clinics 2019-03-26 2019-03-26 [facility] [id number] 17:29:00 17:29:[address] Luke s - Drive [facility] Medicine l Medicine Outpati ent Clinics 2019-03-17 2019-03-17 [facility] [id number] 13:00:00 13:00:[address] Luke s - Drive [facility] l Medicine Outpati ent Clinics 2018-12-14 2018-12-14 [facility] [id number] 13:40:00 13:40:00 [place] [employer] Luke s - Drive [facility] Medicine Outpati ent Clinics 2018-10-14 2018-10-14 [facility] [id number] 14:20:00 14:20:00 [place] [employer] Luke s - Drive [facility] Medicine Medicine Outpati ent Clinics 2018-08-11 2018-08-11 [facility] [id number] 16:22:00 16:22:00 [place] [employer] Luke s - Drive [facility] Medicine Outpati ent Clinics 2018-07-20 2018-07-20 [facility] [id number] 15:15:00 15:15:[address] Luke s - Drive [facility] Medicine l Medicine Outpati ent Clinics 2018-04-29 2018-04-29 [facility] [id number] [facility] 15:15:00 15:15:[address] Luke s - Drive [facility] Medicine l Medicine Outpati ent Clinics 2018-04-01 2018-04-01 [facility] [id number] 08:17:00 08:17:[address] Luke s - Drive [facility] Medicine Medicine Outpati ent Clinics 2018-02-08 2018-02-08 [facility] [id number] [facility] 15:00:00 15:00:[address] Luke s - Drive [facility] l Medicine Outpati ent Clinics 2018-01-06 2018-01-06 [facility] [id number] 08:58:00 08:58:[address] Luke s - Drive [facility] Medicine l Medicine Outpati ent Clinics 2017-12-31 2017-12-31 [facility] [id number] [facility] 16:45:00 16:45:[address] Luke s - Drive [facility] l Medicine Outpati ent Clinics 2017-12-30 2017-12-30 [facility] [id number] 14:34:00 14:34:[address] Luke s - Drive [facility] Medicine l Medicine Outpati ent Clinics 2017-12-29 2017-12-29 [facility] [id number] 14:45:00 14:45:[address] Luke s - Drive [facility] Medicine l Medicine Outpati ent Clinics 2017-12-29 2017-12-29 [facility] [id number] 13:51:00 13:51:[address] Luke s - Drive [facility] Medicine l Medicine Outpati ent Clinics 2017-12-01 2017-12-01 [facility] [id number] [facility] 15:18:00 15:18:[address] Luke s - Drive [facility] Medicine l Medicine Outpati ent Clinics 2017-11-26 2017-11-26 [facility] [id number] [facility] 14:20:00 14:20:[address] Luke s - Drive [facility] Medicine l Medicine Outpati ent Clinics 2017-11-24 2017-11-24 [facility] [id number] 11:26:00 11:26:[address] Luke s - Drive [facility] Medicine l Medicine Outpati ent Clinics 2017-11-17 2017-11-17 [facility] [id number] 14:00:00 14:00:[address] Luke s [facility] ent [facility] 2017-09-17 2017-09-17 [facility] [id number] 14:00:00 14:00:00 [employer] [facility] 2017-08-20 2017-08-20 [facility] [id number] 10:30:00 10:30:00 [employer] [facility] Results Test Description Test Time Test Comments Results Result Comments Source AFB CULTURE + SMEAR 2018-03-14 16:58:00 Test Item Value Reference Range Interpretation Comme nts CULTURE (BEAKER) (test code = 1095) No acid-fast bacilli isolated i n 42 days AFB SMEAR (BEAKER) (test code = 994) No acid fast bacilli seen FUNGUS CULTURE + [id number] 06:54:00 Test Item Value Reference Range Interpretation Comments CULTURE (BEAKER) (test No fungus isolated in code = 1095) 28 days FUNGUS SMEAR (BEAKER) No fungi seen (test code = 1406) BODY FLUID CULTURE + GRAM [id number] 16:37:00 Test Item Value Reference Range Interpretation Comments CULTURE (BEAKER) (test code No growth = 1095) GRAM STAIN RESULT (BEAKER) <1+ WBCs (test code = 1123) GRAM STAIN RESULT (BEAKER) No organisms seen (test code = 18124) [id number] 11:30:00Medical Cytology Report Case: [id number] Authorizing Provider: Kan Batres MD Collected: 01/29/2018 1504 Ordering Location: [address] Received: 01/29/2018 1504 Service Pathologist: Marleen Zaman Specimen: Pleural, Left LEFT PLEURAL FLUID (CYTOSPINS): - NEGATIVE FOR MALIGNANCY PREDOMINANTLY BLOOD Signing Pathologist Direct Phone Line: [phone] signed by Marleen Zaman on 02/01/2018 at 11:30 [id number] pleural effusion, systemic diseaseLEFT PLEURAL [id number] mls dark brown; 4 cytospinsCollected: [id number]: [id number] [facility], Department of Pathology, [address] [place] [address], [facility], Department of Pathology, [address] [place] [id number], ESQ, CHEST, 1 VIEW, NON [id number] 10:09:00Reason for exam:- >pleural effusionShould this be performed at the bedside?->YesFINAL REPORT INDICATION: pleural effusion TECHNIQUE: Chest radiograph, singleview, portable technique. FINDINGS / IMPRESSION: Patchy opacity in the left lower lung is not significantly changed since January 29. Finding probably represents reexpansion edema or residual atelectasis after left thoracentesis performed January 29. No pneumothorax. Prominent heart shadow and median sternotomy wires noted. Signed: Blayne Ghoshort Verified Date/Time: 01/30/2018 10:09:16 Reading Location: [address] Ortho Consult Reading Room -GLUCOSE [id number] 09:11:00 Test Item Value Reference Range Interpretation Comments POC-GLUCOSE METER 176 mg/dL 70-110 H TESTED AT [place] [address] ([facility]) (test code = [facility] 1538) [id number] POCT-GLUCOSE [id number] 07:35:00 Test Item Value Reference Range Interpretation Comments POC-GLUCOSE METER 145 mg/dL 70-110 H TESTED AT [place] [address] ([facility]) (test code = [facility] 1538) [address] POCT-GLUCOSE [id number] 07:22:00 Test Item Value Reference Range Interpretation Comments POC-GLUCOSE METER 61 mg/dL 70-110 L TESTED AT [place] [address] ([facility]) (test code = [facility] [address] 1538) BASIC METABOLIC [id number] 06:38:00 Test Item Value Reference Range Interpretation Comments SODIUM (BEAKER) 139 meq/L 136-145 (test code = 381) POTASSIUM (BEAKER) 4.6 meq/L 3.5-5.1 (test code = 379) CHLORIDE (BEAKER) 108 meq/L 98-107 H (test code = 382) CO2 (BEAKER) (test 23 meq/L 22-29 code = 355) BLOOD UREA NITROGEN 36 mg/dL 7-21 H (BEAKER) (test code = 354) CREATININE (BEAKER) 2.25 mg/dL 0.57-1.25 H (test code = 358) GLUCOSE RANDOM 54 mg/dL 70-105 L (BEAKER) (test code = 652) CALCIUM (BEAKER) 9.1 mg/dL 8.4-10.2 (test code = 697) EGFR (BEAKER) (test mL/min/1.73 INSUFFIC IENT CLINICAL code = 1092) sq m DATA TO CALCULA TE ESTIMATED GFR. CBC (HEMOGRAM ONLY)2018-01-30 05:26:00 Test Item Value Reference Range Interpretation Comments WHITE BLOOD CELL COUNT (BEAKER) 8.5 K/ L 3.5-10.5 (test code = 775) RED BLOOD CELL COUNT (BEAKER) 2.83 M/ L 3.93-5.22 L (test code = 761) HEMOGLOBIN (BEAKER) (test code = 8.1 GM/DL 11.2-15.7 L 410) HEMATOCRIT (BEAKER) (test code = 25.5 % 34.1-44.9 L 411) MEAN CORPUSCULAR VOLUME (BEAKER) 90.1 fL 79.4-94.8 (test code = 753) MEAN CORPUSCULAR HEMOGLOBIN 28.6 pg 25.6-32.2 (BEAKER) (test code = 751) MEAN CORPUSCULAR HEMOGLOBIN CONC 31.8 GM/DL 32.2-35.5 L (BEAKER) (test code = 752) RED CELL DISTRIBUTION WIDTH 14.9 % 11.7-14.4 H (BEAKER) (test code = 412) PLATELET COUNT (BEAKER) (test 353 K/CU MM 150-450 code = 756) MEAN PLATELET VOLUME (BEAKER) 9.9 fL 9.4-12.3 (test code = 754) NUCLEATED RED BLOOD CELLS 0 /100 WBC 0-0 (BEAKER) (test code = 413) POCT-GLUCOSE [id number] 21:22:00 Test Item Value Reference Range Interpretation Comments POC-GLUCOSE METER 108 mg/dL 70-110 TESTED AT [place] [address] (BEAKER) (test code = [facility] 1538) [address] POCT-GLUCOSE [id number] 18:26:00 Test Item Value Reference Range Interpretation Comments POC-GLUCOSE METER 135 mg/dL 70-110 H TESTED AT [place] [address] (BEAKER) (test code = [facility] 1538) [address] POCT-GLUCOSE [id number] 18:26:00 Test Item Value Reference Range Interpretation Comments POC-GLUCOSE METER 84 mg/dL 70-110 TESTED AT [place] [address] (BEAKER) (test code = [facility] [address] 1538) BODY FLUID CELL COUNT WITH [id number] 15:13:00 Test Item Value Reference Range Interpretation Comments APPEARANCE FLUID (BEAKER) Bloody Clear A (test code = 510) COLOR FLUID (BEAKER) (test Red Colorless, Straw A code = 511) RBC FLUID (BEAKER) (test code 519693 /cu mm <=1 H = 513) ADJUSTED WBC FLUID (BEAKER) 1352 /cu mm <=5 H (test code = 1691) LINING CELLS (BEAKER) (test 14 /cu mm <=1 H code = 1590) NEUTROPHILS FLUID (BEAKER) 9 % (test code = 1656) LYMPHS FLUID (BEAKER) (test 64 % code = 488) MONO/MACROPHAGE FLUID (BEAKER) 26 % (test code = 489) EOSINOPHILS FLUID (BEAKER) 1 % (test code = 491) BASO FLUID (BEAKER) (test code 0 % = 492) CONTAINER BODY FLUID (BEAKER) EDTA Tube (test code = 2873) LACTATE DEHYDROGENASE (LDH), BODY [id number] 13:12:00 Test Item Value Reference Range Interpretation Comments LACTATE DEHYDROGENASE FLUID 192 U/L Light's criteria (BEAKER) (test code = 634) identifies effusions if one or more are pre Absence of reference range indicates that normals have not been defined.Assay performance has not been validated for this type of specimen.PROTEIN, BODY FLUID 2018-01-29 13:12:00 Test Item Value Reference Range Interpretation Comments PROTEIN FLUID (BEAKER) 3.9 g/dL Light's criteria identifies (test code = 579) effusions if one or more are pre Absence of reference range indicates that normals have not been defined.Assay performance has not been validated for this type of specimen.GLUCOSE, BODY FLUID 2018-01-29 13:12:00 Test Item Value Reference Range Interpretation Comments GLUCOSE, BODY FLUID (BEAKER) (test 110 mg/dL 70-110 code = 1528) Absence of reference range indicates that normals have not been defined.Assay performance has not been validated for this type of specimen.POCT-GLUCOSE METER 2018-01-29 12:09:00 Test Item Value Reference Range Interpretation Comments POC-GLUCOSE METER 139 mg/dL 70-[address] [facility] 67[address] (BEGIANFRANCO) (test code = [facility] 1538) [address] POCT-GLUCOSE [id number] 11:06:00 Test Item Value Reference Range Interpretation Comments POC-GLUCOSE METER 148 mg/dL 70-[address] [facility] ([facility]) (test code = [facility] 1538) [address] RAD, CHEST, 1 VIEW, NON [id number] 10:27:00Reason for exam:->s/p Thoracentesis pt. in u/s #2 Should this be performed at the bedside?->Yes FINAL REPORT TECHNIQUE: Frontal chest radiograph dated 01/29/2018. CLINICAL HISTORY: S/P thoracentesis COMPARISON STUDY: Chest radiograph dated 01/28/2018 IMPRESSION: Left pleural effusion has decreased in size. There is atelectasis in the left lung base. Right lung is clear. No pneumothorax. Cardiomediastinal silhouette is normal in size. Calcification in the left paratracheal region correlates with calcified thyroid nodule. No pulmonary edema. Midline sternotomy wires are intact and well aligned. Degenerative changes are seen in the spine. No fracture. Signed: Lulu Fuentes Verified Date/Time: 01/29/2018 10:27:31 Reading Location: [facility] Radiology Reading Room U/S, [id number] 09:49:00Laterality?->LeftReason for exam:->pleural effusionSpecimen to be collected:->yesShould this be performed at the bedside?->NoFINAL REPORT Indication: Left pleural effusion. Technique: Ultrasound guided left thoracentesis. Findings:Preliminary ultrasound confirms pleural effusion. A safe window was identified. The procedure was explained to the patient and informed consent was signed. The skin was marked and prepped in standard sterile fashion. 1% lidocaine was used for local anesthesia. A 4 Swiss needle catheter system was advanced into the pleural space. 1500 cc dark red fluid was taken off. Sample of the fluid was sent to [facility]. Chest x-ray has been ordered. Impression: Ultrasound guided left thoracentesis. Signed: Blayne Ghosh MDReport Verified Date/Time: 01/29/2018 09:49:26 Reading Location: [address] Ultrasound Reading Room POCT-GLUCOSE [id number] 07:59:00 Test Item Value Reference Range Interpretation Comments POC-GLUCOSE METER 133 mg/dL 70-[address] [facility] [address] ([facility]) (test code = [place] [address]) [address] BASIC METABOLIC [id number] 05:54:00 Test Item Value Reference Range Interpretation Comments SODIUM (BEAKER) 132 meq/L 136-145 L (test code = 381) POTASSIUM (BEAKER) 4.6 meq/L 3.5-5.1 (test code = 379) CHLORIDE (BEAKER) 102 meq/L 98-107 (test code = 382) CO2 (BEAKER) (test 24 meq/L 22-29 code = 355) BLOOD UREA NITROGEN 40 mg/dL 7-21 H (BEAKER) (test code = 354) CREATININE (BEAKER) 2.30 mg/dL 0.57-1.25 H (test code = 358) GLUCOSE RANDOM 124 mg/dL 70-105 H (BEAKER) (test code = 652) CALCIUM (BEAKER) 8.6 mg/dL 8.4-10.2 (test code = 697) EGFR (BEAKER) (test mL/min/1.73 INSUFFIC IENT CLINICAL code = 1092) sq m DATA TO CALCULA TE ESTIMATED GFR. CBC (HEMOGRAM ONLY)2018-01-29 05:00:00 Test Item Value Reference Range Interpretation Comments WHITE BLOOD CELL COUNT (BEAKER) 9.0 K/ L 3.5-10.5 (test code = 775) RED BLOOD CELL COUNT (BEAKER) 2.91 M/ L 3.93-5.22 L (test code = 761) HEMOGLOBIN (BEAKER) (test code = 8.3 GM/DL 11.2-15.7 L 410) HEMATOCRIT (BEAKER) (test code = 26.2 % 34.1-44.9 L 411) MEAN CORPUSCULAR VOLUME (BEAKER) 90.0 fL 79.4-94.8 (test code = 753) MEAN CORPUSCULAR HEMOGLOBIN 28.5 pg 25.6-32.2 (BEAKER) (test code = 751) MEAN CORPUSCULAR HEMOGLOBIN CONC 31.7 GM/DL 32.2-35.5 L (BEAKER) (test code = 752) RED CELL DISTRIBUTION WIDTH 14.7 % 11.7-14.4 H (BEAKER) (test code = 412) PLATELET COUNT (BEAKER) (test 415 K/CU MM 150-450 code = 756) MEAN PLATELET VOLUME (BEAKER) 9.6 fL 9.4-12.3 (test code = 754) NUCLEATED RED BLOOD CELLS 0 /100 WBC 0-0 (BEAKER) (test code = 413) POCT-GLUCOSE [id number] 22:24:00 Test Item Value Reference Range Interpretation Comments POC-GLUCOSE METER 142 mg/dL 70-110 H TESTED AT [place] [address] ([facility]) (test code = [place]) [address] POCT-GLUCOSE [id number] 19:23:00 Test Item Value Reference Range Interpretation Comments POC-GLUCOSE METER 127 mg/dL 70-110 H TESTED AT [place] [address] ([facility]) (test code = [place] 15[address]) [address] POCT-GLUCOSE [id number] 15:04:00 Test Item Value Reference Range Interpretation Comments POC-GLUCOSE METER 149 mg/dL 70-110 H TESTED AT [place] [address] ([facility]) (test code = [place] [facility] 1538) [address] BASIC METABOLIC [id number] 13:29:00 Test Item Value Reference Range Interpretation Comments SODIUM (BEAKER) 134 meq/L 136-145 L (test code = 381) POTASSIUM (BEAKER) 4.5 meq/L 3.5-5.1 (test code = 379) CHLORIDE (BEAKER) 102 meq/L 98-107 (test code = 382) CO2 (BEAKER) (test 23 meq/L 22-29 code = 355) BLOOD UREA NITROGEN 32 mg/dL 7-21 H (BEAKER) (test code = 354) CREATININE (BEAKER) 2.16 mg/dL 0.57-1.25 H (test code = 358) GLUCOSE RANDOM 160 mg/dL 70-105 H (BEAKER) (test code = 652) CALCIUM (BEAKER) 9.0 mg/dL 8.4-10.2 (test code = 697) EGFR (BEAKER) (test mL/min/1.73 INSUFFIC IENT CLINICAL code = 1092) sq m DATA TO CALCULA TE ESTIMATED GFR. B-TYPE NATRIURETIC FACTOR (BNP)2018-01-28 13:26:00 Test Item Value Reference Range Interpretation Comments B-TYPE NATRIURETIC PEPTIDE 1022 pg/mL 0-100 H (BEAKER) (test code = 700) [id number] 13:24:00 Test Item Value Reference Range Interpretation Comments PHOSPHORUS (BEAKER) (test code = 4.8 mg/dL 2.3-4.7 H 604) [id number] 13:24:00 Test Item Value Reference Range Interpretation Comments MAGNESIUM (BEAKER) (test code = 2.0 mg/dL 1.6-2.6 627) HEPATIC FUNCTION [id number] 13:24:00 Test Item Value Reference Range Interpretation Comments TOTAL PROTEIN (BEAKER) (test code = 6.1 gm/dL 6.0-8.3 770) ALBUMIN (BEAKER) (test code = 1145) 3.1 g/dL 3.5-5.0 L BILIRUBIN TOTAL (BEAKER) (test code 0.3 mg/dL 0.2-1.2 = 377) BILIRUBIN DIRECT (BEAKER) (test 0.2 mg/dL 0.1-0.5 code = 706) ALKALINE PHOSPHATASE (BEAKER) (test 73 U/L 40-150 code = 346) AST (SGOT) (BEAKER) (test code = 16 U/L 5-34 353) ALT (SGPT) (BEAKER) (test code = 14 U/L 6-55 347) [id number] 13:07:00 Test Item Value Reference Range Interpretation Comments PROTIME (BEAKER) (test code = 14.6 seconds 11.7-14.7 759) INR (BEAKER) (test code = 370) 1.1 <=5.9 PARTIAL THROMBOPLASTIN TIME 32.6 seconds 22.5-36.0 (BEAKER) (test code = 760) RECOMMENDED COUMADIN/WARFARIN INR THERAPY RANGESSTANDARD DOSE: 2.0 - 3.0 Includes: PROPHYLAXIS forvenous thrombosis, systemic embolization; TREATMENT for venous thrombosis and/or pulmonary embolus.HIGH RISK: Target INR is 2.5-3.5 for patients with mechanical heart valves.CBC W/PLT COUNT & AUTO DIFFERENTIAL 2018-01-28 13:01:00 Test Item Value Reference Range Interpretation Comments WHITE BLOOD CELL COUNT (BEAKER) 8.7 K/ L 3.5-10.5 (test code = 775) RED BLOOD CELL COUNT (BEAKER) 2.47 M/ L 3.93-5.22 L (test code = 761) HEMOGLOBIN (BEAKER) (test code = 7.0 GM/DL 11.2-15.7 L 410) HEMATOCRIT (BEAKER) (test code = 22.4 % 34.1-44.9 L 411) MEAN CORPUSCULAR VOLUME (BEAKER) 90.7 fL 79.4-94.8 (test code = 753) MEAN CORPUSCULAR HEMOGLOBIN 28.3 pg 25.6-32.2 (BEAKER) (test code = 751) MEAN CORPUSCULAR HEMOGLOBIN CONC 31.3 GM/DL 32.2-35.5 L (BEAKER) (test code = 752) RED CELL DISTRIBUTION WIDTH 14.2 % 11.7-14.4 (BEAKER) (test code = 412) PLATELET COUNT (BEAKER) (test 406 K/CU MM 150-450 code = 756) MEAN PLATELET VOLUME (BEAKER) 9.9 fL 9.4-12.3 (test code = 754) NUCLEATED RED BLOOD CELLS 0 /100 WBC 0-0 (BEAKER) (test code = 413) NEUTROPHILS RELATIVE PERCENT 73 % (BEAKER) (test code = 429) LYMPHOCYTES RELATIVE PERCENT 13 % (BEAKER) (test code = 430) MONOCYTES RELATIVE PERCENT 10 % (BEAKER) (test code = 431) EOSINOPHILS RELATIVE PERCENT 3 % (BEAKER) (test code = 432) BASOPHILS RELATIVE PERCENT 1 % (BEAKER) (test code = 437) NEUTROPHILS ABSOLUTE COUNT 6.32 K/ L 1.56-6.13 H (BEAKER) (test code = 670) LYMPHOCYTES ABSOLUTE COUNT 1.13 K/ L 1.18-3.74 L (BEAKER) (test code = 414) MONOCYTES ABSOLUTE COUNT (BEAKER) 0.89 K/ L 0.24-0.36 H (test code = 415) EOSINOPHILS ABSOLUTE COUNT 0.22 K/ L 0.04-0.36 (BEAKER) (test code = 416) BASOPHILS ABSOLUTE COUNT (BEAKER) 0.06 K/ L 0.01-0.08 (test code = 417) IMMATURE GRANULOCYTES-RELATIVE 1 % 0-1 PERCENT (BEAKER) (test code = 2801) POCT-GLUCOSE [id number] 08:48:00 Test Item Value Reference Range Interpretation Comments POC-GLUCOSE METER 72 mg/dL 70-[address] [facility] [address] (BEAKER) (test code = [place] [facility] [address]) RAD, CHEST, 1 VIEW, NON [id number] 05:11:00Reason for exam:->left pleural effusionShould this be performed at the bedside?->YesFINAL REPORT RAD, CHEST, 1 VIEW, NON DEPT INDICATION: left pleural effusion CO MPARISON: January 19, 2018 FINDINGS: Portable frontal view of the chest. IMPRESSION: Support Lines: None. Lungs and pleura: Clear right lung. Increasing effusion on the left.Heart and mediastinum: Stable contours. Stable surgical changes.Additional findings: None. Signed: JR Velásquez Robert MDReport Verified Date/Time: 01/28/2018 05:11:51 Reading Location: [facility] C013Y CT Body Reading Room POCT-GLUCOSE [id number] 09:36:00 Test Item Value Reference Range Interpretation Comments POC-GLUCOSE METER 120 mg/dL 70-110 H TESTED AT [place] [address] ([facility] (test code = [place] [facility] 1538) [address] POCT-GLUCOSE [id number] 09:11:00 Test Item Value Reference Range Interpretation Comments POC-GLUCOSE METER 62 mg/dL 70-110 L TESTED AT [place] [address] ([facility] (test code = [place] [facility] [address]) BASIC METABOLIC [id number] 06:12:00 Test Item Value Reference Range Interpretation Comments SODIUM (BEAKER) 138 meq/L 136-145 (test code = 381) POTASSIUM (BEAKER) 4.0 meq/L 3.5-5.1 (test code = 379) CHLORIDE (BEAKER) 103 meq/L 98-107 (test code = 382) CO2 (BEAKER) (test 26 meq/L 22-29 code = 355) BLOOD UREA NITROGEN 21 mg/dL 7-21 (BEAKER) (test code = 354) CREATININE (BEAKER) 1.90 mg/dL 0.57-1.25 H (test code = 358) GLUCOSE RANDOM 112 mg/dL 70-105 H (BEAKER) (test code = 652) CALCIUM (BEAKER) 8.6 mg/dL 8.4-10.2 (test code = 697) EGFR ([facility] (test mL/min/1.73 INSUFFIC IENT CLINICAL code = 1092) sq m DATA TO CALCULA TE ESTIMATED GFR. POCT-GLUCOSE [id number] 23:24:00 Test Item Value Reference Range Interpretation Comments POC-GLUCOSE METER 82 mg/dL 70-110 TESTED AT [place] [address] ([facility] (test code = [place] [facility] [address]) POCT-GLUCOSE [id number] 18:30:00 Test Item Value Reference Range Interpretation Comments POC-GLUCOSE METER 161 mg/dL 70-110 H TESTED AT [place] [address] ([facility] (test code = [place] [facility] 1538) [address] POCT-GLUCOSE [id number] 14:15:00 Test Item Value Reference Range Interpretation Comments POC-GLUCOSE METER 118 mg/dL 70-110 H TESTED AT [place] [address] ([facility] (test code = [place] [facility] 1538) [address] POCT-GLUCOSE [id number] 08:30:00 Test Item Value Reference Range Interpretation Comments POC-GLUCOSE METER 96 mg/dL 70-110 TESTED AT [place] [address] ([facility]) (test code = [place] [facility] [address]) BASIC METABOLIC [id number] 06:47:00 Test Item Value Reference Range Interpretation Comments SODIUM (BEAKER) 140 meq/L 136-145 (test code = 381) POTASSIUM (BEAKER) 3.8 meq/L 3.5-5.1 (test code = 379) CHLORIDE (BEAKER) 105 meq/L 98-107 (test code = 382) CO2 (BEAKER) (test 27 meq/L 22-29 code = 355) BLOOD UREA NITROGEN 19 mg/dL 7-21 (AKER) (test code = 354) CREATININE (BEAKER) 1.89 mg/dL 0.57-1.25 H (test code = 358) GLUCOSE RANDOM 55 mg/dL 70-105 L ([facility]) (test code = 652) CALCIUM (BEAKER) 8.7 mg/dL 8.4-10.2 (test code = 697) EGFR ([facility]) (test mL/min/1.73 INSUFFIC IENT CLINICAL code = 1092) sq m DATA TO CALCULA TE ESTIMATED GFR. POCT-GLUCOSE [id number] 21:26:00 Test Item Value Reference Range Interpretation Comments POC-GLUCOSE METER 133 mg/dL 70-110 H TESTED AT [place] [address] ([facility]) (test code = [place] [facility] 1538) [address] POCT-GLUCOSE [id number] 15:36:00 Test Item Value Reference Range Interpretation Comments POC-GLUCOSE METER 63 mg/dL 70-110 L TESTED AT [place] [address] ([facility]) (test code = [place] [facility] [address] 1538) POCT-GLUCOSE [id number] 14:41:00 Test Item Value Reference Range Interpretation Comments POC-GLUCOSE METER 94 mg/dL 70-110 TESTED AT [place] [address] ([facility]) (test code = [place] [facility] [address] 1538) RAD, CHEST, 1 VIEW, NON [id number] 13:20:00Reason for exam:->Possible fluid overloadShould this be performed at the bedside?->YesFINAL REPORT TECHNIQUE: Frontal chest radiograph dated 01/19/2018. CLINICAL HISTORY: Possible fluid overload COMPARISON STUDY: Chest radiograph dated 01/13/2018 IMPRESSION:No change in airspace opacity in the left lung base. Minimal atelectasis is seen in the right lung base. No pleural effusion or pneumothorax. Cardiomediastinal silhouette is stable in size. No pulmonary edema.Midline sternotomy wires are intact and well aligned. No fracture. Signed: Lulu Fuenteseport Verified Date/Time: 01/19/2018 13:20:02 Reading Location: [facility] Radiology Reading Room B-TYPE NATRIURETIC FACTOR (BNP) 2018-01-19 11:06:00 Test Item Value Reference Range Interpretation Comments B-TYPE NATRIURETIC PEPTIDE 1089 pg/mL 0-100 H (BEAKER) (test code = 700) BASIC METABOLIC [id number] 10:59:00 Test Item Value Reference Range Interpretation Comments SODIUM (BEAKER) 139 meq/L 136-145 (test code = 381) POTASSIUM (BEAKER) 4.3 meq/L 3.5-5.1 (test code = 379) CHLORIDE (BEAKER) 106 meq/L 98-107 (test code = 382) CO2 (BEAKER) (test 24 meq/L 22-29 code = 355) BLOOD UREA NITROGEN 16 mg/dL 7-21 (BEAKER) (test code = 354) CREATININE (BEAKER) 1.75 mg/dL 0.57-1.25 H (test code = 358) GLUCOSE RANDOM 180 mg/dL 70-105 H (BEAKER) (test code = 652) CALCIUM (BEAKER) 8.8 mg/dL 8.4-10.2 (test code = 697) EGFR (BEAKER) (test mL/min/1.73 INSUFFIC IENT CLINICAL code = 1092) sq m DATA TO CALCULA TE ESTIMATED GFR. CBC W/PLT COUNT & AUTO [id number] 10:50:00 Test Item Value Reference Range Interpretation Comments WHITE BLOOD CELL COUNT (BEAKER) 12.6 K/ L 3.5-10.5 H (test code = 775) RED BLOOD CELL COUNT (BEAKER) 3.09 M/ L 3.93-5.22 L (test code = 761) HEMOGLOBIN (BEAKER) (test code = 8.8 GM/DL 11.2-15.7 L 410) HEMATOCRIT (BEAKER) (test code = 28.0 % 34.1-44.9 L 411) MEAN CORPUSCULAR VOLUME (BEAKER) 90.6 fL 79.4-94.8 (test code = 753) MEAN CORPUSCULAR HEMOGLOBIN 28.5 pg 25.6-32.2 (BEAKER) (test code = 751) MEAN CORPUSCULAR HEMOGLOBIN CONC 31.4 GM/DL 32.2-35.5 L (BEAKER) (test code = 752) RED CELL DISTRIBUTION WIDTH 14.3 % 11.7-14.4 (BEAKER) (test code = 412) PLATELET COUNT (BEAKER) (test 407 K/CU MM 150-450 code = 756) MEAN PLATELET VOLUME (BEAKER) 9.9 fL 9.4-12.3 (test code = 754) NUCLEATED RED BLOOD CELLS 0 /100 WBC 0-0 (BEAKER) (test code = 413) NEUTROPHILS RELATIVE PERCENT 71 % (BEAKER) (test code = 429) LYMPHOCYTES RELATIVE PERCENT 15 % (BEAKER) (test code = 430) MONOCYTES RELATIVE PERCENT 10 % (BEAKER) (test code = 431) EOSINOPHILS RELATIVE PERCENT 2 % (BEAKER) (test code = 432) BASOPHILS RELATIVE PERCENT 1 % (BEAKER) (test code = 437) NEUTROPHILS ABSOLUTE COUNT 8.95 K/ L 1.56-6.13 H (BEAKER) (test code = 670) LYMPHOCYTES ABSOLUTE COUNT 1.94 K/ L 1.18-3.74 (BEAKER) (test code = 414) MONOCYTES ABSOLUTE COUNT (BEAKER) 1.29 K/ L 0.24-0.36 H (test code = 415) EOSINOPHILS ABSOLUTE COUNT 0.20 K/ L 0.04-0.36 (BEAKER) (test code = 416) BASOPHILS ABSOLUTE COUNT (BEAKER) 0.08 K/ L 0.01-0.08 (test code = 417) IMMATURE GRANULOCYTES-RELATIVE 1 % 0-1 PERCENT (BEAKER) (test code = 2801) POCT-GLUCOSE [id number] 10:35:00 Test Item Value Reference Range Interpretation Comments POC-GLUCOSE METER 198 mg/dL 70-110 H TESTED AT [place] [address] ([facility]) (test code = [place] [facility] 1538) [address] POCT-GLUCOSE [id number] 08:48:00 Test Item Value Reference Range Interpretation Comments POC-GLUCOSE METER 58 mg/dL 70-110 L Notified Liliana Mobley MD/TESTED AT ([facility]) (test code = [address] 15[address]) [place] [address] POCT-GLUCOSE [id number] 22:14:00 Test Item Value Reference Range Interpretation Comments POC-GLUCOSE METER 260 mg/dL 70-110 H TESTED AT [place] [address] ([facility]) (test code = [place] [facility] 1538) [address] POCT-GLUCOSE [id number] 20:10:00 Test Item Value Reference Range Interpretation Comments POC-GLUCOSE METER 140 mg/dL 70-110 H TESTED AT [place] [address] ([facility]) (test code = [place] [facility] 1538) [address] POCT-GLUCOSE [id number] 17:58:00 Test Item Value Reference Range Interpretation Comments POC-GLUCOSE METER 105 mg/dL 70-110 TESTED AT [place] [address] ([facility]) (test code = [place] [facility] 1538) [address] POCT-GLUCOSE [id number] 14:11:00 Test Item Value Reference Range Interpretation Comments POC-GLUCOSE METER 88 mg/dL 70-110 TESTED AT [place] [address] ([facility]) (test code = [place] [facility] [address]38) POCT-GLUCOSE [id number] 10:01:00 Test Item Value Reference Range Interpretation Comments POC-GLUCOSE METER 74 mg/dL 70-110 TESTED AT [place] [address] ([facility]) (test code = [place] [facility] [address]38) BASIC METABOLIC [id number] 05:26:00 Test Item Value Reference Range Interpretation Comments SODIUM (BEAKER) 139 meq/L 136-145 (test code = 381) POTASSIUM (BEAKER) 3.5 meq/L 3.5-5.1 (test code = 379) CHLORIDE (BEAKER) 106 meq/L 98-107 (test code = 382) CO2 (BEAKER) (test 26 meq/L 22-29 code = 355) BLOOD UREA NITROGEN 17 mg/dL 7-21 (BEAKER) (test code = 354) CREATININE (BEAKER) 1.48 mg/dL 0.57-1.25 H (test code = 358) GLUCOSE RANDOM 62 mg/dL 70-105 L (BEAKER) (test code = 652) CALCIUM (BEAKER) 8.6 mg/dL 8.4-10.2 (test code = 697) EGFR (BEAKER) (test mL/min/1.73 INSUFFIC IENT CLINICAL code = 1092) sq m DATA TO CALCULA TE ESTIMATED GFR. CBC W/PLT COUNT & AUTO [id number] 05:00:00 Test Item Value Reference Range Interpretation Comments WHITE BLOOD CELL COUNT (BEAKER) 9.2 K/ L 3.5-10.5 (test code = 775) RED BLOOD CELL COUNT (BEAKER) 2.83 M/ L 3.93-5.22 L (test code = 761) HEMOGLOBIN (BEAKER) (test code = 7.9 GM/DL 11.2-15.7 L 410) HEMATOCRIT (BEAKER) (test code = 25.2 % 34.1-44.9 L 411) MEAN CORPUSCULAR VOLUME (BEAKER) 89.0 fL 79.4-94.8 (test code = 753) MEAN CORPUSCULAR HEMOGLOBIN 27.9 pg 25.6-32.2 (BEAKER) (test code = 751) MEAN CORPUSCULAR HEMOGLOBIN CONC 31.3 GM/DL 32.2-35.5 L (BEAKER) (test code = 752) RED CELL DISTRIBUTION WIDTH 14.2 % 11.7-14.4 (BEAKER) (test code = 412) PLATELET COUNT (BEAKER) (test 349 K/CU MM 150-450 code = 756) MEAN PLATELET VOLUME (BEAKER) 10.4 fL 9.4-12.3 (test code = 754) NUCLEATED RED BLOOD CELLS 0 /100 WBC 0-0 (BEAKER) (test code = 413) NEUTROPHILS RELATIVE PERCENT 66 % (BEAKER) (test code = 429) LYMPHOCYTES RELATIVE PERCENT 19 % (BEAKER) (test code = 430) MONOCYTES RELATIVE PERCENT 11 % (BEAKER) (test code = 431) EOSINOPHILS RELATIVE PERCENT 3 % (BEAKER) (test code = 432) BASOPHILS RELATIVE PERCENT 1 % (BEAKER) (test code = 437) NEUTROPHILS ABSOLUTE COUNT 6.01 K/ L 1.56-6.13 (BEAKER) (test code = 670) LYMPHOCYTES ABSOLUTE COUNT 1.74 K/ L 1.18-3.74 (BEAKER) (test code = 414) MONOCYTES ABSOLUTE COUNT (BEAKER) 1.02 K/ L 0.24-0.36 H (test code = 415) EOSINOPHILS ABSOLUTE COUNT 0.27 K/ L 0.04-0.36 (BEAKER) (test code = 416) BASOPHILS ABSOLUTE COUNT (BEAKER) 0.05 K/ L 0.01-0.08 (test code = 417) IMMATURE GRANULOCYTES-RELATIVE 1 % 0-1 PERCENT (BEAKER) (test code = 2801) POCT-GLUCOSE [id number] 22:26:00 Test Item Value Reference Range Interpretation Comments POC-GLUCOSE METER 184 mg/dL 70-110 H TESTED AT [place] [address] ([facility] (test code = [facility] 1538) [id number] POCT-GLUCOSE [id number] 18:18:00 Test Item Value Reference Range Interpretation Comments POC-GLUCOSE METER 70 mg/dL 70-110 TESTED AT [place] [address] ([facility]) (test code = [facility] [address] 1538) POCT-GLUCOSE [id number] 13:49:00 Test Item Value Reference Range Interpretation Comments POC-GLUCOSE METER 78 mg/dL 70-110 TESTED AT [place] [address] ([facility] (test code = [facility] [address] 1538) POCT-GLUCOSE [id number] 09:07:00 Test Item Value Reference Range Interpretation Comments POC-GLUCOSE METER 121 mg/dL 70-110 H TESTED AT [place] [address] ([facility] (test code = [facility] 1538) [address] BASIC METABOLIC [id number] 07:02:00 Test Item Value Reference Range Interpretation Comments SODIUM (BEAKER) 141 meq/L 136-145 (test code = 381) POTASSIUM (BEAKER) 3.7 meq/L 3.5-5.1 (test code = 379) CHLORIDE (BEAKER) 108 meq/L 98-107 H (test code = 382) CO2 (BEAKER) (test 24 meq/L 22-29 code = 355) BLOOD UREA NITROGEN 21 mg/dL 7-21 (BEAKER) (test code = 354) CREATININE (BEAKER) 1.67 mg/dL 0.57-1.25 H (test code = 358) GLUCOSE RANDOM 95 mg/dL 70-105 (BEAKER) (test code = 652) CALCIUM (BEAKER) 8.6 mg/dL 8.4-10.2 (test code = 697) EGFR (BEAKER) (test mL/min/1.73 INSUFFIC IENT CLINICAL code = 1092) sq m DATA TO CALCULA TE ESTIMATED GFR. CBC W/PLT COUNT & AUTO [id number] 06:05:00 Test Item Value Reference Range Interpretation Comments WHITE BLOOD CELL COUNT (BEAKER) 8.1 K/ L 3.5-10.5 (test code = 775) RED BLOOD CELL COUNT (BEAKER) 2.84 M/ L 3.93-5.22 L (test code = 761) HEMOGLOBIN (BEAKER) (test code = 8.1 GM/DL 11.2-15.7 L 410) HEMATOCRIT (BEAKER) (test code = 25.6 % 34.1-44.9 L 411) MEAN CORPUSCULAR VOLUME (BEAKER) 90.1 fL 79.4-94.8 (test code = 753) MEAN CORPUSCULAR HEMOGLOBIN 28.5 pg 25.6-32.2 (BEAKER) (test code = 751) MEAN CORPUSCULAR HEMOGLOBIN CONC 31.6 GM/DL 32.2-35.5 L (BEAKER) (test code = 752) RED CELL DISTRIBUTION WIDTH 14.3 % 11.7-14.4 (BEAKER) (test code = 412) PLATELET COUNT (BEAKER) (test 311 K/CU MM 150-450 code = 756) MEAN PLATELET VOLUME (BEAKER) 10.4 fL 9.4-12.3 (test code = 754) NUCLEATED RED BLOOD CELLS 0 /100 WBC 0-0 (BEAKER) (test code = 413) NEUTROPHILS RELATIVE PERCENT 65 % (BEAKER) (test code = 429) LYMPHOCYTES RELATIVE PERCENT 19 % (BEAKER) (test code = 430) MONOCYTES RELATIVE PERCENT 12 % (BEAKER) (test code = 431) EOSINOPHILS RELATIVE PERCENT 3 % (BEAKER) (test code = 432) BASOPHILS RELATIVE PERCENT 1 % (BEAKER) (test code = 437) NEUTROPHILS ABSOLUTE COUNT 5.26 K/ L 1.56-6.13 (BEAKER) (test code = 670) LYMPHOCYTES ABSOLUTE COUNT 1.56 K/ L 1.18-3.74 (BEAKER) (test code = 414) MONOCYTES ABSOLUTE COUNT (BEAKER) 0.98 K/ L 0.24-0.36 H (test code = 415) EOSINOPHILS ABSOLUTE COUNT 0.24 K/ L 0.04-0.36 (BEAKER) (test code = 416) BASOPHILS ABSOLUTE COUNT (BEAKER) 0.05 K/ L 0.01-0.08 (test code = 417) IMMATURE GRANULOCYTES-RELATIVE 1 % 0-1 PERCENT (BEAKER) (test code = 2801) POCT-GLUCOSE [id number] 22:21:00 Test Item Value Reference Range Interpretation Comments POC-GLUCOSE METER 92 mg/dL 70-110 TESTED AT [place] [address] ([facility]) (test code = PETER [place] [facility] [id number] 1538) POCT-GLUCOSE [id number] 18:05:00 Test Item Value Reference Range Interpretation Comments POC-GLUCOSE METER 124 mg/dL 70-110 H TESTED AT [place] [address] ([facility]) (test code = PETER Ford [facility] 1538) [id number] POCT-GLUCOSE [id number] 13:37:00 Test Item Value Reference Range Interpretation Comments POC-GLUCOSE METER 146 mg/dL 70-110 H TESTED AT [place] [address] ([facility]) (test code = PETER Ford [place] 1538) [id number] POCT-GLUCOSE [id number] 09:35:00 Test Item Value Reference Range Interpretation Comments POC-GLUCOSE METER 166 mg/dL 70-110 H TESTED AT [place] [address] ([facility]) (test code = PETER [place] 1538) [id number] POCT-GLUCOSE [id number] 21:22:00 Test Item Value Reference Range Interpretation Comments POC-GLUCOSE METER 186 mg/dL 70-110 H TESTED AT [place] [address] ([facility]) (test code = PETER Ford [place] 1538) [id number] POCT-GLUCOSE [id number] 18:04:00 Test Item Value Reference Range Interpretation Comments POC-GLUCOSE METER 177 mg/dL 70-110 H TESTED AT [facility] 6720 (BEAKER) (test code = PETER [place] 1538) [id number] POCT-GLUCOSE [id number] 13:15:00 Test Item Value Reference Range Interpretation Comments POC-GLUCOSE METER 225 mg/dL 70-[address] [facility] [address] (BEAKER) (test code = PETER [place] 1538) [id number] CBC W/PLT COUNT & AUTO [id number] 11:24:00 Test Item Value Reference Range Interpretation Comments WHITE BLOOD CELL COUNT (BEAKER) 10.9 K/ L 3.5-10.5 H (test code = 775) RED BLOOD CELL COUNT (BEAKER) 2.75 M/ L 3.93-5.22 L (test code = 761) HEMOGLOBIN (BEAKER) (test code = 7.9 GM/DL 11.2-15.7 L 410) HEMATOCRIT (BEAKER) (test code = 25.0 % 34.1-44.9 L 411) MEAN CORPUSCULAR VOLUME (BEAKER) 90.9 fL 79.4-94.8 (test code = 753) MEAN CORPUSCULAR HEMOGLOBIN 28.7 pg 25.6-32.2 (BEAKER) (test code = 751) MEAN CORPUSCULAR HEMOGLOBIN CONC 31.6 GM/DL 32.2-35.5 L (BEAKER) (test code = 752) RED CELL DISTRIBUTION WIDTH 14.8 % 11.7-14.4 H (BEAKER) (test code = 412) PLATELET COUNT (BEAKER) (test 239 K/CU MM 150-450 code = 756) MEAN PLATELET VOLUME (BEAKER) 10.9 fL 9.4-12.3 (test code = 754) NUCLEATED RED BLOOD CELLS 0 /100 WBC 0-0 (BEAKER) (test code = 413) NEUTROPHILS RELATIVE PERCENT 71 % (BEAKER) (test code = 429) LYMPHOCYTES RELATIVE PERCENT 12 % (BEAKER) (test code = 430) MONOCYTES RELATIVE PERCENT 12 % (BEAKER) (test code = 431) EOSINOPHILS RELATIVE PERCENT 3 % (BEAKER) (test code = 432) BASOPHILS RELATIVE PERCENT 1 % (BEAKER) (test code = 437) NEUTROPHILS ABSOLUTE COUNT 7.72 K/ L 1.56-6.13 H (BEAKER) (test code = 670) LYMPHOCYTES ABSOLUTE COUNT 1.34 K/ L 1.18-3.74 (BEAKER) (test code = 414) MONOCYTES ABSOLUTE COUNT (BEAKER) 1.30 K/ L 0.24-0.36 H (test code = 415) EOSINOPHILS ABSOLUTE COUNT 0.33 K/ L 0.04-0.36 (BEAKER) (test code = 416) BASOPHILS ABSOLUTE COUNT (BEAKER) 0.07 K/ L 0.01-0.08 (test code = 417) IMMATURE GRANULOCYTES-RELATIVE 1 % 0-1 PERCENT (BEAKER) (test code = 2801) POCT-GLUCOSE [id number] 09:15:00 Test Item Value Reference Range Interpretation Comments POC-GLUCOSE METER 186 mg/dL 70-110 H TESTED AT [place] [address] ([facility]) (test code = [place] 1538) [address] BASIC METABOLIC [id number] 07:36:00 Test Item Value Reference Range Interpretation Comments SODIUM (BEAKER) 138 meq/L 136-145 (test code = 381) POTASSIUM (BEAKER) 3.8 meq/L 3.5-5.1 (test code = 379) CHLORIDE (BEAKER) 109 meq/L 98-107 H (test code = 382) CO2 (BEAKER) (test 22 meq/L 22-29 code = 355) BLOOD UREA NITROGEN 37 mg/dL 7-21 H (BEAKER) (test code = 354) CREATININE (BEAKER) 1.93 mg/dL 0.57-1.25 H (test code = 358) GLUCOSE RANDOM 138 mg/dL 70-105 H (BEAKER) (test code = 652) CALCIUM (BEAKER) 8.3 mg/dL 8.4-10.2 L (test code = 697) EGFR (BEAKER) (test mL/min/1.73 INSUFFIC IENT CLINICAL code = 1092) sq m DATA TO CALCULA TE ESTIMATED GFR. [id number] 07:15:00 Test Item Value Reference Range Interpretation Comments MAGNESIUM (BEAKER) (test code = 2.5 mg/dL 1.6-2.6 627) POCT-GLUCOSE [id number] 22:54:00 Test Item Value Reference Range Interpretation Comments POC-GLUCOSE METER 113 mg/dL 70-110 H TESTED AT [place] [address] ([facility]) (test code = PETER [place] [facility] 1538) [address] POCT-GLUCOSE [id number] 19:14:00 Test Item Value Reference Range Interpretation Comments POC-GLUCOSE METER 154 mg/dL 70-110 H TESTED AT [place] [address] ([facility]) (test code = PETER Ford [facility] 1538) [address] POCT-GLUCOSE [id number] 15:21:00 Test Item Value Reference Range Interpretation Comments POC-GLUCOSE METER 242 mg/dL 70-110 H TESTED AT [place] [address] ([facility]) (test code = PETER Ford [facility] 1538) [address] POCT-GLUCOSE [id number] 08:52:00 Test Item Value Reference Range Interpretation Comments POC-GLUCOSE METER 175 mg/dL 70-110 H TESTED AT [place] [address] ([facility]) (test code = PETER Ford [facility] 1538) [address] CBC W/PLT COUNT & AUTO [id number] 07:12:00 Test Item Value Reference Range Interpretation Comments WHITE BLOOD CELL COUNT (BEAKER) 13.3 K/ L 3.5-10.5 H (test code = 775) RED BLOOD CELL COUNT (BEAKER) 2.81 M/ L 3.93-5.22 L (test code = 761) HEMOGLOBIN (BEAKER) (test code = 8.0 GM/DL 11.2-15.7 L 410) HEMATOCRIT (BEAKER) (test code = 25.6 % 34.1-44.9 L 411) MEAN CORPUSCULAR VOLUME (BEAKER) 91.1 fL 79.4-94.8 (test code = 753) MEAN CORPUSCULAR HEMOGLOBIN 28.5 pg 25.6-32.2 (BEAKER) (test code = 751) MEAN CORPUSCULAR HEMOGLOBIN CONC 31.3 GM/DL 32.2-35.5 L (BEAKER) (test code = 752) RED CELL DISTRIBUTION WIDTH 15.6 % 11.7-14.4 H (BEAKER) (test code = 412) PLATELET COUNT (BEAKER) (test 220 K/CU MM 150-450 code = 756) MEAN PLATELET VOLUME (BEAKER) 11.5 fL 9.4-12.3 (test code = 754) NUCLEATED RED BLOOD CELLS 0 /100 WBC 0-0 (BEAKER) (test code = 413) NEUTROPHILS RELATIVE PERCENT 73 % (BEAKER) (test code = 429) LYMPHOCYTES RELATIVE PERCENT 14 % (BEAKER) (test code = 430) MONOCYTES RELATIVE PERCENT 11 % (BEAKER) (test code = 431) EOSINOPHILS RELATIVE PERCENT 2 % (BEAKER) (test code = 432) BASOPHILS RELATIVE PERCENT 1 % (BEAKER) (test code = 437) NEUTROPHILS ABSOLUTE COUNT 9.66 K/ L 1.56-6.13 H (BEAKER) (test code = 670) LYMPHOCYTES ABSOLUTE COUNT 1.82 K/ L 1.18-3.74 (BEAKER) (test code = 414) MONOCYTES ABSOLUTE COUNT (BEAKER) 1.45 K/ L 0.24-0.36 H (test code = 415) EOSINOPHILS ABSOLUTE COUNT 0.22 K/ L 0.04-0.36 (BEAKER) (test code = 416) BASOPHILS ABSOLUTE COUNT (BEAKER) 0.06 K/ L 0.01-0.08 (test code = 417) IMMATURE GRANULOCYTES-RELATIVE 1 % 0-1 PERCENT (BEAKER) (test code = 2801) BASIC METABOLIC [id number] 06:44:00 Test Item Value Reference Range Interpretation Comments SODIUM (BEAKER) 138 meq/L 136-145 (test code = 381) POTASSIUM (BEAKER) 4.0 meq/L 3.5-5.1 (test code = 379) CHLORIDE (BEAKER) 107 meq/L 98-107 (test code = 382) CO2 (BEAKER) (test 20 meq/L 22-29 L code = 355) BLOOD UREA NITROGEN 45 mg/dL 7-21 H (BEAKER) (test code = 354) CREATININE (BEAKER) 2.41 mg/dL 0.57-1.25 H (test code = 358) GLUCOSE RANDOM 138 mg/dL 70-105 H (BEAKER) (test code = 652) CALCIUM (BEAKER) 8.1 mg/dL 8.4-10.2 L (test code = 697) EGFR (BEAKER) (test mL/min/1.73 INSUFFIC IENT CLINICAL code = 1092) sq m DATA TO CALCULA TE ESTIMATED GFR. [id number] 06:32:00 Test Item Value Reference Range Interpretation Comments MAGNESIUM (BEAKER) (test code = 2.3 mg/dL 1.6-2.6 627) POCT-GLUCOSE [id number] 21:11:00 Test Item Value Reference Range Interpretation Comments POC-GLUCOSE METER 198 mg/dL 70-110 H TESTED AT [place] [address] (BEAKER) (test code = PETER Ford [facility] 1538) [address] POCT-GLUCOSE [id number] 18:24:00 Test Item Value Reference Range Interpretation Comments POC-GLUCOSE METER 252 mg/dL 70-110 H TESTED AT [place] [address] (BEAKER) (test code = [facility] Liliana [facility] 1538) [address] URINALYSIS W/ REFLEX URINE [id number] 17:03:00 Test Item Value Reference Range Interpretation Comments COLOR (BEAKER) (test code = 470) Yellow CLARITY (BEAKER) (test code = 469) Hazy SPECIFIC GRAVITY UA (BEAKER) (test 1.016 1.001-1.035 code = 468) PH UA (BEAKER) (test code = 467) 5.5 5.0-8.0 PROTEIN UA (BEAKER) (test code = 200 mg/dL Negative A 464) GLUCOSE UA (BEAKER) (test code = 30 mg/dL Negative A 365) KETONES UA (BEAKER) (test code = Trace Negative A 371) BILIRUBIN UA (BEAKER) (test code = Negative Negative 462) BLOOD UA (BEAKER) (test code = 461) Negative Negative NITRITE UA (BEAKER) (test code = Negative Negative 465) LEUKOCYTE ESTERASE UA (BEAKER) Negative Negative (test code = 466) UROBILINOGEN UA (BEAKER) (test code 0.2 mg/dL 0.2-1.0 = 463) RBC UA (BEAKER) (test code = 519) 1 /HPF WBC UA (BEAKER) (test code = 520) 3 /HPF BACTERIA (BEAKER) (test code = 517) Rare MUCUS (BEAKER) (test code = 1574) Rare SQUAMOUS EPITHELIAL (BEAKER) (test 2 /HPF code = 516) SOURCE(BEAKER) (test code = 2795) POCT-GLUCOSE [id number] 13:12:00 Test Item Value Reference Range Interpretation Comments POC-GLUCOSE METER 236 mg/dL 70-110 H TESTED AT [place] [address] (BEAKER) (test code = [place] 1538) [address] CBC W/PLT COUNT & AUTO [id number] 11:47:00 Test Item Value Reference Range Interpretation Comments WHITE BLOOD CELL COUNT (BEAKER) 16.7 K/ L 3.5-10.5 H (test code = 775) RED BLOOD CELL COUNT (BEAKER) 2.98 M/ L 3.93-5.22 L (test code = 761) HEMOGLOBIN (BEAKER) (test code = 8.6 GM/DL 11.2-15.7 L 410) HEMATOCRIT (BEAKER) (test code = 27.1 % 34.1-44.9 L 411) MEAN CORPUSCULAR VOLUME (BEAKER) 90.9 fL 79.4-94.8 (test code = 753) MEAN CORPUSCULAR HEMOGLOBIN 28.9 pg 25.6-32.2 (BEAKER) (test code = 751) MEAN CORPUSCULAR HEMOGLOBIN CONC 31.7 GM/DL 32.2-35.5 L (BEAKER) (test code = 752) RED CELL DISTRIBUTION WIDTH 15.9 % 11.7-14.4 H (BEAKER) (test code = 412) PLATELET COUNT (BEAKER) (test 181 K/CU MM 150-450 code = 756) MEAN PLATELET VOLUME (BEAKER) 11.5 fL 9.4-12.3 (test code = 754) NUCLEATED RED BLOOD CELLS 0 /100 WBC 0-0 (BEAKER) (test code = 413) (CELLAVISION MANUAL DIFF)[id number] 11:47:00 Test Item Value Reference Range Interpretation Comments NEUTROPHILS - REL 83 % (CELLAVISION)(BEAKER) (test code = 2816) LYMPHOCYTES - REL 3 % (CELLAVISION)(BEAKER) (test code = 2817) MONOCYTES - REL 3 % (CELLAVISION)(BEAKER) (test code = 2818) BANDS - REL (CELLAVISION)(BEAKER) 11 % 0-10 H (test code = 2826) NEUTROPHILS - ABS 13.86 K/ul 1.56-6.13 H (CELLAVISION)(BEAKER) (test code = 2830) LYMPHOCYTES - ABS 0.50 K/ul 1.18-3.74 L (CELLAVISION)(BEAKER) (test code = 2831) MONOCYTES - ABS 0.50 K/uL 0.24-0.36 H (CELLAVISION)(BEAKER) (test code = 2832) BANDS - ABS (CELLAVISION)(BEAKER) 1.84 K/uL 0.00-0.80 H (test code = 2840) TOTAL COUNTED (BEAKER) (test code 100 = 1351) WBC MORPHOLOGY (BEAKER) (test code Normal = 487) PLT MORPHOLOGY (BEAKER) (test code Normal = 486) POLYCHROMATOPHILLIC RBCS(BEAKER) 1+ few (test code = 478) ANISOCYTOSIS (BEAKER) (test code = 1+ few 961) ARTIFACT (CELLAVISION)(BEAKER) Present (test code = 3432) PLATELET CONCENTRATION Adequate (CELLAVISION)(BEAKER) (test code = 3438) Received comment: User comments: Slide comments:POCT-GLUCOSE [id number] 09:54:00 Test Item Value Reference Range Interpretation Comments POC-GLUCOSE METER 245 mg/dL 70-[address] [facility] [address] (BEAKER) (test code = PETER Ford [place] 1538) [address] RAD, CHEST, 1 VIEW, NON [id number] 08:19:00Reason for exam:->s/p ACBShould this be performed at the bedside?->YesFINAL REPORT Chest one view. Clinical history: s/p ACB Comparison: January 12, 2018 Discussion: A frontal chest is provided. Cardiomediastinal contours are unchanged. Left chest tube, and right IJ line have been removed. Persistent retrocardiac opacity may reflect atelectasis or consolidation. Right lung is grossly clear. There is a tiny left apical pneumothorax, follow-up issuggested. No large effusion. Signed: Sharmin Santos Verified Date/Time: 01/13/2018 08:19:21Reading Location: [facility] [id number] Ortho Consult Reading Room PH, VENOUS 2018-01-13 07:05:00 Test Item Value Reference Range Interpretation Comments PH VENOUS (BEAKER) (test code = 701) 7.31 7.32-7.42 L BASIC METABOLIC [id number] 06:18:00 Test Item Value Reference Range Interpretation Comments SODIUM (BEAKER) 140 meq/L 136-145 (test code = 381) POTASSIUM (BEAKER) 4.4 meq/L 3.5-5.1 (test code = 379) CHLORIDE (BEAKER) 112 meq/L 98-107 H (test code = 382) CO2 (BEAKER) (test 17 meq/L 22-29 L code = 355) BLOOD UREA NITROGEN 39 mg/dL 7-21 H (BEAKER) (test code = 354) CREATININE (BEAKER) 2.76 mg/dL 0.57-1.25 H (test code = 358) GLUCOSE RANDOM 207 mg/dL 70-105 H (BEAKER) (test code = 652) CALCIUM (BEAKER) 8.4 mg/dL 8.4-10.2 (test code = 697) EGFR (BEAKER) (test mL/min/1.73 INSUFFIC IENT CLINICAL code = 1092) sq m DATA TO CALCULA TE ESTIMATED GFR. [id number] 06:12:00 Test Item Value Reference Range Interpretation Comments PHOSPHORUS (BEAKER) (test code = 6.4 mg/dL 2.3-4.7 H 604) [id number] 06:12:00 Test Item Value Reference Range Interpretation Comments MAGNESIUM (BEAKER) (test code = 2.2 mg/dL 1.6-2.6 627) POCT-GLUCOSE [id number] 21:24:00 Test Item Value Reference Range Interpretation Comments POC-GLUCOSE METER 251 mg/dL 70-[address] [facility] [address] (BEAKER) (test code = [place] 1538) [address] POCT-GLUCOSE [id number] 17:43:00 Test Item Value Reference Range Interpretation Comments POC-GLUCOSE METER 282 mg/dL 70-[address] [facility] [address] (BEAKER) (test code = PETER Ford [place] 1538) [address] BASIC METABOLIC [id number] 16:11:00 Test Item Value Reference Range Interpretation Comments SODIUM (BEAKER) 138 meq/L 136-145 (test code = 381) POTASSIUM (BEAKER) 5.1 meq/L 3.5-5.1 (test code = 379) CHLORIDE (BEAKER) 113 meq/L 98-107 H (test code = 382) CO2 (BEAKER) (test 17 meq/L 22-29 L code = 355) BLOOD UREA NITROGEN 34 mg/dL 7-21 H (AKER) (test code = 354) CREATININE (BEAKER) 2.61 mg/dL 0.57-1.25 H (test code = 358) GLUCOSE RANDOM 292 mg/dL 70-105 H (AKER) (test code = 652) CALCIUM (BEAKER) 8.1 mg/dL 8.4-10.2 L (test code = 697) EGFR ([facility]) (test mL/min/1.73 INSUFFIC IENT CLINICAL code = 1092) sq m DATA TO CALCULA TE ESTIMATED GFR. POCT-GLUCOSE [id number] 08:58:00 Test Item Value Reference Range Interpretation Comments POC-GLUCOSE METER 204 mg/dL 70-110 H TESTED AT [place] [address] ([facility]) (test code = PRATIBHAKAMALA Ford [place] 1538) [address] [id number] 05:41:00 Test Item Value Reference Range Interpretation Comments ACTIVATED CLOTTING TIME 120 sec TEST ED AT [place] [address] ([facility]) (test code = PRATIBHAKAMALA Liliana [facility] 441) [address] [id number] 05:41:00 Test Item Value Reference Range Interpretation Comments ACTIVATED CLOTTING TIME 483 sec TEST ED AT [place] [address] ([facility]) (test code = PRATIBHAKAMALA Ford [facility] 441) [address] [id number] 05:41:00 Test Item Value Reference Range Interpretation Comments ACTIVATED CLOTTING TIME 411 sec TEST ED AT [place] [address] ([facility]) (test code = PRATIBHAMA Liliana [place] 441) [address] [id number] 05:41:00 Test Item Value Reference Range Interpretation Comments ACTIVATED CLOTTING TIME 444 sec TEST ED AT [place] [address] ([facility]) (test code = PRATIBHAKAMALA Ford [facility] 441) [address] BASIC METABOLIC [id number] 04:17:00 Test Item Value Reference Range Interpretation Comments SODIUM (BEAKER) 144 meq/L 136-145 (test code = 381) POTASSIUM (BEAKER) 4.5 meq/L 3.5-5.1 (test code = 379) CHLORIDE (BEAKER) 120 meq/L 98-107 H (test code = 382) CO2 (BEAKER) (test 17 meq/L 22-29 L code = 355) BLOOD UREA NITROGEN 27 mg/dL 7-21 H (BEAKER) (test code = 354) CREATININE (BEAKER) 2.01 mg/dL 0.57-1.25 H (test code = 358) GLUCOSE RANDOM 160 mg/dL 70-105 H (BEAKER) (test code = 652) CALCIUM (BEAKER) 7.8 mg/dL 8.4-10.2 L (test code = 697) EGFR (BEAKER) (test mL/min/1.73 INSUFFIC IENT CLINICAL code = 1092) sq m DATA TO CALCULA TE ESTIMATED GFR. RAD, CHEST, 1 VIEW, NON [id number] 04:15:00while patient is intubated or has chest tubes.Reason for exam:->s/p [id number] this be performedat the bedside?->YesFINAL REPORT CLINICAL INDICATION: Postop Comparison: 01/11/2018 The cardiomediastinal contours are stable, including a coarse calcification overlying the left thoracic inlet. Thelung volumes are low but stable after extubation. Bilateral parenchymal opacities are similar to prev ious. There is no pneumothorax. Remaining support lines are stable. Signed: Yogi Hill MDReport Verified Date/Time: 01/12/2018 04:15:41 Reading Location: [address] Reading Room [id number] 04:11:00 Test Item Value Reference Range Interpretation Comments PHOSPHORUS (BEAKER) (test code = 4.4 mg/dL 2.3-4.7 604) [id number] 04:11:00 Test Item Value Reference Range Interpretation Comments MAGNESIUM (BEAKER) (test code = 2.0 mg/dL 1.6-2.6 627) CBC W/PLT COUNT & AUTO [id number] 04:03:00 Test Item Value Reference Range Interpretation Comments WHITE BLOOD CELL COUNT (BEAKER) 14.3 K/ L 3.5-10.5 H (test code = 775) RED BLOOD CELL COUNT (BEAKER) 3.19 M/ L 3.93-5.22 L (test code = 761) HEMOGLOBIN (BEAKER) (test code = 9.3 GM/DL 11.2-15.7 L 410) HEMATOCRIT (BEAKER) (test code = 28.8 % 34.1-44.9 L 411) MEAN CORPUSCULAR VOLUME (BEAKER) 90.3 fL 79.4-94.8 (test code = 753) MEAN CORPUSCULAR HEMOGLOBIN 29.2 pg 25.6-32.2 (BEAKER) (test code = 751) MEAN CORPUSCULAR HEMOGLOBIN CONC 32.3 GM/DL 32.2-35.5 (BEAKER) (test code = 752) RED CELL DISTRIBUTION WIDTH 15.9 % 11.7-14.4 H (BEAKER) (test code = 412) PLATELET COUNT (BEAKER) (test 179 K/CU MM 150-450 code = 756) MEAN PLATELET VOLUME (BEAKER) 11.1 fL 9.4-12.3 (test code = 754) NUCLEATED RED BLOOD CELLS 0 /100 WBC 0-0 (BEAKER) (test code = 413) NEUTROPHILS RELATIVE PERCENT 88 % (BEAKER) (test code = 429) LYMPHOCYTES RELATIVE PERCENT 5 % (BEAKER) (test code = 430) MONOCYTES RELATIVE PERCENT 7 % (BEAKER) (test code = 431) EOSINOPHILS RELATIVE PERCENT 0 % (BEAKER) (test code = 432) BASOPHILS RELATIVE PERCENT 0 % (BEAKER) (test code = 437) NEUTROPHILS ABSOLUTE COUNT 12.51 K/ L 1.56-6.13 H (BEAKER) (test code = 670) LYMPHOCYTES ABSOLUTE COUNT 0.67 K/ L 1.18-3.74 L (BEAKER) (test code = 414) MONOCYTES ABSOLUTE COUNT (BEAKER) 0.97 K/ L 0.24-0.36 H (test code = 415) EOSINOPHILS ABSOLUTE COUNT 0.00 K/ L 0.04-0.36 L (BEAKER) (test code = 416) BASOPHILS ABSOLUTE COUNT (BEAKER) 0.06 K/ L 0.01-0.08 (test code = 417) IMMATURE GRANULOCYTES-RELATIVE 1 % 0-1 PERCENT (BEAKER) (test code = 2801) POCT-GLUCOSE [id number] 00:25:00 Test Item Value Reference Range Interpretation Comments POC-GLUCOSE METER 161 mg/dL 70-110 H TESTED AT [place] [address] ([facility]) (test code = PETER Ford [facility] 1538) [address] BLOOD GAS, [id number] 22:47:00 Test Item Value Reference Range Interpretation Comments PH ARTERIAL (BEAKER) (test code = 7.33 7.35-7.45 L 383) PCO2 ARTERIAL (BEAKER) (test code 39 mmHg 35-45 = 384) PO2 ARTERIAL (BEAKER) (test code 96 mmHg 80-90 H = 385) O2 SATURATION ARTERIAL (BEAKER) 96.9 % 96.0-97.0 (test code = 386) HCO3 ARTERIAL (BEAKER) (test code 20 mmol/L 21-29 L = 388) BASE EXCESS ARTERIAL (BEAKER) -5.2 mmol/L -2.0-3.0 L (test code = 387) PATIENT TEMPERATURE (BEAKER) 37.3 C (test code = 1818) FIO2 (BEAKER) (test code = 1819) 36.0 % POCT-GLUCOSE [id number] 22:35:00 Test Item Value Reference Range Interpretation Comments POC-GLUCOSE METER 123 mg/dL 70-110 H TESTED AT [place] [address] ([facility]) (test [facility] = [facility] 1538) [address] POCT-GLUCOSE [id number] 21:23:00 Test Item Value Reference Range Interpretation Comments POC-GLUCOSE METER 94 mg/dL 70-110 TESTED AT [place] [address] ([facility]) (test code = [facility] Liliana [facility] [address] 1538) POCT-GLUCOSE [id number] 20:31:00 Test Item Value Reference Range Interpretation Comments POC-GLUCOSE METER 102 mg/dL 70-110 TESTED AT [place] [address] ([facility]) (test code = [facility] 1538) [address] POCT-GLUCOSE [id number] 19:24:00 Test Item Value Reference Range Interpretation Comments POC-GLUCOSE METER 140 mg/dL 70-110 H TESTED AT [place] [address] ([facility]) (test code = [facility] 1538) [address] POCT-GLUCOSE [id number] 19:24:00 Test Item Value Reference Range Interpretation Comments POC-GLUCOSE METER 204 mg/dL 70-[address] [facility] [address] (BEAKER) (test code = [place] 1538) [address] BLOOD GAS, [id number] 18:09:00 Test Item Value Reference Range Interpretation Comments PH ARTERIAL (BEAKER) (test code = 7.35 7.35-7.45 383) PCO2 ARTERIAL (BEAKER) (test code 38 mmHg 35-45 = 384) PO2 ARTERIAL (BEAKER) (test code 109 mmHg 80-90 H = 385) O2 SATURATION ARTERIAL (BEAKER) 97.9 % 96.0-97.0 H (test code = 386) HCO3 ARTERIAL (BEAKER) (test code 20 mmol/L 21-29 L = 388) BASE EXCESS ARTERIAL (BEAKER) -4.9 mmol/L -2.0-3.0 L (test code = 387) PATIENT TEMPERATURE (BEAKER) 36.4 C (test code = 1818) FIO2 (BEAKER) (test code = 1819) 40.0 % POTASSIUM-STAT [id number] 18:07:00 Test Item Value Reference Range Interpretation Comments POTASSIUM (BEAKER) (test code = 4.6 meq/L 3.6-5.5 379) URINE PROTEIN ELECTROPHORESIS, [id number] 17:57:00 Test Item Value Reference Range Interpretation Comments PROTEIN, URINE 276 mg/dL 0-14 H (BEAKER) (test code = 1569) ALBUMIN URINE ELP 63.2 % (BEAKER) (test code = 1018) GAMMA GLOBULIN URINE 36.8 % (BEAKER) (test code = 1015) UPEP, ID-438 (BEAKER) No monoclonal bands (test code = 2604) detected. [id number] Ping Chiang MD (BEAKER) (test code = (electronic signature) 1807) PROTEIN ELECTROPHORESIS, [id number] 17:52:00 Test Item Value Reference Range Interpretation Comments ALBUMIN FRACTION 2.6 g/dL 3.5-5.5 L (BEAKER) (test code = 405) ALPHA 1 FRACTION 0.3 g/dL 0.2-0.4 (BEAKER) (test code = 389) ALPHA 2 FRACTION 0.9 g/dL 0.5-0.9 (BEAKER) (test code = 390) BETA FRACTION 0.8 g/dL 0.6-1.1 (BEAKER) (test code = 392) GAMMA GLOBULIN 0.8 g/dL 0.7-1.7 FRACTION (BEAKER) (test code = 391) INTERPRETATION-119 Pattern consistent with (BEAKER) (test code = acute inflammatory 2611) response. No monoclonal bands detected. [id number] Ping Chiang MD (BEAKER) (test code = (electronic signature) 2616) PROTEIN TOTAL SERUM, 5.4 gm/dL 6.0-8.3 L SPEP (BEAKER) (test code = 5450) BASIC METABOLIC [id number] 16:44:00 Test Item Value Reference Range Interpretation Comments SODIUM (BEAKER) 142 meq/L 136-145 (test code = 381) POTASSIUM (BEAKER) 5.5 meq/L 3.5-5.1 H (test code = 379) CHLORIDE (BEAKER) 117 meq/L 98-107 H (test code = 382) CO2 (BEAKER) (test 20 meq/L 22-29 L code = 355) BLOOD UREA NITROGEN 23 mg/dL 7-21 H (BEAKER) (test code = 354) CREATININE (BEAKER) 1.71 mg/dL 0.57-1.25 H (test code = 358) GLUCOSE RANDOM 205 mg/dL 70-105 H (BEAKER) (test code = 652) CALCIUM (BEAKER) 8.0 mg/dL 8.4-10.2 L (test code = 697) EGFR (BEAKER) (test mL/min/1.73 INSUFFIC IENT CLINICAL code = 1092) sq m DATA TO CALCULA TE ESTIMATED GFR. [id number] 16:43:00 Test Item Value Reference Range Interpretation Comments MAGNESIUM (BEAKER) (test code = 2.0 mg/dL 1.6-2.6 627) [id number] 16:32:00 Test Item Value Reference Range Interpretation Comments POTASSIUM (BEAKER) (test code = 5.4 meq/L 3.5-5.1 H 379) Done at stat lab.[id number] 16:31:00 Test Item Value Reference Range Interpretation Comments GLUCOSE RANDOM (BEAKER) (test code 189 mg/dL 70-105 H = 652) Done at stat lab.BLOOD GAS, [id number] 16:28:00 Test Item Value Reference Range Interpretation Comments PH ARTERIAL (BEAKER) (test code = 7.37 7.35-7.45 383) PCO2 ARTERIAL (BEAKER) (test code 36 mmHg 35-45 = 384) PO2 ARTERIAL (BEAKER) (test code 129 mmHg 80-90 H = 385) O2 SATURATION ARTERIAL (BEAKER) 98.6 % 96.0-97.0 H (test code = 386) HCO3 ARTERIAL (BEAKER) (test code 21 mmol/L 21-29 = 388) BASE EXCESS ARTERIAL (BEAKER) -4.2 mmol/L -2.0-3.0 L (test code = 387) PATIENT TEMPERATURE (BEAKER) 35.6 C (test code = 1818) FIO2 (BEAKER) (test code = 1819) 60.0 % [id number] 16:12:00 Test Item Value Reference Range Interpretation Comments SODIUM (BEAKER) (test code = 381) 140 meq/L 136-145 [id number] 16:12:00 Test Item Value Reference Range Interpretation Comments GLUCOSE RANDOM (BEAKER) (test code 189 mg/dL 70-105 H = 652) [id number] 16:12:00 Test Item Value Reference Range Interpretation Comments MAGNESIUM (BEAKER) 2.0 mg/dL 1.6-2.6 Specimen slightly (test code = 627) hemolyzed [id number] 16:12:00 Test Item Value Reference Range Interpretation Comments PHOSPHORUS (BEAKER) 3.7 mg/dL 2.3-4.7 Specimen slightly (test code = 604) hemolyzed LACTIC ACID, ARTERIAL, WHOLE [id number] 16:02:00 Test Item Value Reference Range Interpretation Comments LACTATE BLOOD ARTERIAL (2) 0.7 mmol/L 0.5-2.2 (BEAKER) (test code = 2874) Effective 09/26/2015: Units/Reference Range ChangeNew: 0.5-2.2 mmol/L Previous: 5-20 mg/dLCBC W/PLT COUNT & AUTO [id number] 15:58:00 Test Item Value Reference Range Interpretation Comments WHITE BLOOD CELL COUNT (BEAKER) 13.4 K/ L 3.5-10.5 H (test code = 775) RED BLOOD CELL COUNT (BEAKER) 3.21 M/ L 3.93-5.22 L (test code = 761) HEMOGLOBIN (BEAKER) (test code = 9.4 GM/DL 11.2-15.7 L 410) HEMATOCRIT (BEAKER) (test code = 28.6 % 34.1-44.9 L 411) MEAN CORPUSCULAR VOLUME (BEAKER) 89.1 fL 79.4-94.8 (test code = 753) MEAN CORPUSCULAR HEMOGLOBIN 29.3 pg 25.6-32.2 (BEAKER) (test code = 751) MEAN CORPUSCULAR HEMOGLOBIN CONC 32.9 GM/DL 32.2-35.5 (BEAKER) (test code = 752) RED CELL DISTRIBUTION WIDTH 14.6 % 11.7-14.4 H (BEAKER) (test code = 412) PLATELET COUNT (BEAKER) (test 168 K/CU MM 150-450 code = 756) MEAN PLATELET VOLUME (BEAKER) 11.2 fL 9.4-12.3 (test code = 754) NUCLEATED RED BLOOD CELLS 0 /100 WBC 0-0 (BEAKER) (test code = 413) NEUTROPHILS RELATIVE PERCENT 80 % (BEAKER) (test code = 429) LYMPHOCYTES RELATIVE PERCENT 10 % (BEAKER) (test code = 430) MONOCYTES RELATIVE PERCENT 8 % (BEAKER) (test code = 431) EOSINOPHILS RELATIVE PERCENT 2 % (BEAKER) (test code = 432) BASOPHILS RELATIVE PERCENT 0 % (BEAKER) (test code = 437) NEUTROPHILS ABSOLUTE COUNT 10.69 K/ L 1.56-6.13 H (BEAKER) (test code = 670) LYMPHOCYTES ABSOLUTE COUNT 1.36 K/ L 1.18-3.74 (BEAKER) (test code = 414) MONOCYTES ABSOLUTE COUNT (BEAKER) 1.04 K/ L 0.24-0.36 H (test code = 415) EOSINOPHILS ABSOLUTE COUNT 0.20 K/ L 0.04-0.36 (BEAKER) (test code = 416) BASOPHILS ABSOLUTE COUNT (BEAKER) 0.03 K/ L 0.01-0.08 (test code = 417) IMMATURE GRANULOCYTES-RELATIVE 1 % 0-1 PERCENT (BEAKER) (test code = 2801) RAD, CHEST, 1 VIEW, NON [id number] 15:32:00Reason for exam:->s/p [id number] this be performed at the bedside?->YesFINAL REPORT EXAM: Frontal chest radiograph HISTORY PROVIDED: Status post acbx2 COMPARISON: 01/04/2018 IMPRESSION:The tip of an endotracheal tube terminates approximately 8 mm above the zamzam. Recommend retraction approximately 2 cm. A left thoracostomy tube is in place. The tipof an enteric tube projects over the proximal stomach. A mediastinal drain is in place. The tip of aright IJ central venous catheter projects over the SVC. Lung volumes are low. There is central pulmonary vascular congestion. There are left basilar retrocardiac opacities representing atelectasis and/or consolidation. Minimal streaky opacities within the right lung base likely represent atelectasis. No discernible pneumothorax. There may be a trace left pleural effusion. The cardiac silhouette is magnified. Postsurgical changes of median sternotomy. Unchanged left thyroid calcified mass. No acute osseous abnormality. Signed: Danay Garcia MDReport Verified Date/Time: 01/11/2018 15:32:16 Reading Location: [facility] Mammo Reading Room GLUCOSE-STAT [id number] 15:19:00 Test Item Value Reference Range Interpretation Comments GLUCOSE RANDOM (BEAKER) (test code 182 mg/dL 70-110 H = 652) HGB/HCT (H&H) - STAT [id number] 15:19:00 Test Item Value Reference Range Interpretation Comments HEMOGLOBIN (BEAKER) (test code = 9.8 g/dL 12.0-15.0 L 410) HEMATOCRIT (BEAKER) (test code = 29.0 % 36.0-45.0 L 411) POTASSIUM-STAT [id number] 15:19:00 Test Item Value Reference Range Interpretation Comments POTASSIUM (BEAKER) (test code = 5.9 meq/L 3.6-5.5 H 379) OXYGEN SATURATION, [id number] 15:18:00 Test Item Value Reference Range Interpretation Comments O2 SATURATION (MEASURED) (BEAKER) 76.7 % (test code = 1455) BLOOD GAS, [id number] 15:18:00 Test Item Value Reference Range Interpretation Comments PH ARTERIAL (BEAKER) (test code = 7.37 7.35-7.45 383) PCO2 ARTERIAL (BEAKER) (test code 37 mmHg 35-45 = 384) PO2 ARTERIAL (BEAKER) (test code 62 mmHg 80-90 L = 385) O2 SATURATION ARTERIAL (BEAKER) 93.6 % 96.0-97.0 L (test code = 386) HCO3 ARTERIAL (BEAKER) (test code 21 mmol/L 21-29 = 388) BASE EXCESS ARTERIAL (BEAKER) -4.2 mmol/L -2.0-3.0 L (test code = 387) PATIENT TEMPERATURE (BEAKER) 34.7 C (test code = 1818) FIO2 (BEAKER) (test code = 1819) 60.0 % SODIUM NA-STAT [id number] 15:17:00 Test Item Value Reference Range Interpretation Comments SODIUM (BEAKER) (test code = 381) 141 meq/L 135-148 SODIUM NA-STAT [id number] 13:59:00 Test Item Value Reference Range Interpretation Comments SODIUM (BEAKER) (test code = 381) 135 meq/L 135-148 POTASSIUM-STAT [id number] 13:59:00 Test Item Value Reference Range Interpretation Comments POTASSIUM (BEAKER) (test code = 5.4 meq/L 3.6-5.5 379) BLOOD GAS, [id number] 13:59:00 Test Item Value Reference Range Interpretation Comments PH ARTERIAL (BEAKER) (test code = 7.30 7.35-7.45 L 383) PCO2 ARTERIAL (BEAKER) (test code 46 mmHg 35-45 H = 384) PO2 ARTERIAL (BEAKER) (test code 142 mmHg 80-90 H = 385) O2 SATURATION ARTERIAL (BEAKER) 98.7 % 96.0-97.0 H (test code = 386) HCO3 ARTERIAL (BEAKER) (test code 23 mmol/L 21-29 = 388) BASE EXCESS ARTERIAL (BEAKER) -3.8 mmol/L -2.0-3.0 L (test code = 387) PATIENT TEMPERATURE (BEAKER) 35.4 C (test code = 1818) FIO2 (BEAKER) (test code = 1819) 100.0 % GLUCOSE-STAT [id number] 13:59:00 Test Item Value Reference Range Interpretation Comments GLUCOSE RANDOM (BEAKER) (test code 170 mg/dL 70-110 H = 652) HGB/HCT (H&H) - STAT [id number] 13:59:00 Test Item Value Reference Range Interpretation Comments HEMOGLOBIN (BEAKER) (test code = 6.1 g/dL 12.0-15.0 L 410) HEMATOCRIT (BEAKER) (test code = 18.0 % 36.0-45.0 L 411) CALCIUM, [id number] 13:59:00 Test Item Value Reference Range Interpretation Comments CALCIUM IONIZED (BEAKER) (test 1.02 mmol/L 1.12-1.27 L code = 698) PH, BLOOD (BEAKER) (test code = 7.28 1810) BLOOD GAS, [id number] 13:26:00 Test Item Value Reference Range Interpretation Comments PH ARTERIAL (BEAKER) (test code = 7.52 7.35-7.45 H 383) PCO2 ARTERIAL (BEAKER) (test code 54 mmHg 35-45 H = 384) PO2 ARTERIAL (BEAKER) (test code 241 mmHg 80-90 H = 385) O2 SATURATION ARTERIAL (BEAKER) 99.6 % 96.0-97.0 H (test code = 386) HCO3 ARTERIAL (BEAKER) (test code 46 mmol/L 21-29 HH = 388) BASE EXCESS ARTERIAL (BEAKER) 20.0 mmol/L -2.0-3.0 H (test code = 387) PATIENT TEMPERATURE (BEAKER) 31.3 C (test code = 1818) FIO2 (BEAKER) (test code = 1819) 70.0 % SODIUM NA-STAT [id number] 13:26:00 Test Item Value Reference Range Interpretation Comments SODIUM (BEAKER) (test code = 381) 159 meq/L 135-148 H GLUCOSE-STAT [id number] 13:26:00 Test Item Value Reference Range Interpretation Comments GLUCOSE RANDOM (BEAKER) (test code 137 mg/dL 70-110 H = 652) HGB/HCT (H&H) - STAT [id number] 13:26:00 Test Item Value Reference Range Interpretation Comments HEMOGLOBIN (BEAKER) (test code = 5.2 g/dL 12.0-15.0 LL 410) HEMATOCRIT (BEAKER) (test code = 15.0 % 36.0-45.0 L 411) BLOOD GAS, [id number] 13:23:00 Test Item Value Reference Range Interpretation Comments PH ARTERIAL (BEAKER) (test code = 7.46 7.35-7.45 H 383) PCO2 ARTERIAL (BEAKER) (test code 33 mmHg 35-45 L = 384) PO2 ARTERIAL (BEAKER) (test code 253 mmHg 80-90 H = 385) O2 SATURATION ARTERIAL (BEAKER) 99.6 % 96.0-97.0 H (test code = 386) HCO3 ARTERIAL (BEAKER) (test code 24 mmol/L 21-29 = 388) BASE EXCESS ARTERIAL (BEAKER) -1.1 mmol/L -2.0-3.0 (test code = 387) PATIENT TEMPERATURE (BEAKER) 33.6 C (test code = 1818) FIO2 (BEAKER) (test code = 1819) 70.0 % POTASSIUM-STAT [id number] 13:23:00 Test Item Value Reference Range Interpretation Comments POTASSIUM (BEAKER) (test code = 5.9 meq/L 3.6-5.5 H 379) GLUCOSE-STAT [id number] 13:23:00 Test Item Value Reference Range Interpretation Comments GLUCOSE RANDOM (BEAKER) (test code 168 mg/dL 70-110 H = 652) HGB/HCT (H&H) - STAT [id number] 13:23:00 Test Item Value Reference Range Interpretation Comments HEMOGLOBIN (BEAKER) (test code = 6.6 g/dL 12.0-15.0 L 410) HEMATOCRIT (BEAKER) (test code = 19.0 % 36.0-45.0 L 411) SODIUM NA-STAT [id number] 13:22:00 Test Item Value Reference Range Interpretation Comments SODIUM (BEAKER) (test code = 381) 141 meq/L 135-148 POTASSIUM-STAT [id number] 13:20:00 Test Item Value Reference Range Interpretation Comments POTASSIUM (BEAKER) (test code = 5.0 meq/L 3.6-5.5 379) BLOOD GAS, [id number] 13:08:00 Test Item Value Reference Range Interpretation Comments PH ARTERIAL (BEAKER) (test code = 7.34 7.35-7.45 L 383) PCO2 ARTERIAL (BEAKER) (test code 38 mmHg 35-45 = 384) PO2 ARTERIAL (BEAKER) (test code 274 mmHg 80-90 H = 385) O2 SATURATION ARTERIAL (BEAKER) 99.6 % 96.0-97.0 H (test code = 386) HCO3 ARTERIAL (BEAKER) (test code 22 mmol/L 21-29 = 388) BASE EXCESS ARTERIAL (BEAKER) -4.9 mmol/L -2.0-3.0 L (test code = 387) PATIENT TEMPERATURE (BEAKER) 30.0 C (test code = 1818) FIO2 (BEAKER) (test code = 1819) 60.0 % GLUCOSE-STAT [id number] 13:08:00 Test Item Value Reference Range Interpretation Comments GLUCOSE RANDOM (BEAKER) (test code 174 mg/dL 70-110 H = 652) HGB/HCT (H&H) - STAT [id number] 13:08:00 Test Item Value Reference Range Interpretation Comments HEMOGLOBIN (BEAKER) (test code = 5.2 g/dL 12.0-15.0 LL 410) HEMATOCRIT (BEAKER) (test code = 15.0 % 36.0-45.0 L 411) SODIUM NA-STAT [id number] 13:07:00 Test Item Value Reference Range Interpretation Comments SODIUM (BEAKER) (test code = 381) 140 meq/L 135-148 POTASSIUM-STAT [id number] 13:07:00 Test Item Value Reference Range Interpretation Comments POTASSIUM (BEAKER) (test code = 4.9 meq/L 3.6-5.5 379) BLOOD GAS, [id number] 13:02:00 Test Item Value Reference Range Interpretation Comments PH VENOUS (BEAKER) (test code = 7.30 7.32-7.42 L 701) PCO2 VENOUS (BEAKER) (test code = 43 mmHg 41-51 755) PO2 VENOUS (BEAKER) (test code = 43 mmHg 25-40 H 702) O2 SATURATION VENOUS (BEAKER) 89.5 % 40.0-70.0 H (test code = 703) HCO3 VENOUS (BEAKER) (test code = 22 mmol/L 21-29 705) BASE EXCESS VENOUS (BEAKER) (test -5.2 mmol/L -2.0-3.0 L code = 704) PATIENT TEMPERATURE (BEAKER) 30.0 C (test code = 1818) FIO2 (BEAKER) (test code = 1819) 60.0 % CALCIUM, [id number] 11:45:00 Test Item Value Reference Range Interpretation Comments CALCIUM IONIZED (BEAKER) (test 1.20 mmol/L 1.12-1.27 code = 698) PH, BLOOD (BEAKER) (test code = 7.40 1810) BLOOD GAS, [id number] 11:45:00 Test Item Value Reference Range Interpretation Comments PH ARTERIAL (BEAKER) (test code = 7.41 7.35-7.45 383) PCO2 ARTERIAL (BEAKER) (test code 36 mmHg 35-45 = 384) PO2 ARTERIAL (BEAKER) (test code 126 mmHg 80-90 H = 385) O2 SATURATION ARTERIAL (BEAKER) 98.6 % 96.0-97.0 H (test code = 386) HCO3 ARTERIAL (BEAKER) (test code 23 mmol/L 21-29 = 388) BASE EXCESS ARTERIAL (BEAKER) -2.1 mmol/L -2.0-3.0 L (test code = 387) PATIENT TEMPERATURE (BEAKER) 36.0 C (test code = 1818) FIO2 (BEAKER) (test code = 1819) 100.0 % HGB/HCT (H&H) - STAT [id number] 11:45:00 Test Item Value Reference Range Interpretation Comments HEMOGLOBIN (BEAKER) (test code = 8.9 g/dL 12.0-15.0 L 410) HEMATOCRIT (BEAKER) (test code = 26.0 % 36.0-45.0 L 411) GLUCOSE-STAT [id number] 11:44:00 Test Item Value Reference Range Interpretation Comments GLUCOSE RANDOM (BEAKER) (test code = 93 mg/dL 70-110 652) SODIUM NA-STAT [id number] 11:44:00 Test Item Value Reference Range Interpretation Comments SODIUM (BEAKER) (test code = 381) 146 meq/L 135-148 POTASSIUM-STAT [id number] 11:44:00 Test Item Value Reference Range Interpretation Comments POTASSIUM (BEAKER) (test code = 4.0 meq/L 3.6-5.5 379) HEMOGLOBIN [id number] 08:24:00 Test Item Value Reference Range Interpretation Comments HEMOGLOBIN A1C (BEAKER) (test code = 7.7 % 4.3-6.1 H 368) POCT-GLUCOSE [id number] 06:18:00 Test Item Value Reference Range Interpretation Comments POC-GLUCOSE METER 129 mg/dL 70-[address] [facility] [address] (BEAKER) (test code = [place] 1538) [address] [id number] 05:10:00 Test Item Value Reference Range Interpretation Comments THYROID STIMULATING HORMONE 0.13 uIU/mL 0.35-4.94 L (BEAKER) (test code = 772) BASIC METABOLIC [id number] 04:58:00 Test Item Value Reference Range Interpretation Comments SODIUM (BEAKER) 139 meq/L 136-145 (test code = 381) POTASSIUM (BEAKER) 4.2 meq/L 3.5-5.1 (test code = 379) CHLORIDE (BEAKER) 112 meq/L 98-107 H (test code = 382) CO2 (BEAKER) (test 19 meq/L 22-29 L code = 355) BLOOD UREA NITROGEN 28 mg/dL 7-21 H (BEAKER) (test code = 354) CREATININE (BEAKER) 1.91 mg/dL 0.57-1.25 H (test code = 358) GLUCOSE RANDOM 158 mg/dL 70-105 H (BEAKER) (test code = 652) CALCIUM (BEAKER) 8.7 mg/dL 8.4-10.2 (test code = 697) EGFR (BEAKER) (test mL/min/1.73 INSUFFIC IENT CLINICAL code = 1092) sq m DATA TO CALCULA TE ESTIMATED GFR. COMPREHENSIVE METABOLIC [id number] 04:58:00 Test Item Value Reference Range Interpretation Comments TOTAL PROTEIN 5.8 gm/dL 6.0-8.3 L (BEAKER) (test code = 770) ALBUMIN (BEAKER) 3.0 g/dL 3.5-5.0 L (test code = 1145) ALKALINE PHOSPHATASE 64 U/L 40-150 (BEAKER) (test code = 346) BILIRUBIN TOTAL 0.2 mg/dL 0.2-1.2 (BEAKER) (test code = 377) SODIUM (BEAKER) 139 meq/L 136-145 (test code = 381) POTASSIUM (BEAKER) 4.2 meq/L 3.5-5.1 (test code = 379) CHLORIDE (BEAKER) 112 meq/L 98-107 H (test code = 382) CO2 (BEAKER) (test 19 meq/L 22-29 L code = 355) BLOOD UREA NITROGEN 28 mg/dL 7-21 H (BEAKER) (test code = 354) CREATININE (BEAKER) 1.91 mg/dL 0.57-1.25 H (test code = 358) GLUCOSE RANDOM 158 mg/dL 70-105 H (BEAKER) (test code = 652) CALCIUM (BEAKER) 8.7 mg/dL 8.4-10.2 (test code = 697) AST (SGOT) (BEAKER) 19 U/L 5-34 (test code = 353) ALT (SGPT) (BEAKER) 20 U/L 6-55 (test code = 347) EGFR (BEAKER) (test mL/min/1.73 INSUFFIC IENT code = 1092) sq m CLINICAL DATA T O CALCULATE ESTIM ATED GFR. [id number] 04:53:00 Test Item Value Reference Range Interpretation Comments MAGNESIUM (BEAKER) (test code = 2.0 mg/dL 1.6-2.6 627) LIPID [id number] 04:53:00 Test Item Value Reference Range Interpretation Comments TRIGLYCERIDES (BEAKER) (test code = 227 mg/dL 540) CHOLESTEROL (BEAKER) (test code = 156 mg/dL 631) HDL CHOLESTEROL (BEAKER) (test code 38 mg/dL = 976) LDL CHOLESTEROL CALCULATED (BEAKER) 73 mg/dL (test code = 633) Triglyceride Reference Range: Low Risk <150 Borderline 150-199 High Risk 200-499 Very High Risk >=500Cholesterol Reference Range: Low Risk <200 Borderline 200-239 High Risk >240HDL Cholesterol Reference Range: Low Risk >=60 High Risk <40LDL Cholesterol Reference Range: Optimal <100 Near Optimal 100-129 Borderline 130-159 High 160-189 Very High >=190PT/[id number] 04:46:00 Test Item Value Reference Range Interpretation Comments PROTIME (BEAKER) (test code = 14.2 seconds 11.7-14.7 759) INR (BEAKER) (test code = 370) 1.1 <=5.9 PARTIAL THROMBOPLASTIN TIME 41.3 seconds 22.5-36.0 H (BEAKER) (test code = 760) RECOMMENDED COUMADIN/WARFARIN INR THERAPY RANGESSTANDARD DOSE: 2.0 - 3.0 Includes: PROPHYLAXIS forvenous thrombosis, systemic embolization; TREATMENT for venous thrombosis and/or pulmonary embolus.HIGH RISK: Target INR is 2.5-3.5 for patients with mechanical heart valves.[id number] 04:46:00 Test Item Value Reference Range Interpretation Comments PARTIAL THROMBOPLASTIN TIME 41.3 seconds 22.5-36.0 H (BEAKER) (test code = 760) PROTHROMBIN [id number] 04:45:00 Test Item Value Reference Range Interpretation Comments PROTIME (BEAKER) (test code = 14.2 seconds 11.7-14.7 759) INR (BEAKER) (test code = 370) 1.1 <=5.9 RECOMMENDED COUMADIN/WARFARIN INR THERAPY RANGESSTANDARD DOSE: 2.0 - 3.0 Includes: PROPHYLAXIS forvenous thrombosis, systemic embolization; TREATMENT for venous thrombosis and/or pulmonary embolus.HIGH RISK: Target INR is 2.5-3.5 for patients with mechanical heart valves.[id number] 04:44:00 Test Item Value Reference Range Interpretation Comments MAGNESIUM (BEAKER) (test code = 2.2 mg/dL 1.6-2.6 627) CBC W/PLT COUNT & AUTO [id number] 04:32:00 Test Item Value Reference Range Interpretation Comments WHITE BLOOD CELL COUNT (BEAKER) 6.6 K/ L 3.5-10.5 (test code = 775) RED BLOOD CELL COUNT (BEAKER) 2.54 M/ L 3.93-5.22 L (test code = 761) HEMOGLOBIN (BEAKER) (test code = 7.5 GM/DL 11.2-15.7 L 410) HEMATOCRIT (BEAKER) (test code = 23.1 % 34.1-44.9 L 411) MEAN CORPUSCULAR VOLUME (BEAKER) 90.9 fL 79.4-94.8 (test code = 753) MEAN CORPUSCULAR HEMOGLOBIN 29.5 pg 25.6-32.2 (BEAKER) (test code = 751) MEAN CORPUSCULAR HEMOGLOBIN CONC 32.5 GM/DL 32.2-35.5 (BEAKER) (test code = 752) RED CELL DISTRIBUTION WIDTH 13.7 % 11.7-14.4 (BEAKER) (test code = 412) PLATELET COUNT (BEAKER) (test 236 K/CU MM 150-450 code = 756) MEAN PLATELET VOLUME (BEAKER) 10.4 fL 9.4-12.3 (test code = 754) NUCLEATED RED BLOOD CELLS 0 /100 WBC 0-0 (BEAKER) (test code = 413) NEUTROPHILS RELATIVE PERCENT 56 % (BEAKER) (test code = 429) LYMPHOCYTES RELATIVE PERCENT 29 % (BEAKER) (test code = 430) MONOCYTES RELATIVE PERCENT 11 % (BEAKER) (test code = 431) EOSINOPHILS RELATIVE PERCENT 3 % (BEAKER) (test code = 432) BASOPHILS RELATIVE PERCENT 1 % (BEAKER) (test code = 437) NEUTROPHILS ABSOLUTE COUNT 3.71 K/ L 1.56-6.13 (BEAKER) (test code = 670) LYMPHOCYTES ABSOLUTE COUNT 1.94 K/ L 1.18-3.74 (BEAKER) (test code = 414) MONOCYTES ABSOLUTE COUNT (BEAKER) 0.72 K/ L 0.24-0.36 H (test code = 415) EOSINOPHILS ABSOLUTE COUNT 0.19 K/ L 0.04-0.36 (BEAKER) (test code = 416) BASOPHILS ABSOLUTE COUNT (BEAKER) 0.04 K/ L 0.01-0.08 (test code = 417) IMMATURE GRANULOCYTES-RELATIVE 1 % 0-1 PERCENT (BEAKER) (test code = 2801) POCT-GLUCOSE [id number] 04:11:00 Test Item Value Reference Range Interpretation Comments POC-GLUCOSE METER 192 mg/dL 70-[address] [facility] [address] (BEAKER) (test code = [place] 1538) [id number] POCT-GLUCOSE [id number] 21:24:00 Test Item Value Reference Range Interpretation Comments POC-GLUCOSE METER 107 mg/dL 70-[address] [facility] (test code = [facility] 1538) [address] POCT-GLUCOSE [id number] 17:05:00 Test Item Value Reference Range Interpretation Comments POC-GLUCOSE METER 107 mg/dL 70-110 TESTED AT [place] [address] ([facility]) (test code = [facility] 1538) [address] POCT-GLUCOSE [id number] 12:13:00 Test Item Value Reference Range Interpretation Comments POC-GLUCOSE METER 133 mg/dL 70-110 H TESTED AT [place] [address] ([facility]) (test code = [facility] 1538) [address] POCT-GLUCOSE [id number] 07:42:00 Test Item Value Reference Range Interpretation Comments POC-GLUCOSE METER 100 mg/dL 70-110 TESTED AT [place] [address] ([facility]) (test code = [facility] 1538) [address] BASIC METABOLIC [id number] 05:18:00 Test Item Value Reference Range Interpretation Comments SODIUM (BEAKER) 141 meq/L 136-145 (test code = 381) POTASSIUM (BEAKER) 3.9 meq/L 3.5-5.1 (test code = 379) CHLORIDE (BEAKER) 113 meq/L 98-107 H (test code = 382) CO2 (BEAKER) (test 20 meq/L 22-29 L code = 355) BLOOD UREA NITROGEN 27 mg/dL 7-21 H (BEAKER) (test code = 354) CREATININE (BEAKER) 1.88 mg/dL 0.57-1.25 H (test code = 358) GLUCOSE RANDOM 97 mg/dL 70-105 (BEAKER) (test code = 652) CALCIUM (BEAKER) 9.2 mg/dL 8.4-10.2 (test code = 697) EGFR (BEAKER) (test mL/min/1.73 INSUFFIC IENT CLINICAL code = 1092) sq m DATA TO CALCULA TE ESTIMATED GFR. [id number] 05:14:00 Test Item Value Reference Range Interpretation Comments MAGNESIUM (BEAKER) (test code = 2.1 mg/dL 1.6-2.6 627) CBC W/PLT COUNT & AUTO [id number] 04:39:00 Test Item Value Reference Range Interpretation Comments WHITE BLOOD CELL COUNT (BEAKER) 7.6 K/ L 3.5-10.5 (test code = 775) RED BLOOD CELL COUNT (BEAKER) 2.71 M/ L 3.93-5.22 L (test code = 761) HEMOGLOBIN (BEAKER) (test code = 8.0 GM/DL 11.2-15.7 L 410) HEMATOCRIT (BEAKER) (test code = 24.6 % 34.1-44.9 L 411) MEAN CORPUSCULAR VOLUME (BEAKER) 90.8 fL 79.4-94.8 (test code = 753) MEAN CORPUSCULAR HEMOGLOBIN 29.5 pg 25.6-32.2 (BEAKER) (test code = 751) MEAN CORPUSCULAR HEMOGLOBIN CONC 32.5 GM/DL 32.2-35.5 (BEAKER) (test code = 752) RED CELL DISTRIBUTION WIDTH 13.8 % 11.7-14.4 (BEAKER) (test code = 412) PLATELET COUNT (BEAKER) (test 272 K/CU MM 150-450 code = 756) MEAN PLATELET VOLUME (BEAKER) 11.0 fL 9.4-12.3 (test code = 754) NUCLEATED RED BLOOD CELLS 0 /100 WBC 0-0 (BEAKER) (test code = 413) NEUTROPHILS RELATIVE PERCENT 59 % (BEAKER) (test code = 429) LYMPHOCYTES RELATIVE PERCENT 27 % (BEAKER) (test code = 430) MONOCYTES RELATIVE PERCENT 10 % (BEAKER) (test code = 431) EOSINOPHILS RELATIVE PERCENT 3 % (BEAKER) (test code = 432) BASOPHILS RELATIVE PERCENT 1 % (BEAKER) (test code = 437) NEUTROPHILS ABSOLUTE COUNT 4.45 K/ L 1.56-6.13 (BEAKER) (test code = 670) LYMPHOCYTES ABSOLUTE COUNT 2.04 K/ L 1.18-3.74 (BEAKER) (test code = 414) MONOCYTES ABSOLUTE COUNT (BEAKER) 0.78 K/ L 0.24-0.36 H (test code = 415) EOSINOPHILS ABSOLUTE COUNT 0.22 K/ L 0.04-0.36 (BEAKER) (test code = 416) BASOPHILS ABSOLUTE COUNT (BEAKER) 0.05 K/ L 0.01-0.08 (test code = 417) IMMATURE GRANULOCYTES-RELATIVE 0 % 0-1 PERCENT (BEAKER) (test code = 2801) POCT-GLUCOSE [id number] 21:30:00 Test Item Value Reference Range Interpretation Comments POC-GLUCOSE METER 145 mg/dL 70-110 H TESTED AT [place] [id number] (BEAKER) (test code = [place] [facility] 1538) [address] POCT-GLUCOSE [id number] 18:17:00 Test Item Value Reference Range Interpretation Comments POC-GLUCOSE METER 235 mg/dL 70-110 H TESTED AT [place] [address] [facility] (test code = [place] 1538) [address] POCT-GLUCOSE [id number] 12:47:00 Test Item Value Reference Range Interpretation Comments POC-GLUCOSE METER 69 mg/dL 70-110 L Notified R Itz [place]/TESTED AT ([facility]) (test code = [address] 1538) [facility] [id number] POCT-GLUCOSE [id number] 09:30:00 Test Item Value Reference Range Interpretation Comments POC-GLUCOSE METER 107 mg/dL 70-110 TESTED AT [place] [address] ([facility] (test code = [place] [facility] 1538) [id number] 05:52:00 Test Item Value Reference Range Interpretation Comments MAGNESIUM (BEAKER) (test code = 2.1 mg/dL 1.6-2.6 627) BASIC METABOLIC [id number] 05:52:00 Test Item Value Reference Range Interpretation Comments SODIUM (BEAKER) 140 meq/L 136-145 (test code = 381) POTASSIUM (BEAKER) 4.0 meq/L 3.5-5.1 (test code = 379) CHLORIDE (BEAKER) 112 meq/L 98-107 H (test code = 382) CO2 (BEAKER) (test 20 meq/L 22-29 L code = 355) BLOOD UREA NITROGEN 23 mg/dL 7-21 H (BEAKER) (test code = 354) CREATININE (BEAKER) 1.84 mg/dL 0.57-1.25 H (test code = 358) GLUCOSE RANDOM 122 mg/dL 70-105 H (BEAKER) (test code = 652) CALCIUM (BEAKER) 9.2 mg/dL 8.4-10.2 (test code = 697) EGFR (BEAKER) (test mL/min/1.73 INSUFFIC IENT CLINICAL code = 1092) sq m DATA TO CALCULA TE ESTIMATED GFR. CBC W/PLT COUNT & AUTO [id number] 04:55:00 Test Item Value Reference Range Interpretation Comments WHITE BLOOD CELL COUNT (BEAKER) 6.6 K/ L 3.5-10.5 (test code = 775) RED BLOOD CELL COUNT (BEAKER) 2.70 M/ L 3.93-5.22 L (test code = 761) HEMOGLOBIN (BEAKER) (test code = 7.9 GM/DL 11.2-15.7 L 410) HEMATOCRIT (BEAKER) (test code = 24.3 % 34.1-44.9 L 411) MEAN CORPUSCULAR VOLUME (BEAKER) 90.0 fL 79.4-94.8 (test code = 753) MEAN CORPUSCULAR HEMOGLOBIN 29.3 pg 25.6-32.2 (BEAKER) (test code = 751) MEAN CORPUSCULAR HEMOGLOBIN CONC 32.5 GM/DL 32.2-35.5 (BEAKER) (test code = 752) RED CELL DISTRIBUTION WIDTH 13.7 % 11.7-14.4 (BEAKER) (test code = 412) PLATELET COUNT (BEAKER) (test 242 K/CU MM 150-450 code = 756) MEAN PLATELET VOLUME (BEAKER) 11.1 fL 9.4-12.3 (test code = 754) NUCLEATED RED BLOOD CELLS 0 /100 WBC 0-0 (BEAKER) (test code = 413) NEUTROPHILS RELATIVE PERCENT 58 % (BEAKER) (test code = 429) LYMPHOCYTES RELATIVE PERCENT 26 % (BEAKER) (test code = 430) MONOCYTES RELATIVE PERCENT 13 % (BEAKER) (test code = 431) EOSINOPHILS RELATIVE PERCENT 3 % (BEAKER) (test code = 432) BASOPHILS RELATIVE PERCENT 1 % (BEAKER) (test code = 437) NEUTROPHILS ABSOLUTE COUNT 3.84 K/ L 1.56-6.13 (BEAKER) (test code = 670) LYMPHOCYTES ABSOLUTE COUNT 1.69 K/ L 1.18-3.74 (BEAKER) (test code = 414) MONOCYTES ABSOLUTE COUNT (BEAKER) 0.86 K/ L 0.24-0.36 H (test code = 415) EOSINOPHILS ABSOLUTE COUNT 0.19 K/ L 0.04-0.36 (AKER) (test code = 416) BASOPHILS ABSOLUTE COUNT ([facility]) 0.04 K/ L 0.01-0.08 (test code = 417) IMMATURE GRANULOCYTES-RELATIVE 0 % 0-1 PERCENT ([facility]) (test code = 2801) [id number] 02:57:00 Test Item Value Reference Range Interpretation Comments RPR SCREEN [place] [facility] (test code = Nonreactive Nonreactive 420) POCT-GLUCOSE [id number] 21:28:00 Test Item Value Reference Range Interpretation Comments POC-GLUCOSE METER 143 mg/dL 70-110 H TESTED AT [place] [address] ([facility]) (test code = [facility] 1538) [address] POCT-GLUCOSE [id number] 16:46:00 Test Item Value Reference Range Interpretation Comments POC-GLUCOSE METER 83 mg/dL 70-110 TESTED AT [place] [address] ([facility]) (test code = [facility] [address] 1538) POCT-GLUCOSE [id number] 13:12:00 Test Item Value Reference Range Interpretation Comments POC-GLUCOSE METER 94 mg/dL 70-110 TESTED AT [place] [address] ([facility]) (test code = [facility] [address] 1538) POCT-GLUCOSE [id number] 08:43:00 Test Item Value Reference Range Interpretation Comments POC-GLUCOSE METER 141 mg/dL 70-110 H TESTED AT [place] [address] ([facility]) (test code = [facility] 1538) [id number] HEPATITIS PANEL, [id number] 07:26:00 Test Item Value Reference Range Interpretation Comments HEPATITIS A IGM ANTIBODY ([facility]) Nonreactive Nonreactive (test code = 498) HEPATITIS B CORE IGM ANTIBODY Nonreactive Nonreactive ([facility]) (test code = 645) HEPATITIS C ANTIBODY ([facility]) Nonreactive Nonreactive (test code = 367) HEPATITIS B SURFACE ANTIGEN (2) Nonreactive Nonreactive ([facility]) (test code = 2585) HIV-1 ANTIGEN WITH HIV-1/2 [id number] 07:26:00 Test Item Value Reference Range Interpretation Comments HIV-1 ANTIGEN WITH HIV 1\T\2 Nonreactive Nonreactive ANTIBODY (2) (BEAKER) (test code = 2586) BASIC METABOLIC [id number] 06:11:00 Test Item Value Reference Range Interpretation Comments SODIUM (BEAKER) 140 meq/L 136-145 (test code = 381) POTASSIUM (BEAKER) 4.0 meq/L 3.5-5.1 (test code = 379) CHLORIDE (BEAKER) 113 meq/L 98-107 H (test code = 382) CO2 (BEAKER) (test 19 meq/L 22-29 L code = 355) BLOOD UREA NITROGEN 21 mg/dL 7-21 (BEAKER) (test code = 354) CREATININE (BEAKER) 1.80 mg/dL 0.57-1.25 H (test code = 358) GLUCOSE RANDOM 145 mg/dL 70-105 H (BEAKER) (test code = 652) CALCIUM (BEAKER) 8.8 mg/dL 8.4-10.2 (test code = 697) EGFR (BEAKER) (test mL/min/1.73 INSUFFIC IENT CLINICAL code = 1092) sq m DATA TO CALCULA TE ESTIMATED GFR. [id number] 06:06:00 Test Item Value Reference Range Interpretation Comments MAGNESIUM (BEAKER) (test code = 2.0 mg/dL 1.6-2.6 627) CBC W/PLT COUNT & AUTO [id number] 05:19:00 Test Item Value Reference Range Interpretation Comments WHITE BLOOD CELL COUNT (BEAKER) 7.6 K/ L 3.5-10.5 (test code = 775) RED BLOOD CELL COUNT (BEAKER) 2.51 M/ L 3.93-5.22 L (test code = 761) HEMOGLOBIN (BEAKER) (test code = 7.4 GM/DL 11.2-15.7 L 410) HEMATOCRIT (BEAKER) (test code = 22.7 % 34.1-44.9 L 411) MEAN CORPUSCULAR VOLUME (BEAKER) 90.4 fL 79.4-94.8 (test code = 753) MEAN CORPUSCULAR HEMOGLOBIN 29.5 pg 25.6-32.2 (BEAKER) (test code = 751) MEAN CORPUSCULAR HEMOGLOBIN CONC 32.6 GM/DL 32.2-35.5 (BEAKER) (test code = 752) RED CELL DISTRIBUTION WIDTH 13.8 % 11.7-14.4 (BEAKER) (test code = 412) PLATELET COUNT (BEAKER) (test 237 K/CU MM 150-450 code = 756) MEAN PLATELET VOLUME (BEAKER) 11.0 fL 9.4-12.3 (test code = 754) NUCLEATED RED BLOOD CELLS 0 /100 WBC 0-0 (BEAKER) (test code = 413) NEUTROPHILS RELATIVE PERCENT 65 % (BEAKER) (test code = 429) LYMPHOCYTES RELATIVE PERCENT 20 % (BEAKER) (test code = 430) MONOCYTES RELATIVE PERCENT 12 % (BEAKER) (test code = 431) EOSINOPHILS RELATIVE PERCENT 3 % (BEAKER) (test code = 432) BASOPHILS RELATIVE PERCENT 1 % (BEAKER) (test code = 437) NEUTROPHILS ABSOLUTE COUNT 4.87 K/ L 1.56-6.13 (BEAKER) (test code = 670) LYMPHOCYTES ABSOLUTE COUNT 1.47 K/ L 1.18-3.74 (BEAKER) (test code = 414) MONOCYTES ABSOLUTE COUNT (BEAKER) 0.93 K/ L 0.24-0.36 H (test code = 415) EOSINOPHILS ABSOLUTE COUNT 0.22 K/ L 0.04-0.36 (BEAKER) (test code = 416) BASOPHILS ABSOLUTE COUNT (BEAKER) 0.04 K/ L 0.01-0.08 (test code = 417) IMMATURE GRANULOCYTES-RELATIVE 0 % 0-1 PERCENT (BEAKER) (test code = 2801) POCT-GLUCOSE [id number] 21:18:00 Test Item Value Reference Range Interpretation Comments POC-GLUCOSE METER 169 mg/dL 70-110 H TESTED AT [place] [address] ([facility] (test code = [place] 1538) [address] POCT-GLUCOSE [id number] 19:42:00 Test Item Value Reference Range Interpretation Comments POC-GLUCOSE METER 186 mg/dL 70-110 H TESTED AT [place] [address] (BEAKER) (test code = [place] [place] 1538) [address] POCT-GLUCOSE [id number] 15:16:00 Test Item Value Reference Range Interpretation Comments POC-GLUCOSE METER 69 mg/dL 70-110 L TESTED AT [facility] 6720 (BEAKER) (test code = [place] [address] 1538) POCT-GLUCOSE [id number] 08:50:00 Test Item Value Reference Range Interpretation Comments POC-GLUCOSE METER 135 mg/dL 70-[address] [facility] 67[address] (BEAKER) (test code = [place] [place] [facility] 1538) [address] BASIC METABOLIC [id number] 06:36:00 Test Item Value Reference Range Interpretation Comments SODIUM (BEAKER) 142 meq/L 136-145 (test code = 381) POTASSIUM (BEAKER) 3.8 meq/L 3.5-5.1 (test code = 379) CHLORIDE (BEAKER) 114 meq/L 98-107 H (test code = 382) CO2 (BEAKER) (test 18 meq/L 22-29 L code = 355) BLOOD UREA NITROGEN 21 mg/dL 7-21 (BEAKER) (test code = 354) CREATININE (BEAKER) 1.88 mg/dL 0.57-1.25 H (test code = 358) GLUCOSE RANDOM 119 mg/dL 70-105 H (BEAKER) (test code = 652) CALCIUM (BEAKER) 9.0 mg/dL 8.4-10.2 (test code = 697) EGFR (BEAKER) (test mL/min/1.73 INSUFFIC IENT CLINICAL code = 1092) sq m DATA TO CALCULA TE ESTIMATED GFR. [id number] 06:09:00 Test Item Value Reference Range Interpretation Comments MAGNESIUM (BEAKER) (test code = 1.9 mg/dL 1.6-2.6 627) CBC W/PLT COUNT & AUTO [id number] 05:10:00 Test Item Value Reference Range Interpretation Comments WHITE BLOOD CELL COUNT (BEAKER) 8.3 K/ L 3.5-10.5 (test code = 775) RED BLOOD CELL COUNT (BEAKER) 2.71 M/ L 3.93-5.22 L (test code = 761) HEMOGLOBIN (BEAKER) (test code = 8.0 GM/DL 11.2-15.7 L 410) HEMATOCRIT (BEAKER) (test code = 24.4 % 34.1-44.9 L 411) MEAN CORPUSCULAR VOLUME (BEAKER) 90.0 fL 79.4-94.8 (test code = 753) MEAN CORPUSCULAR HEMOGLOBIN 29.5 pg 25.6-32.2 (BEAKER) (test code = 751) MEAN CORPUSCULAR HEMOGLOBIN CONC 32.8 GM/DL 32.2-35.5 (BEAKER) (test code = 752) RED CELL DISTRIBUTION WIDTH 13.7 % 11.7-14.4 (BEAKER) (test code = 412) PLATELET COUNT (BEAKER) (test 221 K/CU MM 150-450 code = 756) MEAN PLATELET VOLUME (BEAKER) 11.1 fL 9.4-12.3 (test code = 754) NUCLEATED RED BLOOD CELLS 0 /100 WBC 0-0 (BEAKER) (test code = 413) NEUTROPHILS RELATIVE PERCENT 63 % (BEAKER) (test code = 429) LYMPHOCYTES RELATIVE PERCENT 22 % (BEAKER) (test code = 430) MONOCYTES RELATIVE PERCENT 12 % (BEAKER) (test code = 431) EOSINOPHILS RELATIVE PERCENT 2 % (BEAKER) (test code = 432) BASOPHILS RELATIVE PERCENT 1 % (BEAKER) (test code = 437) NEUTROPHILS ABSOLUTE COUNT 5.19 K/ L 1.56-6.13 (BEAKER) (test code = 670) LYMPHOCYTES ABSOLUTE COUNT 1.84 K/ L 1.18-3.74 (BEAKER) (test code = 414) MONOCYTES ABSOLUTE COUNT (BEAKER) 0.96 K/ L 0.24-0.36 H (test code = 415) EOSINOPHILS ABSOLUTE COUNT 0.20 K/ L 0.04-0.36 (BEAKER) (test code = 416) BASOPHILS ABSOLUTE COUNT (BEAKER) 0.04 K/ L 0.01-0.08 (test code = 417) IMMATURE GRANULOCYTES-RELATIVE 0 % 0-1 PERCENT (BEAKER) (test code = 2801) U/S, RENAL, [id number] 04:53:00Reason for exam:->acute renal failureShould this be performed at the bedside?->YesFINAL REPORT EXAM: RENAL ULTRASOUND CLINICAL HISTORY: ACUTE RENAL FAILURE T ECHNIQUE: A complete renal ultrasound was performed in the usual fashion with transabdominal imaging. FINDINGS: The right kidney measures 11 x 5 x 5 cm. The left kidney measures 11 x 5 x 6 cm. No evidence of hydronephrosis or nephrolithiasis. The kidneys demonstrate subtle diffuse increased cortical e chogenicity. The right renal cortical thickness measures 1.5 [...] an acute obstructive uropathy. Signed: Toribio Becerril MDReport Verified Date/Time: 01/07/2018 04:53:04 Reading Location: [address] Reading Room POCT-GLUCOSE [id number] 21:18:00 Test Item Value Reference Range Interpretation Comments POC-GLUCOSE METER 172 mg/dL 70-110 H TESTED AT [place] [address] ([facility]) (test code = [facility] 1538) [address] POCT-GLUCOSE [id number] 17:16:00 Test Item Value Reference Range Interpretation Comments POC-GLUCOSE METER 100 mg/dL 70-110 TESTED AT [place] [address] ([facility]) (test code = [facility] [place] [facility] 1538) [address] POCT-GLUCOSE [id number] 12:05:00 Test Item Value Reference Range Interpretation Comments POC-GLUCOSE METER 281 mg/dL 70-110 H TESTED AT [place] [address] ([facility]) (test code = [facility] 1538) [address] POCT-GLUCOSE [id number] 07:33:00 Test Item Value Reference Range Interpretation Comments POC-GLUCOSE METER 113 mg/dL 70-110 H TESTED AT [place] [address] ([facility]) (test code = [facility] [place] [facility] 1538) [address] BASIC METABOLIC [id number] 04:53:00 Test Item Value Reference Range Interpretation Comments SODIUM (BEAKER) 139 meq/L 136-145 (test code = 381) POTASSIUM (BEAKER) 3.9 meq/L 3.5-5.1 (test code = 379) CHLORIDE (BEAKER) 113 meq/L 98-107 H (test code = 382) CO2 (BEAKER) (test 19 meq/L 22-29 L code = 355) BLOOD UREA NITROGEN 20 mg/dL 7-21 (BEAKER) (test code = 354) CREATININE (BEAKER) 1.89 mg/dL 0.57-1.25 H (test code = 358) GLUCOSE RANDOM 89 mg/dL 70-105 (BEAKER) (test code = 652) CALCIUM (BEAKER) 8.5 mg/dL 8.4-10.2 (test code = 697) EGFR (BEAKER) (test mL/min/1.73 INSUFFIC IENT CLINICAL code = 1092) sq m DATA TO CALCULA TE ESTIMATED GFR. [id number] 04:51:00 Test Item Value Reference Range Interpretation Comments MAGNESIUM (BEAKER) (test code = 1.9 mg/dL 1.6-2.6 627) CBC W/PLT COUNT & AUTO [id number] 04:35:00 Test Item Value Reference Range Interpretation Comments WHITE BLOOD CELL COUNT (BEAKER) 8.2 K/ L 3.5-10.5 (test code = 775) RED BLOOD CELL COUNT (BEAKER) 2.51 M/ L 3.93-5.22 L (test code = 761) HEMOGLOBIN (BEAKER) (test code = 7.4 GM/DL 11.2-15.7 L 410) HEMATOCRIT (BEAKER) (test code = 22.6 % 34.1-44.9 L 411) MEAN CORPUSCULAR VOLUME (BEAKER) 90.0 fL 79.4-94.8 (test code = 753) MEAN CORPUSCULAR HEMOGLOBIN 29.5 pg 25.6-32.2 (BEAKER) (test code = 751) MEAN CORPUSCULAR HEMOGLOBIN CONC 32.7 GM/DL 32.2-35.5 (BEAKER) (test code = 752) RED CELL DISTRIBUTION WIDTH 13.6 % 11.7-14.4 (BEAKER) (test code = 412) PLATELET COUNT (BEAKER) (test 196 K/CU MM 150-450 code = 756) MEAN PLATELET VOLUME (BEAKER) 10.9 fL 9.4-12.3 (test code = 754) NUCLEATED RED BLOOD CELLS 0 /100 WBC 0-0 (BEAKER) (test code = 413) NEUTROPHILS RELATIVE PERCENT 62 % (BEAKER) (test code = 429) LYMPHOCYTES RELATIVE PERCENT 22 % (BEAKER) (test code = 430) MONOCYTES RELATIVE PERCENT 13 % (BEAKER) (test code = 431) EOSINOPHILS RELATIVE PERCENT 2 % (BEAKER) (test code = 432) BASOPHILS RELATIVE PERCENT 1 % (BEAKER) (test code = 437) NEUTROPHILS ABSOLUTE COUNT 5.12 K/ L 1.56-6.13 (BEAKER) (test code = 670) LYMPHOCYTES ABSOLUTE COUNT 1.79 K/ L 1.18-3.74 (BEAKER) (test code = 414) MONOCYTES ABSOLUTE COUNT (BEAKER) 1.05 K/ L 0.24-0.36 H (test code = 415) EOSINOPHILS ABSOLUTE COUNT 0.19 K/ L 0.04-0.36 (BEAKER) (test code = 416) BASOPHILS ABSOLUTE COUNT (BEAKER) 0.04 K/ L 0.01-0.08 (test code = 417) IMMATURE GRANULOCYTES-RELATIVE 0 % 0-1 PERCENT (BEAKER) (test code = 2801) POCT-GLUCOSE [id number] 21:19:00 Test Item Value Reference Range Interpretation Comments POC-GLUCOSE METER 236 mg/dL 70-110 H TESTED AT [place] [address] ([facility]) (test code = [facility] 1538) [id number] PROTEIN, RANDOM [id number] 20:35:00 Test Item Value Reference Range Interpretation Comments PROTEIN, URINE (BEAKER) (test code 455 mg/dL 0-14 H = 1569) CREATININE, RANDOM [id number] 20:20:00 Test Item Value Reference Range Interpretation Comments CREATININE URINE (BEAKER) (test 68.6 mg/dL code = 375) Reference Range: No NormalsPOCT-GLUCOSE [id number] 18:05:00 Test Item Value Reference Range Interpretation Comments POC-GLUCOSE METER 217 mg/dL 70-110 H TESTED AT [place] [address] ([facility] (test code = [facility] 1538) [address] POCT-GLUCOSE [id number] 12:39:00 Test Item Value Reference Range Interpretation Comments POC-GLUCOSE METER 252 mg/dL 70-[address] [facility] [address] ([facility] (test code = [facility] 1538) [address] HEMOGLOBIN [id number] 08:29:00 Test Item Value Reference Range Interpretation Comments HEMOGLOBIN A1C (BEAKER) (test code = 8.2 % 4.3-6.1 H 368) BASIC METABOLIC [id number] 08:18:00 Test Item Value Reference Range Interpretation Comments SODIUM (BEAKER) 141 meq/L 136-145 (test code = 381) POTASSIUM (BEAKER) 4.2 meq/L 3.5-5.1 (test code = 379) CHLORIDE (BEAKER) 115 meq/L 98-107 H (test code = 382) CO2 (BEAKER) (test 18 meq/L 22-29 L code = 355) BLOOD UREA NITROGEN 17 mg/dL 7-21 (BEAKER) (test code = 354) CREATININE (BEAKER) 1.61 mg/dL 0.57-1.25 H (test code = 358) GLUCOSE RANDOM 148 mg/dL 70-105 H (BEAKER) (test code = 652) CALCIUM (BEAKER) 8.6 mg/dL 8.4-10.2 (test code = 697) EGFR (BEAKER) (test mL/min/1.73 INSUFFIC IENT CLINICAL code = 1092) sq m DATA TO CALCULA TE ESTIMATED GFR. POCT-GLUCOSE [id number] 07:47:00 Test Item Value Reference Range Interpretation Comments POC-GLUCOSE METER 193 mg/dL 70-[address] [facility] 67[address] (BEAKER) (test code = [facility] 1538) [address] HEMOGLOBIN [id number] 07:42:00 Test Item Value Reference Range Interpretation Comments HEMOGLOBIN A1C (BEAKER) (test code = 8.6 % 4.3-6.1 H 368) [id number] 06:12:00 Test Item Value Reference Range Interpretation Comments MAGNESIUM (BEAKER) (test code = 1.7 mg/dL 1.6-2.6 627) [id number] 06:02:00 Test Item Value Reference Range Interpretation Comments THYROID STIMULATING HORMONE 0.14 uIU/mL 0.35-4.94 L (BEAKER) (test code = 772) PROTHROMBIN [id number] 05:08:00 Test Item Value Reference Range Interpretation Comments PROTIME (BEAKER) (test code = 14.2 seconds 11.7-14.7 759) INR (BEAKER) (test code = 370) 1.1 <=5.9 RECOMMENDED COUMADIN/WARFARIN INR THERAPY RANGESSTANDARD DOSE: 2.0 - 3.0 Includes: PROPHYLAXIS forvenous thrombosis, systemic embolization; TREATMENT for venous thrombosis and/or pulmonary embolus.HIGH RISK: Target INR is 2.5-3.5 for patients with mechanical heart valves.[id number] 05:08:00 Test Item Value Reference Range Interpretation Comments PARTIAL THROMBOPLASTIN TIME 30.5 seconds 22.5-36.0 (BEAKER) (test code = 760) CBC W/PLT COUNT & AUTO [id number] 05:07:00 Test Item Value Reference Range Interpretation Comments WHITE BLOOD CELL COUNT (BEAKER) 8.3 K/ L 3.5-10.5 (test code = 775) RED BLOOD CELL COUNT (BEAKER) 2.68 M/ L 3.93-5.22 L (test code = 761) HEMOGLOBIN (BEAKER) (test code = 7.8 GM/DL 11.2-15.7 L 410) HEMATOCRIT (BEAKER) (test code = 23.8 % 34.1-44.9 L 411) MEAN CORPUSCULAR VOLUME (BEAKER) 88.8 fL 79.4-94.8 (test code = 753) MEAN CORPUSCULAR HEMOGLOBIN 29.1 pg 25.6-32.2 (BEAKER) (test code = 751) MEAN CORPUSCULAR HEMOGLOBIN CONC 32.8 GM/DL 32.2-35.5 (BEAKER) (test code = 752) RED CELL DISTRIBUTION WIDTH 13.6 % 11.7-14.4 (BEAKER) (test code = 412) PLATELET COUNT (BEAKER) (test 207 K/CU MM 150-450 code = 756) MEAN PLATELET VOLUME (BEAKER) 11.0 fL 9.4-12.3 (test code = 754) NUCLEATED RED BLOOD CELLS 0 /100 WBC 0-0 (BEAKER) (test code = 413) NEUTROPHILS RELATIVE PERCENT 63 % (BEAKER) (test code = 429) LYMPHOCYTES RELATIVE PERCENT 23 % (BEAKER) (test code = 430) MONOCYTES RELATIVE PERCENT 11 % (BEAKER) (test code = 431) EOSINOPHILS RELATIVE PERCENT 2 % (BEAKER) (test code = 432) BASOPHILS RELATIVE PERCENT 0 % (BEAKER) (test code = 437) NEUTROPHILS ABSOLUTE COUNT 5.19 K/ L 1.56-6.13 (BEAKER) (test code = 670) LYMPHOCYTES ABSOLUTE COUNT 1.93 K/ L 1.18-3.74 (BEAKER) (test code = 414) MONOCYTES ABSOLUTE COUNT (BEAKER) 0.93 K/ L 0.24-0.36 H (test code = 415) EOSINOPHILS ABSOLUTE COUNT 0.15 K/ L 0.04-0.36 (BEAKER) (test code = 416) BASOPHILS ABSOLUTE COUNT (BEAKER) 0.03 K/ L 0.01-0.08 (test code = 417) IMMATURE GRANULOCYTES-RELATIVE 1 % 0-1 PERCENT (BEAKER) (test code = 2801) CT, CHEST, WITH [id number] 00:35:00Reason for exam:->mediastinal mass What is the patient's sedation requirement?->No SedationFINAL REPORT CT, CHEST, WITH CONTRAST INDICATION: mediastinal massmediastinal mass COMPARISON: None TECHNIQUE: Noncontrast axially oriented [...] mediastinum with mass effect displacing the trachea laterallyto the right. Maximal dimensions are 5.2 x [...] intrathoracic metastatic disease. Signed: JR Velásquez Robert MDReport Verified Date/Time: 01/05/2018 00:35:47 Reading Location: [address] Body Reading Room POCT-GLUCOSE [id number] 23:22:00 Test Item Value Reference Range Interpretation Comments POC-GLUCOSE METER 215 mg/dL 70-110 H TESTED AT [place] [address] ([facility]) (test code = [facility] 1538) [address] RAD, CHEST, 1 VIEW, NON [id number] 21:44:00Reason for exam:->pre-opShould this be performed at the bedside?->YesFINAL REPORT RAD, CHEST, 1 VIEW, NON DEPT INDICATION: pre-op COMPARISON: None. FINDINGS: Portable frontal view of the chest. IMPRESSION: Support Lines: None. Lungs and pleura:No focal consolidation. There is no effusion. Central congestive changes may reflect under inspiration or developing edema. No pneumothorax.Heart and mediastinum: Normal cardiac size. Mild central venous congestion. Calcified nodule in the left thyroid lobe measures approximately 4 cm in maximal dimens ion.Additional findings: None. Signed: JR Velásquez Robert MDReport Verified Date/Time: 01/04/2018 21:44:50 Reading Location: [address] Body Reading Room PROTEIN, RANDOM [id number] 19:56:00 Test Item Value Reference Range Interpretation Comments [facility], URINE ([facility] (test code 372 mg/dL 0-14 H = 1569) CREATININE, RANDOM [id number] 19:44:00 Test Item Value Reference Range Interpretation Comments CREATININE URINE (BEAKER) (test 59.0 mg/dL code = 375) Reference Range: No NormalsSODIUM, RANDOM [id number] 19:44:00 Test Item Value Reference Range Interpretation Comments SODIUM URINE (BEAKER) (test code = 46 meq/L 243) Reference Range: No NormalsURINALYSIS WITH MICROSCOPIC IF [id number] 19:36:00 Test Item Value Reference Range Interpretation Comments COLOR (BEAKER) (test code = 470) Light Yellow CLARITY (BEAKER) (test code = Clear 469) SPECIFIC GRAVITY UA (BEAKER) 1.020 1.001-1.035 (test code = 468) PH UA (BEAKER) (test code = 467) 6.0 5.0-8.0 PROTEIN UA (BEAKER) (test code = 300 mg/dL Negative A 464) GLUCOSE UA (BEAKER) (test code = 150 mg/dL Negative A 365) KETONES UA (BEAKER) (test code = Negative Negative 371) BILIRUBIN UA (BEAKER) (test code Negative Negative = 462) BLOOD UA (BEAKER) (test code = Negative Negative 461) NITRITE UA (BEAKER) (test code = Negative Negative 465) LEUKOCYTE ESTERASE UA (BEAKER) Negative Negative (test code = 466) UROBILINOGEN UA (BEAKER) (test 0.2 mg/dL 0.2-1.0 code = 463) SOURCE(BEAKER) (test code = 2795) URINALYSIS [id number] 19:36:00 Test Item Value Reference Range Interpretation Comments RBC UA (BEAKER) (test code = 519) 0 /HPF WBC UA (BEAKER) (test code = 520) 2 /HPF BACTERIA (BEAKER) (test code = Occasional 517) MUCUS (BEAKER) (test code = 1574) Rare SQUAMOUS EPITHELIAL (BEAKER) (test 1 /HPF code = 516) T4, [id number] 18:34:00 Test Item Value Reference Range Interpretation Comments FREE T4 (BEAKER) (test code = 655) 1.25 ng/dL 0.70-1.48 TSH/FREE T4 IF [id number] 17:57:00 Test Item Value Reference Range Interpretation Comments THYROID STIMULATING HORMONE 0.08 uIU/mL 0.35-4.94 L (BEAKER) (test code = 772) [id number] 17:27:00 Test Item Value Reference Range Interpretation Comments MAGNESIUM (BEAKER) (test code = 1.9 mg/dL 1.6-2.6 627) LIPID [id number] 17:27:00 Test Item Value Reference Range Interpretation Comments TRIGLYCERIDES (BEAKER) (test code = 400 mg/dL 540) CHOLESTEROL (BEAKER) (test code = 171 mg/dL 631) HDL CHOLESTEROL (BEAKER) (test code 34 mg/dL = 976) LDL CHOLESTEROL CALCULATED (BEAKER) 57 mg/dL (test code = 633) Triglyceride Reference Range: Low Risk <150 Borderline 150-199 High Risk 200-499 Very High Risk >=500Cholesterol Reference Range: Low Risk <200 Borderline 200-239 High Risk >240HDL Cholesterol Reference Range: Low Risk >=60 High Risk <40LDL Cholesterol Reference Range: Optimal <100 Near Optimal 100-129 Borderline 130-159 High 160-189 Very High >=190HEPATIC FUNCTION [id number] 17:27:00 Test Item Value Reference Range Interpretation Comments TOTAL PROTEIN (BEAKER) (test code = 5.9 gm/dL 6.0-8.3 L 770) ALBUMIN (BEAKER) (test code = 1145) 3.1 g/dL 3.5-5.0 L BILIRUBIN TOTAL (BEAKER) (test code 0.2 mg/dL 0.2-1.2 = 377) BILIRUBIN DIRECT (BEAKER) (test 0.1 mg/dL 0.1-0.5 code = 706) ALKALINE PHOSPHATASE (BEAKER) (test 67 U/L 40-150 code = 346) AST (SGOT) (BEAKER) (test code = 54 U/L 5-34 H 353) ALT (SGPT) (BEAKER) (test code = 50 U/L 6-55 347) COMPREHENSIVE METABOLIC [id number] 17:27:00 Test Item Value Reference Range Interpretation Comments TOTAL PROTEIN 5.9 gm/dL 6.0-8.3 L (BEAKER) (test code = 770) ALBUMIN (BEAKER) 3.1 g/dL 3.5-5.0 L (test code = 1145) ALKALINE PHOSPHATASE 67 U/L 40-150 (BEAKER) (test code = 346) BILIRUBIN TOTAL 0.2 mg/dL 0.2-1.2 (BEAKER) (test code = 377) SODIUM (BEAKER) 140 meq/L 136-145 (test code = 381) POTASSIUM (BEAKER) 4.2 meq/L 3.5-5.1 (test code = 379) CHLORIDE (BEAKER) 112 meq/L 98-107 H (test code = 382) CO2 (BEAKER) (test 21 meq/L 22-29 L code = 355) BLOOD UREA NITROGEN 17 mg/dL 7-21 (BEAKER) (test code = 354) CREATININE (BEAKER) 1.73 mg/dL 0.57-1.25 H (test code = 358) GLUCOSE RANDOM 188 mg/dL 70-105 H (BEAKER) (test code = 652) CALCIUM (BEAKER) 8.9 mg/dL 8.4-10.2 (test code = 697) AST (SGOT) (BEAKER) 54 U/L 5-34 H (test code = 353) ALT (SGPT) (BEAKER) 50 U/L 6-55 (test code = 347) EGFR (BEAKER) (test mL/min/1.73 INSUFFIC IENT code = 1092) sq m CLINICAL DATA T O CALCULATE ESTIM ATED GFR. [id number] 17:26:00 Test Item Value Reference Range Interpretation Comments PHOSPHORUS (BEAKER) (test code = 3.3 mg/dL 2.3-4.7 604) [id number] 17:20:00 Test Item Value Reference Range Interpretation Comments PROTIME (BEAKER) (test code = 13.4 seconds 11.7-14.7 759) INR (BEAKER) (test code = 370) 1.0 <=5.9 PARTIAL THROMBOPLASTIN TIME 30.9 seconds 22.5-36.0 (BEAKER) (test code = 760) RECOMMENDED COUMADIN/WARFARIN INR THERAPY RANGESSTANDARD DOSE: 2.0 - 3.0 Includes: PROPHYLAXIS forvenous thrombosis, systemic embolization; TREATMENT for venous thrombosis and/or pulmonary embolus.HIGH RISK: Target INR is 2.5-3.5 for patients with mechanical heart valves.CBC W/PLT COUNT & AUTO DIFFERENTIAL 2018-01-04 17:09:00 Test Item Value Reference Range Interpretation Comments WHITE BLOOD CELL COUNT (BEAKER) 7.9 K/ L 3.5-10.5 (test code = 775) RED BLOOD CELL COUNT (BEAKER) 2.99 M/ L 3.93-5.22 L (test code = 761) HEMOGLOBIN (BEAKER) (test code = 8.7 GM/DL 11.2-15.7 L 410) HEMATOCRIT (BEAKER) (test code = 26.5 % 34.1-44.9 L 411) MEAN CORPUSCULAR VOLUME (BEAKER) 88.6 fL 79.4-94.8 (test code = 753) MEAN CORPUSCULAR HEMOGLOBIN 29.1 pg 25.6-32.2 (BEAKER) (test code = 751) MEAN CORPUSCULAR HEMOGLOBIN CONC 32.8 GM/DL 32.2-35.5 (BEAKER) (test code = 752) RED CELL DISTRIBUTION WIDTH 13.3 % 11.7-14.4 (BEAKER) (test code = 412) PLATELET COUNT (BEAKER) (test 238 K/CU MM 150-450 code = 756) MEAN PLATELET VOLUME (BEAKER) 10.8 fL 9.4-12.3 (test code = 754) NUCLEATED RED BLOOD CELLS 0 /100 WBC 0-0 (BEAKER) (test code = 413) NEUTROPHILS RELATIVE PERCENT 73 % (BEAKER) (test code = 429) LYMPHOCYTES RELATIVE PERCENT 16 % (BEAKER) (test code = 430) MONOCYTES RELATIVE PERCENT 9 % (BEAKER) (test code = 431) EOSINOPHILS RELATIVE PERCENT 2 % (BEAKER) (test code = 432) BASOPHILS RELATIVE PERCENT 1 % (BEAKER) (test code = 437) NEUTROPHILS ABSOLUTE COUNT 5.74 K/ L 1.56-6.13 (BEAKER) (test code = 670) LYMPHOCYTES ABSOLUTE COUNT 1.25 K/ L 1.18-3.74 (BEAKER) (test code = 414) MONOCYTES ABSOLUTE COUNT (BEAKER) 0.73 K/ L 0.24-0.36 H (test code = 415) EOSINOPHILS ABSOLUTE COUNT 0.12 K/ L 0.04-0.36 (BEAKER) (test code = 416) BASOPHILS ABSOLUTE COUNT (BEAKER) 0.04 K/ L 0.01-0.08 (test code = 417) IMMATURE GRANULOCYTES-RELATIVE 1 % 0-1 PERCENT (BEAKER) (test code = 2801)
[2021-06-28] MEDS ORDERED: INSULIN -REGULAR HUMAN 50 UNIT/0.5 ML ML ONE (15:46)
[2021-06-28 15:47] LABS: Hematocrit 25.5 % (36.0-45.0); Lymphocytes % 6.9 % (15.3-44.8); MPV 8.7 fL (7.6-11.3); RBC Red Blood Cell Count 2.74 M/uL (3.86-4.86)
[2021-06-28 15:52] LABS: Protime INR 0.88
[2021-06-28 16:19] LABS: ALT/SGPT 81 U/L (12-78); AST/SGOT 59 U/L (15-37); Albumin 2.3 g/dL (3.4-5.0); Alkaline Phosphatase 102 U/L (45-117); BUN Blood Urea Nitrogen 100 mg/dL (7-18); Bicarbonate 21 mmol/L (21-32); Bilirubin Direct < 0.1 mg/dL (0-0.2); Bilirubin Total 0.3 mg/dL (0.2-1.0); Glucose Level 349 mg/dL (74-106); NT PRO-BNP 1218 pg/mL (<125); Potassium 3.6 mmol/L (3.5-5.1); Protein, Total 6.4 g/dL (6.4-8.2); Sodium Level 136 mmol/L (136-145)
[2021-06-28 16:24] LABS: Urine Blood Trace-intact (Negative); Urine Glucose 2+ (Negative); Urine Protein 1+ (Negative)
--- NOTE | 2021-06-28 17:02 | RAD REPORT ---
EXAM DESCRIPTION: CT - Head C Spine Cap Wo Con - 06/28/2021 4:37 pm CLINICAL HISTORY: Trauma, head and neck injury. Chest, abdomen and pelvis pain. syncope, back pain COMPARISON: No comparisons TECHNIQUE: CT head without contrast. CT cervical spine without contrast with coronal and sagittal reformatted images. CT chest, abdomen and pelvis without contrast with coronal and sagittal reformatted images of the [facility]. All CT scans are performed using dose optimization technique as appropriate and may include automated exposure control or mA/KV adjustment according to patient size. FINDINGS: CT HEAD WITHOUT CONTRAST: No intracranial hemorrhage, hydrocephalus or extra-axial fluid collection. Mild brain atrophy. No are as of brain edema or midline shift. The paranasal sinuses and mastoids are clear. The calvarium is intact. CT CERVICAL SPINE WITHOUT CONTRAST: No fracture or subluxation. The prevertebral soft tissues are normal in thickness. CT CHEST, ABDOMEN, PELVIS WITHOUT CONTRAST: NOTE: Lack of contrast is a significant limitation in the assessment of trauma related findings. Spec ifically, solid organ, vascular and bowel evaluation is significantly limited. The lungs are clear.There is a significantly enlarged thyroid goiter with calcifications.No pneumotho rax or pericardial/pleural fluid. Moderate pneumoperitoneum is noted. Significant stool is present throughout the colon. No bowel obstruction or abscess. Small fat containing right inguinal hernia. Aortic atherosclerosis. No fractures. IMPRESSION: Moderate pneumoperitoneum is present. Perforated viscus is favored etiology, perhaps the colon given the prominent constipation pattern. The findings were discussed with Dr. Leonard in the ER on 06/28/2021 at 4:35 p.m. by telephone.
--- NOTE | 2021-06-28 17:02 | RAD REPORT ---
EXAM DESCRIPTION: RAD - Chest Single View - 06/28/2021 4:30 pm CLINICAL HISTORY: syncope Chest pain. COMPARISON: Chest Pa And Lat (2 Views) dated 03/31/2018; Chest Single View dated 03/26/2018; Chest Sin gle View dated 03/26/2018; Chest Single View dated 03/24/2018 FINDINGS: Portable technique limits examination quality. The lungs are grossly clear. The heart is normal in size. Sternotomy wires.Free air suspected under t he diaphragm. IMPRESSION: Suspected pneumoperitoneum. CT is recommended.
[2021-06-28] MEDS ORDERED: PIPERACIL/TAZO 3.375 GM VIAL IV ONE (17:23)
[2021-06-28] MEDS ORDERED: NA CHLORIDE 0.9% 100 ML IV ONE (17:23)
--- NOTE | 2021-06-28 18:34 | ER ---
Nurse's Notes [facility] Name: Elzbieta Higgins Age: 66 yrs Sex: Female : 1955 Arrival Date: 06/28/2021 Time: 15:00 Bed 16 Private MD: Diagnosis: Syncope;Acute kidney failure, unspecified;Pneumoperitoneum Presentation: 06/28 15:00 Chief complaint: EMS states: Pt brought in for ams and weakness reported by family. ic1 States they have been checking in on her and while visiting today, noticed that pt's eyes rolled to the back of her head. Pt arrived AAOx1. Son at bedside. Coronavirus screen: Vaccine status:. Ebola Screen: No symptoms or risks identified at this time. Initial Sepsis Screen: Does the patient meet any 2 criteria? No. Patient's initial sepsis screen is negative. Does the patient have a suspected source of infection? No. Patient's initial sepsis screen is negative. Risk Assessment: Do you want to hurt yourself or someone else? Patient reports no desire to harm self or others. Onset of symptoms is unknown. 15:00 Method Of Arrival: EMS ic1 15:00 Acuity: YAMILET 3 ic1 Triage Assessment: 15:02 General: Appears in no apparent distress. comfortable, Behavior is calm, cooperative, ic1 quiet. Pain: Denies pain. EENT: No deficits noted. Neuro: Level of Consciousness is awake, alert, obeys commands, Oriented to person. Cardiovascular: Rhythm is sinus rhythm. Respiratory: No deficits noted. GI: No deficits noted. : No deficits noted. Derm: No deficits noted. Musculoskeletal: No deficits noted. Historical: - Allergies: 15:02 No Known Allergies; ic1 - PMHx: 15:02 CAD; CHF; Diabetes - IDDM; Hypertension; ic1 - Immunization history:: Adult Immunizations up to date. - Social history:: Smoking status: Patient denies any tobacco usage or history of. Screenin:03 Abuse screen: Denies threats or abuse. Denies injuries from another. Nutritional ic1 screening: No deficits noted. Tuberculosis screening: No symptoms or risk factors identified. Fall Risk No fall in past 12 months (0 pts). IV access (20 points). Ambulatory Aid- None/Bed Rest/Nurse Assist (0 pts). Gait- Weak (10 pts.). Mental Status- Oriented to own ability (0 pts). Total Henriquez Fall Scale indicates No Risk (0-24 pts). Assessment: 15:03 Reassessment: See triage. ic1 Vital Signs: 15:00 BP 132 / 57; Pulse 75; Resp 16; Temp 98.1(O); Pulse Ox 100% ; ic1 17:52 BP 117 / 57; Pulse 69; Resp 16; Pulse Ox 100% on R/A; ic1 18:42 BP 111 / 48; Pulse 76; Resp 16; Pulse Ox 100% on R/A; ic1 ED Course: 15:00 Patient arrived in ED. eb 15:00 Cora Marinelli, RN is Primary Nurse. ic1 15:02 Triage completed. ic1 15:02 Arm band placed on left wrist. ic1 15:03 Patient has correct armband on for positive identification. Bed in low position. Side ic1 rails up X2. Adult w/ patient. 15:03 Inserted saline lock: 22 gauge in left antecubital area, using aseptic technique. ic1 15:04 Inserted saline lock: 20 gauge in right forearm, using aseptic technique. wrist, using ic1 aseptic technique. 15:21 Roman Godinez PA is PHCP. cp 15:21 Francisco J Leonard MD is Attending Physician. cp 15:37 No provider procedures requiring assistance completed. gallego 16:11 Troponin HS Sent. ic1 16:11 NT PRO-BNP Sent. ic1 16:11 Magnesium Sent. ic1 16:11 LFT's Sent. ic1 16:11 Basic Metabolic Panel Sent. ic1 16:31 XRAY Chest (1 view) In Process Unspecified. EDMS 16:38 CT Traumagram (Head C Spine CAP wo con) In Process Unspecified. EDMS 17:35 EKG done, by ED staff, reviewed by Roman AHUJA. em1 17:49 Blood Culture Adult (2) Sent. ic1 17:49 Lactate Sent. ic1 17:50 Hoyt cath inserted, using sterile technique, 16 Fr., by ut, balloon inflated, to ic1 gravity drainage, urine specimen collected. 18:32 Prince Whyte MD is Hospitalizing Provider. cp 18:37 Abel Kolb MD is Hospitalizing Provider. la1 Administered Medications: 15:59 Drug: Insulin Regular Human 10 units {Co-Signature: lashonda (Ania Nguyen RN).} Route: ic1 IVP; Site: left antecubital; 17:49 Dru.375 grams of (Zosyn (piperacillin-tazobactam) 3.375 grams, NS 0.9% 100 ml) ic1 Route: IVPB; Infused Over: 60 mins; Site: left wrist; Outcome: 18:33 Decision to Hospitalize by Provider. cp 20:52 Patient left the ED. bb Signatures: Dispatcher [employer] EDMS Erin Dao RN RN bb Martinez, Eric em1 Lai Medina, AUTOMOTIVE WARRANTY ADMINISTRATOR-C AUTOMOTIVE WARRANTY ADMINISTRATOR-Cla1 Roman Godinez PA PA cp Botello, Elizabeth eb Au-Stager, Heather, RN RN ha Creggett, Iesha, RN RN ic1 Ania gallego
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
--- NOTE | 2021-06-28 19:09 | P.HP ---
Certification for Inpatient Patient admitted to: Inpatient With expected LOS: >2 Midnights Patient will require the following post-hospital care: None Practitioner: I am a practitioner with admitting privileges, knowledge of patient current condition, hospital course, and medical plan of care. Services: Services provided to patient in accordance with Admission requirements found in Title 42 Section 412.3 of the Code of Federal Regulations Patient History Date of Service: 06/28/21 Primary Care Provider: Dr. Sherman Reason for admission: Pneumoperitoneum History of Present Illness: 66-year-old female with history of chronic diastolic congestive heart failure, diabetes most type IIinsulin-dependent, CKD 4, hypertension presents emergency department complaining of abdominal pain and syncope. Family reports that she began having abdominal pain this morning described as constipation, had brief syncopal episode lasting approximately 1 minute or so for that reason patient was transferred by EMS to hospital for evaluation. Patient was evaluated here in the emergency department labs were significant for white blood cell count 14.4 hemoglobin 8.3 hematocrit 25.5 BUN 100 creatinine 3.02 GFR 16 glucose 349 BNP 1218 trace leukocytes on urine dip COVID negative CT head C- spine chest abdomen pelvis without contrast demonstrated moderate pneumoperitoneum is present perforated viscus is favored etiology perhaps the colon given the prominent constipation pattern. Case was discussed with general surgery who will see patient this evening will need to admit to ICU for further evaluation and management of pneumoperitoneum, abdominal pain and syncope. Allergies No Known Allergies Allergy (Verified 12/31/17 21:46) Home Medications: Aspirin [Adult Low Dose Aspirin EC] 81 mg PO DAILY 03/24/18 Atorvastatin Calcium [Lipitor] 80 mg PO DAILY 03/24/18 Hydralazine [Apresoline*] 75 mg PO Q6HR 03/24/18 Insulin Detemir [Levemir] 15 units SQ DAILY AT SUPPER 03/24/18 Insulin Detemir [Levemir] 25 units SQ DAILY WITH BREAKFAST 03/24/18 Isosorbide Mononitrate [Isosorbide Mononitrate ER] 30 mg PO DAILY 03/24/18 Lisinopril [Zestril] 20 mg PO DAILY 03/24/18 carvediloL [Coreg*] 25 mg PO BID 03/24/18 Colchicine 0.6 mg PO BID #60 capsule 03/26/18 Furosemide [Lasix] 40 mg PO DAILY #30 tablet 03/26/18 - Past Medical/Surgical History Diabetic: Yes -: HTN -: Diabetes type 2insulin-dependent -: Chronic diastolic congestive heart failure -: CKD 4 -: -: C.A. Bypass Psychosocial/ Personal History: Patient lives at home with family - Family History Mother Notes: none Father Notes: none - Social History Smoking Status: Never smoker Alcohol use: No CD- Drugs: No Caffeine use: No Place of Residence: Home Review of Systems 10-point ROS is otherwise unremarkable Gastrointestinal: Nausea, Abdominal Pain, Constipation Physical Examination - Physical Exam General: Alert, In no apparent distress, Oriented x3 HEENT: Atraumatic, PERRLA, Mucous membr. moist/pink, EOMI, Sclerae nonicteric Neck: Supple, 2+ carotid pulse no bruit, No LAD, Without JVD or thyroid abnormality Respiratory: Clear to auscultation bilaterally, Normal air movement Cardiovascular: Regular rate/rhythm, Normal S1 S2 Gastrointestinal: Normal bowel sounds, Tenderness (Mild epigastric/right upper quadrant abdominal tenderness) Musculoskeletal: No tenderness Integumentary: No rashes Neurological: Normal gait, Normal speech, Normal strength at 5/5 x4 extr, Normal tone, Normal affect Lymphatics: No axilla or inguinal lymphadenopathy - Studies Laboratory Data (last 24 hrs) 06/28/21 15:38: PT 10.1, INR 0.88 06/28/21 15:38: WBC 14.10 H, Hgb 8.3 L, Hct 25.5 L, Plt Count 297 06/28/21 15:38: Sodium 136, Potassium 3.6, BUN 100 H, Creatinine 3.02 H, Glucose 349 H, Total Bilirubin 0.3, AST 59 H, ALT 81 H, Alkaline Phosphatase 102 Assessment and Plan - Plan Assessment: Abdominal pain, pneumoperitoneum CONSTANCE/CKD4 Chronic diastolic congestive heart failure Diabetes mellitus type 2insulin-dependent with hyperglycemia Hypertension Plan: Abdominal pain, pneumoperitoneum: General surgery consulted will see patient tonight, continue n.p.o., IV antibiotics, IV fluids. SCDs for DVT prophylaxis. Appreciate further input from surgery CONSTANCE/CKD4: Not far from last labs in 2018, patient follows nephrology from [facility]. Will monitor chemistries daily nephrology consulted as well. Chronic diastolic congestive heart failure: No signs of volume overload at this time, will need to provide IV fluids overnight. Monitor volume status closely. Diabetes mellitus type 2insulin-dependent with hyperglycemia: Every 6 hours Accu-Chek, moderate sliding scale insulin. Hypertension: As needed antihypertensives until patient cleared by surgery for p.o. meds. DVT PPX: SCD until advanced by surgery Code status: Full Discharge Plan: Home Plan to discharge in: Greater than 2 days - Advance Directives Does patient have a Living Will: No Does patient have a Durable POA for Healthcare: Yes - Code Status/Comfort Care Code Status Assessed: Yes (Full code) Critical Care: No Time Spent Managing Pts Care (In Minutes): 55
[2021-06-28] MEDS ORDERED: BUPIVACAINE 0.5% PF 10 ML VIAL ONE (19:29)
[2021-06-28] MEDS ORDERED: NA CHLORIDE 0.9% 1,000 ML ONE ×2 (19:32→21:24)
[2021-06-28 19:46] LABS: Blood Morphology Comment NOT SEEN (NOT SEEN); Platelet Estimate ADEQ; White Blood Cell Scan OK (OK)
[2021-06-28] MEDS ORDERED: SUCCINYLCHOLINE 20 MG/ML (10 ML) IV ONE (19:50)
[2021-06-28] MEDS ORDERED: ROCURONIUM 50 MG/5 ML VIAL IV ONE (19:54)
[2021-06-28] MEDS ORDERED: FENTANYL CITR 250 MCG/5 ML ONE (19:54)
[2021-06-28] MEDS ORDERED: propofoL 200 MG/20 ML VIAL IV ONE (19:54)
[2021-06-28 19:59] LABS: Urine Bacteria <20 /HPF (<20); Urine RBC NONE SEEN /HPF (NONE SEEN)
[2021-06-28] MEDS ORDERED: Phenylephrine HCl 10 MG/ML 1 ML VIAL ONE (20:23)
[2021-06-28] MEDS ORDERED: dexAMETHasone 10 MG/ML VIAL ONE (21:18)
[2021-06-28] MEDS ORDERED: ONDANSETRON 4 MG/2 ML VIAL ONE (21:18)
[2021-06-28] MEDS ORDERED: METOCLOPRAMIDE 10 MG/2mL INJ ONE ×2 (21:21)
[2021-06-28] MEDS ORDERED: GLYCOPYRROLATE 0.2 MG/ML SYR ONE (21:23)
--- NOTE | 2021-06-28 21:32 | P.OP ---
Knitter Machine: Moisés CHOWDARY Preoperative diagnosis: Pneumoperitoneum Postoperative diagnosis: same, Perforated Body Stomach Primary procedure: Diagnostic Laparoscopy, Repair of Perforated Gastric Body Anesthesia: General Estimated blood loss: min Specimen: Perforated Gastric Tissue Findings: as above Complications: None Transferred to: Recovery Room Condition: Good
[2021-06-28] MEDS ORDERED: ONDANSETRON 4 MG/2 ML VIAL IV PRN (21:33)
[2021-06-28] MEDS ORDERED: MORPHINE 2 MG/ML SYR IV PRN (21:33)
[2021-06-28] MEDS: INSULIN -REGULAR HUMAN 50 UNIT/0.5 ML ML SQ SCH (21:33)
[2021-06-28] MEDS ORDERED: SODIUM CHLORIDE 0.9% 10ML INJ IV PRN (21:52)
[2021-06-28] MEDS ORDERED: HYDROMORPHONE HCL 1 MG/ML INJ IV PRN (21:52)
[2021-06-28 22:04] LABS: Magnesium 2.2
[2021-06-28] MEDS: NA CHLORIDE 0.9% 1,000 ML IV SCH (23:10)
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
[2021-06-29] MEDS: PIPER TAZO 3.375 GM in NA CHLORIDE 0.9% 100 ML IV SCH ×2 (04:59→17:39)
[2021-06-29 05:09] LABS: Hematocrit 23.1 % (36.0-45.0); RBC Red Blood Cell Count 2.49 M/uL (3.86-4.86)
[2021-06-29 05:10] LABS: Absolute Lymphocytes (CBC) 0.5 K/uL (0.7-4.9); Lymphocytes % 3.2 % (15.3-44.8); MPV 8.4 fL (7.6-11.3)
--- NOTE | 2021-06-29 05:40 | OP ---
Date of Procedure: 06/28/2021 Surgeon: Royer Lock MD Preoperative Diagnosis: Pneumoperitoneum. Postoperative Diagnosis: Pneumoperitoneum with perforated gastric body anteriorly. Procedure: Diagnostic laparoscopy. DICTATION ENDS HERE. /MODL Voice ID: [id number] Report ID: [id number]
[2021-06-29 05:55] LABS: Bilirubin Total 0.3 mg/dL (0.2-1.0); Phosphorus 4.2 mg/dL (2.5-4.9); Potassium 4.8 mmol/L (3.5-5.1); Protein, Total 5.7 g/dL (6.4-8.2); Thyroid Stimulating Hormone 0.558 uIU/mL (0.360-3.740); Troponin High Sensitivity 26.7 pg/mL (<58.9)
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
--- NOTE | 2021-06-29 08:25 | OP ---
Date of Procedure: 06/28/2021 Surgeon: Royer Lock MD Log Buyer: RICARDA Beckwith. Preoperative Diagnosis: Pneumoperitoneum. Postoperative Diagnosis: Pneumoperitoneum with perforated gastric body. Procedures Performed: Diagnostic laparoscopy and repair of gastric perforation. Estimated Blood Loss: Minimal. Specimen: Perforated stomach tissue. Findings: As above. Anesthesia: General. Complications: None. Disposition: Patient tolerated the procedure in stable condition and taken to Recovery in good gener al condition. Description Of Procedure: Patient was brought to the OR and placed in supine position. General anes thesia was begun. Prior to patient being prepped and draped, patient had impacted stool in her recta l vault, which was removed with manual disimpaction and then patient was prepped draped in the usual sterile fashion. Marcaine 0.5% was infiltrated locally. A 15-blade was used to make a 1 cm infraumb ilical midline incision. Subcutaneous tissue was divided. Fascia was identified and divided. #1 Vi cryl stay suture was placed. Peritoneal cavity was entered with sharp and blunt dissection. Large a mount of free air exited the umbilicus and then two 5 mm trocars were placed, 1 in the epigastrium an d 1 in the left middle quadrant. Laparoscopy revealed some attachment of the stomach to the anterior wall in the left upper quadrant with fibrinous exudate surrounding it and the remainder of the stomach, remainder of the liver, the small intestine, the large intestine were all within normal limits. There was no fluid seen anywhere and p nicole was within normal limits. So at this time, I suspected a perforation of the stomach at the poi nt where the stomach was attached to the peritoneal surface and with blunt dissection, this was reduc ed and a small opening was identified. Then, a grasper was used to grasp the perforated portion of t he body of the stomach and then an Endo LANDEN stapling device was used in sequential fashion to excise the perforated area. There was no evidence of bleeding or stomach injury was noted. Air was insuffl ated through the NG tube, which was not all the way down. It was in the esophagus and there was no l eakage appreciated in a pool of saline. Subsequently, that area was irrigated thoroughly and then ef fluent was clear. There was no evidence of bleeding or bowel injury appreciated. The NG tube, the [facility], could not be advanced into the stomach on multiple times even with the GlideScope. Patient was b eginning to have some soft-tissue trauma in that area. It was visible with GlideScope, so at this po int, we aborted that area and advised Anesthesia to give her Reglan and Decadron for the swelling jack t she will have and also keep her n.p.o. for at least a day or two and then we will re-assess the pat ient and see if stable if I begin liquids on Thursday. Patient hemodynamically was completely stable t hrough the procedure. Subsequently, all trocars were removed under direct vision. Stay sutures were tied to each other to approximate the fascial defect. Subcutaneous wounds were irrigated. Bleeding was controlled with cautery. A 3-0 chromic was used approximate the subcutaneous tissue and close t he skin. Sterile dressing was applied. Patient was awakened and taken to Recovery in good general c ondition. Please note, during intubation, it was noted that the patient had a large right thyroid ma ss present and this has to be addressed outpatient. While she is in the hospital, perhaps an ultraso und could be done to better evaluate it, and she will also need proton pump inhibitors as well as EGD in approximately 4 weeks as an outpatient as the etiology of this perforation is unclear at that geoff e. It could be an ulcer, but it also could be a tumor. We just want to make sure, we are not understanding what is going on there. Plan of care was discussed with the primary service and I will follow the patient closely in the ICU. /MODL Voice ID: [id number] Report ID: [id number]
[2021-06-29] MEDS: INSULIN -REGULAR HUMAN 50 UNIT/0.5 ML ML SQ SCH ×4 (08:30→21:00)
[2021-06-29] MEDS: ENOXAPARIN 30 MG/0.3 ML SQ SCH (08:35)
[2021-06-29] MEDS: PANTOPRAZOLE 40 MG INJ IVP SCH ×2 (08:35→22:22)
[2021-06-29] MEDS: NA CHLORIDE 0.9% 1,000 ML IV SCH ×2 (08:36→17:39)
--- NOTE | 2021-06-29 12:55 | PN ---
Date of Progress Note: 06/29/2021 Subjective: The patient is awake, alert, and very minimal abdominal pain. No nausea or vomiting. H as not had a bowel movement or passing gas, however. Objective: Vital Signs: Her vitals are stable. She is afebrile. Abdomen: Soft. Dressing is clean, dry, intact. There is no tenderness and no peritonitis Laboratory Data: Reviewed. White count is 16.2, H and H are 7.3 and 23.1, and there is a left shift . Chemistry shows BUN to be 88, creatinine 2.61, and CO2 to be 18. Assessment: A 66-year-old female with status post diagnostic laparoscopy and repair of gastric perfo ration. Recommendations: Continue n.p.o. for today, ambulation, incentive spirometry, ice chips and if she i s stable, she can be transferred to the floor and we will probably start liquids tomorrow. /MODL Voice ID: [id number] Report ID: [id number]
--- NOTE | 2021-06-29 17:52 | P.CNS ---
Date of Consult: 06/29/21 Reason for Consult: ARF Primary Care Provider: Dr. Sherman Chief Complaint: Pneumoperitoneum History of Present Illness: 66-year-old female with past medical history of hypertension, CKD stage IV baseline creatinine ranging from 1.9-2.3 since the last 4 years, follows with nephrology team in [facility], admitted for abdominal pain With chest x-ray showing pneumoperitoneum. Patient underwent diagnostic laparoscopy overnight with findings of gastric perforation. She was fluid and volume resuscitated. She was noted with elevated creatinine of 3.2 but improving to 2.6 with improvement in blood pressure now. No new issues at this time. Renal consulted for persistent and elevated creatinine Allergies No Known Allergies Allergy (Verified 12/31/17 21:46) Home Medications: Atorvastatin Calcium [Lipitor] 80 mg PO DAILY 03/24/18 Lisinopril [Zestril] 20 mg PO DAILY 03/24/18 carvediloL [Coreg*] 25 mg PO BID 03/24/18 Furosemide [Lasix] 40 mg PO DAILY #30 tablet 03/26/18 Aspirin [Aspirin EC 81 MG] 81 mg PO DAILY 06/29/21 Glipizide [Glipizide ER] 5 gm PO AC 06/29/21 methIMAzole [Methimazole] 5 mg PO [id number] 06/29/21 - Past Medical/Surgical History Diabetic: Yes -: HTN -: Diabetes type 2insulin-dependent -: Chronic diastolic congestive heart failure -: CKD 4 -: -: C.A. Bypass Psychosocial/ Personal History: Patient lives at home with family - Family History Mother Notes: none Father Notes: none - Social History Alcohol use: No CD- Drugs: No Caffeine use: No Place of Residence: Home Review of Systems 10-point ROS is otherwise unremarkable Physical Examination Temp Pulse Resp BP Pulse Ox 97 F 75 14 142/60 H 97 06/29/21 16:00 06/29/21 17:00 06/29/21 17:00 06/29/21 17:00 06/29/21 17:00 General: Alert, In no apparent distress, Oriented x3 HEENT: Atraumatic, Normocephalic Neck: Supple, 2+ carotid pulse no bruit Respiratory: Clear to auscultation bilaterally, Normal air movement Cardiovascular: No edema, Regular rate/rhythm, Abnormal S3 Gastrointestinal: Normal bowel sounds, Soft and benign, W/out succussion splash, Other (dsg over area ) Musculoskeletal: No clubbing, No swelling Neurological: Normal gait, Normal speech, Normal strength at 5/5 x4 extr Laboratory Data (last 24 hrs) 06/28/21 15:38: WBC 14.10 H, Hgb 8.3 L, Hct 25.5 L, Plt Count 297 06/28/21 15:38: Magnesium 2.2 - Problems (1) Gastric perforation Current Visit: Yes Status: Acute (2) Acute renal injury Onset Date: 01/01/18 Current Visit: No Status: Acute (3) Diabetes mellitus Onset Date: 01/01/18 Current Visit: No Status: Acute Qualifiers: Diabetes mellitus type: type 2 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 s/p surgery Switch IVF from normal saline to half NS with bicarb to correct acidosis Switch IVF bicarb to p.o. Keep serum bicarb above 25 Continue to avoid nephrotoxins Renally dose all meds Creatinine improving to 2.6, estimated to improve further although still about baseline Obtain urine studies for fractional excretion of sodium No urgent need for renal sonogram none since recent CT imaging of the abdomen shows no hydronephrosis Thank you for this consult, we will continue to follow Time Spent Managing Pts care (In Minutes): 70
[2021-06-29] MEDS ORDERED: NACHLORIDE 0.45% 1,000 ML with NA BICARB 8.4% 75 MEQ IV SCH ×2 (18:00)
[2021-06-29 18:59] LABS: Hematocrit 20.6 % (36.0-45.0)
[2021-06-29] MEDS ORDERED: NA CHLORIDE 0.9% 250 ML IV SCH (20:00)
[2021-06-30 01:50] LABS: Hematocrit 24.4 % (36.0-45.0)
[2021-06-30] MEDS: HYDRALAZINE HCL 20 MG/ML VIAL IV PRN ×3 (03:04→21:36)
[2021-06-30] MEDS: PIPER TAZO 3.375 GM in NA CHLORIDE 0.9% 100 ML IV SCH ×2 (05:12→16:45)
[2021-06-30 05:25] LABS: Absolute Lymphocytes (CBC) 1.1 K/uL (0.7-4.9); Lymphocytes % 8.4 % (15.3-44.8); MPV 8.5 fL (7.6-11.3); RBC Red Blood Cell Count 2.64 M/uL (3.86-4.86)
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
[2021-06-30 06:04] LABS: Albumin 1.8 g/dL (3.4-5.0); Bilirubin Total 0.3 mg/dL (0.2-1.0); Potassium 3.9 mmol/L (3.5-5.1); Protein, Total 5.5 g/dL (6.4-8.2)
[2021-06-30 06:25] VITALS: BMI 24.0
[2021-06-30 06:40] LABS: Urine Appearance TURBID (Clear); Urine Bilirubin NEGATIVE (Negative); Urine Blood TRACE (Negative); Urine Color YELLOW (Yellow); Urine Glucose 1+ (Negative); Urine Protein 1+ (Negative); Urine Specific Gravity 1.015 (1.005-1.030); Urine Urobilinogen 0.2 mg/dL (0.2-1.0); Urine pH 5.5 (5.0-7.0)
[2021-06-30 06:58] LABS: Urine Microscopic Reflex ORDER UMIC
[2021-06-30 07:13] LABS: Urine Bacteria >50 /HPF (<20); Urine Mucus 1+ /HPF (NONE SEEN); Urine RBC <5 /HPF (NONE SEEN)
[2021-06-30] MEDS: INSULIN -REGULAR HUMAN 50 UNIT/0.5 ML ML SQ SCH ×4 (07:53→21:36)
[2021-06-30] MEDS ORDERED: NACHLORIDE 0.45% 1,000 ML with NA BICARB 8.4% 75 MEQ IV SCH ×2 (08:00)
[2021-06-30] MEDS: PANTOPRAZOLE 40 MG INJ IVP SCH ×2 (08:47→21:36)
[2021-06-30] MEDS: ENOXAPARIN 30 MG/0.3 ML SQ SCH (08:47)
--- NOTE | 2021-06-30 10:46 | PN ---
Date of Progress Note: 06/30/2021 Subjective: The patient is awake and alert. No complaint. She is hungry. Objective: Vitals are stable. She is afebrile. Laboratory Data: Reviewed. Her H and H are 7.5 and 24, platelets are 247, white count is 13.6. Madelyn ligia reviewed as well. Assessment: Status post repair of gastric perforation. Recommendations: We will start the patient on clear liquid diet, transfer the patient to the floor, continue IV antibiotics, encourage ambulation and incentive spirometry. The patient is doing clinica lly well. /MODL Voice ID: [id number] Report ID: [id number]
--- NOTE | 2021-06-30 14:46 | EKG ---
Test Date: 2021-06-28 Test Time: 17:34:57 Flarer: [place] MEASUREMENT RESULTS: Intervals: Rate: 71 WY: 180 QRSD: 100 QT: 398 QTc: 432 Citra: P: 49 WY: 180 QRS: -18 T: 72 INTERPRETIVE STATEMENTS: Normal sinus rhythm Anterior infarct, age undetermined T wave abnormality, consider lateral ischemia Abnormal ECG Compared to ECG 10/14/2018 15:19:23 Myocardial infarct finding now present Possible ischemia now present T-wave abnormality still present Electronically Signed On 06-30-21 14:44:36 FACS TEACHER by Rolo Keane
[2021-07-01] MEDS: PIPER TAZO 3.375 GM in NA CHLORIDE 0.9% 100 ML IV SCH ×2 (05:19→17:52)
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
[2021-07-01 06:27] LABS: Absolute Lymphocytes (CBC) 1.4 K/uL (0.7-4.9); Hematocrit 23.2 % (36.0-45.0); Lymphocytes % 12.5 % (15.3-44.8); MPV 7.8 fL (7.6-11.3); RBC Red Blood Cell Count 2.57 M/uL (3.86-4.86)
[2021-07-01 06:35] LABS: Albumin 1.8 g/dL (3.4-5.0); Bilirubin Total 0.3 mg/dL (0.2-1.0); Potassium 3.9 mmol/L (3.5-5.1); Protein, Total 5.5 g/dL (6.4-8.2)
[2021-07-01] MEDS: INSULIN -REGULAR HUMAN 50 UNIT/0.5 ML ML SQ SCH ×4 (07:30→21:21)
[2021-07-01] MEDS: ENOXAPARIN 30 MG/0.3 ML SQ SCH (09:40)
[2021-07-01] MEDS: PANTOPRAZOLE 40 MG INJ IVP SCH ×2 (09:40→21:20)
[2021-07-01] MEDS: HYDRALAZINE HCL 20 MG/ML VIAL IV PRN (09:40)
--- NOTE | 2021-07-01 11:22 | PN ---
Date of Progress Note: 07/01/2021 Subjective: The patient is awake, alert. No complaints. Tolerating clear liquids. Objective: Vital Signs: Stable, afebrile. Abdomen: Benign. Laboratory Data: Reviewed. H and H stable. White count is 11. Assessment: Status post diagnostic laparoscopy, repair of gastric perforation. Recommendations: We will advanced diet to GI soft and then if tolerated, she can be discharged home tomorrow. /MODL Voice ID: [id number] Report ID: [id number]
[2021-07-01] MEDS: carvediloL 25 MG TAB PO SCH (21:21)
[2021-07-02 05:57] LABS: Absolute Lymphocytes (CBC) 1.3 K/uL (0.7-4.9); Hematocrit 21.8 % (36.0-45.0); Lymphocytes % 16.1 % (15.3-44.8); MPV 7.1 fL (7.6-11.3); RBC Red Blood Cell Count 2.44 M/uL (3.86-4.86)
[2021-07-02] MEDS: PIPER TAZO 3.375 GM in NA CHLORIDE 0.9% 100 ML IV SCH (06:02)
[2021-07-02 06:20] LABS: Albumin 1.8 g/dL (3.4-5.0); Bilirubin Total 0.3 mg/dL (0.2-1.0); Potassium 3.8 mmol/L (3.5-5.1); Protein, Total 5.2 g/dL (6.4-8.2)
[2021-07-02] MEDS: INSULIN -REGULAR HUMAN 50 UNIT/0.5 ML ML SQ SCH ×2 (07:30→11:30)
[2021-07-02] MEDS ORDERED: NA CHLORIDE 0.9% 250 ML IV SCH (09:00)
[2021-07-02] MEDS: PANTOPRAZOLE 40 MG INJ IVP SCH (09:02)
[2021-07-02] MEDS: ENOXAPARIN 30 MG/0.3 ML SQ SCH (09:02)
[2021-07-02] MEDS: carvediloL 25 MG TAB PO SCH (09:02)
[2021-07-02] MEDS: HYDRALAZINE HCL 20 MG/ML VIAL IV PRN (12:25)
[2021-07-02 12:58] VITALS: O2SAT 98
[2021-07-02 13:10] VITALS: TEMP 97.8
--- NOTE | 2021-07-02 15:04 | PN ---
Date of Progress Note: 07/02/2021 Subjective: The patient is awake, alert. No pain. Objective: Vital Signs: Stable, afebrile. Abdomen: Benign. Laboratory Data: H and H are 7.1 and 21.8 and the patient is getting 1 unit of blood. Assessment: Status post repair of gastric perforation. Recommendations: After the blood transfusion is given, the patient can be discharged home on Cipro a nd Flagyl for a week. Follow up with in my office in a week. Plan of care discussed with Dr. Gaines . /MODL Voice ID: [id number] Report ID: [id number]
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
[2021-07-02 17:41] VITALS: BP 171/76
== END 2021-07-02 17:03 | disposition home or self-care (01) | DRG 327 ==
LOC: ER 14:43 → ERHOLD 18:48 → 3RD-ICU 21:56 → 2ND 06-30 17:16
PROVIDERS: ADMIT Hospitalist; ATTEND Hospitalist
PROC: 0DQ64ZZ Repair Stomach, Percutaneous Endoscopic Approach (ICD-10-PCS; principal; 2021-06-28 20:00)
PROC: 30233N1 Transfusion of Nonautologous Red Blood Cells into Peripheral Vein, Percutaneous Approach (ICD-10-PCS; 2021-07-02)
DX: K63.1 Perforation of intestine (nontraumatic) (principal); I13.0 Hypertensive heart and chronic kidney disease with heart failure and stage 1 through stage 4 chronic kidney disease, or unspecified chronic kidney disease; N18.4 Chronic kidney disease, stage 4 (severe); I50.32 Chronic diastolic (congestive) heart failure; N17.9 Acute kidney failure, unspecified; E11.22 Type 2 diabetes mellitus with diabetic chronic kidney disease; E11.65 Type 2 diabetes mellitus with hyperglycemia; K31.89 Other diseases of stomach and duodenum; D63.8 Anemia in other chronic diseases classified elsewhere; I25.10 Atherosclerotic heart disease of native coronary artery without angina pectoris; K59.00 Constipation, unspecified; E04.9 Nontoxic goiter, unspecified; K66.8 Other specified disorders of peritoneum; Z95.1 Presence of aortocoronary bypass graft; Z20.822 Contact with and (suspected) exposure to COVID-19
CPT/HCPCS: 36415; 36430; 51702; 70450; 71045; 71250; 72125; 80048; 80053; 80076; 81003; 81015; 82570; 82947; 83605; 83735; 83880; 84100; 84300; 84439; 84443; 84484; 85014; 85018; 85025; 85610; 86850; 86900; 86901; 87040; 87086; 87088; 88305; 88312; 93005; 94010; 94760; 97116; 97161; 97530; 99285; C9113; J0330; J0360; J1100; J1170; J1650; J2370; J2405; J2543; J2704; J2765; J3010; J7030; J7050; P9016; U0003

== ENCOUNTER 2021-09-17 22:30 | Inpatient (IN) | payer OTHER ==
--- OUTSIDE RECORDS SUMMARY | 2021-09-17 22:35 | XMS REPORT | Continuity of Care Document ---
:[address] [facility] t Address [address] [place] [address] Care Team Providers Name Role Phone PREZAS Primary Care Physician Unavailable Jodi Sherman Attending Clinician Unavailable NAVA Attending Clinician Unavailable SIMON Attending Clinician Unavailable Doctor Unassigned, Name Attending Clinician Unavailable Lab, - Db Attending Clinician Unavailable Nava VALVERDE Attending Clinician Kemar SMITH Attending Clinician Unavailable LUCY WEBB Attending Clinician Unavailable Kemar SMITH Admitting Clinician Unavailable LUCY WEBB Admitting Clinician Unavailable Payers Payer Name Policy Type Policy Number Effective Date Expiration Date S gustavo MEDICARE PART A \T\ [id number] 2021 B 00:00:00 [facility] [id number] 2019 MEDICAID 00:00:00 Problems Condition Condition Condition Status Onset Resolution Last Treating Co mments Source Name Details Category Date Date Treatment Clinician Date Essential Essential Disease Active 2014-05 Uni vers hypertensi hypertensi 05-27 it y of on on 00:00: [place] [id number] Medical Branch Multiple Multiple Disease Active 2014-05 Unive rs thyroid thyroid 05-27 ity of nodules nodules 00:00: [place] 00 Medical Branch Type 2 Type 2 Disease Active 2014-05 Univers diabetes diabetes 05-27 ity of mellitus mellitus 00:00: [place] with other with other 00 Me dical specified specified Bran ch complicati complicati on on Allergies, Adverse Reactions, Alerts Allergy Allergy Status Severity Reaction(s) Onset Inactive Treating Comm ents Source Name Type Date Date Clinician NO KNOWN Allergy Active [facility] NO KNOWN Drug Active [facility] ALLERG Class ity of S [place] [facility] Social History Social Habit Start Date Stop Date Quantity Comments Source Exposure to Not sure [facility] SARS-CoV-2 (event) Medica l Branch Alcohol intake 2015-03-27 2015-03-27 0 /d [facility] 00:00:00 00:00:00 Medical Branch Sex [birth year] [facility] 00:00:00 00:00:00 Medical Branch Smoking Status Start Date Stop Date Source Never smoker [facility] Medications Ordered Filled Start Stop Current Ordering Indication Dosage Frequency Signature Comments Components Source Medication Medication Date Date Medication? Clinician (SIG) Name Name methIMAzole Yes 10mg Take 1 Univ ers 10 mg 3-09 tablet by ity of tablet 00:00: mouth [place] 00 daily. Medical Branch acetaminoph 0 Yes 5mL Take 5 mL U nivers en-codeine 2-14 by mouth ity o f 120-12 mg/5 15:15: every 4 Chris as mL elixir 58 (four) Medical hours as Branch needed for Pain. carvediloL 0 Yes 25mg Take 25 mg U nivers 25 mg 2-14 by mouth 2 ity of tablet 15:15: (two) [place] 58 times Medical daily with Branch meals. pantoprazol 0 Yes 20mg Take 20 mg Univers e 20 mg EC 2-14 by mouth 2 ity of tablet 15:15: (two) [place] 58 times Medical daily. Branch metroNIDAZO 2021-0 Yes 375mg Take 375 U nivers LE 375 mg 2-14 mg by ity of capsule 15:15: mouth 2 [place] 58 (two) Medical times Branch daily. methIMAzole 0 Yes 10mg Take 10 mg Univers 10 mg 2-14 by mouth ity of tablet 15:15: every 8 [place] 58 (eight) Medical hours. Branch furosemide 0 Yes 40mg Take 40 mg U nivers 40 mg 2-14 by mouth ity of tablet 15:15: daily. [place] 58 Medical Branch acetaminoph 2022-0 Yes 5mL Take 5 mL U nivers en-codeine 2-14 by mouth ity o f 120-12 mg/5 15:15: every 4 Chris as mL elixir 58 (four) Medical hours as Branch needed for Pain. carvediloL 2022-0 Yes 25mg Take 25 mg U nivers 25 mg 2-14 by mouth 2 ity of tablet 15:15: (two) [place] [address] times Medical daily with Branch meals. pantoprazol 2022-0 Yes 20mg Take 20 mg Univers e 20 mg EC 2-14 by mouth 2 ity of tablet 15:15: (two) [place] [address] times Medical daily. Branch metroNIDAZO 2-0 Yes 375mg Take 375 U nivers LE 375 mg 2-14 mg by ity of capsule 15:15: mouth 2 [place] [address] (two) Medical times Branch daily. methIMAzole 2-0 Yes 10mg Take 10 mg Univers 10 mg 2-14 by mouth ity of tablet 15:15: every 8 [place] [address] (eight) Medical hours. Branch furosemide 2-0 Yes 40mg Take 40 mg U nivers 40 mg 2-14 by mouth ity of tablet 15:15: daily. [address] Branch acetaminoph 2021-0 Yes 5mL Take 5 mL U nivers en-codeine 2-14 by mouth ity o f 120-12 mg/5 15:15: every 4 Chris as mL elixir 58 (four) Medical hours as Branch needed for Pain. carvediloL 2-0 Yes 25mg Take 25 mg U nivers 25 mg 2-14 by mouth 2 ity of tablet 15:15: (two) [place] [address] times Medical daily with Branch meals. pantoprazol 2022-0 Yes 20mg Take 20 mg Univers e 20 mg EC 2-14 by mouth 2 ity of tablet 15:15: (two) [place] [address] times Medical daily. Branch metroNIDAZO 2022-0 Yes 375mg Take 375 U nivers LE 375 mg 2-14 mg by ity of capsule 15:15: mouth 2 [place] [address] (two) Medical times Branch daily. furosemide 2022-0 Yes 40mg Take 40 mg U nivers 40 mg 2-14 by mouth ity of tablet 15:15: daily. [address] Branch HydrALAZINE HydrALAZINE 2018-0 Yes Na Sherman [address] HCl HCl 8-07 with food [facility] Victoza Victoza Yes Na Sherman as [facility] 8-07 directed [facility] NovoFine NovoFine Yes Na Sherman as [facility] Plus Plus 8-07 directed [facility] HydrALAZINE HydrALAZINE Yes Na Sherman [address] HCl HCl 6-26 with food [facility] Blood 2014-05 Yes [id number] Use as Univer s Pressure 1-03 directed ity of Monitor 00:00: [place] (BLOOD 00 Medical PRESSURE Branch KIT) Kit Blood 2014-05 Yes [id number] Use as Univer s Pressure 1-03 directed ity of Monitor 00:00: [place] (BLOOD 00 Medical PRESSURE Branch KIT) Kit Blood 2014-05 Yes [id number] Use as Univer s Pressure 1-03 directed ity of Monitor 00:00: [place] (BLOOD 00 Medical PRESSURE Branch KIT) Kit metoprolol 2014-05 Yes Univers tartrate 0-27 ity of (LOPRESSOR) 00:00: [place] 25 mg 00 Medical tablet Branch metoprolol 2014-05 Yes Univers tartrate 0-27 ity of (LOPRESSOR) 00:00: [place] 25 mg 00 Medical tablet Branch metoprolol 2014-05 Yes Univers tartrate 0-27 ity of (LOPRESSOR) 00:00: [place] 25 mg 00 Medical tablet Branch glipizide-m 2014-05 Yes Univer s etformin 0-13 ity of (METAGLIP) 00:00: [place] 2.5-250 mg 00 Medical per tablet Branch glipizide-m 2014-05 Yes Univer s etformin 0-13 ity of (METAGLIP) 00:00: [place] 2.5-250 mg 00 Medical per tablet Branch glipizide-m 2014-05 Yes Univer s etformin 0-13 ity of (METAGLIP) 00:00: [place] 2.5-250 mg 00 Medical per tablet Branch lisinopril 2014-05 Yes Univers (PRINIVIL,Z 0-05 ity of ESTRIL) 10 00:00: [place] mg tablet 00 Medical Branch lisinopril 2014-05 Yes Univers (PRINIVIL,Z 0-05 ity of ESTRIL) 10 00:00: [place] mg tablet Medical Branch lisinopril 2014-05 Yes Univers (PRINIVIL,Z 0-05 ity of ESTRIL) 10 00:00: [place] mg tablet 00 Medical Branch ferrous Yes Univers sulfate 325 9-09 ity of mg (65 mg 00:00: [place] iron) 00 Medical tablet Branch atorvastati Yes Univer s n (LIPITOR) 9-09 ity of 20 mg 00:00: [place] tablet 00 Medical Branch ferrous Yes Univers sulfate 325 9-09 ity of mg (65 mg 00:00: [place] iron) Medical tablet Branch atorvastati Yes Univer s n (LIPITOR) 9-09 ity of 20 mg 00:00: [place] tablet 00 Medical Branch ferrous Yes Univers sulfate 325 9-09 ity of mg (65 mg 00:00: [place] iron) Medical tablet Branch atorvastati Yes Univer s n (LIPITOR) 9-09 ity of 20 mg 00:00: [place] tablet 00 Medical Branch Isosorbide Isosorbide Yes Na Sherman [address] [facility] [facility] Mononitrate Mononitrate in the [facility] - ER ER morning [facility] Atorvastati Atorvastati Yes Na Sherman [address] [facility] n Calcium n Calcium [facility] Carvedilol Carvedilol Yes Na Sherman [address] [facility] Tradjenta Tradjenta Yes Na Sherman [address] [facility] Atorvastati Atorvastati Yes Na Sherman [address] n Calcium n Calcium [facility] Methimazole Methimazole Yes Na Sherman TAKE [address] [facility] TABLET BY [facility]ukes - MOUTH Memoria THREE l TIMES Outpati DAILY WITH ent FOOD FOR Clinics 90 DAYS Levemir Levemir Yes Na Sherman [address] FlexTouch FlexTouch in AM and [facility] - 15 units Memoria in PM l Outpati ent Clinics Amiodarone Amiodarone Yes Na Sherman [address] HCl HCl [facility] Levemir Levemir Yes Na Sherman as [facility] directed [facility] Furosemide Furosemide Yes Na Sherman [address] [facility] Lisinopril Lisinopril Yes Na Sherman TAKE ONE [facility] TABLET BY [facility] - MOUTH ONCE Memoria DAILY l [facility] Aspir-Low Aspir-Low Yes Na Sherman [address] [facility] Metoprolol Metoprolol Yes Na Sherman [address] Succinate Succinate [facility] - ER ER [facility] Metoprolol Metoprolol Yes Na Sherman TAKE ONE [facility] Tartrate Tartrate TABLET BY Dora kes - MOUTH Memoria TWICE l DAILY [facility] Ferrous Ferrous Yes Na Sherman [address] Sulfate Sulfate [facility] glipiZIDE-m glipiZIDE-m Yes Na Sherman [address] etFORMIN etFORMIN with a [facility]ukes - HCl HCl meal [facility] l [facility] Sertraline Sertraline Yes Na Sherman [address] HCl HCl [facility] GlipiZIDE GlipiZIDE Yes Na Sherman [address] with main [facility] - meal [facility] l [facility] Amiodarone Amiodarone Yes Na Sherman [address] HCl HCl [facility] NovoLog NovoLog Yes Na Sherman as [facility] Flexpen Flexpen directed [facility] Vital Signs Vital Name Observation Time Observation Value Comments Source Systolic blood 2021-07-08 21:16:00 191 mm[Hg] [facility] Diastolic blood 2021-07-08 21:16:00 81 mm[Hg] [facility] Heart rate 2021-07-08 21:07:00 84 /min [facility] Body height 2021-07-08 21:07:00 157.5 cm [facility] Body weight 2021-07-08 21:07:00 56.11 kg [facility] BMI 2021-07-08 21:07:00 22.63 kg/m2 [facility] Medical Branch Oxygen saturation 2021-07-08 21:07:00 98 /min [facility] in Arterial blood Medical Br anch by Pulse oximetry Procedures Procedure Date / Time Performed Performing Clinician [facility] e REFERRAL- 2021-08-05 05:01:00 Doctor Unassigned, No [place] [place] [facility] REQUEST/RESPONSE Name Medical Branch Encounters Start End Encounter Admission Attending Care Care Encounter Source Date/Time Date/Time Type Type Clinicians Facility Department ID 2021-07-18 Outpatient Sherman, Na STLMLC STLMLC [id number] [facility] [address] 14:05[facility]00 [facility] 2021-06-19 Outpatient Sherman, Na STLMLC STLMLC [id number] [facility] 14:31:43 [facility] 2021-06-19 Outpatient Sherman, Na STLMLC STLMLC [id number] [facility] 12:52:59 [id number] [facility] 2021-06-19 Outpatient Sherman, Na STLMLC STLMLC [id number] [facility] 12:52:27 [id number] [facility] 2021-06-19 Outpatient Sherman, Na STLMLC STLMLC [id number] [facility] 12:04:32 [id number] [facility] 2021-06-19 Outpatient Sherman, Na STLMLC STLMLC [id number] 11:37:27 [id number] [facility] 2021-06-19 Outpatient Sherman, Na STLMLC STLMLC [id number] 11:34:05 [id number] [facility] 2021-06-19 Outpatient Sherman, Na STLMLC STLMLC [id number] [facility] 11:33:47 [id number] [facility] 2021-06-19 Outpatient Sherman, Na STLMLC STLMLC [id number] 10:58:14 [id number] [facility] 2021-06-19 Outpatient Sherman, Na STLMLC STLMLC [id number] 10:57:55 [id number] [facility] 2021-10-07 2021-10-07 Outpatient R CARLOSGUICHO [facility] [id number] Univers 13:00:00 13:00:00 ALVINO [id number] [facility] 2021-10-07 2021-10-07 Outpatient R NAVA [facility] [id number] Univers 13:00:00 13:00:00 [facility] 2021-09-09 2021-09-11 Outpatient SIMON, [facility] [id number] [address] 00:00:00 00:00:00 JAYLEN [address] [facility] 2021-08-29 2021-08-29 ambulatory [facility] [id number] [facility] St 00:00:00 00:00:00 [facility] 2021-08-05 2021-08-05 Orders Doctor MODESTA [id number] Univers 00:00:00 00:00:00 Only Unassigned, [place] [id number] [facility] [id number] Chris as [phone] [address] 2021-07-31 2021-07-31 ambulatory [facility] [id number] [facility] St 00:00:00 00:00:00 [facility] 2021-07-18 2021-07-18 ambulatory [facility] [id number] [facility] St 00:00:00 00:00:00 [facility] 2021-07-08 2021-07-08 [employer] [facility], Ang - Db [facility] [id number] Univers 16:00:00 16:15:[address] [facility] [id number] ity of [place] [id number] Chris as OSMEL?BLEA [id number] [address] MEDICAL OFFICE BUILDING 2021-07-08 2021-07-08 Outpatient R [facility] [id number] Univers 16:00:00 16:00:00 [id number] [facility] 2021-07-08 2021-07-08 Outpatient R NAVA [facility] [id number] Univers 16:00:00 16:00:00 ALVINO [facility] 2021-07-08 2021-07-08 Office Nava [facility] [id number] Univers 15:00:00 15:30:00 Visit [facility] [id number] [facility] [id number] Chris as OSMEL?BLEA [phone] [address] MEDICAL OFFICE BUILDING 2021-07-05 2021-07-05 ambulatory [facility]MLC [facility] [id number] [facility] 2021-07-04 2021-07-04 ambulatory [facility]MLC [facility] [id number] [facility] 2021-05-13 2021-05-13 ambulatory [facility]MLC [facility] [id number] [facility] 2021 2021 ambulatory [facility]ML[facility] [id number] [facility] 2021-05-01 2021-05-02 Outpatient SIMON [facility] [id number] [address] 00:00:00 00:00:00 JAYLEN [address] 2021-04-26 2021-04-26 ambulatory [facility]MLC [facility] [id number] [facility] 2021-04-23 2021-04-23 ambulatory [facility]LMLC [facility] [id number] [facility] 2021-01-08 2021-01-08 Outpatient SIMON [facility] [id number] [address] 00:00:00 00:00:00 JAYLEN [address] 2020-12-27 2020-12-27 Outpatient [facility]LMLC [facility] [id number] [facility] 2020-12-13 2020-12-13 Outpatient [facility]LMLC [facility] [id number] [facility] 2020-09-13 2020-09-13 Outpatient [facility]LMLC [facility] [id number] [facility] 2020-09-07 2020-09-07 Outpatient [facility]LMLC [facility] [id number] [facility] 2020-09-07 2020-09-07 Outpatient [facility]LMLC [facility] [id number] [facility] 2020-07-02 2020-07-02 Outpatient [facility]LMLC [facility] [id number] [facility] 2020-04-16 2020-04-16 Outpatient [facility]MLC [facility] [id number] [facility] 2020-04-16 2020-04-16 Outpatient [facility]MLC [facility] [id number] [facility] 2020-04-09 2020-04-09 Outpatient [facility]MLC [facility] [id number] [facility] 2020-01-23 2020-01-23 [facility] [id number] 10:55:00 10:55:00 t [employer] [facility] Medicine Outpati ent Clinics 2020-01-09 2020-01-09 [facility] [id number] 10:40:00 10:40:00 t [employer] [facility] Medicine Outpati ent Clinics 2019-08-22 2019-08-22 [facility] [id number] 16:56:00 16:56:00 t Mary D Mary D [employer] Luke s - Drive [facility] Family Medicine l Medicine Outpati ent Clinics 2019-08-22 2019-08-22 [facility] [id number] 13:29:00 13:29:00 t Mary D Mary D [email or web address] s - Drive [facility] Medicine l Medicine Outpati ent Clinics 2019-08-17 2019-08-17 [facility] [id number] 11:57:00 11:57:00 t Mary D Mary D [email or web address] s - Drive [facility] Family Medicine l Medicine Outpati ent Clinics 2019-05-30 2019-05-30 [facility] [id number] 11:40:00 11:40:00 t Mary D Mary D [employer] s - Drive [facility] Medicine l Medicine Outpati ent Clinics 2019-05-11 2019-05-11 [facility] [id number] 08:55:00 08:55:00 t Mary D Mary D [email or web address] s - Drive [facility] Medicine l Medicine Outpati ent Clinics 2019-03-26 2019-03-26 [facility] [id number] 17:29:00 17:29:00 t Mary D Mary D [employer] s - [employer] [facility] Medicine l Medicine Outpati ent Clinics 2019-03-17 2019-03-17 [facility] [id number] 13:00:00 13:00:00 t Mary D Mary D [email or web address] s - Drive [facility] Medicine l Medicine Outpati ent Clinics 2018-12-14 2018-12-14 [facility] [id number] 13:40:00 13:40:00 t Mary D Mary D [email or web address] s - Drive [facility] Medicine l Medicine Outpati ent Clinics 2018-10-14 2018-10-14 [facility] [id number] 14:20:00 14:20:00 t Mary D Mary D [employer] s - Drive [facility] Medicine l Medicine Outpati ent Clinics 2018-08-11 2018-08-11 [facility] [id number] 16:22:00 16:22:00 t Mary D Mary D [employer] s - Drive [facility] Medicine l Medicine Outpati ent Clinics 2018-07-20 2018-07-20 [facility] [id number] [facility] 15:15:00 15:15:00 t Mary D Mary D Drive Luke s - Drive [facility] Medicine l Medicine Outpati ent Clinics 2018-04-29 2018-04-29 [facility] [id number] 15:15:00 15:15:00 t Mary D Mary D Drive Luke s - Drive [facility] Medicine l Medicine Outpati ent Clinics 2018-04-01 2018-04-01 [facility] [id number] [facility] 08:17:00 08:17:00 t Mary D Mary D Drive Luke s - Drive [facility] l Medicine Outpati ent Clinics 2018-02-08 2018-02-08 [facility] [id number] [facility] 15:00:00 15:00:00 t Mary D Mary D Drive Luke s - Drive [facility] Medicine l Medicine Outpati ent Clinics 2018-01-06 2018-01-06 [facility] [id number] 08:58:00 08:58:00 t Mary D Mary D Drive Luke s - Drive [facility] Medicine Medicine Outpati ent Clinics 2017-12-31 2017-12-31 [facility] [id number] 16:45:00 16:45:00 t Mary D Mary D Drive Luke s - Drive [facility] Medicine l Medicine Outpati ent Clinics 2017-12-30 2017-12-30 [facility] [id number] 14:34:00 14:34:00 t Mary D Mary D Drive Luke s - Drive [facility] Medicine Outpati ent Clinics 2017-12-29 2017-12-29 [facility] [id number] 14:45:00 14:45:00 t Mary D Mary D Drive Luke s - Drive [facility] Medicine l Medicine Outpati ent Clinics 2017-12-29 2017-12-29 [facility] [id number] 13:51:00 13:51:00 t Mary D Mary D Drive Luke s - Drive [facility] Medicine l Medicine Outpati ent Clinics 2017-12-01 2017-12-01 [facility] [id number] 15:18:00 15:18:[address] t Mary D Mary D Drive Luke s - [employer] [facility] Medicine Outpati ent Clinics 2017-11-26 2017-11-26 [facility] [id number] 14:20:00 14:20:00 t Mary D [employer] - [employer] [facility] Medicine Outpati ent Clinics 2017-11-24 2017-11-24 [facility] [id number] 11:26:00 11:26:00 t Mary D [employer] - [employer] [facility] Medicine Outpati ent Clinics 2017-11-17 2017-11-17 [facility] [id number] 14:00:00 14:00:00 t [employer] s - [employer] [facility] Medicine Outpati ent Clinics 2017-09-17 2017-09-17 [facility] [id number] 14:00:00 14:00:00 t [employer] s - [employer] [facility] Medicine Outpati ent Clinics 2017-08-20 2017-08-20 [facility] [id number] 10:30:00 10:30:00 t [employer] [facility] Medicine Outpati ent Clinics Results Test Description Test Time Test Comments Results Result Comments Source AFB CULTURE + SMEAR 2018-03-14 16:58:00 Test Item Value Reference Range Interpretation Comme nts CULTURE (BEAKER) (test code = 1095) No acid-fast bacilli isolated i n 42 days AFB SMEAR (BEAKER) (test code = 994) No acid fast bacilli seen FUNGUS CULTURE + [id number] 06:54:00 Test Item Value Reference Range Interpretation Comments CULTURE (BEAKER) (test No fungus isolated in code = 1095) 28 days FUNGUS SMEAR (BEAKER) No fungi seen (test code = 1406) BODY FLUID CULTURE + GRAM [id number] 16:37:00 Test Item Value Reference Range Interpretation Comments CULTURE (BEAKER) (test code No growth = 1095) GRAM STAIN RESULT (BEAKER) <1+ WBCs (test code = 1123) GRAM STAIN RESULT (BEAKER) No organisms seen (test code = 32083) [id number] 11:30:00Medical Cytology Report Case: [id number] Authorizing Provider: Kan Batres MD Collected: 01/29/2018 1504 Ordering Location: [address] Received: 01/29/2018 1504 Service Pathologist: Marleen Zaman Specimen: Pleural, Left LEFT PLEURAL FLUID (CYTOSPINS): - NEGATIVE FOR MALIGNANCY PREDOMINANTLY BLOOD Signing Pathologist Direct Phone Line: [phone] signed by Marleen Zaman on 02/01/2018 at 11:30 [id number] pleural effusion, systemic diseaseLEFT PLEURAL [id number] mls dark brown; 4 cytospinsCollected: [id number]: [id number]dero State Hospital, Department of Pathology, [address] [place] [address] [id number], [facility], [facility] of [facility], [address] [place] [address] [id number], PQH, CHEST, 1 VIEW, NON [id number] 10:09:00Reason for exam:->pleural effusionShould this be performed at the bedside?->YesFINAL REPORT INDICATION: pleural effusion TECHNIQUE: Chest radiograph, singleview, portable technique. FINDINGS / IMPRESSION: Patchy opacity in the left lower lung is not significantly changed since January 29. Finding probably represents reexpansion edema or residual atelectasis after left thoracentesis performed January 29. No pneumothorax. Prominent heart shadow and median sternotomy wires noted. Signed: Blayne Ghosh MDReport Verified Date/Time: 01/30/2018 10:09:16 Reading Location: [facility] C0X Ortho Consult Reading Room POCT-GLUCOSE [id number] 09:11:00 Test Item Value Reference Range Interpretation Comments POC-GLUCOSE METER 176 mg/dL 70-110 H TESTED AT [place] [address] ([facility]) (test code = [facility] 1538) [address] POCT-GLUCOSE [id number] 07:35:00 Test Item Value Reference Range Interpretation Comments POC-GLUCOSE METER 145 mg/dL 70-110 H TESTED AT [facility] 6720 (BEAKER) (test code = [place] 1538) [address] POCT-GLUCOSE [id number] 07:22:00 Test Item Value Reference Range Interpretation Comments POC-GLUCOSE METER 61 mg/dL 70-110 L TESTED AT [facility] 6720 (BEAKER) (test code = [place] [address] 1538) BASIC METABOLIC [id number] 06:38:00 Test Item Value Reference Range Interpretation [...] 0-0 (BEAKER) (test code = 413) POCT-GLUCOSE [id number] 21:22:00 Test Item Value Reference Range Interpretation Comments POC-GLUCOSE METER 108 mg/dL 70-110 TESTED AT [place] [address] ([facility]) (test code = [facility] 1538) [address] POCT-GLUCOSE [id number] 18:26:00 Test Item Value Reference Range Interpretation Comments POC-GLUCOSE METER 135 mg/dL 70-110 H TESTED AT [place] [address] ([facility]) (test code = [facility] 1538) [address] POCT-GLUCOSE [id number] 18:26:00 Test Item Value Reference Range Interpretation Comments POC-GLUCOSE METER 84 mg/dL 70-110 TESTED AT [place] [address] ([facility]) (test code = [facility] [address] 1538) BODY FLUID CELL COUNT WITH [id number] 15:13:00 Test Item Value Reference Range Interpretation Comments APPEARANCE FLUID (BEAKER) Bloody Clear A (test code = 510) COLOR FLUID (BEAKER) (test Red Colorless, Straw A code = 511) RBC FLUID (BEAKER) (test code 591413 /cu mm <=1 H = 513) ADJUSTED [...] code = 2873) LACTATE DEHYDROGENASE (LDH), BODY [id number] 13:12:00 Test Item Value Reference Range Interpretation [...] METER 139 mg/dL 70-110 H TESTED AT [place] [address] [facility] (test code = PETER Ford [facility] 1538) [address] POCT-GLUCOSE [id number] 11:06:00 Test Item Value Reference Range Interpretation Comments POC-GLUCOSE METER 148 mg/dL 70-110 H TESTED AT [place] [address] ([facility]) (test code = [facility] 1538) [address] RAD, CHEST, 1 VIEW, NON [id number] 10:27:00Reason for exam:->s/p Thoracentesis pt. in u/s [...] the spine. No fracture. Signed: Lulu Fuentes MDReport Verified Date/Time: 01/29/2018 10:27:31 Reading Location: [facility] Radiology Reading Room U/S, [id number] 09:49:00Laterality?->LeftReason for exam:->pleural effusionSpecimen to be collected:->yesShould [...] was used for local anesthesia. A 4 Nauruan needle catheter system was advanced into the pleural space. 1500 cc dark red fluid was taken off. Sample of the fluid was sent to [facility]. Chest x-ray has been ordered. Impression: Ultrasound guided left thoracentesis. Signed: Blayne Ghosh MDReport Verified Date/Time: 01/29/2018 09:49:26 Reading Location: [address] Ultrasound Reading Room POCT-GLUCOSE [id number] 07:59:00 Test Item Value Reference Range Interpretation Comments POC-GLUCOSE METER 133 mg/dL 70-110 H TESTED AT [facility] 3113 (BEAKER) (test code = [place] 3324) [address] BASIC METABOLIC [id number] 05:54:00 Test Item Value Reference Range Interpretation [...] 0-0 (BEAKER) (test code = 413) POCT-GLUCOSE [id number] 22:24:00 Test Item Value Reference Range Interpretation Comments POC-GLUCOSE METER 142 mg/dL 70-110 H TESTED AT [facility] 6720 (BEAKER) (test code = [facility] 1538) [address] POCT-GLUCOSE [id number] 19:23:00 Test Item Value Reference Range Interpretation Comments POC-GLUCOSE METER 127 mg/dL 70-110 H TESTED AT [facility] 6720 (BEAKER) (test code = [facility] Liliana [facility] 1538) [address] POCT-GLUCOSE [id number] 15:04:00 Test Item Value Reference Range Interpretation Comments POC-GLUCOSE METER 149 mg/dL 70-110 H TESTED AT [facility] 6720 (BEAKER) (test code = [facility] 1538) [address] BASIC METABOLIC [id number] 13:29:00 Test Item Value Reference Range Interpretation [...] 0-100 H (BEAKER) (test code = 700) [id number] 13:24:00 Test Item Value Reference Range Interpretation Comments PHOSPHORUS (BEAKER) (test code = 4.8 mg/dL 2.3-4.7 H 604) [id number] 13:24:00 Test Item Value Reference Range Interpretation Comments MAGNESIUM (BEAKER) (test code = 2.0 mg/dL 1.6-2.6 627) HEPATIC FUNCTION [id number] 13:24:00 Test Item Value Reference Range Interpretation [...] (test code = 14 U/L 6-55 347) [id number] 13:07:00 Test Item Value Reference Range Interpretation [...] PERCENT (BEAKER) (test code = 2801) POCT-GLUCOSE [id number] 08:48:00 Test Item Value Reference Range Interpretation Comments POC-GLUCOSE METER 72 mg/dL 70-110 TESTED AT [facility] 6720 (BEAKER) (test code = [place] [address] 1538) RAD, CHEST, 1 VIEW, NON [id number] 05:11:00Reason for exam:->left pleural effusionShould this be performed at the bedside?->YesFINAL REPORT RAD, CHEST, 1 VIEW, NON DEPT INDICATION: left pleural effusion CO MPARISON: January 19, 2018 FINDINGS: Portable frontal view of the chest. IMPRESSION: Support Lines: None. Lungs and pleura: Clear right lung. Increasing effusion on the left.Heart and mediastinum: Stable contours. Stable surgical changes.Additional findings: None. Signed: JR Christen, Migel Laguerre Verified Date/Time: 01/28/2018 05:11:51 Reading Location: [address] Body Reading Room POCT-GLUCOSE [id number] 09:36:00 Test Item Value Reference Range Interpretation Comments POC-GLUCOSE METER 120 mg/dL 70-110 H TESTED AT [place] [address] ([facility]) (test code = [facility] 1538) [address] POCT-GLUCOSE [id number] 09:11:00 Test Item Value Reference Range Interpretation Comments POC-GLUCOSE METER 62 mg/dL 70-110 L TESTED AT [place] [address] [facility]) (test code = [facility] [address] 1538) BASIC METABOLIC [id number] 06:12:00 Test Item Value Reference Range Interpretation [...] DATA TO CALCULA TE ESTIMATED GFR. POCT-GLUCOSE [id number] 23:24:00 Test Item Value Reference Range Interpretation Comments POC-GLUCOSE METER 82 mg/dL 70-110 TESTED AT [place] [address] (BEAKER) (test code = [facility] Liliana [facility] [address] 1538) POCT-GLUCOSE [id number] 18:30:00 Test Item Value Reference Range Interpretation Comments POC-GLUCOSE METER 161 mg/dL 70-110 H TESTED AT [place] [address] (BEAKER) (test code = [facility] 1538) [address] POCT-GLUCOSE [id number] 14:15:00 Test Item Value Reference Range Interpretation Comments POC-GLUCOSE METER 118 mg/dL 70-110 H TESTED AT [place] [address] (BEAKER) (test code = [facility] 1538) [address]70 POCT-GLUCOSE [id number] 08:30:00 Test Item Value Reference Range Interpretation Comments POC-GLUCOSE METER 96 mg/dL 70-110 TESTED AT [place] [address] (BEAKER) (test code = [facility] [address] 1538) BASIC METABOLIC [id number] 06:47:00 Test Item Value Reference Range Interpretation Comments SODIUM (BEAKER) 140 meq/L 136-145 (test code = 381) POTASSIUM (BEAKER) 3.8 meq/L 3.5-5.1 (test code = 379) CHLORIDE (BEAKER) 105 meq/L 98-107 (test code = 382) CO2 (BEAKER) (test 27 meq/L 22-29 code = 355) BLOOD UREA NITROGEN 19 mg/dL 7-21 (BEAKER) (test code = 354) CREATININE (BEAKER) 1.89 mg/dL 0.57-1.25 H (test code = 358) GLUCOSE RANDOM 55 mg/dL 70-105 L (BEAKER) (test code = 652) CALCIUM (BEAKER) 8.7 mg/dL 8.4-10.2 (test code = 697) EGFR (BEAKER) (test mL/min/1.73 INSUFFIC IENT CLINICAL code = 1092) sq m DATA TO CALCULA TE ESTIMATED GFR. POCT-GLUCOSE [id number] 21:26:00 Test Item Value Reference Range Interpretation Comments POC-GLUCOSE METER 133 mg/dL 70-110 H TESTED AT [place] [address] (BEAKER) (test code = [facility] 1538) [address] POCT-GLUCOSE [id number] 15:36:00 Test Item Value Reference Range Interpretation Comments POC-GLUCOSE METER 63 mg/dL 70-110 L TESTED AT [facility] 6720 ([facility]) (test code = PETER Ford [facility] [address] 1538) POCT-GLUCOSE [id number] 14:41:00 Test Item Value Reference Range Interpretation Comments POC-GLUCOSE METER 94 mg/dL 70-110 TESTED AT [facility] 6720 ([facility]) (test code = PETER Ford [facility] [address] 1538) RAD, CHEST, 1 VIEW, NON [id number] 13:20:00Reason for exam:->Possible fluid overloadShould this be [...] and well aligned. No fracture. Signed: Lulu Fuentes Verified Date/Time: 01/19/2018 13:20:02 Reading Location: [facility] Radiology Reading Room B-TYPE NATRIURETIC FACTOR (BNP) 2018-01-19 11:06:00 Test Item Value Reference Range Interpretation Comments B-TYPE NATRIURETIC PEPTIDE 1089 pg/mL 0-100 H (BEAKER) (test code = 700) BASIC METABOLIC [id number] 10:59:00 Test Item Value Reference Range Interpretation [...] ESTIMATED GFR. CBC W/PLT COUNT & AUTO [id number] 10:50:00 Test Item Value Reference Range Interpretation [...] LYMPHOCYTES ABSOLUTE COUNT 1.94 K/ L 1.18-3.74 ([facility]) (test code = 414) MONOCYTES ABSOLUTE COUNT (AKER) 1.29 K/ L 0.24-0.36 H (test code = 415) EOSINOPHILS ABSOLUTE COUNT 0.20 K/ L 0.04-0.36 ([facility]) (test code = 416) BASOPHILS ABSOLUTE COUNT ([facility]) 0.08 K/ L 0.01-0.08 (test code = 417) IMMATURE GRANULOCYTES-RELATIVE 1 % 0-1 PERCENT ([facility]) (test code = 2801) POCT-GLUCOSE [id number] 10:35:00 Test Item Value Reference Range Interpretation Comments POC-GLUCOSE METER 198 mg/dL 70-110 H TESTED AT [place] [address] ([facility]) (test code = PETER Ford [facility] 1538) [address] POCT-GLUCOSE [id number] 08:48:00 Test Item Value Reference Range Interpretation Comments POC-GLUCOSE METER 58 mg/dL 70-110 L Notified Liliana Mobley MD/TESTED AT ([facility]) (test code = [address] 1538) [facility] [address] POCT-GLUCOSE [id number] 22:14:00 Test Item Value Reference Range Interpretation Comments POC-GLUCOSE METER 260 mg/dL 70-110 H TESTED AT [place] [address] ([facility]) (test code = PETER Ford [facility] 1538) [address] POCT-GLUCOSE [id number] 20:10:00 Test Item Value Reference Range Interpretation Comments POC-GLUCOSE METER 140 mg/dL 70-110 H TESTED AT [place] [address] ([facility]) (test code = PETER Ford [facility] 1538) [address]42 POCT-GLUCOSE [id number] 17:58:00 Test Item Value Reference Range Interpretation Comments POC-GLUCOSE METER 105 mg/dL 70-110 TESTED AT [place] [address] ([facility]) (test code = PETER Ford [facility] 1538) 10759 POCT-GLUCOSE [id number] 14:11:00 Test Item Value Reference Range Interpretation Comments POC-GLUCOSE METER 88 mg/dL 70-110 TESTED AT [place] [address] ([facility]) (test code = PETER Ford [facility] [address] 1538) POCT-GLUCOSE [id number] 10:01:00 Test Item Value Reference Range Interpretation Comments POC-GLUCOSE METER 74 mg/dL 70-110 TESTED AT [facility] 6720 (BEAKER) (test code = PETER Ford [facility] [address] 1538) BASIC METABOLIC [id number] 05:26:00 Test Item Value Reference Range Interpretation [...] ESTIMATED GFR. CBC W/PLT COUNT & AUTO [id number] 05:00:00 Test Item Value Reference Range Interpretation [...] PERCENT (BEAKER) (test code = 2801) POCT-GLUCOSE [id number] 22:26:00 Test Item Value Reference Range Interpretation Comments POC-GLUCOSE METER 184 mg/dL 70-110 H TESTED AT [place] [address] ([facility]) (test code = [facility] 1538) [address] POCT-GLUCOSE [id number] 18:18:00 Test Item Value Reference Range Interpretation Comments POC-GLUCOSE METER 70 mg/dL 70-110 TESTED AT [place] [address] ([facility]) (test code = [facility] [address] 1538) POCT-GLUCOSE [id number] 13:49:00 Test Item Value Reference Range Interpretation Comments POC-GLUCOSE METER 78 mg/dL 70-110 TESTED AT [place] [address] ([facility]) (test code = [facility] [address] 1538) POCT-GLUCOSE [id number] 09:07:00 Test Item Value Reference Range Interpretation Comments POC-GLUCOSE METER 121 mg/dL 70-110 H TESTED AT [facility] 6720 (BEAKER) (test code = [place] 1538) [address] BASIC METABOLIC [id number] 07:02:00 Test Item Value Reference Range Interpretation [...] ESTIMATED GFR. CBC W/PLT COUNT & AUTO [id number] 06:05:00 Test Item Value Reference Range Interpretation [...] PERCENT (BEAKER) (test code = 2801) POCT-GLUCOSE [id number] 22:21:00 Test Item Value Reference Range Interpretation Comments POC-GLUCOSE METER 92 mg/dL 70-110 TESTED AT [place] [address] [facility]) (test code = [place] [address] 1538) POCT-GLUCOSE [id number] 18:05:00 Test Item Value Reference Range Interpretation Comments POC-GLUCOSE METER 124 mg/dL 70-110 H TESTED AT [place] [address] ([facility]) (test code = [place] 1538) [address] POCT-GLUCOSE [id number] 13:37:00 Test Item Value Reference Range Interpretation Comments POC-GLUCOSE METER 146 mg/dL 70-110 H TESTED AT [place] [address] ([facility]) (test code = [place] 1538) [address] POCT-GLUCOSE [id number] 09:35:00 Test Item Value Reference Range Interpretation Comments POC-GLUCOSE METER 166 mg/dL 70-110 H TESTED AT [place] [address] ([facility]) (test code = PETER Ford [facility] 1538) [address] POCT-GLUCOSE [id number] 21:22:00 Test Item Value Reference Range Interpretation Comments POC-GLUCOSE METER 186 mg/dL 70-110 H TESTED AT [place] [address] ([facility]) ([facility] 1538) [address] POCT-GLUCOSE [id number] 18:04:00 Test Item Value Reference Range Interpretation Comments POC-GLUCOSE METER 177 mg/dL 70-110 H TESTED AT [place] [address] ([facility]) (test code = [facility] Liliana [facility] 1538) [address] POCT-GLUCOSE [id number] 13:15:00 Test Item Value Reference Range Interpretation Comments POC-GLUCOSE METER 225 mg/dL 70-110 H TESTED AT [place] [address] ([facility]) (test code = [facility] 1538) [address]67 CBC W/PLT COUNT & AUTO [id number] 11:24:00 Test Item Value Reference Range Interpretation Comments WHITE BLOOD CELL COUNT (BEAKER) 10.9 K/ L 3.5-10.5 H (test code = 775) RED BLOOD CELL COUNT (AKER) 2.75 M/ L 3.93-5.22 L (test code [...] % 0-1 PERCENT (BEAKER) (test code = 6146) POCT-GLUCOSE [id number] 09:15:00 Test Item Value Reference Range Interpretation Comments POC-GLUCOSE METER 186 mg/dL 70-110 H TESTED AT [facility] 6720 (BEAKER) (test code = [place] 1538) [address] BASIC METABOLIC [id number] 07:36:00 Test Item Value Reference Range Interpretation [...] 358) GLUCOSE RANDOM 138 mg/dL 70-105 H ([facility]) (test code = 652) CALCIUM ([facility]) 8.3 mg/dL 8.4-10.2 L (test code = 697) EGFR ([facility]) (test mL/min/1.73 INSUFFIC IENT CLINICAL code = 1092) sq m DATA TO CALCULA TE ESTIMATED GFR. [id number] 07:15:00 Test Item Value Reference Range Interpretation Comments MAGNESIUM ([facility]) (test code = 2.5 mg/dL 1.6-2.6 627) POCT-GLUCOSE [id number] 22:54:00 Test Item Value Reference Range Interpretation Comments POC-GLUCOSE METER 113 mg/dL 70-110 H TESTED AT [place] [address] ([facility]) (test code = PETER Ford [facility] 1538) [address] POCT-GLUCOSE [id number] 19:14:00 Test Item Value Reference Range Interpretation Comments POC-GLUCOSE METER 154 mg/dL 70-110 H TESTED AT [place] [address] ([facility]) (test code = PETER Ford [facility] 1538) [address] POCT-GLUCOSE [id number] 15:21:00 Test Item Value Reference Range Interpretation Comments POC-GLUCOSE METER 242 mg/dL 70-110 H TESTED AT [place] [address] ([facility]) (test code = PETER Ford [facility] 1538) 25270 POCT-GLUCOSE [id number] 08:52:00 Test Item Value Reference Range Interpretation Comments POC-GLUCOSE METER 175 mg/dL 70-110 H TESTED AT [place] [address] ([facility]) (test code = PETER Ford [facility] 1538) [address]679 CBC W/PLT COUNT & AUTO [id number] 07:12:00 Test Item Value Reference Range Interpretation Comments WHITE BLOOD CELL COUNT ([facility]) 13.3 K/ L 3.5-10.5 H (test code = 775) RED BLOOD CELL COUNT ([facility]) 2.81 M/ L 3.93-5.22 L (test code = 761) HEMOGLOBIN ([facility]) (test code = 8.0 GM/DL 11.2-15.7 L 410) HEMATOCRIT ([facility]) (test code = 25.6 % 34.1-44.9 L [...] (BEAKER) (test code = 2801) BASIC METABOLIC [id number] 06:44:00 Test Item Value Reference Range Interpretation [...] m DATA TO CALCULA TE ESTIMATED GFR. [id number] 06:32:00 Test Item Value Reference Range Interpretation Comments MAGNESIUM (BEAKER) (test code = 2.3 mg/dL 1.6-2.6 627) POCT-GLUCOSE [id number] 21:11:00 Test Item Value Reference Range Interpretation Comments POC-GLUCOSE METER 198 mg/dL 70-110 H TESTED AT [facility] 67 [facility] (test code = [facility] 1538) [address]283 POCT-GLUCOSE [id number] 18:24:00 Test Item Value Reference Range Interpretation Comments POC-GLUCOSE METER 252 mg/dL 70-110 H TESTED AT [place] [address] ([facility]) (test code = [facility] 1538) 28651 URINALYSIS W/ REFLEX URINE [id number] 17:03:00 Test Item Value Reference Range Interpretation [...] 516) SOURCE(BEAKER) (test code = 2795) POCT-GLUCOSE [id number] 13:12:00 Test Item Value Reference Range Interpretation Comments POC-GLUCOSE METER 236 mg/dL 70-110 H TESTED AT [facility] 6720 (BEAKER) (test code = [place]ER [place] 1538) [address] CBC W/PLT COUNT & AUTO [id number] 11:47:00 Test Item Value Reference Range Interpretation [...] 3438) Received comment: User comments: Slide comments:POCT-GLUCOSE [id number] 09:54:00 Test Item Value Reference Range Interpretation Comments POC-GLUCOSE METER 245 mg/dL 70-110 H TESTED AT [facility] 6720 (BEAKER) (test code = [place]ER [place] 1538) [address] RAD, CHEST, 1 VIEW, NON [id number] 08:19:00Reason for exam:->s/p ACBShould this be performed [...] issuggested. No large effusion. Signed: Sharmin Santos MDReport Verified Date/Time: 01/13/2018 08:19:21Reading Location: [facility] C013X Ortho Consult Reading Room PH, VENOUS 2018-01-13 07:05:00 Test Item Value Reference Range Interpretation Comments PH VENOUS (BEAKER) (test code = 701) 7.31 7.32-7.42 L BASIC METABOLIC [id number] 06:18:00 Test Item Value Reference Range Interpretation [...] m DATA TO CALCULA TE ESTIMATED GFR. [id number] 06:12:00 Test Item Value Reference Range Interpretation Comments PHOSPHORUS (BEAKER) (test code = 6.4 mg/dL 2.3-4.7 H 604) [id number] 06:12:00 Test Item Value Reference Range Interpretation Comments MAGNESIUM (BEAKER) (test code = 2.2 mg/dL 1.6-2.6 627) POCT-GLUCOSE [id number] 21:24:00 Test Item Value Reference Range Interpretation Comments POC-GLUCOSE METER 251 mg/dL 70-110 H TESTED AT [place] [address] ([facility]) (test code = PETER [place] 1538) [address] POCT-GLUCOSE [id number] 17:43:00 Test Item Value Reference Range Interpretation Comments POC-GLUCOSE METER 282 mg/dL 70-110 H TESTED AT [place] [address] ([facility]) (test code = PETER Ford [place] 1538) [address] BASIC METABOLIC [id number] 16:11:00 Test Item Value Reference Range Interpretation Comments SODIUM (BEAKER) 138 meq/L 136-145 (test code = 381) POTASSIUM (BEAKER) 5.1 meq/L 3.5-5.1 (test code = 379) CHLORIDE (BEAKER) 113 meq/L 98-107 H (test code = 382) CO2 (BEAKER) (test 17 meq/L 22-29 L code = 355) BLOOD UREA NITROGEN 34 mg/dL 7-21 H (BEAKER) (test code = 354) CREATININE (BEAKER) 2.61 mg/dL 0.57-1.25 H (test code = 358) GLUCOSE RANDOM 292 mg/dL 70-105 H (BEAKER) (test code = 652) CALCIUM (BEAKER) 8.1 mg/dL 8.4-10.2 L (test code = 697) EGFR [facility] (test mL/min/1.73 INSUFFIC IENT CLINICAL code = 1092) sq m DATA TO CALCULA TE ESTIMATED GFR. POCT-GLUCOSE [id number] 08:58:00 Test Item Value Reference Range Interpretation Comments POC-GLUCOSE METER 204 mg/dL 70-110 H TESTED AT [place] [address] ([facility]) (test code = PETER [place] 1538) [address] [id number] 05:41:00 Test Item Value Reference Range Interpretation Comments ACTIVATED CLOTTING TIME 120 sec TEST ED AT [place] [address] ([facility]) (test code = PETER [place] 441) [address] [id number] 05:41:00 Test Item Value Reference Range Interpretation Comments ACTIVATED CLOTTING TIME 483 sec TEST ED AT [place] [address] (BEAKER) (test code = PETER Ford [facility] 441) [address] [id number] 05:41:00 Test Item Value Reference Range Interpretation Comments ACTIVATED CLOTTING TIME 411 sec TEST ED AT [place] [address] ([place]) (test code = PETER Ford [place] [address]) [id number] 05:41:00 Test Item Value Reference Range Interpretation Comments ACTIVATED CLOTTING TIME 444 sec TEST ED AT [place] [address] [facility] (test code = PETER Ford [place] [address]) [id number] BASIC METABOLIC [id number] 04:17:00 Test Item Value Reference Range Interpretation [...] ESTIMATED GFR. RAD, CHEST, 1 VIEW, NON [id number] 04:15:00while patient is intubated or has chest tubes.Reason for exam:->s/p [id number] this be performedat the bedside?->YesFINAL REPORT CLINICAL INDICATION: Postop Comparison: 01/11/2018 The cardiomediastinal contours are stable, including a coarse calcification overlying the left thoracic inlet. Thelung volumes are low but stable after extubation. Bilateral parenchymal opacities are similar to prev ious. There is no pneumothorax. Remaining support lines are stable. Signed: Yogi Hill MDReport Verified Date/Time: 01/12/2018 04:15:41 Reading Location: [address] Reading Room [id number] 04:11:00 Test Item Value Reference Range Interpretation Comments PHOSPHORUS (BEAKER) (test code = 4.4 mg/dL 2.3-4.7 604) [id number] 04:11:00 Test Item Value Reference Range Interpretation Comments MAGNESIUM (BEAKER) (test code = 2.0 mg/dL 1.6-2.6 627) CBC W/PLT COUNT & AUTO [id number] 04:03:00 Test Item Value Reference Range Interpretation [...] PERCENT (BEAKER) (test code = 2801) POCT-GLUCOSE [id number] 00:25:00 Test Item Value Reference Range Interpretation Comments POC-GLUCOSE METER 161 mg/dL 70-110 H TESTED AT [place] [address] [facility] (test code = [facility] 1538) [address] BLOOD GAS, [id number] 22:47:00 Test Item Value Reference Range Interpretation [...] (test code = 1819) 36.0 % POCT-GLUCOSE [id number] 22:35:00 Test Item Value Reference Range Interpretation Comments POC-GLUCOSE METER 123 mg/dL 70-110 H TESTED AT [facility] 6720 (BEAKER) (test code = [facility] 1538) [address] POCT-GLUCOSE [id number] 21:23:00 Test Item Value Reference Range Interpretation Comments POC-GLUCOSE METER 94 mg/dL 70-110 TESTED AT [facility] 6720 (BEAKER) (test code = [place] [address] 1538) POCT-GLUCOSE [id number] 20:31:00 Test Item Value Reference Range Interpretation Comments POC-GLUCOSE METER 102 mg/dL 70-110 TESTED AT [place] [address] (BEAKER) (test code = [facility] [place] [facility] 1538) [address] POCT-GLUCOSE [id number] 19:24:00 Test Item Value Reference Range Interpretation Comments POC-GLUCOSE METER 140 mg/dL 70-110 H TESTED AT [place] [address] (BEAKER) (test code = [place] [facility] 1538) [address] POCT-GLUCOSE [id number] 19:24:00 Test Item Value Reference Range Interpretation Comments POC-GLUCOSE METER 204 mg/dL 70-110 H TESTED AT [place] [address] (BEAKER) (test code = [facility] 1538) [address] BLOOD GAS, [id number] 18:09:00 Test Item Value Reference Range Interpretation [...] (test code = 1819) 40.0 % POTASSIUM-STAT [id number] 18:07:00 Test Item Value Reference Range Interpretation Comments POTASSIUM (BEAKER) (test code = 4.6 meq/L 3.6-5.5 379) URINE PROTEIN ELECTROPHORESIS, [id number] 17:57:00 Test Item Value Reference Range Interpretation Comments PROTEIN, URINE 276 mg/dL 0-14 H (BEAKER) (test code = 1569) ALBUMIN URINE ELP 63.2 % (BEAKER) (test code = 1018) GAMMA GLOBULIN URINE 36.8 % (BEAKER) (test code = 1015) UPEP, ID-438 (BEAKER) No monoclonal bands (test code = 2604) detected. [id number] Ping Chiang MD ([facility]) (test code = (electronic signature) 2605) PROTEIN ELECTROPHORESIS, [id number] 17:52:00 Test Item Value Reference Range Interpretation [...] with (BEAKER) (test code = acute inflammatory 2615) response. No monoclonal bands detected. [id number] Ping Chiang MD ([facility]) (test code = (electronic signature) 0596) PROTEIN TOTAL SERUM, 5.4 gm/dL 6.0-8.3 L SPEP (BEAKER) (test code = 2660) BASIC METABOLIC [id number] 16:44:00 Test Item Value Reference Range Interpretation [...] m DATA TO CALCULA TE ESTIMATED GFR. [id number] 16:43:00 Test Item Value Reference Range Interpretation Comments MAGNESIUM (BEAKER) (test code = 2.0 mg/dL 1.6-2.6 627) [id number] 16:32:00 Test Item Value Reference Range Interpretation Comments POTASSIUM (BEAKER) (test code = 5.4 meq/L 3.5-5.1 H 379) Done at stat lab.[id number] 16:31:00 Test Item Value Reference Range Interpretation Comments GLUCOSE RANDOM (BEAKER) (test code 189 mg/dL 70-105 H = 652) Done at stat lab.BLOOD GAS, [id number] 16:28:00 Test Item Value Reference Range Interpretation [...] (BEAKER) (test code = 1819) 60.0 % [id number] 16:12:00 Test Item Value Reference Range Interpretation Comments SODIUM (BEAKER) (test code = 381) 140 meq/L 136-145 [id number] 16:12:00 Test Item Value Reference Range Interpretation Comments GLUCOSE RANDOM (BEAKER) (test code 189 mg/dL 70-105 H = 652) [id number] 16:12:00 Test Item Value Reference Range Interpretation Comments MAGNESIUM (BEAKER) 2.0 mg/dL 1.6-2.6 Specimen slightly (test code = 627) hemolyzed [id number] 16:12:00 Test Item Value Reference Range Interpretation Comments PHOSPHORUS (BEAKER) 3.7 mg/dL 2.3-4.7 Specimen slightly (test code = 604) hemolyzed LACTIC ACID, ARTERIAL, WHOLE [id number] 16:02:00 Test Item Value Reference Range Interpretation Comments LACTATE BLOOD ARTERIAL (2) 0.7 mmol/L 0.5-2.2 (BEAKER) (test code = 2874) Effective 09/26/2015: Units/Reference Range ChangeNew: 0.5-2.2 mmol/L Previous: 5-20 mg/dLCBC W/PLT COUNT & AUTO [id number] 15:58:00 Test Item Value Reference Range Interpretation [...] = 2801) RAD, CHEST, 1 VIEW, NON [id number] 15:32:00Reason for exam:->s/p [id number] this be performed at the bedside?->YesFINAL REPORT [...] MDReport Verified Date/Time: 01/11/2018 15:32:16 Reading Location: [facility] Mammo Reading Room GLUCOSE- STAT [id number] 15:19:00 Test Item Value Reference Range Interpretation Comments GLUCOSE RANDOM (BEAKER) (test code 182 mg/dL 70-110 H = 652) HGB/HCT (H&H) - STAT [id number] 15:19:00 Test Item Value Reference Range Interpretation Comments HEMOGLOBIN (BEAKER) (test code = 9.8 g/dL 12.0-15.0 L 410) HEMATOCRIT (BEAKER) (test code = 29.0 % 36.0-45.0 L 411) POTASSIUM-STAT [id number] 15:19:00 Test Item Value Reference Range Interpretation Comments POTASSIUM (BEAKER) (test code = 5.9 meq/L 3.6-5.5 H 379) OXYGEN SATURATION, [id number] 15:18:00 Test Item Value Reference Range Interpretation Comments O2 SATURATION (MEASURED) (BEAKER) 76.7 % (test code = 1455) BLOOD GAS, [id number] 15:18:00 Test Item Value Reference Range Interpretation [...] code = 1819) 60.0 % SODIUM NA-STAT [id number] 15:17:00 Test Item Value Reference Range Interpretation Comments SODIUM (BEAKER) (test code = 381) 141 meq/L 135-148 SODIUM NA-STAT [id number] 13:59:00 Test Item Value Reference Range Interpretation Comments SODIUM (BEAKER) (test code = 381) 135 meq/L 135-148 POTASSIUM-STAT [id number] 13:59:00 Test Item Value Reference Range Interpretation Comments POTASSIUM (BEAKER) (test code = 5.4 meq/L 3.6-5.5 379) BLOOD GAS, [id number] 13:59:00 Test Item Value Reference Range Interpretation [...] (test code = 1819) 100.0 % GLUCOSE-STAT [id number] 13:59:00 Test Item Value Reference Range Interpretation Comments GLUCOSE RANDOM (BEAKER) (test code 170 mg/dL 70-110 H = 652) HGB/HCT (H&H) - STAT [id number] 13:59:00 Test Item Value Reference Range Interpretation Comments HEMOGLOBIN (BEAKER) (test code = 6.1 g/dL 12.0-15.0 L 410) HEMATOCRIT (BEAKER) (test code = 18.0 % 36.0-45.0 L 411) CALCIUM, [id number] 13:59:00 Test Item Value Reference Range Interpretation Comments CALCIUM IONIZED (BEAKER) (test 1.02 mmol/L 1.12-1.27 L code = 698) PH, BLOOD (BEAKER) (test code = 7.28 1810) BLOOD GAS, [id number] 13:26:00 Test Item Value Reference Range Interpretation [...] code = 1819) 70.0 % SODIUM NA-STAT [id number] 13:26:00 Test Item Value Reference Range Interpretation Comments SODIUM (BEAKER) (test code = 381) 159 meq/L 135-148 H GLUCOSE-STAT [id number] 13:26:00 Test Item Value Reference Range Interpretation Comments GLUCOSE RANDOM (BEAKER) (test code 137 mg/dL 70-110 H = 652) HGB/HCT (H&H) - STAT [id number] 13:26:00 Test Item Value Reference Range Interpretation Comments HEMOGLOBIN (BEAKER) (test code = 5.2 g/dL 12.0-15.0 LL 410) HEMATOCRIT (BEAKER) (test code = 15.0 % 36.0-45.0 L 411) BLOOD GAS, [id number] 13:23:00 Test Item Value Reference Range Interpretation [...] (test code = 1819) 70.0 % POTASSIUM-STAT [id number] 13:23:00 Test Item Value Reference Range Interpretation Comments POTASSIUM (BEAKER) (test code = 5.9 meq/L 3.6-5.5 H 379) GLUCOSE-STAT [id number] 13:23:00 Test Item Value Reference Range Interpretation Comments GLUCOSE RANDOM (BEAKER) (test code 168 mg/dL 70-110 H = 652) HGB/HCT (H&H) - STAT [id number] 13:23:00 Test Item Value Reference Range Interpretation Comments HEMOGLOBIN (BEAKER) (test code = 6.6 g/dL 12.0-15.0 L 410) HEMATOCRIT (BEAKER) (test code = 19.0 % 36.0-45.0 L 411) SODIUM NA-STAT [id number] 13:22:00 Test Item Value Reference Range Interpretation Comments SODIUM (BEAKER) (test code = 381) 141 meq/L 135-148 POTASSIUM-STAT [id number] 13:20:00 Test Item Value Reference Range Interpretation Comments POTASSIUM (BEAKER) (test code = 5.0 meq/L 3.6-5.5 379) BLOOD GAS, [id number] 13:08:00 Test Item Value Reference Range Interpretation [...] (test code = 1819) 60.0 % GLUCOSE-STAT [id number] 13:08:00 Test Item Value Reference Range Interpretation Comments GLUCOSE RANDOM (BEAKER) (test code 174 mg/dL 70-110 H = 652) HGB/HCT (H&H) - STAT [id number] 13:08:00 Test Item Value Reference Range Interpretation Comments HEMOGLOBIN (BEAKER) (test code = 5.2 g/dL 12.0-15.0 LL 410) HEMATOCRIT (BEAKER) (test code = 15.0 % 36.0-45.0 L 411) SODIUM NA-STAT [id number] 13:07:00 Test Item Value Reference Range Interpretation Comments SODIUM (BEAKER) (test code = 381) 140 meq/L 135-148 POTASSIUM-STAT [id number] 13:07:00 Test Item Value Reference Range Interpretation Comments POTASSIUM (BEAKER) (test code = 4.9 meq/L 3.6-5.5 379) BLOOD GAS, [id number] 13:02:00 Test Item Value Reference Range Interpretation [...] (test code = 1819) 60.0 % CALCIUM, [id number] 11:45:00 Test Item Value Reference Range Interpretation Comments CALCIUM IONIZED (BEAKER) (test 1.20 mmol/L 1.12-1.27 code = 698) PH, BLOOD (BEAKER) (test code = 7.40 1810) BLOOD GAS, [id number] 11:45:00 Test Item Value Reference Range Interpretation [...] 1819) 100.0 % HGB/HCT (H&H) - STAT [id number] 11:45:00 Test Item Value Reference Range Interpretation Comments HEMOGLOBIN (BEAKER) (test code = 8.9 g/dL 12.0-15.0 L 410) HEMATOCRIT (BEAKER) (test code = 26.0 % 36.0-45.0 L 411) GLUCOSE-STAT [id number] 11:44:00 Test Item Value Reference Range Interpretation Comments GLUCOSE RANDOM (BEAKER) (test code = 93 mg/dL 70-110 652) SODIUM NA-STAT [id number] 11:44:00 Test Item Value Reference Range Interpretation Comments SODIUM (BEAKER) (test code = 381) 146 meq/L 135-148 POTASSIUM-STAT [id number] 11:44:00 Test Item Value Reference Range Interpretation Comments POTASSIUM (BEAKER) (test code = 4.0 meq/L 3.6-5.5 379) HEMOGLOBIN [id number] 08:24:00 Test Item Value Reference Range Interpretation Comments HEMOGLOBIN A1C (BEAKER) (test code = 7.7 % 4.3-6.1 H 368) POCT-GLUCOSE [id number] 06:18:00 Test Item Value Reference Range Interpretation Comments POC-GLUCOSE METER 129 mg/dL 70-110 H TESTED AT [facility] 6720 (BEAKER) (test code = [place] 1538) [address] [id number] 05:10:00 Test Item Value Reference Range Interpretation Comments THYROID STIMULATING HORMONE 0.13 uIU/mL 0.35-4.94 L (BEAKER) (test code = 772) BASIC METABOLIC [id number] 04:58:00 Test Item Value Reference Range Interpretation [...] TO CALCULA TE ESTIMATED GFR. COMPREHENSIVE METABOLIC [id number] 04:58:00 Test Item Value Reference Range Interpretation [...] DATA T O CALCULATE ESTIM ATED GFR. [id number] 04:53:00 Test Item Value Reference Range Interpretation Comments MAGNESIUM (BEAKER) (test code = 2.0 mg/dL 1.6-2.6 627) LIPID [id number] 04:53:00 Test Item Value Reference Range Interpretation [...] 100-129 Borderline 130-159 High 160-189 Very High >=190PT/[id number] 04:46:00 Test Item Value Reference Range Interpretation [...] is 2.5-3.5 for patients with mechanical heart valves.[id number] 04:46:00 Test Item Value Reference Range Interpretation Comments PARTIAL THROMBOPLASTIN TIME 41.3 seconds 22.5-36.0 H (BEAKER) (test code = 760) PROTHROMBIN [id number] 04:45:00 Test Item Value Reference Range Interpretation Comments PROTIME (BEAKER) (test code = 14.2 seconds 11.7-14.7 759) INR (BEAKER) (test code = 370) 1.1 <=5.9 RECOMMENDED COUMADIN/WARFARIN INR THERAPY RANGESSTANDARD DOSE: 2.0 - 3.0 Includes: PROPHYLAXIS forvenous thrombosis, systemic embolization; TREATMENT for venous thrombosis and/or pulmonary embolus.HIGH RISK: Target INR is 2.5-3.5 for patients with mechanical heart valves.[id number] 04:44:00 Test Item Value Reference Range Interpretation Comments MAGNESIUM (BEAKER) (test code = 2.2 mg/dL 1.6-2.6 627) CBC W/PLT COUNT & AUTO [id number] 04:32:00 Test Item Value Reference Range Interpretation [...] PERCENT (BEAKER) (test code = 2801) POCT-GLUCOSE [id number] 04:11:00 Test Item Value Reference Range Interpretation Comments POC-GLUCOSE METER 192 mg/dL 70-110 H TESTED AT [place] [address] [facility] (test code = [facility] [place] 1538) [address] POCT-GLUCOSE [id number] 21:24:00 Test Item Value Reference Range Interpretation Comments POC-GLUCOSE METER 107 mg/dL 70-110 TESTED AT [place] [address] [facility] (test code = [facility] [place] 1538) [address] POCT-GLUCOSE [id number] 17:05:00 Test Item Value Reference Range Interpretation Comments POC-GLUCOSE METER 107 mg/dL 70-110 TESTED AT [place] [address] [facility] (test code = [facility] [place] 1538) [address] POCT-GLUCOSE [id number] 12:13:00 Test Item Value Reference Range Interpretation Comments POC-GLUCOSE METER 133 mg/dL 70-110 H TESTED AT [place] [address] (BEAKER) (test code = [facility] [place] 1538) [address] POCT-GLUCOSE [id number] 07:42:00 Test Item Value Reference Range Interpretation Comments POC-GLUCOSE METER 100 mg/dL 70-110 TESTED AT [place] [address] (BEAKER) (test code = [facility] [place] 1538) [address] BASIC METABOLIC [id number] 05:18:00 Test Item Value Reference Range Interpretation [...] m DATA TO CALCULA TE ESTIMATED GFR. [id number] 05:14:00 Test Item Value Reference Range Interpretation Comments MAGNESIUM (BEAKER) (test code = 2.1 mg/dL 1.6-2.6 627) CBC W/PLT COUNT & AUTO [id number] 04:39:00 Test Item Value Reference Range Interpretation [...] PERCENT (BEAKER) (test code = 2801) POCT-GLUCOSE [id number] 21:30:00 Test Item Value Reference Range Interpretation Comments POC-GLUCOSE METER 145 mg/dL 70-110 H TESTED AT [place] [address] ([facility]) (test code = [facility] 1538) [address] POCT-GLUCOSE [id number] 18:17:00 Test Item Value Reference Range Interpretation Comments POC-GLUCOSE METER 235 mg/dL 70-110 H TESTED AT [place] [address] ([facility]) (test code = [facility] 1538) [address] POCT-GLUCOSE [id number] 12:47:00 Test Item Value Reference Range Interpretation Comments POC-GLUCOSE METER 69 mg/dL 70-110 L Notified Liliana Mobley MD/TESTED AT ([facility]) (test code = [address] 1538) [facility] [address] POCT-GLUCOSE [id number] 09:30:00 Test Item Value Reference Range Interpretation Comments POC-GLUCOSE METER 107 mg/dL 70-110 TESTED AT [place] [address] ([facility]) (test code = [facility] 1538) [address] [id number] 05:52:00 Test Item Value Reference Range Interpretation Comments MAGNESIUM ([facility]) (test code = 2.1 mg/dL 1.6-2.6 627) BASIC METABOLIC [id number] 05:52:00 Test Item Value Reference Range Interpretation [...] ESTIMATED GFR. CBC W/PLT COUNT & AUTO [id number] 04:55:00 Test Item Value Reference Range Interpretation [...] 0-1 PERCENT (BEAKER) (test code = 2801) [id number] 02:57:00 Test Item Value Reference Range Interpretation Comments RPR SCREEN (BEAKER) (test code = Nonreactive Nonreactive 420) POCT-GLUCOSE [id number] 21:28:00 Test Item Value Reference Range Interpretation Comments POC-GLUCOSE METER 143 mg/dL 70-110 H TESTED AT [facility] 67 ([facility]) (test code = [facility] 1538) [address] POCT-GLUCOSE [id number] 16:46:00 Test Item Value Reference Range Interpretation Comments POC-GLUCOSE METER 83 mg/dL 70-110 TESTED AT [facility] 6720 ([facility]) (test code = [facility] Liliana [facility] [address] 1538) POCT-GLUCOSE [id number] 13:12:00 Test Item Value Reference Range Interpretation Comments POC-GLUCOSE METER 94 mg/dL 70-110 TESTED AT [facility] 6720 ([facility]) (test code = [facility] Liliana [facility] [address] 1538) POCT-GLUCOSE [id number] 08:43:00 Test Item Value Reference Range Interpretation Comments POC-GLUCOSE METER 141 mg/dL 70-110 H TESTED AT [facility] 6720 (BEAKER) (test code = [place] 1538) [address] HEPATITIS PANEL, [id number] 07:26:00 Test Item Value Reference Range Interpretation Comments HEPATITIS A IGM ANTIBODY (BEAKER) Nonreactive Nonreactive (test code = 498) HEPATITIS B CORE IGM ANTIBODY Nonreactive Nonreactive (BEAKER) (test code = 645) HEPATITIS C ANTIBODY (BEAKER) Nonreactive Nonreactive (test code = 367) HEPATITIS B SURFACE ANTIGEN (2) Nonreactive Nonreactive (BEAKER) (test code = 2585) HIV-1 ANTIGEN WITH HIV-1/2 [id number] 07:26:00 Test Item Value Reference Range Interpretation Comments HIV-1 ANTIGEN WITH HIV 1\T\2 Nonreactive Nonreactive ANTIBODY (2) (BEAKER) (test code = 2586) BASIC METABOLIC [id number] 06:11:00 Test Item Value Reference Range Interpretation [...] m DATA TO CALCULA TE ESTIMATED GFR. [id number] 06:06:00 Test Item Value Reference Range Interpretation Comments MAGNESIUM (BEAKER) (test code = 2.0 mg/dL 1.6-2.6 627) CBC W/PLT COUNT & AUTO [id number] 05:19:00 Test Item Value Reference Range Interpretation [...] PERCENT (BEAKER) (test code = 2801) POCT-GLUCOSE [id number] 21:18:00 Test Item Value Reference Range Interpretation Comments POC-GLUCOSE METER 169 mg/dL 70-110 H TESTED AT [place] [address] [facility] (test code = [facility] 1538) [address] POCT-GLUCOSE [id number] 19:42:00 Test Item Value Reference Range Interpretation Comments POC-GLUCOSE METER 186 mg/dL 70-110 H TESTED AT [place] [address] ([facility]) (test code = [facility] 1538) [address] POCT-GLUCOSE [id number] 15:16:00 Test Item Value Reference Range Interpretation Comments POC-GLUCOSE METER 69 mg/dL 70-110 L TESTED AT [place] [address] ([facility]) (test code = [facility] [address] 1538) POCT-GLUCOSE [id number] 08:50:00 Test Item Value Reference Range Interpretation Comments POC-GLUCOSE METER 135 mg/dL 70-110 H TESTED AT [place] [address] ([facility]) (test code = [facility] 1538) [address] BASIC METABOLIC [id number] 06:36:00 Test Item Value Reference Range Interpretation [...] m DATA TO CALCULA TE ESTIMATED GFR. [id number] 06:09:00 Test Item Value Reference Range Interpretation Comments MAGNESIUM (BEAKER) (test code = 1.9 mg/dL 1.6-2.6 627) CBC W/PLT COUNT & AUTO [id number] 05:10:00 Test Item Value Reference Range Interpretation [...] (BEAKER) (test code = 2801) U/S, RENAL, [id number] 04:53:00Reason for exam:->acute renal failureShould this be [...] MDReport Verified Date/Time: 01/07/2018 04:53:04 Reading Location: [facility] [address] [place] [address] Reading Room POCT-GLUCOSE [id number] 21:18:00 Test Item Value Reference Range Interpretation Comments POC-GLUCOSE METER 172 mg/dL 70-110 H TESTED AT [facility] 6720 (COLE) (test code = [place] 1538) [address] POCT-GLUCOSE [id number] 17:16:00 Test Item Value Reference Range Interpretation Comments POC-GLUCOSE METER 100 mg/dL 70-110 TESTED AT [facility] 67 (BEAKER) (test code = [facility] 1538) [address] POCT-GLUCOSE [id number] 12:05:00 Test Item Value Reference Range Interpretation Comments POC-GLUCOSE METER 281 mg/dL 70-110 H TESTED AT [place] [address] (BEAKER) (test code = [facility] 1538) [address] POCT-GLUCOSE [id number] 07:33:00 Test Item Value Reference Range Interpretation Comments POC-GLUCOSE METER 113 mg/dL 70-110 H TESTED AT [place] [address] (BEAKER) (test code = [facility] 1538) [address] BASIC METABOLIC [id number] 04:53:00 Test Item Value Reference Range Interpretation [...] m DATA TO CALCULA TE ESTIMATED GFR. [id number] 04:51:00 Test Item Value Reference Range Interpretation Comments MAGNESIUM (BEAKER) (test code = 1.9 mg/dL 1.6-2.6 627) CBC W/PLT COUNT & AUTO [id number] 04:35:00 Test Item Value Reference Range Interpretation [...] PERCENT (BEAKER) (test code = 2801) POCT-GLUCOSE [id number] 21:19:00 Test Item Value Reference Range Interpretation Comments POC-GLUCOSE METER 236 mg/dL 70-110 H TESTED AT [facility] 6720 (BEAKER) (test code = [place] 1538) [address] PROTEIN, RANDOM [id number] 20:35:00 Test Item Value Reference Range Interpretation Comments PROTEIN, URINE (BEAKER) (test code 455 mg/dL 0-14 H = 1569) CREATININE, RANDOM [id number] 20:20:00 Test Item Value Reference Range Interpretation Comments CREATININE URINE (BEAKER) (test 68.6 mg/dL code = 375) Reference Range: No NormalsPOCT-GLUCOSE [id number] 18:05:00 Test Item Value Reference Range Interpretation Comments POC-GLUCOSE METER 217 mg/dL 70-110 H TESTED AT [place] [address] ([facility]) (test code = [facility] 1538) [address] POCT-GLUCOSE [id number] 12:39:00 Test Item Value Reference Range Interpretation Comments POC-GLUCOSE METER 252 mg/dL 70-110 H TESTED AT [place] [address] ([facility]) (test code = [facility] 1538) [address] HEMOGLOBIN [id number] 08:29:00 Test Item Value Reference Range Interpretation Comments HEMOGLOBIN A1C (BEAKER) (test code = 8.2 % 4.3-6.1 H 368) BASIC METABOLIC [id number] 08:18:00 Test Item Value Reference Range Interpretation [...] DATA TO CALCULA TE ESTIMATED GFR. POCT-GLUCOSE [id number] 07:47:00 Test Item Value Reference Range Interpretation Comments POC-GLUCOSE METER 193 mg/dL 70-110 H TESTED AT [facility] 6720 ([facility]) (test code = [place] 1538) [address] HEMOGLOBIN [id number] 07:42:00 Test Item Value Reference Range Interpretation Comments HEMOGLOBIN A1C (BEAKER) (test code = 8.6 % 4.3-6.1 H 368) [id number] 06:12:00 Test Item Value Reference Range Interpretation Comments MAGNESIUM (BEAKER) (test code = 1.7 mg/dL 1.6-2.6 627) [id number] 06:02:00 Test Item Value Reference Range Interpretation Comments THYROID STIMULATING HORMONE 0.14 uIU/mL 0.35-4.94 L ([facility]) (test code = 772) PROTHROMBIN [id number] 05:08:00 Test Item Value Reference Range Interpretation Comments PROTIME ([facility]) (test code = 14.2 seconds 11.7-14.7 759) INR ([facility]) (test code = 370) 1.1 <=5.9 RECOMMENDED COUMADIN/WARFARIN INR THERAPY RANGESSTANDARD DOSE: 2.0 - 3.0 Includes: PROPHYLAXIS forvenous thrombosis, systemic embolization; TREATMENT for venous thrombosis and/or pulmonary embolus.HIGH RISK: Target INR is 2.5-3.5 for patients with mechanical heart valves.[id number] 05:08:00 Test Item Value Reference Range Interpretation Comments PARTIAL THROMBOPLASTIN TIME 30.5 seconds 22.5-36.0 ([facility]) (test code = 760) CBC W/PLT COUNT & AUTO [id number] 05:07:00 Test Item Value Reference Range Interpretation Comments WHITE BLOOD CELL COUNT ([facility]) 8.3 K/ L 3.5-10.5 (test code = 775) RED BLOOD CELL COUNT ([facility]) 2.68 M/ L 3.93-5.22 L (test code = 761) HEMOGLOBIN (AKER) (test code = 7.8 GM/DL 11.2-15.7 L 410) HEMATOCRIT ([facility]) (test code = 23.8 % 34.1-44.9 L [...] (test code = 2801) CT, CHEST, WITH [id number] 00:35:00Reason for exam:->mediastinal mass What is the [...] MDReport Verified Date/Time: 01/05/2018 00:35:47 Reading Location: [facility] C013Y CT Body Reading Room POCT-GLUCOSE [id number] 23:22:00 Test Item Value Reference Range Interpretation Comments POC-GLUCOSE METER 215 mg/dL 70-110 H TESTED AT [place] [address] ([facility]) (test code = [place] 657798) [address] RAD, CHEST, 1 VIEW, NON [id number] 21:44:00Reason for exam:->pre-opShould this be performed at [...] MDReport Verified Date/Time: 01/04/2018 21:44:50 Reading Location: [facility] C013Y CT Body Reading Room PROTEIN, RANDOM [id number] 19:56:00 Test Item Value Reference Range Interpretation Comments PROTEIN, URINE (BEAKER) (test code 372 mg/dL 0-14 H = 1569) CREATININE, RANDOM [id number] 19:44:00 Test Item Value Reference Range Interpretation Comments CREATININE URINE (BEAKER) (test 59.0 mg/dL code = 375) Reference Range: No NormalsSODIUM, RANDOM [id number] 19:44:00 Test Item Value Reference Range Interpretation Comments SODIUM URINE (BEAKER) (test code = 46 meq/L 243) Reference Range: No NormalsURINALYSIS WITH MICROSCOPIC IF [id number] 19:36:00 Test Item Value Reference Range Interpretation [...] 463) SOURCE(BEAKER) (test code = 2795) URINALYSIS [id number] 19:36:00 Test Item Value Reference Range Interpretation Comments RBC UA (BEAKER) (test code = 519) 0 /HPF WBC UA (BEAKER) (test code = 520) 2 /HPF BACTERIA (BEAKER) (test code = Occasional 517) MUCUS (BEAKER) (test code = 1574) Rare SQUAMOUS EPITHELIAL (BEAKER) (test 1 /HPF code = 516) T4, [id number] 18:34:00 Test Item Value Reference Range Interpretation Comments FREE T4 (BEAKER) (test code = 655) 1.25 ng/dL 0.70-1.48 TSH/FREE T4 IF [id number] 17:57:00 Test Item Value Reference Range Interpretation Comments THYROID STIMULATING HORMONE 0.08 uIU/mL 0.35-4.94 L (BEAKER) (test code = 772) [id number] 17:27:00 Test Item Value Reference Range Interpretation Comments MAGNESIUM (BEAKER) (test code = 1.9 mg/dL 1.6-2.6 627) LIPID [id number] 17:27:00 Test Item Value Reference Range Interpretation [...] 130-159 High 160-189 Very High >=190HEPATIC FUNCTION [id number] 17:27:00 Test Item Value Reference Range Interpretation [...] = 50 U/L 6-55 347) COMPREHENSIVE METABOLIC [id number] 17:27:00 Test Item Value Reference Range Interpretation [...] DATA T O CALCULATE ESTIM ATED GFR. [id number] 17:26:00 Test Item Value Reference Range Interpretation Comments PHOSPHORUS (BEAKER) (test code = 3.3 mg/dL 2.3-4.7 604) [id number] 17:20:00 Test Item Value Reference Range Interpretation [...] % 0-1 PERCENT (BEAKER) (test code = 4578)
[2021-09-17] MEDS ORDERED: ONDANSETRON 4 MG/2 ML VIAL ONE (23:03)
[2021-09-17] MEDS ORDERED: FAMOTIDINE 20 MG/2 ML VIAL IV ONE (23:03)
[2021-09-17] MEDS ORDERED: HYDROMORPHONE HCL 1 MG/ML INJ ONE (23:03)
[2021-09-17 23:30] LABS: Absolute Lymphocytes (CBC) 0.5 K/uL (0.7-4.9); Hematocrit 24.1 % (36.0-45.0); Lymphocytes % 4.3 % (15.3-44.8); MPV 7.9 fL (7.6-11.3); RBC Red Blood Cell Count 2.68 M/uL (3.86-4.86)
[2021-09-17 23:36] LABS: Protime INR 0.9
[2021-09-17 23:55] LABS: ALT/SGPT 28 U/L (12-78); AST/SGOT 23 U/L (15-37); Albumin 1.9 g/dL (3.4-5.0); Alkaline Phosphatase 69 U/L (45-117); BUN Blood Urea Nitrogen 100 mg/dL (7-18); Bicarbonate 21 mmol/L (21-32); Bilirubin Total 0.3 mg/dL (0.2-1.0); Glomerular Filtration Rate 10 mL/min (=/>90); Glucose Level 157 mg/dL (74-106); Lipase 314 U/L (73-393); Magnesium 1.9 mg/dL (1.8-2.4); NT PRO-BNP 6948 pg/mL (<125); Potassium 4.2 mmol/L (3.5-5.1); Protein, Total 5.3 g/dL (6.4-8.2); Sodium Level 131 mmol/L (136-145); Troponin High Sensitivity 20.7 pg/mL (<58.9)
[2021-09-18] LABS: Bilirubin Direct < 0.1 mg/dL (0-0.2)
[2021-09-18 00:35] LABS: Blood Morphology Comment NOT SEEN (NOT SEEN); Platelet Estimate ADEQ
[2021-09-18] MEDS ORDERED: PIPERACIL/TAZO 3.375 GM VIAL IV ONE (00:50)
--- NOTE | 2021-09-18 00:50 | EDPHYS ---
Physician Documentation [facility] Name: Elzbieta Higgins Age: 66 yrs Sex: Female : 1955 Arrival Date: 09/17/2021 Time: 22:32 Bed 14 Private MD: ED Physician Roman Neal HPI: 09/17 23:00 This 66 yrs old Female presents to ER via Ambulatory with complaints of cp Abdominal Pain. 23:00 The patient presents with abdominal pain in the upper abdomen. Onset: The cp symptoms/episode began/occurred this morning, about 1000. The symptoms radiate to back. Associated signs and symptoms: Pertinent positives: anorexia, nausea, Pertinent negatives: constipation, diarrhea, fever. The symptoms are described as constant. Severity of pain: in the emergency department the pain is unchanged despite home interventions. 23:00 The patient has experienced a previous episode, approximately 2 months ago. cp Historical: - Allergies: 23:02 No Known Allergies; lp1 - Home Meds: 23:02 glipizide 5 mg Oral tab three times a day [Active]; methimazole 10 mg Oral tab 1 tab lp1 once daily [Active]; atorvastatin 80 mg oral tab 1 tab once daily [Active]; furosemide 40 mg Oral tab 1 tab once daily [Active]; Coreg 25 mg Oral tab 1 tab 2 times per day [Active]; - PMHx: 23:02 CAD; CHF; Diabetes - IDDM; Hypertension; lp1 - PSHx: 23:02 Double Bypass; Eye surgery; lp1 - Immunization history:: Adult Immunizations up to date. - Social history:: Smoking status: Patient denies any tobacco usage or history of. ROS: 23:05 Constitutional: Negative for body aches, chills, fever, poor PO intake. cp 23:05 Eyes: Negative for injury, pain, redness, and discharge. cp 23:05 ENT: Negative for drainage from ear(s), ear pain, sore throat, difficulty swallowing, difficulty handling secretions. 23:05 Cardiovascular: Negative for chest pain, edema, palpitations. 23:05 Respiratory: Negative for cough, shortness of breath, wheezing. 23:05 Abdomen/GI: Positive for abdominal pain, nausea, Negative for vomiting, diarrhea, constipation, black/tarry stool, rectal bleeding. 23:05 Back: Positive for radiated pain. 23:05 : Negative for urinary symptoms. 23:05 Neuro: Negative for altered mental status, dizziness, headache, weakness. 23:05 All other systems are negative. Exam: 23:10 Constitutional: The patient appears alert, awake, non-diaphoretic, non-toxic, well cp developed, well nourished, in obvious pain, uncomfortable. 23:10 Head/Face: Normocephalic, atraumatic. cp 23:10 Eyes: Periorbital structures: appear normal, Conjunctiva: normal, no exudate, no injection, Sclera: no appreciated abnormality, Lids and lashes: appear normal, bilaterally. 23:10 ENT: External ear(s): are unremarkable, Nose: is normal, Mouth: Lips: moist, Oral mucosa: moist, Posterior pharynx: Airway: no evidence of obstruction, patent. 23:10 Neck: ROM/movement: is normal, is supple, without pain, no range of motions limitations. 23:10 Chest/axilla: Inspection: normal, Palpation: is normal, no crepitus, no tenderness. 23:10 Cardiovascular: Rate: normal, Rhythm: regular, Edema: ankle edema, that is moderate, JVD: is not appreciated. 23:10 Respiratory: the patient does not display signs of respiratory distress, Respirations: normal, no use of accessory muscles, no retractions, labored breathing, is not present, Breath sounds: bronchial sounds, that are mild, are heard diffusely. 23:10 Abdomen/GI: Inspection: distension, that is moderate, Bowel sounds: active, all quadrants, Palpation: soft, in all quadrants, severe abdominal tenderness, in all quadrants, voluntary guarding, is elicited in all quadrants. 23:10 Back: CVA tenderness, is absent, vertebral tenderness, is not appreciated. 23:10 Skin: no rash present. 23:10 Neuro: Orientation: to person, place \\T\\ time. Mentation: is normal, Motor: moves all fours, strength is normal, Sensation: is normal. 23:18 ECG was reviewed by the Attending Physician. cp Vital Signs: 23:00 BP 178 / 78; Pulse 81; Resp 20; Temp 97.8(O); Pulse Ox 100% on R/A; Weight 61.23 kg lp1 (R); Height 5 ft. 3 in. (160.02 cm); Pain 10/10; 23:00 BP 172 / 62; Pulse 81; Resp 18; Pulse Ox 100% on R/A; sm5 09/18 00:00 BP 157 / 61; Pulse 77; Resp 17; Pulse Ox 99% on R/A; sm5 01:00 BP 146 / 54; Pulse 75; Resp 18; Pulse Ox 98% on R/A; sm5 03:00 BP 152 / 61; Pulse 78; Resp 17; Pulse Ox 100% on R/A; sm5 09/17 23:00 Body Mass Index 23.91 (61.23 kg, 160.02 cm) lp1 MDM: 09/17 22:47 Patient medically screened. [facility] 09/18 00:15 Physician consultation: Royer Lock MD was called at 00:15, was contacted at 00:15, regarding consult, patient's condition, and will see patient later this morning. would like admission per Dr. Lai Medina. 00:45 Data reviewed: vital signs, nurses notes, lab test result(s), EKG, radiologic studies, cp CT scan, plain films, I have discussed the patient's presentation/case with the attending Emergency Department Physician;. 00:45 Test interpretation: by ED physician or midlevel provider: ECG, plain radiologic cp studies. 09/19 01:02 Physician consultation: Lai Medina. 09/17 22:57 Order name: Basic Metabolic Panel; Complete Time: 00:34 cp 09/18 00:35 Interpretation: Normal except: NA 131; GLUC 157; BUN 100; CRE 4.49; GFR 10; CA 8.0. 09/17 22:57 Order name: CBC with Diff; Complete Time: 00:36 cp 09/17 23:50 Interpretation: Normal except: RBC 2.68; HGB 8.1; HCT 24.1; RDW 16.9; JIL% 90.3; LYM% cp 4.3; NEUT A 9.7; LYMA 0.5. 09/17 22:57 Order name: LFT's; Complete Time: 00:34 cp 09/18 00:35 Interpretation: Normal except: TP 5.3; ALB 1.9; A/G 0.6. 09/17 22:57 Order name: Magnesium; Complete Time: 00:34 cp 09/18 00:36 Interpretation: Abnormal: MG 1.9. cp 09/17 22:57 Order name: NT PRO-BNP; Complete Time: 00:34 cp 09/18 00:35 Interpretation: Abnormal: NT PRO-BNP 6948. cp 09/17 22:57 Order name: PT-INR; Complete Time: 23:50 cp 09/17 22:57 Order name: Troponin HS; Complete Time: 00:34 cp 09/17 22:57 Order name: Lipase; Complete Time: 00:34 cp 09/17 23:05 Order name: Type And Screen; Complete Time: 03:08 cp 09/17 23:37 Order name: Manual Differential; Complete Time: 00:36 EDMS 09/17 23:52 Order name: Lactate; Complete Time: 03:08 cp 09/17 23:52 Order name: Blood Culture Adult (2) cp 09/17 23:52 Order name: Procalcitonin; Complete Time: 03:08 cp 09/18 00:56 Order name: COVID-19 SARS RT PCR (Document "Date of Onset" if Symptomatic) lp1 09/17 22:57 Order name: XRAY Chest (1 view) 09/17 22:57 Order name: EKG; Complete Time: 22:58 cp 09/17 22:57 Order name: Cardiac monitoring; Complete Time: 05:14 cp 09/17 22:57 Order name: EKG - Nurse/Tech; Complete Time: 23:29 cp 09/17 22:57 Order name: IV Saline Lock; Complete Time: 23:29 cp 09/17 22:57 Order name: Labs collected and sent; Complete Time: 23:29 cp 09/17 23:17 Order name: Chest Abd Pelvis Wo Con EDMS 09/18 02:04 Order name: Urine Dipstick-Ancillary; Complete Time: 03:08 EDMS 09/17 22:57 Order name: O2 Per Protocol; Complete Time: 23:29 cp 09/17 22:57 Order name: O2 Sat Monitoring; Complete Time: 23:29 cp 09/18 00:31 Order name: NPO; Complete Time: 01:44 cp 09/18 00:36 Order name: Hoyt; Complete Time: 05:14 cp EC/26 23:18 Rate is 75 beats/min. Rhythm is regular. CT interval is normal. QRS interval is normal. cp QT interval is normal. T waves are Inverted in leads III, aVR. Interpreted by me. Reviewed by me. Administered Medications: 23:15 Drug: Dilaudid (HYDROmorphone) 1 mg Route: IVP; Site: right antecubital; sm5 23:15 Drug: Zofran (Ondansetron) 4 mg Route: IVP; Site: right antecubital; sm5 23:29 Not Given (Patient Refused): Pepcid (famotidine) 20 mg IVP once; dilute with 10 mL 0.9% sm5 NaCl; give over 2 minutes 09/18 00:58 Drug: Zosyn (piperacillin-tazobactam) 3.375 grams Route: IVPB; Infused Over: 60 mins; sm5 Site: right antecubital; 01:48 Drug: ProTONIX (pantoprazole) 40 mg Route: IVP; Site: left upper arm; sm5 01:49 Drug: ProTONIX (pantoprazole) 8 mg/hr Route: IV; Rate: 25 ml/hr; Site: left upper arm; sm5 Disposition Summary: 09/18/21 00:50 Hospitalization Ordered Hospitalization Status: Inpatient Admission cp Provider: Tucker Fajardo cp Condition: Stable cp Problem: new cp Symptoms: have improved cp Bed/Room Type: Standard cp Location: Intensive Care Unit(09/18/21 01:04) lp1 Room Assignment: 7-(09/18/21 01:38) Diagnosis - Chronic or unspecified gastric ulcer with perforation cp Forms: - Medication Reconciliation Form cp - SBAR form cp Addendum: 09/19/2021 07:16 Co-signature as Attending Physician, Roman Neal MD I agree with the assessment and c gallego plan of care. Signatures: Dispatcher [employer] EDMI Melissa Onofre RN RN mw Anderson, Corey, MD MD cha Pena, Laura RN RN lp1 Lai Medina FNP-C GEM SETTER-Cla1 Roman Godinez PA PA cp Mazur, Sarah RN RN sm5 Corrections: (The following items were deleted from the chart) 09/17 23:21 23:15 Angio Aorta For Dissection ordered. [facility] 09/18 01:04 00:50 Telemetry/MedSurg (Inpatient) cp lp1 01:04 00:50 cp lp1 01:38 01:04 [facility] 09/19 01:09/18 00:00 Physician consultation: Royer Lock MD was called at 00:00, was contacted at 00:00, regarding consult, patient's condition, and will see patient later this morning. cp
--- NOTE | 2021-09-18 00:50 | ER ---
Nurse's Notes [facility] Name: Elzbieta Higgins Age: 66 yrs Sex: Female : 1955 Arrival Date: 09/17/2021 Time: 22:32 Bed 14 Private MD: Diagnosis: Chronic or unspecified gastric ulcer with perforation Presentation: 09/17 23:00 Chief complaint: Patient's son or daughter states: Son states patient had sudden onset lp1 of upper abdominal pain, hx of perforation, had surgery on 06/28/21; Also having pain to upper back and right shoulder. Coronavirus screen: At this time, the client does not indicate any symptoms associated with coronavirus-19. Ebola Screen: No symptoms or risks identified at this time. Initial Sepsis Screen: Does the patient meet any 2 criteria? No. Patient's initial sepsis screen is negative. Does the patient have a suspected source of infection? No. Patient's initial sepsis screen is negative. Risk Assessment: Do you want to hurt yourself or someone else? Patient reports no desire to harm self or others. Onset of symptoms was September 17, 2021 at 17:00. 23:00 Method Of Arrival: Ambulatory lp1 23:00 Acuity: YAMILET 2 lp1 Historical: - Allergies: 23:02 No Known Allergies; lp1 - Home Meds: 23:02 glipizide 5 mg Oral tab three times a day [Active]; methimazole 10 mg Oral tab 1 tab lp1 once daily [Active]; atorvastatin 80 mg oral tab 1 tab once daily [Active]; furosemide 40 mg Oral tab 1 tab once daily [Active]; Coreg 25 mg Oral tab 1 tab 2 times per day [Active]; - PMHx: 23:02 CAD; CHF; Diabetes - IDDM; Hypertension; lp1 - PSHx: 23:02 Double Bypass; Eye surgery; lp1 - Immunization history:: Adult Immunizations up to date. - Social history:: Smoking status: Patient denies any tobacco usage or history of. Screenin:33 Abuse screen: Denies threats or abuse. Denies injuries from another. Nutritional sm5 screening: No deficits noted. Tuberculosis screening: No symptoms or risk factors identified. Fall Risk None identified. Assessment: 23:20 General: Appears uncomfortable, Behavior is cooperative. Pain: Complains of pain in sm5 abdomen. Neuro: No deficits noted. Level of Consciousness is awake, alert, obeys commands, Oriented to person, place, time, situation. Cardiovascular: Capillary refill < 3 seconds Patient's skin is warm and dry. Rhythm is sinus rhythm. Respiratory: Airway is patent Trachea midline Respiratory effort is even, unlabored. GI: Bowel sounds present X 4 quads. Abd is soft. 23:32 Reassessment: bilateral leg edema. [facility] 09/18 00:28 Reassessment: No changes from previously documented assessment. Patient and/or family sm5 updated on plan of care and expected duration. Pain level reassessed. 01:30 Reassessment: No changes from previously documented assessment. Patient is alert, 5 oriented x 3, equal unlabored respirations, skin warm/dry/pink. 02:45 Reassessment: No changes from previously documented assessment. Patient and/or family sm5 updated on plan of care and expected duration. Pain level reassessed. Vital Signs: 09/17 23:00 BP 178 / 78; Pulse 81; Resp 20; Temp 97.8(O); Pulse Ox 100% on R/A; Weight 61.23 kg lp1 (R); Height 5 ft. 3 in. (160.02 cm); Pain 10/10; 23:00 BP 172 / 62; Pulse 81; Resp 18; Pulse Ox 100% on R/A; 5 09/18 00:00 BP 157 / 61; Pulse 77; Resp 17; Pulse Ox 99% on R/A; 5 01:00 BP 146 / 54; Pulse 75; Resp 18; Pulse Ox 98% on R/A; 5 03:00 BP 152 / 61; Pulse 78; Resp 17; Pulse Ox 100% on R/A; 5 09/17 23:00 Body Mass Index 23.91 (61.23 kg, 160.02 cm) lp1 ED Course: 09/17 22:32 Patient arrived in ED. bp1 22:47 Roman Godinez PA is PHCP. cp 22:47 Roman Neal MD is Attending Physician. cp 22:52 Delaney Zelaya, EDIN is Primary Nurse. 5 23:00 Arm band placed on. lp1 23:02 Triage completed. lp1 23:09 Inserted saline lock: 18 gauge in right antecubital area, using aseptic technique. jb4 Blood collected. 23:29 Basic Metabolic Panel Sent. sm5 23:29 CBC with Diff Sent. sm5 23:29 LFT's Sent. sm5 23:29 Magnesium Sent. sm5 23:29 PT-INR Sent. sm5 23:29 NT PRO-BNP Sent. sm5 23:30 Troponin HS Sent. sm5 23:32 XRAY Chest (1 view) In Process Unspecified. EDMS 09/18 00:00 Chest Abd Pelvis Wo Con In Process Unspecified. EDMS 00:48 Tucker Fajardo MD is Hospitalizing Provider. cp 01:32 Accessed peripheral vein via ultrasound, utilizing dynamic ultrasound technique bb Powerglide midline 20 g 10 cm to left upper arm with good blood return and flushes easily per hospital protocol. Pt tolerated well.. 03:06 Hoyt cath inserted, using sterile technique, [address], balloon inflated, to sm5 gravity drainage, Patient tolerated well. 03:16 Patient has correct armband on for positive identification. Placed in gown. Bed in low sm5 position. Call light in reach. Side rails up X2. 05:13 No provider procedures requiring assistance completed. Patient admitted, IV remains in sm5 place. Administered Medications: 09/17 23:15 Drug: Dilaudid (HYDROmorphone) 1 mg Route: IVP; Site: right antecubital; 5 23:15 Drug: Zofran (Ondansetron) 4 mg Route: IVP; Site: right antecubital; 5 23:29 Not Given (Patient Refused): Pepcid (famotidine) 20 mg IVP once; dilute with 10 mL 0.9% 5 NaCl; give over 2 minutes 09/18 00:58 Drug: Zosyn (piperacillin-tazobactam) 3.375 grams Route: IVPB; Infused Over: 60 mins; 5 Site: right antecubital; 01:48 Drug: ProTONIX (pantoprazole) 40 mg Route: IVP; Site: left upper arm; 5 01:49 Drug: ProTONIX (pantoprazole) 8 mg/hr Route: IV; Rate: 25 ml/hr; Site: left upper arm; 5 Outcome: 00:50 Decision to Hospitalize by Provider. cp 05:14 Admitted to OR accompanied by nurse, family with patient, via stretcher, with chart, norman5 Report called to Narda 05:14 Condition: stable 05:14 Instructed on the need for admit. 05:15 Patient left the ED. sm5 Signatures: Dispatcher [employer] EDErin Evans, RN RN bb Gauri Pino, RN RN lp1 Roman Godinez PA PA cp Bryson, James RN RN jb4 Antoinette Nguyen Sarah RN RN sm5
[2021-09-18] MEDS ORDERED: NA CHLORIDE 0.9% 100 ML IV ONE (00:51)
[2021-09-18] MEDS ORDERED: PANTOPRAZOLE 40 MG INJ ONE (01:41)
[2021-09-18] MEDS ORDERED: NA CHLORIDE 0.9% 250 ML ONE (01:41)
--- NOTE | 2021-09-18 02:24 | P.HP ---
Certification for Inpatient Patient admitted to: Inpatient With expected LOS: >2 Midnights Patient will require the following post-hospital care: None Practitioner: I am a practitioner with admitting privileges, knowledge of patient current condition, hospital course, and medical plan of care. Services: Services provided to patient in accordance with Admission requirements found in Title 42 Section 412.3 of the Code of Federal Regulations Patient History Date of Service: 09/18/21 Reason for admission: Pneumoperitoneum History of Present Illness: 66-year-old female with history of CKD 4, chronic diastolic congestive heart failure, previous gastric perforation, diabetes metas type II presents emergency department for epigastric pain radiating to her shoulder blades. Patient reports pain began this evening around 5 PM and got worse throughout the evening. Her labs are significant for acute renal failure her creatinine went from baseline around 2 to creatinine of 4.49 BUN of 100 GFR of 10 her troponin was negative procalcitonin elevated 5.65 BNP also elevated 6900 chest x-ray was without any infiltrates or pulmonary edema. CT revealed mild to moderate pneumoperitoneum suspected gastric versus duodenal perforation, ED provider discussed case with general surgery who recommends admission to the hospital service given many comorbid problems and will see in the morning for surgery. Allergies No Known Allergies Allergy (Verified 12/31/17 21:46) Home Medications: Atorvastatin Calcium [Lipitor] 80 mg PO DAILY 03/24/18 carvediloL [Coreg*] 25 mg PO BID 03/24/18 Furosemide [Lasix] 40 mg PO DAILY #30 tablet 03/26/18 Glipizide [Glipizide ER] 5 gm PO AC 06/29/21 methIMAzole [Methimazole] 5 mg PO [id number] 06/29/21 Ciprofloxacin HCl [Cipro 500 MG Tablet] 500 mg PO BID #14 tab 07/02/21 Codeine/APAP [Tylenol W/Codeine #3 tab] 1 tab PO Q6HP PRN #30 tab 07/02/21 Pantoprazole Sodium [Protonix] 40 mg PO BID #60 tablet. 07/02/21 metroNIDAZOLE [Flagyl] 500 mg PO Q8H #21 tablet 07/02/21 - Past Medical/Surgical History Diabetic: Yes -: HTN -: Diabetes type 2insulin-dependent -: Chronic diastolic congestive heart failure -: CKD 4 -: -: C.A. Bypass -: Gastric perforation Psychosocial/ Personal History: Patient lives at home with family - Family History Mother Notes: none Father Notes: none - Social History Smoking Status: Never smoker Alcohol use: No CD- Drugs: No Caffeine use: No Place of Residence: Home Review of Systems 10-point ROS is otherwise unremarkable Gastrointestinal: Nausea, Abdominal Pain Physical Examination - Physical Exam General: Alert, In no apparent distress, Oriented x3 HEENT: Atraumatic, PERRLA, Mucous membr. moist/pink, EOMI, Sclerae nonicteric Neck: Supple, 2+ carotid pulse no bruit, No LAD, Without JVD or thyroid abnormality Respiratory: Clear to auscultation bilaterally, Normal air movement Cardiovascular: Regular rate/rhythm, Normal S1 S2 Capillary refill: <2 Seconds Gastrointestinal: Normal bowel sounds, Tenderness (Mild to moderate epigastric tenderness) Musculoskeletal: No tenderness Integumentary: No rashes Neurological: Normal speech, Normal strength at 5/5 x4 extr, Normal tone, Normal affect - Studies Laboratory Data (last 24 hrs) 09/17/21 23:19: PT 9.9, INR 0.90 09/17/21 23:19: WBC 10.7, Hgb 8.1 L, Hct 24.1 L, Plt Count 257 09/17/21 23:19: Sodium 131 L, Potassium 4.2, BUN 100 H, Creatinine 4.49 H, Gluc ose 157 H, Magnesium 1.9 D, Total Bilirubin 0.3, AST 23, ALT 28, Alkaline Phosphatase 69, Lipase 314 Assessment and Plan - Plan Assessment: Pneumoperitoneum suspected gastric versus duodenal perforationhistory of gastric perforation Acute renal failure-worsening CKD 4 Chronic diastolic congestive heart failure Diabetes mellitus type 2insulin-dependent Normocytic anemia Hypertension Plan: Pneumoperitoneum suspected gastric versus duodenal perforationhistory of gastric perforation: N.p.o., gentle IV fluids, Protonix drip, as needed pain medication and antiemetics, IV antibiotics with Zosyn. Plan for surgery this morning. Appreciate further input from general surgery Acute renal failure-worsening CKD 4: Obtain renal ultrasound, nephrology consulted continue gentle hydration patient may require dialysis during his hospitalization. Chronic diastolic congestive heart failure: Cardiology consulted for additional assistance given acute renal failure, CHF. Diabetes mellitus type 2insulin-dependent: Every 6 hours Accu-Chek, sliding scale insulin. Normocytic anemia: Likely anemia of chronic disease versus acute blood loss anemia, transfuse as necessary. Hypertension: As needed antihypertensive agents. DVT PPX: SCD until advanced by surgery Code status: Full Discharge Plan: Home Plan to discharge in: Greater than 2 days - Advance Directives Does patient have a Living Will: No Does patient have a Durable POA for Healthcare: No - Code Status/Comfort Care Code Status Assessed: Yes (Full code) Critical Care: No Time Spent Managing Pts Care (In Minutes): 55
[2021-09-18] MEDS ORDERED: NA CHLORIDE 0.9% 1,000 ML IV SCH (02:51)
[2021-09-18] MEDS ORDERED: PIPER TAZO 3.375 GM in NA CHLORIDE 0.9% 100 ML IV SCH (02:51)
[2021-09-18] MEDS ORDERED: PANTOPRAZOLE INJ 80 MG in NA CHLORIDE 0.9% 250 ML IV SCH (02:51)
[2021-09-18] MEDS ORDERED: HYDROMORPHONE HCL 1 MG/ML INJ IV PRN (02:51)
[2021-09-18] MEDS ORDERED: HYDROMORPHONE HCL 1 MG/ML INJ ONE (02:57)
[2021-09-18] MEDS ORDERED: ONDANSETRON 4 MG/2 ML VIAL ONE ×2 (04:19→06:32)
[2021-09-18] MEDS: ONDANSETRON 4 MG/2 ML VIAL IV PRN (04:22)
[2021-09-18 05:11] LABS: Absolute Lymphocytes (CBC) 0.4 K/uL (0.7-4.9); Hematocrit 22.4 % (36.0-45.0); MPV 7.8 fL (7.6-11.3)
[2021-09-18 05:20] LABS: Albumin 1.8 g/dL (3.4-5.0); Bilirubin Total 0.3 mg/dL (0.2-1.0); Potassium 4.2 mmol/L (3.5-5.1); Protein, Total 5.3 g/dL (6.4-8.2)
[2021-09-18] MEDS ORDERED: NA CHLORIDE 0.9% 1,000 ML ONE (05:25)
[2021-09-18] MEDS ORDERED: SUCCINYLCHOLINE 20 MG/ML (10 ML) IV ONE (05:47)
[2021-09-18] MEDS ORDERED: FENTANYL CITR 250 MCG/5 ML ONE (05:50)
[2021-09-18] MEDS ORDERED: propofoL 200 MG/20 ML VIAL IV ONE (05:50)
[2021-09-18] MEDS ORDERED: ROCURONIUM 50 MG/5 ML VIAL IV ONE (05:50)
--- NOTE | 2021-09-18 05:51 | P.CNS ---
Date of Consult: 09/18/21 Reason for consult: Abdominal pain History of present illness: Patient is a 66-year-old female presents to the emergency room with acute onset of epigastric pain radiating to the back associated with nausea. She had a perforated gastric ulcer which I took care of back in June of this year. She was advised to go to a GI doctor for follow- up. She did go see a GI doctor but was awaiting cardiac clearance prior to endoscopy. Family is unsure whether the patient has been on proton pump inhibitors or not. She denies any sore throat, runny nose, cough, dizziness, headaches, chest pain or fever or chills. She denies diarrhea or constipation or blood in her stool. She denies hematuria or dysuria. Review of systems: Otherwise unremarkable Past medical history: Chronic kidney disease, coronary artery disease, congestive heart failure Past surgical history: , CABG, repair of gastric perforation Allergies: None Social history: She denies smoking or drinking Family history: Noncontributory Vital signs: Stable, afebrile Physical exam: Awake, alert and oriented x3, Irish-speaking Head and neck exam: Cranial nerves II through XII grossly within normal limits, throat clear, neck supple, no neck masses Chest: Clear Heart: S1-S2 Abdomen: Soft, distended, hypoactive bowel sounds, diffuse tenderness with r ebound mostly in the upper abdomen Extremity: Neurovascular intact, nontender Neuro: Nonfocal Diagnostic data: CT of the abdomen, pelvis and chest shows pneumoperitoneum with the likely source being a proximal duodenal ulcer perforation or distal gastric perforation. Laboratory data reviewed. Patient's H&H is low and BUN and creatinine are high. Patient is also acidotic. Assessment: Pneumoperitoneum and peritonitis likely secondary to a perforated duodenal ulcer Plan/recommendation: Admit, n.p.o., IV fluids, IV antibiotics, proton pump inhibitors and to the OR for exploratory laparotomy, possible bowel resection, possible ostomy and repair of duodenal perforated ulcer. CC:
[2021-09-18] MEDS: INSULIN -REGULAR HUMAN 50 UNIT/0.5 ML ML SQ SCH ×4 (06:00→23:24)
[2021-09-18] MEDS ORDERED: NEOSTIGMINE 1 MG/ML -5 ML ONE (06:22)
[2021-09-18] MEDS ORDERED: GLYCOPYRROLATE 0.2 MG/ML SYR ONE (06:23)
[2021-09-18] MEDS ORDERED: EPHEDRINE SULF 50 MG/ML VIAL ONE (06:28)
[2021-09-18] MEDS ORDERED: dexAMETHasone 10 MG/ML VIAL ONE (06:32)
--- NOTE | 2021-09-18 07:00 | P.OP ---
Date of Service: 09/18/21 Preop diagnosis: Pneumoperitoneum and peritonitis Postop diagnosis: Same, perforated duodenal ulcer Procedure performed: Exploratory laparotomy, John patch repair of perforated duodenal ulcer Surgeon: Royer Lock MD Boiler Coverer Helper: Mariah CHOWDARY Estimated blood loss: Minimal Specimen: None Findings: As above Anesthesia: General Complications: None Drains: None Fluids and blood products: Not applicable Disposition: Recovery room Operative note: Patient brought to the OR and placed in the supine position. General anesthesia begun and patient prepped and draped in usual sterile fashion. Then a epigastric midline incision made from below the xiphoid process towards the umbilicus utilizing a 15 blade. Subcutaneous tissue divided and fascia identified and divided. Peritoneal cavity entered with pneumoperitoneum being evacuated at the time of entrance. Exploratory laparotomy revealed the following findings stomach contents in the epigastric region just below the left lobe of the liver. Some fibrinous exudate present around that area. Some fluid in the right upper quadrant and left upper quadrant as well as the pelvis. Stomach itself was within normal limits. At the pylorus in the beginning of the duodenum there was a 1 cm ulcer that was perforated. There was fibrinous exudate and induration around this area. Remainder of the small intestine and large intestine and pelvic organs were within normal limits. The omentum was identified and a flap was created with LigaSure. Then a John patch was performed over the ulcer. 3-0 silk was utilized in a clockwise fashion to secure the omentum around the perforated ulcer. Complete coverage of the ulcer was accomplished. NG tube was examined and it was in the proper place. Entire peritoneal cavity was irrigated with warm fluid. Effluent was clear. No evidence of bowel injury or bleeding was noted. All counts were correct. #2 nylon was used to close the fascia. Subcutaneous wounds irrigated and bleeding controlled with cautery. 3-0 chromic used to reapproximate subcutaneous tissue and elva used to close skin. Sterile dressing applied and patient awakened. Patient taken to recovery room in good general condition. CC:
--- NOTE | 2021-09-18 07:19 | RAD REPORT ---
EXAM DESCRIPTION: US - Renal Ultrasound-Complete - 09/18/2021 4:15 am CLINICAL HISTORY: arf COMPARISON: Renal Ultrasound-Complete dated 01/01/2018; Chest Abd Pelvis Wo Con dated 09/17/2021 FINDINGS: Both kidneys are normal in size, shape and echotexture. The right kidney measures 8.6 cm. 16 mm right renal cyst. Echogenic lesion along the interpolar aspec t of the right kidney measuring 1.8 cm that is unchanged. This corresponds with an angiomyolipoma on the CT. The left kidney measures 8.6 cm. No hydronephrosis, focal mass or perinephric fluid. The bladder is decompressed and not evaluated. IMPRESSION: No evidence of hydronephrosis. Right-sided angiomyolipoma.
[2021-09-18] MEDS: MORPHINE 4 MG/ML SYR ONE ×2 (07:21→07:26)
--- NOTE | 2021-09-18 08:54 | P.PN ---
Subjective Date of Service: 09/18/21 Chief Complaint: Pneumoperitoneum Subjective: No new changes (Status post exploratory laparotomy this morning) Physical Examination - Vital Signs Temperature: 97.5 F Blood Pressure: 171/55 Pulse: 80 Respirations: 18 Pulse Ox (%): 98 - Studies Laboratory Data (last 24 hrs) 09/17/21 23:19: PT 9.9, INR 0.90 09/17/21 23:19: WBC 10.7, Hgb 8.1 L, Hct 24.1 L, Plt Count 257 09/17/21 23:19: Sodium 131 L, Potassium 4.2, BUN 100 H, Creatinine 4.49 H, Glucose 157 H, Magnesium 1.9 D, Total Bilirubin 0.3, AST 23, ALT 28, Alkaline Phosphatase 69, Lipase 314 Assessment And Plan Physician Review: Patient Assessed, Agree with Above Assessment and Plan Physician Review Additional Text: 09/18/21 08:54 Exploratory laparotomy, John patch repair of perforated duodenal ulcer Physical Exam General: Alert, drowsy but arousable , NG tube insitu HEENT: Atraumatic, PERRLA, Mucous membr. moist/pink, EOMI, Sclerae nonicteric Neck: Supple, no JVD or thyroid abnormality Respiratory: Clear to auscultation bilaterally, Normal air movement Cardiovascular: Regular rate/rhythm, Normal S1 S2 Capillary refill: <2 Seconds Gastrointestinal: Normal bowel sounds, Tenderness (Mild to moderate epigastric tenderness) Musculoskeletal: No tenderness Integumentary: No rashes Neurological: Normal speech, Normal strength at 5/5 x4 extr, Normal tone, Normal affect Assessment and Plan Pneumoperitoneum/peritonitisdue to gastric ulcer with perforationstatus post John patch repair Acute renal failure-worsening CKD 4 Chronic diastolic congestive heart failure Diabetes mellitus type 2insulin-dependent Normocytic anemia Hypertension Plan: Pneumoperitoneum suspected gastric versus duodenal perforationhistory of gastric perforation: Status post patch repair now s/p prior not on PPI 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
[2021-09-18] MEDS: HYDROMORPHONE HCL 1 MG/ML INJ IV PRN (09:53)
--- NOTE | 2021-09-18 10:54 | P.CNS ---
Chief Complaint: Pneumoperitoneum History of Present Illness: Patient with a history of hypertension, diabetes type 2, CKD stage III/IV who was evaluated for left-sided abdominal pain found to have perforated viscus and intra-abdominal compartment. She underwent emergent surgery and there was repair of perforated viscus. Creatinine was noted to be up at 4.5 from baseline of about 2 raising concern. Nephrology was consulted for management recommendation. She also had significant elevation of BUN. No significant concerns for nausea vomiting or diarrhea reported. Allergies No Known Allergies Allergy (Verified 12/31/17 21:46) Home Medications: Atorvastatin Calcium [Lipitor] 80 mg PO DAILY 03/24/18 carvediloL [Coreg*] 25 mg PO BID 03/24/18 Furosemide [Lasix] 40 mg PO DAILY #30 tablet 03/26/18 Glipizide [Glipizide ER] 5 gm PO AC 06/29/21 methIMAzole [Methimazole] 5 mg PO [id number] 06/29/21 Ciprofloxacin HCl [Cipro 500 MG Tablet] 500 mg PO BID #14 tab 07/02/21 Codeine/APAP [Tylenol W/Codeine #3 tab] 1 tab PO Q6HP PRN #30 tab 07/02/21 Pantoprazole Sodium [Protonix] 40 mg PO BID #60 tablet. 07/02/21 metroNIDAZOLE [Flagyl] 500 mg PO Q8H #21 tablet 07/02/21 - Past Medical/Surgical History Diabetic: Yes -: HTN -: Diabetes type 2insulin-dependent -: Chronic diastolic congestive heart failure -: CKD 4 -: -: C.A. Bypass -: Gastric perforation Psychosocial/ Personal History: Patient lives at home with family - Family History Mother Notes: none Father Notes: none - Social History Alcohol use: No CD- Drugs: No Caffeine use: No Place of Residence: Home Review of Systems General: Weakness, Malaise Eyes: Unremarkable ENT: Unremarkable Respiratory: Unremarkable Cardiovascular: Unremarkable Gastrointestinal: As per HPI Genitourinary: Unremarkable Musculoskeletal: Unremarkable Neurological: Unremarkable Physical Examination Temp Pulse Resp BP Pulse Ox 97.5 F 80 18 178/63 H 94 09/18/21 08:56 09/18/21 09:15 09/18/21 09:53 09/18/21 09:15 09/18/21 09:53 General: Alert HEENT: Atraumatic, Normocephalic Neck: Supple Respiratory: Normal air movement Cardiovascular: Regular rate/rhythm, Normal S1 S2 Gastrointestinal: Hypoactive Neurological: Normal speech, Normal strength at 5/5 x4 extr Laboratory Data (last 24 hrs) 09/17/21 23:19: PT 9.9, INR 0.90 09/17/21 23:19: WBC 10.7, Hgb 8.1 L, Hct 24.1 L, Plt Count 257 09/17/21 23:19: Sodium 131 L, Potassium 4.2, BUN 100 H, Creatinine 4.49 H, Glucose 157 H, Magnesium 1.9 D, Total Bilirubin 0.3, AST 23, ALT 28, Alkaline Phosphatase 69, Lipase 314 Conclusions/Impression: Perforated viscus Sepsis CKD stage V CONSTANCE on CKD Suspected urinary Sepsis Plan: Elevated creatinine and BUN raising concern for ischemic ATN on top of CKD as she does have significant BUN elevation of 100 and creatinine of 4.5. Hydration has been started postsurgery. Will monitor closely. Continue empiric antibiotic for sepsis management. Will continue IV hydration and monitor renal function. There is significant concern for possible progression of CKD secondary to diabetes and hypertension We will follow labs while admitted.
[2021-09-18] MEDS: PIPER TAZO 3.375 GM in NA CHLORIDE 0.9% 100 ML IV SCH ×2 (12:25→23:24)
--- NOTE | 2021-09-18 13:24 | ECHO ---
HEIGHT: 5 ft 3 in WEIGHT: 134 lb 9.6 oz DATE OF STUDY: 09/18/[address]: Rolo Keane MD 2-DIMENSIONAL: YES M.MODE: YES DOPPLER: YES COLOR FLOW: YES TDS: NO PORTABLE: YES DEFINITY: NO BUBBLE STUDY: NO DIAGNOSIS: CORONARY ARTERY DISEASE CARDIAC HISTORY: CATHERIZATION: YES SURGERY: NO PROSTHETIC VALVE: NO PACEMAKER: NO MEASUREMENTS (cm) DIASTOLIC (NORMALS) SYSTOLIC (NORMALS) IVSd 1.3 (0.6-1.2) LA Diam 3.7 (1.9-4.0) LVEF 60% LVIDd 3.3 (3.5-5.7) LVIDs 2.3 (2.0-3.5) %FS 31% LVPWd 1.3 (0.6-1.2) Ao Diam 2.6 (2.0-3.7) 2 DIMENSIONAL ASSESSMENT: RIGHT ATRIUM: NORMAL LEFT ATRIUM: NORMAL RIGHT VENTRICLE: NORMAL LEFT VENTRICLE: NORMAL TRICUSPID VALVE: NORMAL MITRAL VALVE: NORMAL PULMONIC VALVE: NORMAL AORTIC VALVE: NORMAL PERICARDIAL EFFUSION: NONE AORTIC ROOT: NORMAL LEFT VENTRICULAR WALL MOTION: NORMAL. DOPPLER/COLOR FLOW: MILD MITRAL AND TRICUSPID REGURGITATION. COMMENTS: MILD MITRAL AND TRICUSPID REGURGITATION. NORMAL LEFT VENTRICULAR SIZE AND FUNCTION. NO EFFUSION. TECHNOLOGIST: BRUNILDA SOTO
--- NOTE | 2021-09-18 15:29 | RAD REPORT ---
EXAM DESCRIPTION: CT - Chest Abd Pelvis Wo Con - 09/18/2021 6:59 am ADDENDUM #1 These findings were communicated to Dr. Roman Neal on 09/18/2021 12:29 AM. (LAN/WAN ENGINEER) Electronically signed by: Chris Cain MD 09/18/2021 1:04 AM CDT End of Addendum EXAM DESCRIPTION: Chest Abd Pelvis Wo Con CLINICAL HISTORY: 66 years Female, abdominal pain TECHNIQUE: Helical CT axial images are obtained from the thoracic inlet to the pubic symphysis witho ut IV contrast. No oral contrast was administered. Multiplanar reconstruction. This exam was pe rformed according to our departmental dose-optimization program, which includes automated exposure co ntrol, adjustment of the mA and/or kV according to patient size and/or use of iterative reconstructio n technique. COMPARISON: None. FINDINGS: CHEST: LUNGS: Linear scarring bilateral lower lobes, lingula and right middle lobe.. No atelectasis or con solidation. No pulmonary masses or suspicious nodules. MEDIASTINUM: With the left lobe with substernal extension containing multiple nodules mostly calcifie d. No abnormally enlarged mediastinal or hilar lymph nodes. PLEURA: Minimal right pleural effusion. No left pleural effusion. No pneumothorax. CARDIAC: Normal heart size. Poststernotomy/CABG. No pericardial effusion. VASCULAR: Thoracic aorta is normal in caliber without aneurysm. Mild ASVD. The pulmonary vasculature demonstrates no significant dilatation. CHEST WALL: Chest wall is intact. No abnormal axillary lymphadenopathy. ABDOMEN/PELVIS: LIVER: Normal in size. Normal attenuation. No focal masses. HEPATOBILIARY: Unremarkable gallbladder. No intra- or extrahepatic ductal dilatation. SPLEEN: Normal size. PANCREAS: Normal size and contour. No focal mass. ADRENAL GLANDS: Normal size. No adrenal masses. KIDNEYS: No obstructing calculi or hydronephrosis bilaterally. Moderate bilateral renal vascular ca lcifications. No nephrolithiasis. Right lower pole 1.3 cm simple cyst, no further workup is warranted . BOWEL AND MESENTERY: Mild to moderate pneumoperitoneum. Site of rupture is either from the proximal d uodenum versus distal stomach. There is marked wall thickening of the distal stomach, pylorus, and pr oximal duodenum including the duodenal cap. No small or large bowel dilatation. No colonic diverticul osis. Normal appendix. No abnormal mesenteric lymphadenopathy. No free fluid. RETROPERITONEUM: ormal caliber abdominal aorta without aneurysm. Severe ASVD. No abnormal retroperi toneal lymphadenopathy. PELVIS: Urinary bladder is unremarkable. Uterus and adnexal structures are unremarkable. ABDOMINAL WALL: Small fat-containing right inguinal hernia. BONES: No suspicious osseous lytic or blastic lesions seen. IMPRESSION: 1. Mild to moderate pneumoperitoneum. Source of perforation is related to the right up per quadrant GI tract most likely a perforated duodenal ulcer and less likely perforated gastric ulce r. Marked wall thickening of the distal stomach, pylorus, and proximal duodenum including the duodena l cap. 2. No free fluid. 3. Minimal right pleural effusion. Otherwise, no other acute cardiopulmonary disease. 4. Partially seen enlarged multinodular goiter. Electronically signed by: Chris Cain MD 09/18/2021 12:36 AM CDT Due to temporary technical issues with the PACS/Fluency reporting system, reports are being signed by the in house radiologists without review as a courtesy to insure prompt reporting. The interpreting radiologist is fully responsible for the content of the report.
--- NOTE | 2021-09-18 15:30 | RAD REPORT ---
EXAM DESCRIPTION: RAD - Chest Single View - 09/17/2021 11:30 pm CLINICAL HISTORY: 66 years Female, ABDOMINAL DISTENTION COMPARISON: CT chest, abdomen and pelvis performed on 09/17/2021 at 11:50 PM TECHNIQUE: Single portable x-ray view of the chest performed on 09/17/2021 at 11:19 PM FINDINGS: The lungs are well-expanded and are grossly clear. There may be minimal fibrosis or atelec tasis in the lung bases. There is no evidence of a pneumothorax. The cardiac silhouette is normal in size and configuration. There are remote postsurgical changes of the mediastinum. The mediastinal contours are normal. No acute osseous abnormality is identified. No acute soft tissue abnormalities are seen. There is a calcified mass at the level of the thoracic i nlet consistent with a calcified multinodular goiter as confirmed on the prior CT chest. There may be vascular calcifications along the neck bilaterally. Lines and tubes: None. Free air: There is a lucency beneath the right hemidiaphragm concerning for free intraperitoneal air confirmed on a recent CT abdomen and pelvis. IMPRESSION: 1. No evidence of acute intrathoracic disease. There may be minimal fibrosis or atelec tasis in the lung bases. 2. Lucency beneath the right hemidiaphragm concerning for free intraperitoneal air confirmed on a r ecent CT abdomen and pelvis. 3. Calcified multinodular goiter. Electronically signed by: Quin Howard DO 09/18/2021 1:03 AM CDT Due to temporary technical issues with the PACS/Fluency reporting system, reports are being signed by the in house radiologists without review as a courtesy to insure prompt reporting. The interpreting radiologist is fully responsible for the content of the report.
[2021-09-18] MEDS: D5 0.45 NS 1,000 ML IV SCH (15:36)
[2021-09-18] MEDS: PANTOPRAZOLE INJ 80 MG in NA CHLORIDE 0.9% 250 ML IV SCH (16:38)
[2021-09-18] MEDS ORDERED: PNEUMOCOCCAL VACCINE 0.5 ML IMVAC ONE (18:00)
--- NOTE | 2021-09-19 00:06 | CON ---
Date of Consultation: 09/18/2021 Reason For Consultation: Cardiac clearance for surgery and pneumoperitoneum. History Of Present Illness: Ms. Higgins is a 66-year-old who has a history of CABG x2, congestive h eart failure, chronic diastolic, diabetes, hypertension, and dyslipidemia. She came in with a perfor ated duodenal ulcer. I was asked to see her because of elevated BNP, hypertension, anemia, and a cre atinine of 4.43. No cardiac symptoms reported at this point. The patient underwent the surgery luz maria gently successfully with a patch of duodenal ulcer perforation. Past Medical History: As stated above. Allergies: UNKNOWN. Review of Systems: Negative. Social History: Negative. Family History: Not obtainable. Medications: At home include Flagyl, Lipitor, Lasix, glipizide, Coreg, and Protonix. Physical Examination: General: The patient is intubated, postop. No evidence of arrhythmias, sinus rhythm, afebrile, norm otensive. HEENT: Negative. Neck: Supple with no bruit. Chest: Clear. Cardiac: Exam revealed an S4 gallop. Regular rhythm. Abdomen: Status post surgery. Extremities: Revealed no edema. Diagnostic Data: As stated earlier. Impression And Plan: 1.Acute renal failure. 2.Anemia status post duodenal ulcer perforation, status post repair successful. 3.Elevated BNP. 4.Hypertension, poorly controlled. 5.History of chronic diastolic congestive heart failure. Echocardiogram is pending. 6.Coronary artery disease, status post coronary artery bypass graft. 7.Diabetes, well controlled. 8.Dyslipidemia, well controlled. The patient needs to resume her medication once she is able to take p.o. Nephrology consultation has been obtained. We will see what her echo shows. I will continue to follow. ENRIQUETA/MODL Voice ID: [id number] Report ID: [id number]
[2021-09-19] MEDS: PANTOPRAZOLE INJ 80 MG in NA CHLORIDE 0.9% 250 ML IV SCH ×3 (01:34→22:44)
[2021-09-19] MEDS: HYDROMORPHONE HCL 1 MG/ML INJ IV PRN ×3 (02:28→22:42)
[2021-09-19 05:20] LABS: Absolute Lymphocytes (CBC) 0.3 K/uL (0.7-4.9); Hematocrit 22.1 % (36.0-45.0); Lymphocytes % 2.7 % (15.3-44.8); RBC Red Blood Cell Count 2.43 M/uL (3.86-4.86)
[2021-09-19 05:37] LABS: Albumin 1.5 g/dL (3.4-5.0); Bilirubin Total 0.2 mg/dL (0.2-1.0); Phosphorus 6.9 mg/dL (2.5-4.9); Potassium 4.8 mmol/L (3.5-5.1); Protein, Total 5.2 g/dL (6.4-8.2)
[2021-09-19] MEDS: INSULIN -REGULAR HUMAN 50 UNIT/0.5 ML ML SQ SCH ×3 (05:39→18:00)
--- NOTE | 2021-09-19 06:40 | P.PN ---
Date of Service: 09/19/21 Subjective: Patient is awake and alert with no pain. Patient is passing minimal amount of flatus. Objective: Vitals are stable and she is afebrile NG tube has put out 150 cc Laboratory data reviewed. H&H is stable. Albumin is 1.5. BUN and creatinine remain elevated. Abdomen: Soft, nondistended, hypoactive bowel sounds with minimal incisional tenderness. Dressing is clean dry and intact. Assessment: Status post John patch repair of a perforated duodenal ulcer in a patient with multiple medical problems. Plan: Clinically the patient is stable enough to be transferred to the floor if it is okay with the medical team. Consideration should be given to parenteral nutrition as her nutritional status is poor. Continue IV antibiotics and proton pump inhibitor. Encourage ambulation with physical therapy as well as the use of incentive spirometry. Patient is clinically improving slowly. CC:
[2021-09-19] MEDS ORDERED: ENOXAPARIN 30 MG/0.3 ML SQ SCH (09:00)
[2021-09-19] MEDS ORDERED: ALBUMIN HUMAN 25% 200 ML IV ONE (11:00)
[2021-09-19] MEDS: PIPER TAZO 3.375 GM in NA CHLORIDE 0.9% 100 ML IV SCH (11:47)
[2021-09-19] MEDS: D5 0.45 NS 1,000 ML IV SCH (11:50)
[2021-09-19 12:27] LABS: Urine Appearance SL CLOUDY (Clear); Urine Bilirubin Negative (Negative); Urine Blood Negative (Negative); Urine Color Yellow (Yellow); Urine Glucose Negative (Negative); Urine Microscopic Reflex ORDER UMIC; Urine Protein 3+ (Negative); Urine Urobilinogen 0.2 mg/dL (0.2-1.0); Urine pH 5.5 (5.0-7.0)
[2021-09-19 12:44] LABS: Urine Bacteria 20-50 /HPF (<20); Urine RBC NONE SEEN /HPF (NONE SEEN); Urine Yeast MANY (NONE SEEN)
--- NOTE | 2021-09-19 12:49 | P.PN ---
Subjective Date of Service: 09/19/21 Chief Complaint: Pneumoperitoneum, perforated gastric ulcer with surgical closure Subjective: Improving (Feels much better and is without complaint in ICU.) Physical Examination - Vital Signs Temperature: 97.3 F Blood Pressure: 158/63 Pulse: 71 Respirations: 12 Pulse Ox (%): 95 - Physical Exam General: Alert, In no apparent distress, Oriented x3, Cooperative HEENT: Atraumatic, Normocephalic, PERRLA, EOMI Neck: Supple Respiratory: Normal air movement Cardiovascular: Normal pulses Gastrointestinal: Tenderness (post-op tenderness) Neurological: Normal speech, Normal strength at 5/5 x4 extr Assessment And Plan - Current Problems (Diagnosis) (1) Gastric ulcer Current Visit: Yes Status: Acute (2) Gastric perforation Current Visit: No Status: Acute - Plan REC: 1) EGD in 2-3 months after surgical clearance 2) will sign off. Call if needed Physician Review: Patient Assessed, Agree with Above Assessment and Plan
--- NOTE | 2021-09-19 13:54 | PN ---
Date of Progress Note: 09/19/2021 Ms. Higgins underwent a duodenal ulcer perforation patch repair yesterday by Dr. Lock successfully. Echocardiogram was normal. She has a history of CABG, diabetes, dyslipidemia, hypertension, and ch ronic diastolic congestive heart failure, although her echocardiogram did not show that she is not in congestive heart failure. She is clinically stable. Her vital signs are normal. She is in normal rhythm. Her hemoglobin now is 7.4. Creatinine is 4.69. She is still making a decent urine output. and Dr. Fajardo and Dr. Lock are following her. I do not have anything to add. F rom a cardiac standpoint, she is stable hemodynamically. No arrhythmias. No CHF. I will sign off h er case for now. I will be available for questions if the need arises. ENRIQUETA/EMILY Voice ID: [id number] Report ID: [id number]
--- NOTE | 2021-09-19 14:45 | P.PN ---
Subjective Date of Service: 09/19/21 Chief Complaint: Pneumoperitoneum, perforated gastric ulcer with surgical closure Subjective: No new changes, No C/O voiced, Improving (, Feels better States minimal abdominal pain Still NG tube in situ) Physical Examination - Vital Signs Temperature: 97.3 F Blood Pressure: 164/55 Pulse: 73 Respirations: 12 Pulse Ox (%): 95 Assessment And Plan Physician Review: Patient Assessed, Agree with Above Assessment and Plan Physician Review Additional Text: 09/18/21 08:54 Exploratory laparotomy, John patch repair of perforated duodenal ulcer Physical Exam General: Alert, awake and conversant, NG tube insitu HEENT: Atraumatic, PERRLA, Mucous membr. moist/pink, EOMI, Sclerae nonicteric Neck: Supple, no JVD or thyroid abnormality Respiratory: Clear to auscultation bilaterally, Normal air movement Cardiovascular: Regular rate/rhythm, Normal S1 S2 Capillary refill: <2 Seconds Gastrointestinal: Normal bowel sounds, abdominal binder in situ Musculoskeletal: No tenderness Integumentary: No rashes Neurological: Normal speech, Normal strength at 5/5 x4 extr, Normal tone, Normal affect Assessment and Plan Pneumoperitoneum/peritonitisdue to gastric ulcer with perforationstatus post John patch repair Perforated gastric ulcerrecurrent H. pylori infection PPI nonadherence Acute renal failure-worsening CKD 3nonoliguric Metabolic acidosis Hypoalbuminemiadue to GI perforation Chronic diastolic congestive heart failure Diabetes mellitus type 2insulin-dependent Normocytic anemia and postsurgical Hypertension Plan: Clinically improving Add IV hydralazine for blood pressure control Still elevated creatinine at 4.6, correct acidosis Switch IVF to sodium bicarb Agree with surgical recommendation for PPN Continue n.p.o./NG tube. Gastric drainage Continue PPI IV Continue empiric antibiotics with Zosyn for peritonitis as well as H. pylori infection Appreciate surgery and GI evaluationfollow-up plan for EGD in 3 weeks when cleared by surgery Patient making urine well, no urgent need for replacement therapyobtain urine studies for fractional excretion of sodium Dose albumin today to optimize intravascular volume Continue insulin with Accu-Cheks Continue to monitor H&Hrelatively stable at 8.2 with DVT PPX: SCD until advanced by surgery Code status: Full 09/19/21 14:41 Time Spent Managing PTS Care (In Minutes): 30
[2021-09-19] MEDS: WATER FOR INJ,STERILE 1,000 ML with NA BICARB 8.4% 150 MEQ IV SCH ×2 (16:09)
--- NOTE | 2021-09-19 16:50 | P.PN ---
Subjective Date of Service: 09/19/21 Chief Complaint: Pneumoperitoneum, perforated gastric ulcer with surgical closure Subjective: No new changes, Improving Physical Examination - Vital Signs Temperature: 97.2 F Blood Pressure: 156/59 Pulse: 85 Respirations: 13 Pulse Ox (%): 92 - Physical Exam General: Alert HEENT: Atraumatic, Normocephalic Neck: Supple Respiratory: Normal air movement Cardiovascular: Regular rate/rhythm, Normal S1 S2 Gastrointestinal: Soft and benign Neurological: Normal speech Assessment And Plan - Plan Perforated viscusstatus post repair Sepsis CKD stage V Sepsis Plan: Creatinine continues to be significantly elevated at 4.6 this morning. BUN is in the 100s. Urine output is not very encouraging. Her vitals are stable as Minitran pressures greater than 65 mmHg. Continue to monitor symptomatology. At this point if anuria/oliguria persists, we will consider renal replacement therapy. We will discuss with family about thought process and possibilities. Will continue to follow symptomatology and urine output. We will dose medications for estimated glomerular filtration and avoid exposure to nephrotoxins. Physician Review: Patient Assessed, Agree with Above Assessment and Plan
[2021-09-19] MEDS: AA 4.25 %/D5W/ELECTROLYTES 2,000 ML IV SCH (17:27)
[2021-09-19] MEDS ORDERED: D50W 25 GM/50 ML SYRINGE IV PRN (17:42)
[2021-09-19] MEDS: D10W 250 ML BAG IV PRN (17:53)
[2021-09-20] MEDS: PIPER TAZO 3.375 GM in NA CHLORIDE 0.9% 100 ML IV SCH ×2 (00:31→13:23)
[2021-09-20] MEDS: HYDROMORPHONE HCL 1 MG/ML INJ IV PRN ×6 (04:06→23:45)
[2021-09-20 05:38] LABS: Absolute Lymphocytes (CBC) 0.4 K/uL (0.7-4.9); Lymphocytes % 3.4 % (15.3-44.8); MPV 7.8 fL (7.6-11.3); RBC Red Blood Cell Count 2.18 M/uL (3.86-4.86)
[2021-09-20 05:47] LABS: Hematocrit 19.8 % (36.0-45.0)
[2021-09-20 05:52] LABS: Albumin 1.9 g/dL (3.4-5.0); Bilirubin Total 0.3 mg/dL (0.2-1.0); Potassium 4.1 mmol/L (3.5-5.1); Protein, Total 5.2 g/dL (6.4-8.2)
[2021-09-20] MEDS: INSULIN -REGULAR HUMAN 50 UNIT/0.5 ML ML SQ SCH ×4 (06:00→17:52)
[2021-09-20] MEDS ORDERED: NA CHLORIDE 0.9% 250 ML IV SCH (06:00)
[2021-09-20] MEDS: D10W 250 ML BAG IV PRN (06:14)
--- NOTE | 2021-09-20 07:23 | P.PN ---
Subjective Date of Service: 09/20/21 Chief Complaint: Pneumoperitoneum, perforated gastric ulcer with surgical closure Subjective: No new changes Physical Examination - Vital Signs Temperature: 97.3 F Blood Pressure: 154/85 Pulse: 99 Respirations: 23 Pulse Ox (%): 94 - Physical Exam General: Alert, Oriented x3 HEENT: Atraumatic, Normocephalic Neck: Supple Respiratory: Normal air movement Cardiovascular: Regular rate/rhythm, Normal S1 S2 Gastrointestinal: Soft and benign Musculoskeletal: Swelling Neurological: Normal speech Assessment And Plan - Plan Perforated viscusstatus post repair Sepsis CKD stage V Sepsis Plan: Creatinine continues to be significantly elevated at 4.75 this morning. BUN is in the 100s. Urine output is now better at 850ml in the last 24hrs after albumin administration. we will dose albumin 25g q6hr for the next 24hrs and start lasix 20mg IV BID for volume management. Will continue to follow symptomatology and urine output. We will dose medications for estimated glomerular filtration and avoid exposure to nephrotoxins. Physician Review: Patient Assessed, Agree with Above Assessment and Plan
--- NOTE | 2021-09-20 07:49 | EKG ---
Test Date: 2021-09-17 Test Time: 23:11:13 Card Puncher: VY MEASUREMENT RESULTS: Intervals: Rate: 75 NE: 174 QRSD: 100 QT: 396 QTc: 442 Waldorf: P: 51 NE: 174 QRS: -7 T: 26 INTERPRETIVE STATEMENTS: Normal sinus rhythm Normal ECG Compared to ECG 06/28/2021 17:34:57 Myocardial infarct finding no longer present T-wave abnormality no longer present Possible ischemia no longer present Electronically Signed On 09-20-21 07:42:55 CDT by Rolo Keane
[2021-09-20] MEDS: ALBUMIN HUMAN 25% 100 ML IV SCH ×3 (08:00→19:47)
--- NOTE | 2021-09-20 09:05 | P.PN ---
Date of Service: 09/20/21 Subjective: Patient is awake and alert with no pain. Patient is having flatus. No nausea or vomiting is present at this time Objective: Vitals are stable and she is afebrile NG tube has put out 200 cc Laboratory data reviewed. H&H is slightly lower, no change in renal functions Abdomen: Soft, nondistended, hypoactive bowel sounds with minimal incisional tenderness. Dressing is clean dry and intact. Assessment: Status post John patch repair of a perforated duodenal ulcer in a patient with multiple medical problems. Plan: Patient is clinically stable at this time. Patient may need 1 unit of blood. We will discussed with the medical team regarding that prospect. Continue IV antibiotics, proton pump inhibitors, PPN and NG tube. We will get a CT of the abdomen pelvis with Gastrografin on Thursday to assure that ulcer is healing well. Then we will decide whether to proceed with oral intake at that time. CC:
[2021-09-20] MEDS: PANTOPRAZOLE INJ 80 MG in NA CHLORIDE 0.9% 250 ML IV SCH ×2 (09:18→19:53)
[2021-09-20] MEDS: ONDANSETRON 4 MG/2 ML VIAL IV PRN (10:48)
[2021-09-20] MEDS: FUROSEMIDE 20 MG/ 2ML VIAL IV SCH ×2 (10:48→17:01)
[2021-09-20] MEDS: HYDRALAZINE HCL 20 MG/ML VIAL IV PRN ×2 (13:23→19:27)
--- NOTE | 2021-09-20 13:32 | RAD REPORT ---
EXAM DESCRIPTION: RAD - Chest Single View - 09/20/2021 1:14 pm CLINICAL HISTORY: Device placement PICC line placement IMPRESSION: PICC line with its tip 2.8 centimeters into the right atrium Feeding tube with its tip near the junction of the gastric body and fundus
[2021-09-20] MEDS: WATER FOR INJ,STERILE 1,000 ML with NA BICARB 8.4% 150 MEQ IV SCH ×2 (14:00)
--- NOTE | 2021-09-20 14:14 | P.PN ---
Subjective Date of Service: 09/20/21 Chief Complaint: Pneumoperitoneum, perforated gastric ulcer with surgical closure Subjective: New changes (Noted with low H&H this morning Receiving 1 unit PRBC now Patient complaining of headache NG tube discomfort as well as nausea NG tube still draining well No bowel movement yet) Physical Examination - Vital Signs Temperature: 97.5 F Blood Pressure: 184/11 Pulse: 100 Respirations: 21 Pulse Ox (%): 95 Assessment And Plan Physician Review: Patient Assessed, Agree with Above Assessment and Plan Physician Review Additional Text: 09/18/21 08:54 Exploratory laparotomy, John patch repair of perforated duodenal ulcer Physical Exam General: Alert, awake and conversant, NG tube insitu HEENT: Atraumatic, PERRLA, Mucous membr. moist/pink, EOMI, Sclerae nonicteric Neck: Supple, no JVD or thyroid abnormality Respiratory: Clear to auscultation bilaterally, Normal air movement Cardiovascular: Regular rate/rhythm, Normal S1 S2 Capillary refill: <2 Seconds Gastrointestinal: Normal bowel sounds, abdominal binder in situ Musculoskeletal: No tenderness, upper extremity edema, none over lower extremity Integumentary: No rashes Neurological: Normal speech, Normal strength at 5/5 x4 extr, Normal tone, Normal affect Assessment and Plan Pneumoperitoneum/peritonitis due to gastric ulcer with perforationstatus post John patch repair Perforated gastric ulcerrecurrent H. pylori infection PPI nonadherence Acute renal failure-worsening CKD 3non-oliguric Metabolic acidosis Hypoalbuminemiadue to GI perforation Chronic diastolic congestive heart failure Diabetes mellitus type 2insulin-dependent Normocytic anemia and post-surgical Hypertension Plan: Clinically improving Anemia may be due to hemodilution Still elevated creatinine although making urine Add clonidine patch for blood pressure control Continue IV hydralazine for blood pressure control Chested hypoglycemia this a.m., switch bicarb drip to include D5 Continue PPN Follow-up plan for CT abdomen with Gastrografin on Thursday Continue NG tube with suction for now IV morphine for pain control/IV Zofran for nausea Continue empiric antibiotics with Zosyn for peritonitis as well as H. pylori infection Appreciate surgery and GI evaluationfollow-up plan for EGD in 3 weeks when cleared by surgery Continue insulin with Accu-Cheks Continue to monitor H&H DVT PPX: SCD until advanced by surgery Code status: Full 09/20/21 14:11
[2021-09-20] MEDS: CLONIDINE 0.1 MG/PATCH TD SCH (15:30)
[2021-09-20] MEDS: AA 4.25 %/D5W/ELECTROLYTES 2,000 ML, Lipids 20% 250 ML with MULTIVITAMINS INJ 10 ML IV SCH ×3 (17:05)
[2021-09-20 20:48] LABS: Hematocrit 24.3 % (36.0-45.0)
[2021-09-20] MEDS ORDERED: LORazepam 2 MG/ML VIAL IV ONE (22:17)
[2021-09-21] MEDS: PIPER TAZO 3.375 GM in NA CHLORIDE 0.9% 100 ML IV SCH ×3 (01:19→23:32)
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
[2021-09-21] MEDS: ALBUMIN HUMAN 25% 100 ML IV SCH (02:00)
[2021-09-21] MEDS: LABETALOL 20 MG/4ML SYRINGE IV PRN ×3 (02:30→21:50)
[2021-09-21] MEDS: PANTOPRAZOLE INJ 80 MG in NA CHLORIDE 0.9% 250 ML IV SCH ×2 (04:13→20:02)
[2021-09-21] MEDS: HYDRALAZINE HCL 20 MG/ML VIAL IV PRN ×2 (04:19→19:45)
[2021-09-21 04:41] LABS: Absolute Lymphocytes (CBC) 0.5 K/uL (0.7-4.9); Hematocrit 22.5 % (36.0-45.0); Lymphocytes % 4.2 % (15.3-44.8); MPV 7.7 fL (7.6-11.3); RBC Red Blood Cell Count 2.56 M/uL (3.86-4.86)
[2021-09-21] MEDS: HYDROMORPHONE HCL 1 MG/ML INJ IV PRN ×4 (04:47→23:35)
[2021-09-21 04:52] LABS: Albumin 2.7 g/dL (3.4-5.0); Bilirubin Total 0.5 mg/dL (0.2-1.0); Potassium 4.5 mmol/L (3.5-5.1); Protein, Total 5.8 g/dL (6.4-8.2)
[2021-09-21] MEDS: INSULIN -REGULAR HUMAN 50 UNIT/0.5 ML ML SQ SCH ×5 (06:00→23:48)
[2021-09-21] MEDS: FUROSEMIDE 20 MG/ 2ML VIAL IV SCH ×2 (08:01→17:00)
[2021-09-21] MEDS ORDERED: BUTORPHANOL 1 MG/ML INJ IV PRN (10:21)
--- NOTE | 2021-09-21 10:59 | P.PN ---
Date of Service: 09/21/21 Subjective: Patient was confused last night and pulled her NG tube out. Patient was trying to pull her IV out and was put in restraints. Objective: Vitals are are significant for elevated blood pressure which is being corrected, afebrile Laboratory data reviewed. H&H came up appropriately after transfusion, renal functions are slightly worse. Abdomen: Soft, nondistended, positive bowel sounds with minimal incisional tenderness. Dressing is clean dry and intact. Assessment: Status post John patch repair of a perforated duodenal ulcer in a patient with multiple medical problems. Plan: I spoke with the hospitalist. Patient is going to require dialysis today. Informed consent obtained via bilingual medical receptionist for Miguel Ángel catheter placement. Has been understood risk, benefits alternatives and agrees to procedure. It is felt that the patient will not require long-term dialysis. We will get a CT of the abdomen and pelvis with Gastrografin tomorrow morning to rule out leak from the repair of the duodenal ulcer that was perforated. After which we may begin oral feeds. Currently, we should continue IV antibiotics and parenteral nutrition as ordered. CC:
[2021-09-21] MEDS ORDERED: NS 0.9% VIAL 10 ML ONE ×2 (11:06→13:07)
[2021-09-21] MEDS ORDERED: HEPARIN 5000 UNIT/ML 1 ML VIAL ONE (11:06)
[2021-09-21] MEDS: BUPIVACAINE 0.5% PF 10 ML VIAL ONE ×2 (11:07→13:42)
[2021-09-21] MEDS ORDERED: NA CHLORIDE 0.9% 0 ML IV ONE (11:07)
[2021-09-21] MEDS ORDERED: LIDOCAINE 1% 20 ML MDV ONE (11:08)
--- NOTE | 2021-09-21 11:45 | P.PN ---
Subjective Date of Service: 09/21/21 Chief Complaint: Pneumoperitoneum, perforated gastric ulcer with surgical closure Subjective: New changes (Overnight became confused and agitated, pulled out NG tube Complain of generalized discomfort. She denies any worsening shortness of breath abdominal dyspneic Admit to increasing hand and face swelling Spouse at bedside discussed with Option of initiating dialysis discussed) Physical Examination - Vital Signs Temperature: 98.3 F Blood Pressure: 209/91 Pulse: 108 Respirations: 16 Pulse Ox (%): 94 Assessment And Plan Physician Review: Patient Assessed, Agree with Above Assessment and Plan Physician Review Additional Text: 09/18/21 08:54 Exploratory laparotomy, John patch repair of perforated duodenal ulcer Physical Exam General: HEENT: Atraumatic, PERRLA, Mucous membr. moist/pink, EOMI, Sclerae nonicteric Neck: Supple, no JVD or thyroid abnormality Respiratory: Clear to auscultation bilaterally, Normal air movement Cardiovascular: Regular rate/rhythm, Normal S1 S2 Capillary refill: <2 Seconds Gastrointestinal: Normal bowel sounds, abdominal binder in situ Musculoskeletal: No tenderness, 3+ upper extremity edema, none over lower extremity Integumentary: No rashes Neurological: Normal speech, Normal strength at 5/5 x4 extr, Normal tone, Normal affect Assessment and Plan Pneumoperitoneum/peritonitis due to gastric ulcer with perforationstatus post John patch repair Perforated gastric ulcerrecurrent H. pylori infection PPI nonadherence Acute renal failure-on CKD IVnon-oliguric Metabolic acidosis Marked fluid overload Hypoalbuminemiadue to GI perforation Chronic diastolic congestive heart failure Diabetes mellitus type 2insulin-dependent Normocytic anemia and post-surgicalstatus post PRBC 1 unit Hypertension Plan: -No uremic with encephalopathy We will wean down opioids pain medication Status post pulled out NG tube, surgery once off NG tube, continue plan for CT with Gastrografin study in a.m. and possible resume p.o. if normal CT Continue PPI drip Since marked fluid overload although making urine as well as progressive azotemia and uremic encephalopathy, need for dialysis discussed with patient and family they were a bit hesitant but later agreeable General surgery for dialysis line placement today Obtain hepatitis panel Initiate dialysis today and repeat in a.m. Expected renal recovery after acute kidney injury resolved Continue clonidine patch Continue IV hydralazine for blood pressure control Continue empiric antibiotics with Zosyn for peritonitis as well as H. pylori infection Appreciate surgery and GI evaluationfollow-up plan for EGD in 3 weeks when cleared by surgery Continue insulin with Accu-Cheks Continue to monitor H&Hstill low despite PRBC 1 unit, repeat PRBC today DVT PPX: SCD until advanced by surgery Code status: Full 09/21/21 11:41 Time Spent Managing PTS Care (In Minutes): 35
[2021-09-21] MEDS ORDERED: NA CHLORIDE 0.9% 500 ML ONE (12:04)
[2021-09-21] MEDS ORDERED: NA CHLORIDE 0.9% 0 ML ONE (13:05)
[2021-09-21] MEDS ORDERED: propofoL 200 MG/20 ML VIAL IV ONE (13:10)
[2021-09-21] MEDS ORDERED: FENTANYL CITR 100 MCG/2 ML ONE (13:10)
[2021-09-21] MEDS ORDERED: LIDOCAINE 1% MPF 5 ML VIAL ONE (13:11)
[2021-09-21 13:22] LABS: Hematocrit 22.9 % (36.0-45.0)
[2021-09-21] MEDS ORDERED: ONDANSETRON 4 MG/2 ML VIAL ONE ×2 (13:56→14:28)
--- NOTE | 2021-09-21 14:08 | P.OP ---
Date of Service: 09/21/21 Preop diagnosis: Acute renal failure Postop diagnosis: Same Procedure performed: Right subclavian Miguel Ángel catheter placement, interpretation of intraoperative fluoroscopy Surgeon: Royer Lock MD Front End Java Developer: None Estimated blood loss: Minimal Specimen: None Findings: As above Anesthesia: MAC Complications: None Drains: None Fluids and blood products: Not applicable Disposition: Recovery room Operative note: Patient brought to the OR and placed in the supine position. MAC anesthesia begun. Marcaine 0.5% infiltrated locally. 18-gauge needle used to access the right subclavian vein. The site was utilized as patient has a very large thyroid goiter, making access via right IJ difficult. Guidewire passed and position confirmed with fluoroscopy. Seldinger technique used and right subclavian vein dilated. Miguel Ángel catheter placed and secured with 3-0 nylon. Tip of the catheter was in the SVC. Catheter flushed with heparin and packed with heparin with good blood flow. Sterile dressing applied. Patient awakened and taken to recovery room in good general condition. Chest x-ray has been ordered. CC:
[2021-09-21] MEDS ORDERED: HYDROMORPHONE HCL 1 MG/ML INJ ONE (14:27)
--- NOTE | 2021-09-21 15:22 | RAD REPORT ---
EXAM DESCRIPTION: RAD - Chest Single View - 09/21/2021 2:45 pm CLINICAL HISTORY: Status post Miguel Ángel catheter placement COMPARISON: Portable chest 09/21/2021 TECHNIQUE: AP portable chest image was obtained 09/21/2021 2:45 pm . FINDINGS: Right-sided Miguel Ángel catheter placement. Tip of the distal arm of the catheter is in the ri ght atrium. Right-sided PICC line is still in place. No pneumothorax identified. Heart and vasculatur e are normal. No new or enlarging pleural fluid collection. Hazy left base pleural and parenchymal op acification have not changed. No acute bony abnormality seen. No acute aortic findings suspected. IMPRESSION: Right-sided Miguel Ángel catheter placement with the tip of the distal arm in the right atriu m. No pneumothorax.
--- NOTE | 2021-09-21 15:40 | RAD REPORT ---
EXAM DESCRIPTION: RAD - Fluoroscopy <1 Hour - 09/21/2021 2:50 pm FINDINGS: Four portable C-arm views were submitted from fluoroscopic assisted placement of a right-s ided Miguel Ángel catheter. No unexpected finding. Fluoro time was 0.2 minutes. Cumulative dose was 3.19 mGy.
[2021-09-21] MEDS: ONDANSETRON 4 MG/2 ML VIAL IV PRN (17:42)
[2021-09-21] MEDS: AA 4.25 %/D5W/ELECTROLYTES 2,000 ML IV SCH (17:42)
--- NOTE | 2021-09-21 20:13 | RAD REPORT ---
EXAM DESCRIPTION: RAD - Chest Single View - 09/21/2021 2:19 am CLINICAL HISTORY: 66 years Female, PICC placement COMPARISON: Chest x-ray and CT chest, abdomen and pelvis performed on 09/17/2021 TECHNIQUE: Single portable x-ray view of the chest performed on 09/21/2021 at 2:00 AM FINDINGS: The lungs are relatively well-expanded. There is elevation of the left hemidiaphragm. Ther e is mild diffuse airspace disease throughout the right lung and left lung base which may be due to e jennifer and/or multifocal pneumonia. Superimposed atelectasis is not excluded. There may be a small left pleural effusion. There is no evidence of a pneumothorax. The cardiac silhouette is normal in size and configuration. There are remote postsurgical changes of the mediastinum. The mediastinal contours are normal. No acute osseous abnormality is identified. No acute soft tissue abnormalities are seen. There is a large calcified left thyroid lobe mass. Lines and tubes: The right upper extremity PICC line catheter tip terminates in the region of the c avoatrial junction. There are multiple overlying carton making machinist leads. Free air: There is a thin lucency beneath the right hemidiaphragm which may represent trace residual free intraperitoneal air. IMPRESSION: 1. Mild diffuse airspace disease throughout the right lung and left lung base which ma y be due to edema and/or multifocal pneumonia. There may be a small left pleural effusion. 2. Elevation of the left hemidiaphragm. 3. Suspect trace residual free intraperitoneal air. 4. Remote median sternotomy. 5. Calcified left thyroid lobe mass. Electronically signed by: Quin Howard DO 09/21/2021 2:46 AM CDT Due to temporary technical issues with the PACS/Fluency reporting system, reports are being signed by the in house radiologists without review as a courtesy to insure prompt reporting. The interpreting radiologist is fully responsible for the content of the report.
[2021-09-22] MEDS: HYDRALAZINE HCL 20 MG/ML VIAL IV PRN ×3 (02:08→20:46)
[2021-09-22] MEDS ORDERED: LORazepam 2 MG/ML VIAL IV ONE ×2 (02:28→19:14)
[2021-09-22] MEDS ORDERED: LORazepam 2 MG/ML VIAL ONE (02:36)
[2021-09-22] MEDS: HYDROMORPHONE HCL 1 MG/ML INJ IV PRN ×2 (04:17→09:01)
[2021-09-22 05:04] LABS: Absolute Lymphocytes (CBC) 0.3 K/uL (0.7-4.9); Hematocrit 21.9 % (36.0-45.0); Lymphocytes % 3.3 % (15.3-44.8); MPV 7.7 fL (7.6-11.3); RBC Red Blood Cell Count 2.51 M/uL (3.86-4.86)
[2021-09-22 05:21] LABS: Albumin 2.2 g/dL (3.4-5.0); Bilirubin Total 0.5 mg/dL (0.2-1.0); Potassium 4.2 mmol/L (3.5-5.1); Protein, Total 5.5 g/dL (6.4-8.2)
[2021-09-22] MEDS: PANTOPRAZOLE INJ 80 MG in NA CHLORIDE 0.9% 250 ML IV SCH ×4 (06:19→18:15)
[2021-09-22] MEDS: INSULIN -REGULAR HUMAN 50 UNIT/0.5 ML ML SQ SCH ×3 (06:25→17:55)
[2021-09-22] MEDS: FUROSEMIDE 20 MG/ 2ML VIAL IV SCH ×2 (09:00→17:59)
[2021-09-22 09:32] LABS: Blood Morphology Comment NOT SEEN (NOT SEEN); Platelet Estimate ADEQ; White Blood Cell Scan OK (OK)
[2021-09-22] MEDS ORDERED: WATER FOR INJ,STERILE 10 ML IM PRN (10:07)
--- NOTE | 2021-09-22 10:25 | P.PN ---
Date of Service: 09/22/21 Subjective: Patient underwent placement of a Miguel Ángel catheter yesterday. Patient had dialysis yesterday. Patient is still confused. Objective: Vitals are are significant for elevated blood pressure which is being corrected, afebrile Laboratory data reviewed. H&H is stable and renal functions have improved slightly Abdomen: Soft, nondistended, positive bowel sounds nontender. Dressing is clean dry and intact. Wound is clean with no evidence of infection. Assessment: Status post John patch repair of a perforated duodenal ulcer in a patient with multiple medical problems. Plan: Patient is going to be dialyzed again today. If she is able to tolerate p.o. liquids, then we can get a CT of the abdomen pelvis with Gastrografin to rule out leak prior to beginning p.o. diet. Continue IV antibiotics, proton pump inhibitor and parenteral nutrition as ordered. CC:
[2021-09-22] MEDS: PIPER TAZO 3.375 GM in NA CHLORIDE 0.9% 100 ML IV SCH (11:55)
--- NOTE | 2021-09-22 12:37 | P.PN ---
Subjective Date of Service: 09/22/21 Chief Complaint: Pneumoperitoneum, perforated gastric ulcer with surgical closure Subjective: New changes (Still intermittently confused overnight Drowsy this morning post sedation Scheduled for CT with Gastrografin study today Tolerated initiation of dialysis yesterday Plan for repeat dialysis today) Physical Examination - Vital Signs Temperature: 97.8 F Blood Pressure: 160/57 Pulse: 104 Respirations: 13 Pulse Ox (%): 97 Assessment And Plan Physician Review: Patient Assessed, Agree with Above Assessment and Plan Physician Review Additional Text: 09/18/21 08:54 Exploratory laparotomy, John patch repair of perforated duodenal ulcer Physical Exam General: HEENT: Atraumatic, PERRLA, Mucous membr. moist/pink, EOMI, Sclerae nonicteric Neck: Supple, no JVD or thyroid abnormality Respiratory: Clear to auscultation bilaterally, Normal air movement Cardiovascular: Regular rate/rhythm, Normal S1 S2 Capillary refill: <2 Seconds Gastrointestinal: Normal bowel sounds, abdominal binder in situ Musculoskeletal: No tenderness, 3+ upper extremity edema, none over lower extremity Integumentary: No rashes Neurological: Drowsy but easily arousable, Assessment and Plan Pneumoperitoneum/peritonitis due to gastric ulcer with perforationstatus post John patch repair Perforated gastric ulcerrecurrent H. pylori infection PPI nonadherence Acute renal failure-on CKD IVnon-oliguricinitiated on dialysis 4/3 0 Metabolic acidosis Marked fluid overload Hypoalbuminemiadue to GI perforation Chronic diastolic congestive heart failure Diabetes mellitus type 2insulin-dependent Normocytic anemia and post-surgicalstatus post PRBC 1 unit Hypertension Metabolic encephalopathydue to acute hospital delirium Plan: -Continue hemodialysis todaysecond session Continue as needed Ativan/Bari for presumed delirium Hold sedation and pain regimen for now, when more awake do trial of Gastrografin intake and CT If no perforation or leak, resume clear liquid diet no uremic with encephalopathy We will wean down opioids pain medication -Status post pulled out NG tube, -Blood pressure still elevated but trending down, transient hypotension during dialysis yesterday Continue clonidine patch Continue IV hydralazine for blood pressure control Continue empiric antibiotics with Zosyn for peritonitis as well as H. pylori infection Appreciate surgery and GI evaluationfollow-up plan for EGD in 3 weeks when cleared by surgery Continue insulin with Accu-Cheks Continue to monitor H&Hstill low despite PRBC 1 unit, repeat PRBC today DVT PPX: SCD until advanced by surgery Code status: Full 09/22/21 12:34
[2021-09-22] MEDS: ALBUMIN HUMAN 25% 200 ML IV ONE ×2 (14:00→15:08)
--- NOTE | 2021-09-22 14:30 | RAD REPORT ---
EXAM DESCRIPTION: CT - Abdomen Wo Contrast CLINICAL HISTORY: r/o duodenal ulcer leak Abdominal pain COMPARISON: Chest Abd Pelvis Wo Con dated 09/17/[address] scans are performed using dose optimization technique as appropriate and may includ e automated exposure control or mA/KV adjustment according to patient size. FINDINGS: Small left and small to moderate right pleural effusion. Mild atelectasis is present in luciano th lung bases, greater on the right. Small amount free air is present in the abdomen. There is noted to be small air bubbles in close prox imity to the anterior wall of the body of the stomach. No contrast is seen outside the stomach. No solid organ abnormality. No bowel obstruction or abscess. No significant bony finding. IMPRESSION: Small amount of pneumoperitoneum is present in the abdomen. There is small extraluminal air collection seen adjacent to the anterior wall of the body of the stomach. If this was the site of gastric perforation, then this would be concerning for a leak. No extraluminal contrast is seen, however the majority oral contrast layers along the the dependent p ortion of the stomach, which may prevent evidence of contrast leakage from an anterior wall defect.
[2021-09-22] MEDS ORDERED: MORPHINE 2 MG/ML SYR IV PRN (14:38)
[2021-09-22] MEDS: ZIPRASIDONE MESYLA 20 MG/VIAL IM PRN (14:48)
[2021-09-22] MEDS: LORazepam 2 MG/ML VIAL IV PRN ×2 (14:48→22:10)
[2021-09-22] MEDS: AA 4.25 %/D5W/ELECTROLYTES 2,000 ML IV SCH (17:58)
[2021-09-23] MEDS: INSULIN -REGULAR HUMAN 50 UNIT/0.5 ML ML SQ SCH ×4 (00:22→18:00)
[2021-09-23] MEDS: PIPER TAZO 3.375 GM in NA CHLORIDE 0.9% 100 ML IV SCH ×2 (00:22→13:41)
[2021-09-23] MEDS: MORPHINE 2 MG/ML SYR IV PRN ×3 (00:34→20:47)
[2021-09-23] MEDS: LABETALOL 20 MG/4ML SYRINGE IV PRN (00:59)
[2021-09-23] MEDS: PANTOPRAZOLE INJ 80 MG in NA CHLORIDE 0.9% 250 ML IV SCH ×2 (05:01→16:40)
[2021-09-23 05:03] LABS: Absolute Lymphocytes (CBC) 0.5 K/uL (0.7-4.9); Hematocrit 21.1 % (36.0-45.0); MPV 7.6 fL (7.6-11.3); RBC Red Blood Cell Count 2.39 M/uL (3.86-4.86)
[2021-09-23] MEDS: HYDRALAZINE HCL 20 MG/ML VIAL IV PRN ×2 (05:07→21:30)
[2021-09-23 05:19] LABS: Albumin 2.8 g/dL (3.4-5.0); Bilirubin Total 0.5 mg/dL (0.2-1.0); Potassium 4.3 mmol/L (3.5-5.1)
[2021-09-23 06:46] LABS: Magnesium 2.1 mg/dL (1.8-2.4); Phosphorus 5.1 mg/dL (2.5-4.9)
[2021-09-23] MEDS: FUROSEMIDE 20 MG/ 2ML VIAL IV SCH ×2 (08:32→16:41)
--- NOTE | 2021-09-23 10:43 | PN ---
Date of Progress Note: 09/23/2021 Subjective: Patient is resting after sedation was given because of anxiousness and she was trying to pull all her IVs out. Objective: Vital Signs: Stable. Blood pressure is 153/53. Heart rate is between 95 and 105. Her temperature is 97.9. General: She has had a couple of bowel movements and not been given any liquids yet because of her m ental condition, but she can try liquids once she is awake. Abdomen: Soft, nondistended, nontender. Positive bowel sounds. Skin: Her wound is clean, dry, and intact. Laboratory Data: Reviewed. White count is 8.3, H and H is 7.1 and 21.1, platelets are 169. Neutrop hil percentage is improving. Chemistry reviewed. Her BUN and creatinine have improved. She is not acidotic anymore and her magnesium and phosphorus are pending. Please note, the CT of the abdomen and pelvis reviewed with Dr. Booth shows air near the surgical repa ir site on the ulcer; however, there was no extravasation of the contrast indicating that there is no radiographic evidence of a leak at this time. The patient does have moderate amount of pleural effu galina on the right side and slightly on the left with atelectasis. Assessment: Status post John patch repair for perforated duodenal ulcer in a patient with multiple medical problems. Recommendation: Begin clear liquids as tolerated when patient is more awake. Evaluate the patient t o make sure that the patient's mental status is addressed and electrolytes are checked and corrected as needed. Nephrology follow up. IV antibiotics and proton pump inhibitor. /MODL Voice ID: [id number] Report ID: [id number]
--- NOTE | 2021-09-23 18:17 | P.PN ---
Subjective Date of Service: 09/23/21 Chief Complaint: Pneumoperitoneum, perforated gastric ulcer with surgical closure Subjective: No new changes (stared on dialysis for metabolic waste management.) Physical Examination - Vital Signs Temperature: 98.7 F Blood Pressure: 172/71 Pulse: 99 Respirations: 22 Pulse Ox (%): 96 - Physical Exam General: Alert, Oriented x3 HEENT: Atraumatic, Normocephalic Neck: Supple Respiratory: Normal air movement Cardiovascular: Regular rate/rhythm, Normal S1 S2 Gastrointestinal: Soft and benign Musculoskeletal: No swelling Neurological: Normal speech - Studies Microbiology Data (last 24 hrs): 09/18/21 00:23 Blood - Blood Aerobic Blood Culture - Final No growth in 5 days. 09/18/21 00:23 Blood - Blood Anaerobic Blood Culture - Final No growth in 5 days. 09/18/21 00:16 Blood - Blood Aerobic Blood Culture - Final No growth in 5 days. 09/18/21 00:16 Blood - Blood Anaerobic Blood Culture - Final No growth in 5 days. Assessment And Plan - Plan Perforated viscusstatus post repair Sepsis CKD stage V Sepsis ESRD on dialysis. Plan: Was started on dialysis 3 days ago. Will complete dialysis initiation today. Monitor renal function closely. Will determine long-term dialysis outlook in the next coming days. We will dose medications for estimated glomerular filtration and avoid exposure to nephrotoxins. Physician Review: Patient Assessed, Agree with Above Assessment and Plan
[2021-09-23] MEDS: AA 4.25 %/D5W/ELECTROLYTES 2,000 ML, Lipids 20% 250 ML with MULTIVITAMINS INJ 10 ML IV SCH ×3 (19:16)
[2021-09-23] MEDS: ZIPRASIDONE MESYLA 20 MG/VIAL IM PRN (22:20)
[2021-09-24] MEDS: MORPHINE 2 MG/ML SYR IV PRN ×3 (00:20→19:50)
[2021-09-24] MEDS: PIPER TAZO 3.375 GM in NA CHLORIDE 0.9% 100 ML IV SCH ×2 (01:00→12:15)
[2021-09-24] MEDS: PANTOPRAZOLE INJ 80 MG in NA CHLORIDE 0.9% 250 ML IV SCH ×2 (01:15→14:21)
[2021-09-24] MEDS: LORazepam 2 MG/ML VIAL IV PRN ×2 (01:18→12:52)
[2021-09-24] MEDS: INSULIN -REGULAR HUMAN 50 UNIT/0.5 ML ML SQ SCH ×4 (02:00→18:08)
[2021-09-24] MEDS: LABETALOL 20 MG/4ML SYRINGE IV PRN (05:48)
[2021-09-24 05:59] LABS: Albumin 2.5 g/dL (3.4-5.0); Bilirubin Total 0.5 mg/dL (0.2-1.0); Potassium 4.6 mmol/L (3.5-5.1); Protein, Total 5.8 g/dL (6.4-8.2)
[2021-09-24] MEDS: FUROSEMIDE 20 MG/ 2ML VIAL IV SCH ×2 (09:18→18:02)
--- NOTE | 2021-09-24 10:43 | P.PN ---
Date of Service: 09/24/21 Subjective: Patient is confused. Patient is sedated. Patient pulled out her PICC line yesterday. Patient has 2 peripheral IVs that are working well. Objective: Vitals are are significant for elevated blood pressure which is being corrected, afebrile Laboratory data reviewed. Her H&H is stable and her renal functions are slightly worse. Phosphorus is slightly elevated. Abdomen: Soft, nondistended, positive bowel sounds nontender. Dressing is clean dry and intact. Wound is clean with no evidence of infection. Assessment: Status post John patch repair of a perforated duodenal ulcer in a patient with multiple medical problems. Plan: I will discuss medical management with Dr. Roe later today. I spoke with the family member regarding LTAC. They will discuss and let us know. We will get social service consult to help us in this process. Continue IV antibiotics, proton pump inhibitor and parenteral nutrition as ordered. CC:
[2021-09-24] MEDS ORDERED: PANTOPRAZOLE 40 MG INJ ONE (12:14)
[2021-09-24] MEDS ORDERED: NA CHLORIDE 0.9% 250 ML ONE (12:28)
--- NOTE | 2021-09-24 13:35 | RAD REPORT ---
EXAM DESCRIPTION: CT - Ct Stroke Brain Wo Cont - 09/24/2021 1:24 pm CLINICAL HISTORY: cva/AMSover several days, no history to indicate 87 or acute alteration. Exam was not called overhead. COMPARISON: Head C Spine Cap Wo Con dated 06/28/2021 TECHNIQUE: Axial 5 millimeter thick images of the head were obtained without IV contrast. All CT scans are performed using dose optimization technique as appropriate and may include automated exposure control or mA/KV adjustment according to patient size. FINDINGS: No intracranial hemorrhage, mass, or cerebral edema. No cortical based infarction is ident ified. There is no cortical edema or sulcal effacement. Volume loss changes are mild. Ventricles are in proportion to any volume loss. Mild chronic ischemic pattern seen in the cerebral white matter. No extra-axial fluid collections. Benoit matter-white matter differentiation is preserved.Arterial and p hysiologic calcifications are present. Visualized portions of the mastoid air cells, paranasal sinuses, and orbits are unremarkable. A small 10 mm calcifications seen along the inner table right frontal bone near the falx. This is bel ieved to be an incidental meningioma. IMPRESSION: No CT evidence of acute intracranial process. Patient has mild atrophy and mild chronic ischemic change. Chronic ischemic change can potentially mask nonhemorrhagic white matter CVA. If there are ongoing cl inical concerns for acute CVA and the patient can tolerate the exam, MRI imaging of the brain could b e performed.
[2021-09-24] MEDS: AA 4.25 %/D5W/ELECTROLYTES 2,000 ML IV SCH (18:02)
[2021-09-24] MEDS: HYDRALAZINE HCL 20 MG/ML VIAL IV PRN (20:28)
[2021-09-25] MEDS: PIPER TAZO 3.375 GM in NA CHLORIDE 0.9% 100 ML IV SCH ×2 (00:06→11:58)
[2021-09-25] MEDS: INSULIN -REGULAR HUMAN 50 UNIT/0.5 ML ML SQ SCH ×4 (00:06→17:57)
[2021-09-25] MEDS: MORPHINE 2 MG/ML SYR IV PRN ×3 (01:43→21:46)
[2021-09-25] MEDS: LORazepam 2 MG/ML VIAL IV PRN (01:54)
[2021-09-25] MEDS ORDERED: LABETALOL 20 MG/4ML SYRINGE IV ONE (02:32)
[2021-09-25] MEDS: LABETALOL 20 MG/4ML SYRINGE IV PRN ×2 (02:35→21:38)
[2021-09-25] MEDS: PANTOPRAZOLE INJ 80 MG in NA CHLORIDE 0.9% 250 ML IV SCH ×3 (02:49→13:46)
[2021-09-25] MEDS: HYDRALAZINE HCL 20 MG/ML VIAL IV PRN ×2 (03:11→08:21)
[2021-09-25 08:20] LABS: Absolute Lymphocytes (CBC) 0.8 K/uL (0.7-4.9); Hematocrit 21.5 % (36.0-45.0); Lymphocytes % 7.6 % (15.3-44.8)
[2021-09-25] MEDS: FUROSEMIDE 20 MG/ 2ML VIAL IV SCH ×2 (08:21→17:21)
[2021-09-25 08:27] LABS: Magnesium 2.4 mg/dL (1.8-2.4); Phosphorus 6.8 mg/dL (2.5-4.9); Potassium 5.2 mmol/L (3.5-5.1)
--- NOTE | 2021-09-25 09:04 | P.PN ---
Date of Service: 09/25/21 Subjective: Patient is resting comfortably. Patient is more awake today following commands. Objective: Vital signs stable, afebrile Laboratory data reviewed. Her white count is normal and H&H is stable and her renal functions are slightly worse. CT of the head does not show any acute changes. Abdomen: Soft, nondistended, positive bowel sounds nontender. Dressing is clean dry and intact. Wound is clean with no evidence of infection. Assessment: Status post John patch repair of a perforated duodenal ulcer in a patient with multiple medical problems. Plan: I will discuss medical management with Dr. Roe later today. I spoke with the family member regarding LTAC. They will discuss and let us know. We will get social service consult to help us in this process. Continue IV antibiotics, proton pump inhibitor and parenteral nutrition as ordered. As the patient is more awake, we will begin clear liquids. CC:
--- NOTE | 2021-09-25 09:52 | P.PN ---
Subjective Date of Service: 09/23/21 Subjective: No new changes, No C/O voiced, Improving Patient with some delirium. Apparently she was doing well neurologically. Patient has been getting Ativan and Geodon. Could be infectious cause. Could be ICU psychosis. May need a couple of days to come out of this. Review of Systems 10-point ROS is otherwise unremarkable Physical Examination - Vital Signs Temperature: 98.5 F Blood Pressure: 197/64 Pulse: 83 Respirations: 23 Pulse Ox (%): 98 - Physical Exam General: Other (Confused but she wakes up and she interacts and answers her family's questions) HEENT: Atraumatic, PERRLA, EOMI Neck: Supple, JVD not distended Respiratory: Clear to auscultation bilaterally, Normal air movement Cardiovascular: Regular rate/rhythm, Normal S1 S2 Gastrointestinal: Hypoactive, Other (Incision is clean dry and intact), Tenderness Musculoskeletal: No tenderness Integumentary: No rashes Neurological: Sensation intact, Cranial nerves 3-12 intact - Studies Medications List Reviewed: Yes Assessment & Plan - Problems (Diagnosis) (1) Status post gastric surgery Current Visit: Yes Status: Acute (2) Psychosis Current Visit: Yes Status: Acute (3) Gastric ulcer Current Visit: Yes Status: Acute (4) Diabetes mellitus Onset Date: 01/01/18 Current Visit: No Status: Acute Qualifiers: Diabetes mellitus type: type 2 Diabetes mellitus long term care social worker insulin use: without long term care social worker use Diabetes mellitus complication status: with unspecified complications (5) Gastric perforation Current Visit: No Status: Acute (6) Hypertensive urgency Onset Date: 01/01/18 Current Visit: No Status: Acute - Plan Plan: 1. Continue with IV antibiotics 2. Continue with IV fluids 3. Minimal medications for delirium 4. Out of bed and ambulate and start working with physical therapy 5. May need CT imaging 6. Monitor H&H 7. Hemodialysis per nephrology-monitor uremia 8. GI and DVT prophylaxis Discharge Plan: Home Plan to discharge in: Greater than 2 days - Advance Directives Does patient have a Living Will: No Does patient have a Durable POA for Healthcare: Yes - Code Status/Comfort Care Code Status Assessed: Yes Code Status: Full Code Physician Review: Patient Assessed, Agree with Above Assessment and Plan Critical Care: No Time Spent Managing PTS Care (In Minutes): 35
--- NOTE | 2021-09-25 09:54 | P.PN ---
Date of Service: 09/24/21 Subjective Date of Service: 09/23/21 Subjective: Patient still delirious. CT imaging pending. Low-dose Seroquel Review of Systems 10-point ROS is otherwise unremarkable Physical Examination - Vital Signs Reviewed - Physical Exam General: Other (Confused but she wakes up and she interacts and answers her family's questions) Respiratory: Clear to auscultation bilaterally, Normal air movement Cardiovascular: Regular rate/rhythm, Normal S1 S2 Gastrointestinal: Hypoactive, Other (Incision is clean dry and intact), Tenderness Musculoskeletal: No tenderness Integumentary: No rashes Neurological: Sensation intact, Cranial nerves 3-12 intact Assessment & Plan - Problems (Diagnosis) (1) Status post gastric surgery Current Visit: Yes Status: Acute (2) Psychosis Current Visit: Yes Status: Acute (3) Gastric ulcer Current Visit: Yes Status: Acute (4) Diabetes mellitus Onset Date: 01/01/18 Current Visit: No Status: Acute Qualifiers: Diabetes mellitus type: type 2 Diabetes mellitus detention insulin use: without detention use Diabetes mellitus complication status: with unspecified complications (5) Gastric perforation Current Visit: No Status: Acute (6) Hypertensive urgency Onset Date: 01/01/18 Current Visit: No Status: Acute - Plan Continue with plan of care as mentioned below: 1. Continue with IV antibiotics 2. Continue with IV fluids 3. Minimal medications for delirium 4. Out of bed and ambulate and start working with physical therapy 5. CT imaging for further evaluation of neurologic status 6. Monitor H&H-transfuse per nephrology during hemodialysis 7. Hemodialysis per nephrology-monitor uremia 8. GI and DVT prophylaxis Discharge Plan: Home Plan to discharge in: Greater than 2 days - Advance Directives Does patient have a Living Will: No Does patient have a Durable POA for Healthcare: Yes - Code Status/Comfort Care Code Status Assessed: Yes Code Status: Full Code Physician Review: Patient Assessed, Agree with Above Assessment and Plan Critical Care: No Time Spent Managing PTS Care (In Minutes): 35
--- NOTE | 2021-09-25 09:55 | P.PN ---
Date of Service: 09/25/21 Subjective Subjective: Still confused. CT head negative. Continue working with therapy. Spoke to me a little bit better today. Hopefully, delirium improving. May need blood transfusion during hemodialysis Review of Systems 10-point ROS is otherwise unremarkable Physical Examination - Vital Signs Reviewed - Physical Exam General: Other (more awake and interacting much better today) Respiratory: Clear to auscultation bilaterally, Normal air movement Cardiovascular: Regular rate/rhythm, Normal S1 S2 Gastrointestinal: Hypoactive, Other (Incision is clean dry and intact), Tenderness Musculoskeletal: No tenderness Integumentary: No rashes Neurological: Sensation intact, Cranial nerves 3-12 intact Assessment & Plan - Problems (Diagnosis) (1) Status post gastric surgery Current Visit: Yes Status: Acute (2) Psychosis Current Visit: Yes Status: Acute (3) Gastric ulcer Current Visit: Yes Status: Acute (4) Diabetes mellitus Onset Date: 01/01/18 Current Visit: No Status: Acute Qualifiers: Diabetes mellitus type: type 2 Diabetes mellitus terminal worker insulin use: without terminal worker use Diabetes mellitus complication status: with unspecified complications (5) Gastric perforation Current Visit: No Status: Acute (6) Hypertensive urgency Onset Date: 01/01/18 Current Visit: No Status: Acute - Plan Continue with plan of care as mentioned below: 1. Continue with IV antibiotics 2. Continue with IV fluids 3. Minimal medications for delirium 4. Out of bed and ambulate and start working with physical therapy 5. CT imaging for further evaluation of neurologic status 6. Monitor H&H-transfuse 2 units during hemodialysis 7. Hemodialysis per nephrology-monitor uremia 8. GI and DVT prophylaxis Discharge Plan: Home Plan to discharge in: Greater than 2 days - Advance Directives Does patient have a Living Will: No Does patient have a Durable POA for Healthcare: Yes - Code Status/Comfort Care Code Status Assessed: Yes Code Status: Full Code Physician Review: Patient Assessed, Agree with Above Assessment and Plan Critical Care: No Time Spent Managing PTS Care (In Minutes): 35
[2021-09-25] MEDS ORDERED: EPOETIN 4,000 UNIT/ML VIAL IV SCH (12:00)
--- NOTE | 2021-09-25 16:05 | P.PN ---
Subjective Date of Service: 09/25/21 Chief Complaint: Pneumoperitoneum, perforated gastric ulcer with surgical closure Subjective: No new changes (renal function is not improving.) Physical Examination - Vital Signs Temperature: 98.8 F Blood Pressure: 171/60 Pulse: 85 Respirations: 23 Pulse Ox (%): 100 - Physical Exam General: Alert, Oriented x3 HEENT: Atraumatic, Normocephalic Neck: Supple Respiratory: Normal air movement Cardiovascular: Regular rate/rhythm, Normal S1 S2 Gastrointestinal: Soft and benign Neurological: Normal speech - Studies Medications List Reviewed: Yes Assessment And Plan - Plan Perforated viscusstatus post repair Sepsis CKD stage V Sepsis ESRD on dialysis. Plan: Completed dialysis initiation 2 days ago. we will continue MWF dialysis session from henceforth as her renal function is perhaps at End Stage. we will discuss with family about permcath placement for ad terminal makeup operator dialysis. Outpt dialysis chair procurement as per case management. We will dose medications for estimated glomerular filtration and avoid exposure to nephrotoxins. Physician Review: Patient Assessed, Agree with Above Assessment and Plan
[2021-09-25] MEDS: AA 4.25 %/D5W/ELECTROLYTES 2,000 ML, Lipids 20% 250 ML with MULTIVITAMINS INJ 10 ML IV SCH ×3 (17:21)
[2021-09-26] MEDS: LORazepam 2 MG/ML VIAL IV PRN ×2 (00:15→06:51)
[2021-09-26] MEDS: PIPER TAZO 3.375 GM in NA CHLORIDE 0.9% 100 ML IV SCH ×2 (00:17→12:05)
[2021-09-26 01:06] LABS: Hematocrit 30.5 % (36.0-45.0)
[2021-09-26] MEDS: HYDRALAZINE HCL 20 MG/ML VIAL IV PRN ×3 (01:42→17:16)
[2021-09-26] MEDS ORDERED: LABETALOL HCL 100 MG/20 ML ONE (03:54)
[2021-09-26] MEDS: MORPHINE 2 MG/ML SYR IV PRN (04:14)
[2021-09-26 05:12] LABS: Absolute Lymphocytes (CBC) 0.6 K/uL (0.7-4.9); Hematocrit 27.2 % (36.0-45.0); MPV 8.1 fL (7.6-11.3); RBC Red Blood Cell Count 3.09 M/uL (3.86-4.86)
[2021-09-26 05:20] LABS: Magnesium 2.1 mg/dL (1.8-2.4); Potassium 3.9 mmol/L (3.5-5.1)
[2021-09-26 05:37] LABS: Blood Morphology Comment NOT SEEN (NOT SEEN); Platelet Estimate ADEQ
[2021-09-26] MEDS: INSULIN -REGULAR HUMAN 50 UNIT/0.5 ML ML SQ SCH ×4 (06:27→17:17)
[2021-09-26] MEDS: PANTOPRAZOLE INJ 80 MG in NA CHLORIDE 0.9% 250 ML IV SCH (07:14)
--- NOTE | 2021-09-26 08:14 | P.PN ---
Date of Service: 09/26/21 Subjective: Patient is resting comfortably. Patient is more awake today following commands. She tolerated 50% of her clear liquids yesterday. She was agitated earlier in the morning and had to be given Ativan. Objective: Vital signs stable, afebrile Laboratory data reviewed. Her H&H came up appropriately after transfusion and her renal functions have improved after dialysis. Abdomen: Soft, nondistended, positive bowel sounds nontender. Dressing is clean dry and intact. Wound is clean with no evidence of infection. Assessment: Status post John patch repair of a perforated duodenal ulcer in a patient with multiple medical problems. Plan: Advance diet as tolerated. Patient can be taken off Protonix drip and converted to IV push. Discussed with the regarding LTAC he is agreeable. Continue antibiotics. Physical therapy. CC:
[2021-09-26] MEDS: FUROSEMIDE 20 MG/ 2ML VIAL IV SCH ×2 (08:43→17:15)
[2021-09-26] MEDS ORDERED: SODIUM CHLORIDE 0.9% 10ML INJ IV PRN (08:55)
[2021-09-26 09:27] LABS: Albumin 2.2 g/dL (3.4-5.0); Prealbumin 12.1 mg/dL (20-40)
[2021-09-26] MEDS ORDERED: ALBUMIN HUMAN 25% 100 ML IV ONE (10:03)
[2021-09-26] MEDS: PANTOPRAZOLE 40 MG INJ IVP SCH ×2 (12:00→21:00)
[2021-09-26] MEDS: PANTOPRAZOLE 40 MG INJ ONE (12:05)
[2021-09-26] MEDS: LABETALOL HCL 100 MG/20 ML IV PRN (13:04)
[2021-09-26] MEDS: AA 4.25 %/D5W/ELECTROLYTES 2,000 ML IV SCH (17:16)
[2021-09-26 19:33] LABS: HBsAG Nonreactive (Nonreactive)
[2021-09-27] MEDS: PIPER TAZO 3.375 GM in NA CHLORIDE 0.9% 100 ML IV SCH ×2 (00:33→12:01)
[2021-09-27] MEDS: INSULIN -REGULAR HUMAN 50 UNIT/0.5 ML ML SQ SCH ×4 (00:34→16:16)
[2021-09-27 05:03] LABS: Absolute Lymphocytes (CBC) 0.8 K/uL (0.7-4.9); Hematocrit 25.6 % (36.0-45.0); Lymphocytes % 7.3 % (15.3-44.8); MPV 8.3 fL (7.6-11.3); RBC Red Blood Cell Count 2.88 M/uL (3.86-4.86)
[2021-09-27 05:21] LABS: Potassium 4.5 mmol/L (3.5-5.1)
[2021-09-27] MEDS: LABETALOL HCL 100 MG/20 ML IV PRN ×2 (05:37→21:33)
[2021-09-27] MEDS: MORPHINE 2 MG/ML SYR IV PRN ×3 (08:24→23:30)
[2021-09-27] MEDS: PANTOPRAZOLE 40 MG INJ IVP SCH ×2 (08:24→20:33)
[2021-09-27] MEDS: FUROSEMIDE 20 MG/ 2ML VIAL IV SCH ×2 (08:24→16:16)
[2021-09-27] MEDS: CLONIDINE 0.1 MG/PATCH TD SCH (08:26)
--- NOTE | 2021-09-27 08:44 | P.PN ---
Date of Service: 09/26/21 Subjective Subjective: Asleep=given ativan 2mg IVP; emil lDC; family mwanting transfer; will discuss with service coordinator elderly facility Review of Systems 10-point ROS is otherwise unremarkable Physical Examination - Vital Signs Reviewed - Physical Exam General: Other (asleep) Respiratory: Clear to auscultation bilaterally, Normal air movement Cardiovascular: Regular rate/rhythm, Normal S1 S2 Gastrointestinal: Hypoactive, Other (Incision is clean dry and intact), Tenderness Musculoskeletal: No tenderness Integumentary: No rashes Neurological: Sensation intact, Cranial nerves 3-12 intact Assessment & Plan - Problems (Diagnosis) (1) Status post gastric surgery Current Visit: Yes Status: Acute (2) Psychosis Current Visit: Yes Status: Acute (3) Gastric ulcer Current Visit: Yes Status: Acute (4) Diabetes mellitus Onset Date: 01/01/18 Current Visit: No Status: Acute Qualifiers: Diabetes mellitus type: type 2 Diabetes mellitus extermination supervisor insulin use: without fdc use Diabetes mellitus complication status: with unspecified complications (5) Gastric perforation Current Visit: No Status: Acute (6) Hypertensive urgency Onset Date: 01/01/18 Current Visit: No Status: Acute - Plan Continue with plan of care as mentioned below: 1. Continue with IV antibiotics 2. Continue with IV fluids 3. Please DC all sedatives 4. Out of bed and ambulate and start working with physical therapy 5. CT imaging brain negative 6. Monitor H&H-transfused 2 units during hemodialysis; Hemoglobin stable 7. Hemodialysis per nephrology-monitor uremia 8. GI and DVT prophylaxis Discharge Plan: Home Plan to discharge in: Greater than 2 days - Advance Directives Does patient have a Living Will: No Does patient have a Durable POA for Healthcare: Yes - Code Status/Comfort Care Code Status Assessed: Yes Code Status: Full Code Physician Review: Patient Assessed, Agree with Above Assessment and Plan Critical Care: No Time Spent Managing PTS Care (In Minutes): 35
--- NOTE | 2021-09-27 09:57 | P.PN ---
Date of Service: 09/27/21 Subjective: Patient is awake and alert. Patient is tolerating full liquid diet. Objective: Vital signs stable, afebrile Laboratory data reviewed. Her H&H are stable, renal function have worsened a little bit. Abdomen: Soft, nondistended, positive bowel sounds nontender. Dressing is clean dry and intact. Wound is clean with no evidence of infection. Assessment: Status post John patch repair of a perforated duodenal ulcer in a patient with multiple medical problems. Patient is clinically improving. Plan: Await renal recommendation regarding the need for permanent catheter for continued dialysis. Patient's family is considering transfer to their physician at [facility] versus LTAC versus inpatient rehabilitation. Once the decision is made, we will respect the patient's family's wishes and proceed accordingly. While the patient is here, if the patient needs a permanent catheter we will place one in. patient can be weaned off the PPN as patient is tolerating diet. Continue proton pump inhibitor and antibiotics. CC:
--- NOTE | 2021-09-27 12:22 | P.PN ---
Subjective Date of Service: 09/27/21 Chief Complaint: Pneumoperitoneum, perforated gastric ulcer with surgical closure Subjective: No new changes, Improving Physical Examination - Vital Signs Temperature: 98.8 F Blood Pressure: 184/76 Pulse: 82 Respirations: 26 Pulse Ox (%): 96 - Physical Exam General: Alert, Oriented x3 HEENT: Atraumatic, Normocephalic Neck: Supple Respiratory: Normal air movement Cardiovascular: Regular rate/rhythm, Normal S1 S2 Gastrointestinal: Soft and benign Musculoskeletal: Swelling Neurological: Normal speech - Studies Medications List Reviewed: Yes Assessment And Plan - Plan Perforated viscusstatus post repair Sepsis CKD stage V Sepsis ESRD on dialysis. Plan: HD session today as per schedule. UF will be 2-3 liters or as tolerated. we will continue MWF dialysis session from henceforth as her renal function is perhaps at End Stage. we will discuss with family about permcath placement for [facility] dialysis. We will dose medications for estimated glomerular filtration and avoid exposure to nephrotoxins. We will watch renal function closely over the weekend. Physician Review: Patient Assessed, Agree with Above Assessment and Plan
[2021-09-27] MEDS: HYDRALAZINE HCL 20 MG/ML VIAL IV PRN (16:14)
[2021-09-27] MEDS: AA 4.25 %/D5W/ELECTROLYTES 2,000 ML, Lipids 20% 250 ML with MULTIVITAMINS INJ 10 ML IV SCH ×3 (18:31)
--- NOTE | 2021-09-27 18:49 | P.PN ---
Date of Service: 09/27/21 Subjective Subjective: Sedatives helped for almost 24 hours. Mentation is stable. Patient following commands. Patient awake and interacting with family much better. Review of Systems 10-point ROS is otherwise unremarkable Physical Examination - Vital Signs Reviewed - Physical Exam General: Clinically doing much better today; neurologically doing much better Respiratory: Clear to auscultation bilaterally, Normal air movement Cardiovascular: Regular rate/rhythm, Normal S1 S2 Gastrointestinal: Hypoactive, Other (Incision is clean dry and intact), minimal tenderness Musculoskeletal: No tenderness Integumentary: No rashes Neurological: Sensation intact, Cranial nerves 3-12 intact Assessment & Plan - Problems (Diagnosis) (1) Status post gastric surgery Current Visit: Yes Status: Acute (2) Psychosis Current Visit: Yes Status: Acute (3) Gastric ulcer Current Visit: Yes Status: Acute (4) Diabetes mellitus Onset Date: 01/01/18 Current Visit: No Status: Acute Qualifiers: Diabetes mellitus type: type 2 Diabetes mellitus long distance billing operator insulin use: without long distance billing operator use Diabetes mellitus complication status: with unspecified complications (5) Gastric perforation Current Visit: No Status: Acute (6) Hypertensive urgency Onset Date: 01/01/18 Current Visit: No Status: Acute - Plan Continue with plan of care as mentioned below: 1. Change to oral antibiotics 2. Advance diet; Hep-Lock IV 3. Discontinue sedatives 4. Out of bed and ambulate and start working with physical therapy 5. CT of the brain was negative 6. Hemoglobin stable; continue with hemodialysis 7. Transfer to long-term facility or rehab 8. GI and DVT prophylaxis Discharge Plan: Home Plan to discharge in: Greater than 2 days - Advance Directives Does patient have a Living Will: No Does patient have a Durable POA for Healthcare: Yes - Code Status/Comfort Care Code Status Assessed: Yes Code Status: Full Code Physician Review: Patient Assessed, Agree with Above Assessment and Plan Critical Care: No Time Spent Managing PTS Care (In Minutes): 35
[2021-09-28] MEDS: PIPER TAZO 3.375 GM in NA CHLORIDE 0.9% 100 ML IV SCH ×2 (00:33→12:17)
[2021-09-28] MEDS: HYDRALAZINE HCL 20 MG/ML VIAL IV PRN ×3 (00:33→18:30)
[2021-09-28] MEDS: INSULIN -REGULAR HUMAN 50 UNIT/0.5 ML ML SQ SCH ×4 (00:34→16:32)
[2021-09-28 06:17] LABS: Absolute Lymphocytes (CBC) 0.8 K/uL (0.7-4.9); Lymphocytes % 6.9 % (15.3-44.8); MPV 8.7 fL (7.6-11.3); RBC Red Blood Cell Count 2.82 M/uL (3.86-4.86)
[2021-09-28 07:14] LABS: ALT/SGPT 21 U/L (12-78); AST/SGOT 21 U/L (15-37); Albumin 2.2 g/dL (3.4-5.0); Alkaline Phosphatase 91 U/L (45-117); BUN Blood Urea Nitrogen 36 mg/dL (7-18); Bicarbonate 25 mmol/L (21-32); Bilirubin Total 0.5 mg/dL (0.2-1.0); Glomerular Filtration Rate 23 mL/min (=/>90); Glucose Level 327 mg/dL (74-106); Potassium 3.8 mmol/L (3.5-5.1); Protein, Total 5.7 g/dL (6.4-8.2); Sodium Level 133 mmol/L (136-145)
[2021-09-28 07:27] LABS: Folic Acid, (Folate) > 20.0 ng/mL (3.1-17.5)
[2021-09-28] MEDS: MORPHINE 2 MG/ML SYR IV PRN (08:46)
[2021-09-28] MEDS: ONDANSETRON 4 MG/2 ML VIAL IV PRN (08:47)
[2021-09-28] MEDS: FUROSEMIDE 20 MG/ 2ML VIAL IV SCH ×2 (08:47→16:32)
[2021-09-28] MEDS: PANTOPRAZOLE 40 MG INJ IVP SCH ×2 (08:47→21:16)
[2021-09-28] MEDS: PANTOPRAZOLE 40 MG INJ ONE (08:47)
--- NOTE | 2021-09-28 09:37 | P.PN ---
Date of Service: 09/28/21 Subjective: Patient is awake and alert. Patient is tolerating diet. She is not hungry today. No nausea or vomiting and no abdominal pain. Patient was dialyzed yesterday. Objective: Vital signs stable, afebrile Laboratory data reviewed. Her H&H are stable, renal function has improved. Abdomen: Soft, nondistended, positive bowel sounds nontender. Dressing is clean dry and intact. Wound is clean with no evidence of infection. Assessment: Status post John patch repair of a perforated duodenal ulcer in a patient with multiple medical problems. Patient is clinically improving. Plan: Continue current management. Follow-up with the nephrology service. Continue working with physical therapy. Continue proton pump inhibitors and IV antibiotics. CC:
[2021-09-28] MEDS: AA 4.25 %/D5W/ELECTROLYTES 2,000 ML IV SCH (16:26)
[2021-09-28] MEDS: HYDROCODONE/APAP 5/325 MG TAB PO PRN (16:43)
[2021-09-29] MEDS: PIPER TAZO 3.375 GM in NA CHLORIDE 0.9% 100 ML IV SCH ×2 (00:07→12:11)
[2021-09-29] MEDS: INSULIN -REGULAR HUMAN 50 UNIT/0.5 ML ML SQ SCH ×4 (00:08→16:42)
[2021-09-29] MEDS: HYDROCODONE/APAP 5/325 MG TAB PO PRN ×3 (02:26→23:23)
[2021-09-29] MEDS: HYDRALAZINE HCL 20 MG/ML VIAL IV PRN ×3 (03:24→16:35)
[2021-09-29] MEDS: FUROSEMIDE 20 MG/ 2ML VIAL IV SCH ×2 (09:07→16:36)
[2021-09-29] MEDS: PANTOPRAZOLE 40 MG INJ IVP SCH ×2 (09:07→21:19)
--- NOTE | 2021-09-29 09:51 | P.PN ---
Date of Service: 09/29/21 Subjective: Patient is awake and alert. Patient is tolerating diet. However, she is not eating much in the morning. Objective: Vital signs stable, afebrilepatient had a BM Laboratory data reviewed. Her H&H are stable Abdomen: Soft, nondistended, positive bowel sounds nontender. Dressing is clean dry and intact. Wound is clean with no evidence of infection. Assessment: Status post John patch repair of a perforated duodenal ulcer in a patient with multiple medical problems. Patient is clinically improving. Plan: Continue current management. Follow-up with the nephrology service. Continue working with physical therapy. Continue proton pump inhibitors and antibiotics. Discharge planning. CC:
[2021-09-29] MEDS: METOPROLOL TAR 25 MG TAB PO SCH ×2 (16:36→16:48)
[2021-09-29] MEDS: AA 4.25 %/D5W/ELECTROLYTES 2,000 ML IV SCH (16:38)
[2021-09-30] MEDS: HYDRALAZINE HCL 20 MG/ML VIAL IV PRN ×2 (00:27→16:35)
[2021-09-30] MEDS: INSULIN -REGULAR HUMAN 50 UNIT/0.5 ML ML SQ SCH ×4 (00:27→18:39)
[2021-09-30] MEDS: HYDROCODONE/APAP 5/325 MG TAB PO PRN ×2 (04:34→15:51)
[2021-09-30] MEDS: LABETALOL HCL 100 MG/20 ML IV PRN (04:35)
[2021-09-30] MEDS ORDERED: cloNIDine HCL 0.1 MG TAB PO ONE (04:54)
--- NOTE | 2021-09-30 04:59 | P.PN ---
Date of Service: 09/28/21 Subjective Subjective: Patient continues to improve since sedatives have been held. Neurologically patient is more awake and alert and interacting appropriately. Continue with physical therapy. Wean off of TPN. Encourage oral intake. Added Nepro to patient's regimen. Review of Systems 10-point ROS is otherwise unremarkable Physical Examination - Vital Signs Reviewed - Physical Exam General: Clinically doing much better today; neurologically doing much better Respiratory: Clear to auscultation bilaterally, Normal air movement Cardiovascular: Regular rate/rhythm, Normal S1 S2 Gastrointestinal: Hypoactive, Other (Incision is clean dry and intact), minimal tenderness Musculoskeletal: No tenderness Integumentary: No rashes Neurological: Sensation intact, Cranial nerves 3-12 intact Assessment & Plan - Problems (Diagnosis) (1) Status post gastric surgery Current Visit: Yes Status: Acute (2) Psychosis Current Visit: Yes Status: Acute (3) Gastric ulcer Current Visit: Yes Status: Acute (4) Diabetes mellitus Onset Date: 01/01/18 Current Visit: No Status: Acute Qualifiers: Diabetes mellitus type: type 2 Diabetes mellitus shelter insulin use: without rat exterminator use Diabetes mellitus complication status: with unspecified complications (5) Gastric perforation Current Visit: No Status: Acute (6) Hypertensive urgency Onset Date: 01/01/18 Current Visit: No Status: Acute - Plan Continue with plan of care as mentioned below: 1. Change to oral antibiotics 2. Advance diet; Hep-Lock IV 3. Discontinue sedatives 4. Out of bed and ambulate and start working with physical therapy 5. CT of the brain was negative 6. Hemoglobin stable; continue with hemodialysis 7. Transfer to retirement facility or rehab 8. GI and DVT prophylaxis Discharge Plan: Home Plan to discharge in: Greater than 2 days - Advance Directives Does patient have a Living Will: No Does patient have a Durable POA for Healthcare: Yes - Code Status/Comfort Care Code Status Assessed: Yes Code Status: Full Code Physician Review: Patient Assessed, Agree with Above Assessment and Plan Critical Care: No Time Spent Managing PTS Care (In Minutes): 35
--- NOTE | 2021-09-30 05:00 | P.PN ---
Date of Service: 09/29/21 Subjective Subjective: Patient is a 66-year-old female who came to the hospital with GI bleeding and had a gastrectomy. Patient developed ICU psychosis. She was given multiple sedatives and her mentation remained poor for many days. Currently patient continues to do well. Patient seen at bedside. Her appetite is still diminished. They are encouraging her to drink the Nepro shakes. We are continuing with physical therapy. She is accepted to LTAC in [place] and hopefully we can get her transferred early this week. She is currently on TPN and needing continued therapy. Neurologically she has improved significantly. Review of Systems 10-point ROS is otherwise unremarkable Physical Examination - Vital Signs Reviewed - Physical Exam General: Clinically doing much better today; neurologically doing much better Respiratory: Clear to auscultation bilaterally, Normal air movement Cardiovascular: Regular rate/rhythm, Normal S1 S2 Gastrointestinal: Hypoactive, Other (Incision is clean dry and intact), minimal tenderness Musculoskeletal: No tenderness Integumentary: No rashes Neurological: No focal deficits Assessment & Plan - Problems (Diagnosis) (1) Status post gastric surgery Current Visit: Yes Status: Acute (2) Psychosis Current Visit: Yes Status: Acute (3) Gastric ulcer Current Visit: Yes Status: Acute (4) Diabetes mellitus Onset Date: 01/01/18 Current Visit: No Status: Acute Qualifiers: Diabetes mellitus type: type 2 Diabetes mellitus mcfp insulin use: without environmental engineering aide use Diabetes mellitus complication status: with unspecified complications (5) Gastric perforation Current Visit: No Status: Acute (6) Hypertensive urgency Onset Date: 01/01/18 Current Visit: No Status: Acute - Plan Continue with plan of care as mentioned below: 1. Change to oral antibiotics 2. Advance diet; added Nepro to regimen; Hep-Lock IV 3. Discontinue sedatives 4. Continue with physical therapy 5. Imaging studies were unremarkable 6. Hemoglobin stable; continue with hemodialysis 7. Transfer to custodial facility or rehab 8. GI and DVT prophylaxis Discharge Plan: Home Plan to discharge in: Greater than 2 days - Advance Directives Does patient have a Living Will: No Does patient have a Durable POA for Healthcare: Yes - Code Status/Comfort Care Code Status Assessed: Yes Code Status: Full Code Physician Review: Patient Assessed, Agree with Above Assessment and Plan Critical Care: No Time Spent Managing PTS Care (In Minutes): 35
[2021-09-30] MEDS: INSULIN GLARGINE 100 UNIT/ML SQ SCH ×2 (06:15→06:16)
[2021-09-30 06:39] LABS: Absolute Lymphocytes (CBC) 0.8 K/uL (0.7-4.9); Hematocrit 26.8 % (36.0-45.0); Lymphocytes % 8.9 % (15.3-44.8); RBC Red Blood Cell Count 2.97 M/uL (3.86-4.86)
[2021-09-30 07:11] LABS: Albumin 2.3 g/dL (3.4-5.0); Bilirubin Total 0.4 mg/dL (0.2-1.0); Magnesium 2.4 mg/dL (1.8-2.4); Phosphorus 6.4 mg/dL (2.5-4.9); Potassium 4.4 mmol/L (3.5-5.1); Protein, Total 6.1 g/dL (6.4-8.2); Thyroid Stimulating Hormone 0.694 uIU/mL (0.360-3.740)
[2021-09-30 07:26] VITALS: BMI 24.1
--- NOTE | 2021-09-30 08:34 | P.PN ---
Subjective Date of Service: 09/30/21 Chief Complaint: Pneumoperitoneum, perforated gastric ulcer with surgical closure Subjective: No new changes, Improving Physical Examination - Vital Signs Temperature: 97.4 F Blood Pressure: 208/98 Pulse: 73 Respirations: 19 Pulse Ox (%): 99 - Physical Exam General: Alert, Oriented x3 HEENT: Atraumatic, Normocephalic Neck: Supple Respiratory: Clear to auscultation bilaterally Cardiovascular: Regular rate/rhythm, Normal S1 S2 Gastrointestinal: Soft and benign Neurological: Normal speech - Studies Medications List Reviewed: Yes Assessment And Plan - Plan Assessment & Plan - Problems (Diagnosis) (1) Status post gastric surgery Current Visit: Yes Status: Acute (2) Psychosis Current Visit: Yes Status: Acute (3) Gastric ulcer Current Visit: Yes Status: Acute (4) Diabetes mellitus Onset Date: 01/01/18 Current Visit: No Status: Acute Qualifiers: Diabetes mellitus type: type 2 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 Nephrology on board for permanent dialysis catheter placement and continuation of dialysis on outpatient. Will arrange outpatient dialysis chair procurement pending discharge. Surgical service to help with PermCath placement. Will obtain serologies for in preparation for outpatient dialysis chair placement. Case management to assist with outpatient chair procurement. Continue empiric antibiotic therapy and Epogen for anemia management while admitted. Discharge Plan: Home Plan to discharge in: Greater than 2 days Physician Review: Patient Assessed, Agree with Above Assessment and Plan
[2021-09-30] MEDS: NEPRO SHAKE 237 ML CAN PO SCH ×3 (08:48→21:00)
[2021-09-30] MEDS: FUROSEMIDE 20 MG/ 2ML VIAL IV SCH ×2 (08:49→18:38)
[2021-09-30] MEDS: PANTOPRAZOLE 40 MG INJ IVP SCH ×2 (08:49→21:16)
--- NOTE | 2021-09-30 10:16 | P.PN ---
Date of Service: 09/30/21 Subjective: Patient is awake and alert. Patient is tolerating diet. She is drinking her dietary shakes. Objective: Vital signs stable, afebrilepatient had a BM Laboratory data reviewed. Her H&H are stable, she has hyponatremia and the BUN and creatinine have gone back up. Her glucose is above 300 as well. Abdomen: Soft, nondistended, positive bowel sounds nontender. Dressing is clean dry and intact. Wound is clean with no evidence of infection. Assessment: Status post John patch repair of a perforated duodenal ulcer in a patient with multiple medical problems. Patient is clinically improving. Plan: Continue current management. Follow-up with the nephrology service. Continue working with physical therapy. Continue proton pump inhibitors and antibiotics. Discharge planning. Will discuss with the nephrology service regarding the need for long-term dialysis. Plan of care discussed in detail with the patient and family members. CC:
[2021-09-30] MEDS: ONDANSETRON 4 MG/2 ML VIAL IV PRN (15:51)
[2021-09-30] MEDS: METOPROLOL TAR 25 MG TAB PO SCH (18:38)
[2021-09-30] MEDS: AA 4.25 %/D5W/ELECTROLYTES 2,000 ML, Lipids 20% 250 ML with MULTIVITAMINS INJ 10 ML IV SCH ×3 (18:39)
[2021-10-01] MEDS: INSULIN -REGULAR HUMAN 50 UNIT/0.5 ML ML SQ SCH ×4 (00:25→17:30)
[2021-10-01] MEDS: HYDROCODONE/APAP 5/325 MG TAB PO PRN (03:44)
[2021-10-01] MEDS: METOPROLOL TAR 25 MG TAB PO SCH ×2 (05:30→17:21)
[2021-10-01] MEDS: INSULIN GLARGINE 100 UNIT/ML SQ SCH (08:00)
[2021-10-01] MEDS: NEPRO SHAKE 237 ML CAN PO SCH ×3 (09:00→23:10)
[2021-10-01] MEDS: PANTOPRAZOLE 40 MG INJ IVP SCH ×2 (09:28→23:07)
[2021-10-01] MEDS: FUROSEMIDE 20 MG/ 2ML VIAL IV SCH ×2 (09:28→16:04)
[2021-10-01] MEDS ORDERED: propofoL 200 MG/20 ML VIAL IV ONE (09:34)
[2021-10-01] MEDS ORDERED: MIDAZOLAM HCL 2 MG/2 ML INJ ONE (09:34)
[2021-10-01] MEDS ORDERED: LIDOCAINE 1% MPF 30 ML VIAL ONE ×2 (09:35→09:48)
[2021-10-01] MEDS ORDERED: FENTANYL CITR 100 MCG/2 ML ONE (09:35)
[2021-10-01] MEDS ORDERED: NS 0.9% VIAL 10 ML ONE (09:47)
[2021-10-01] MEDS ORDERED: HEPARIN 5000 UNIT/ML 1 ML VIAL ONE (09:47)
[2021-10-01] MEDS ORDERED: NA CHLORIDE 0.9% 0 ML IV ONE (09:48)
[2021-10-01] MEDS ORDERED: DEXTROSE 10%-WATER 500 ML IV SCH (10:00)
[2021-10-01] MEDS ORDERED: EPHEDRINE SULF 50 MG/ML VIAL ONE (10:41)
[2021-10-01] MEDS ORDERED: Mastisol Adhesive Liq ONE (10:51)
--- NOTE | 2021-10-01 11:30 | P.PN ---
Date of Service: 10/01/21 Subjective: Patient is awake and alert. Patient is tolerating diet. She is drinking her dietary shakes. Objective: Vital signs stable, afebrilepatient had a BM Laboratory data reviewed. Her H&H are stable, she has hyponatremia and the BUN and creatinine have gone back up. Her glucose is above 300 as well. Abdomen: Soft, nondistended, positive bowel sounds nontender. Dressing is clean dry and intact. Wound is clean with no evidence of infection. Assessment: Status post John patch repair of a perforated duodenal ulcer in a patient with multiple medical problems. Patient is clinically improving. Plan: Patient is clinically doing well. Discharge planning is in progress. The family wants our psych assistant to discuss with her psych assistant the details of dialysis. If they agree for a Tesio catheter, I will be happy to place one tomorrow morning. We will await family wishes after Dr. Elliott talks with the patient's psych assistant. CC:
[2021-10-01] MEDS: HYDRALAZINE HCL 20 MG/ML VIAL IV PRN (16:04)
--- NOTE | 2021-10-01 17:26 | P.PN ---
Subjective Date of Service: 10/01/21 Chief Complaint: Pneumoperitoneum, perforated gastric ulcer with surgical closure Subjective: No new changes Physical Examination - Vital Signs Temperature: 98.6 F Blood Pressure: 203/81 Pulse: 82 Respirations: 16 Pulse Ox (%): 97 - Physical Exam General: Alert, Oriented x3 HEENT: Atraumatic, Normocephalic Neck: Supple Respiratory: Normal air movement Cardiovascular: Regular rate/rhythm, Normal S1 S2 Gastrointestinal: Soft and benign Musculoskeletal: No swelling Neurological: Normal speech - Studies Medications List Reviewed: Yes Assessment And Plan - Plan Assessment & Plan - Problems (Diagnosis) (1) Status post gastric surgery Current Visit: Yes Status: Acute (2) Psychosis Current Visit: Yes Status: Acute (3) Gastric ulcer Current Visit: Yes Status: Acute (4) Diabetes mellitus Onset Date: 01/01/18 Current Visit: No Status: Acute Qualifiers: Diabetes mellitus type: type 2 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 Plans for PermCath placement in pipeline however patient was to confirm with treating gardening instructor as an outpatient before she agrees with PermCath placement. We will continue present management and dialysis on Thursday, Thursday, Thursday schedule pending further review Case management to assist with outpatient chair procurement. We will continue empiric antibiotic therapy and Epogen for anemia management while admitted. Discharge Plan: LTAC/rehab. Physician Review: Patient Assessed, Agree with Above Assessment and Plan
[2021-10-02] MEDS: HYDROCODONE/APAP 5/325 MG TAB PO PRN ×2 (01:04→11:13)
[2021-10-02] MEDS: INSULIN -REGULAR HUMAN 50 UNIT/0.5 ML ML SQ SCH ×3 (01:55→12:18)
[2021-10-02 04:52] LABS: Potassium 3.9 mmol/L (3.5-5.1)
[2021-10-02] MEDS: METOPROLOL TAR 25 MG TAB PO SCH (05:18)
[2021-10-02] MEDS ORDERED: NA CHLORIDE 0.9% 500 ML ONE (07:03)
[2021-10-02] MEDS ORDERED: NS 0.9% VIAL 10 ML ONE (07:11)
[2021-10-02] MEDS ORDERED: BACITRACIN OINTMENT 14 GM TUBE TOP ONE (07:11)
[2021-10-02] MEDS ORDERED: NA CHLORIDE 0.9% 100 ML IV ONE (07:12)
[2021-10-02] MEDS ORDERED: LIDOCAINE 1% 20 ML MDV ONE (07:12)
[2021-10-02] MEDS ORDERED: HEPARIN 5000 UNIT/ML 1 ML VIAL ONE (07:12)
[2021-10-02] MEDS ORDERED: CEFAZOLIN SODIUM 1 GM/VIAL ONE (07:16)
[2021-10-02] MEDS ORDERED: propofoL 200 MG/20 ML VIAL IV ONE (07:18)
[2021-10-02] MEDS ORDERED: MIDAZOLAM HCL 2 MG/2 ML INJ ONE (07:18)
[2021-10-02] MEDS ORDERED: LIDOCAINE 2% MPF 5 ML VIAL ONE (07:19)
[2021-10-02] MEDS ORDERED: FENTANYL CITR 100 MCG/2 ML ONE (07:19)
[2021-10-02] MEDS ORDERED: INSULIN -REGULAR HUMAN 50 UNIT/0.5 ML ML ONE (07:21)
[2021-10-02] MEDS: INSULIN GLARGINE 100 UNIT/ML SQ SCH (08:00)
[2021-10-02] MEDS ORDERED: HEPARIN 5000 UNIT/ML 1 ML VIAL SQ ONE (08:02)
[2021-10-02] MEDS ORDERED: LIDOCAINE 1% MPF 30 ML VIAL IJ ONE (08:02)
[2021-10-02] MEDS ORDERED: Mastisol Adhesive Liq ONE (08:49)
--- NOTE | 2021-10-02 08:58 | P.OP ---
Date of Service: 10/02/21 Preop diagnosis: End-stage renal disease Postop diagnosis: Same Procedure performed: Attempted right subclavian Tesio catheter placement, interpretation of intraoperative fluoroscopy Surgeon: Royer Lock MD [place] Utility Worker: None Estimated blood loss: Minimal Specimen: None Findings: Unable to get the catheter in the SVC on multiple attempts Anesthesia: MAC Complications: None Drains: None Fluids and blood products: Not applicable Disposition: Recovery room Operative note: Patient brought to the OR and placed in the supine position. MAC anesthesia begun. Lidocaine 1% infiltrated locally. Counterincision made on the right chest and tunneling device used to tunnel the Tesio catheter between the insertion of the Miguel Ángel and the new wound. Then guidewire passed into the Miguel Ángel catheter and Miguel Ángel catheter removed. Then Seldinger technique was utilized, Tesio catheter was placed; however, tip of the catheter was in the brachiocephalic vein. Multiple attempts were tried with no success. We could not get the tip of the catheter into the SVC. Therefore, this procedure was stopped for safety purposes. 3-0 chromic was used to close both wounds. Sterile dressing applied and patient awakened. Patient taken to recovery room in good general condition. The findings of the fluoroscopy were discussed in detail with Dr. Elliott. Patient will be transferred to a tertiary care center for interventional radiology. Chest x-ray has been ordered. CC:
[2021-10-02] MEDS: NEPRO SHAKE 237 ML CAN PO SCH ×2 (09:00→14:00)
[2021-10-02] MEDS: FUROSEMIDE 20 MG/ 2ML VIAL IV SCH (09:00)
[2021-10-02] MEDS: PANTOPRAZOLE 40 MG INJ IVP SCH (09:00)
[2021-10-02 09:28] VITALS: O2SAT 100
[2021-10-02] MEDS ORDERED: LABETALOL HCL 100 MG/20 ML ONE (09:50)
--- NOTE | 2021-10-02 09:54 | RAD REPORT ---
EXAM DESCRIPTION: RAD - Fluoroscopy <1 Hour - 10/02/2021 9:45 am CLINICAL HISTORY: ATTEMPTED TESSIO CATH COMPARISON: Fluoroscopy <1 Hour dated 09/21/2021 FINDINGS: Fluoroscopy time: 4.6 minutes
--- NOTE | 2021-10-02 10:07 | RAD REPORT ---
EXAM DESCRIPTION: RAD - Chest Single View - 10/02/2021 9:46 am CLINICAL HISTORY: Status post attempt at right subclavian Tesio cath Chest pain. COMPARISON: Chest Single View dated 09/21/2021; Chest Single View dated 09/21/2021; Chest Single View dated 09/20/2021; Chest Single View dated 09/17/2021 FINDINGS: Portable technique limits examination quality. Mild pulmonary edema is seen. The heart is moderately enlarged with changes of a prior CABG. Small bi lateral pleural effusion. IMPRESSION: Mild CHF versus volume overload.
--- NOTE | 2021-10-02 13:25 | P.PN ---
Subjective Date of Service: 10/02/21 Chief Complaint: Pneumoperitoneum, perforated gastric ulcer with surgical closure Subjective: No new changes, Improving Physical Examination - Vital Signs Temperature: 97.3 F Blood Pressure: 149/53 Pulse: 93 Respirations: 18 Pulse Ox (%): 99 - Physical Exam General: Alert, Oriented x3 HEENT: Atraumatic, Normocephalic Neck: Supple Respiratory: Normal air movement Cardiovascular: Regular rate/rhythm, Normal S1 S2 Gastrointestinal: Soft and benign Musculoskeletal: No swelling Neurological: Normal speech - Studies Medications List Reviewed: Yes Assessment And Plan - Plan Assessment & Plan - Problems (Diagnosis) (1) Status post gastric surgery Current Visit: Yes Status: Acute (2) Psychosis Current Visit: Yes Status: Acute (3) Gastric ulcer Current Visit: Yes Status: Acute (4) Diabetes mellitus Onset Date: 01/01/18 Current Visit: No Status: Acute Qualifiers: Diabetes mellitus type: type 2 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 Plan was to have patient transferred to high-level care for radiology intervention for placement of PermCath. Will continue routine dialysis on Thursday, Thursday, Thursday schedule as per nephrology team while admitted. Plans for outpatient dialysis chair procurement to be commenced once PermCath s uccessfully placed. Will continue Epogen for anemia management. Medical comorbidities of diabetes and hypertension to be managed as per routine. Patient is able to tolerate oral feeds well. Surgeon following for perforated gastric ulcer related issue. Discharge Plan: LTAC/rehab. Physician Review: Patient Assessed, Agree with Above Assessment and Plan
[2021-10-02 16:39] VITALS: BP 167/81; TEMP 97.9
--- NOTE | 2021-10-02 17:32 | P.DS ---
Admission Date: 09/18/21 Discharge Date: 10/02/21 Disposition: TRANSFER TO [facility] Discharge Condition: GOOD Reason for Admission: Pneumoperitoneum, perforated gastric ulcer with surgical closure Brief History of Present Illness: Patient with a history of hypertension, diabetes type 2, CKD stage III/IV who was evaluated for left-sided abdominal pain found to have perforated viscus and intra-abdominal compartment. She underwent emergent surgery and there was repair of perforated viscus. Creatinine was noted to be up at 4.5 from baseline of about 2 raising concern. Nephrology was consulted for management recommendation. She also had significant elevation of BUN. No significant concerns for nausea vomiting or diarrhea reported. Hospital Course: She had emergent repair of perforated gastric ulcer and she was put in ICU for this Postoperatively. She was noted to have significant elevated creatinine that eventually warranted renal replacement therapy. Nephrology dialyszed the patient for the last 2 weeks however creatinine continued to jump back depicting possibly end-stage renal disease at this point. She was discussed with family member and her outpatient treating senior linux unix administrator Dr. Del Cid and plan was to continue dialysis pending further review. She was to have PermCath placement today however because of suspected abnormal pathology procedure could not be done at [facility] in [place] so patient was transferred to [facility] for interventional radiology assistance with placement of PermCath. She will continue dialysis on Thursday, Thursday, Thursday schedule pending review by nephrology as an outpatient. Vital Signs/Physical Exam: Temp Pulse Resp BP Pulse Ox 97.9 F 86 20 167/81 H 99 10/02/21 16:00 10/02/21 16:00 10/02/21 16:00 10/02/21 16:00 10/02/21 16:00 General: Alert, Oriented x3 HEENT: Atraumatic, Normocephalic Neck: Supple Respiratory: Normal air movement Cardiovascular: Regular rate/rhythm, Normal S1 S2 Gastrointestinal: Soft and benign Musculoskeletal: No swelling Neurological: Normal speech Laboratory Data at Discharge: WBC 9.3 K/uL (4.3-10.9) D 09/30/21 06:05 Hgb 9.0 g/dL (12.0-15.0) L 09/30/21 06:05 Hct 26.8 % (36.0-45.0) L 09/30/21 06:05 Plt Count 322 K/uL (152-406) D 09/30/21 06:05 PT 9.9 SECONDS (9.5-12.5) 09/17/21 23:19 INR 0.90 09/17/21 23:19 Sodium 129 mmol/L (136-145) L 10/02/21 03:35 Potassium 3.9 mmol/L (3.5-5.1) 10/02/21 03:35 BUN 59 mg/dL (7-18) H D 10/02/21 03:35 Creatinine 3.61 mg/dL (0.55-1.3) H 10/02/21 03:35 Glucose 289 mg/dL (74-106) H 10/02/21 03:35 Phosphorus 6.4 mg/dL (2.5-4.9) H 09/30/21 06:05 Magnesium 2.4 mg/dL (1.8-2.4) 09/30/21 06:05 Total Bilirubin 0.4 mg/dL (0.2-1.0) 09/30/21 06:05 AST 16 U/L (15-37) 09/30/21 06:05 ALT 23 U/L (12-78) 09/30/21 06:05 Alkaline Phosphatase 87 U/L (45-117) 09/30/21 06:05 Lipase 314 U/L (73-393) 09/17/21 23:19 Home Medications: Atorvastatin Calcium [Lipitor] 80 mg PO DAILY 03/24/18 carvediloL [Coreg*] 25 mg PO BID 03/24/18 Furosemide [Lasix] 40 mg PO DAILY #30 tablet 03/26/18 Glipizide [Glipizide ER] 5 gm PO AC 06/29/21 methIMAzole [Methimazole] 5 mg PO EVERY 7TH DAY 06/29/21 Diet: Renal Followup: Karon Sherman DO [Primary Care Provider] - (Call to schedule appointment.)
== END 2021-10-02 17:32 | disposition short-term general hospital (02) | DRG 329 ==
LOC: ER 22:30 → ERHOLD 09-18 00:54 → 3RD-ICU 09-18 06:09 → 2ND 09-19 20:20 → 3RD-ICU 09-21 21:00 → 2ND 09-27 20:46
PROVIDERS: ADMIT Internal Medicine; ATTEND Internal Medicine Nephrology
PROC: 0T9B70Z Drainage of Bladder with Drainage Device, Via Natural or Artificial Opening (ICD-10-PCS; 2021-09-18)
PROC: 0DU907Z Supplement Duodenum with Autologous Tissue Substitute, Open Approach (ICD-10-PCS; principal; 2021-09-18 05:45)
PROC: 02HV33Z Insertion of Infusion Device into Superior Vena Cava, Percutaneous Approach (ICD-10-PCS; 2021-09-21)
PROC: 5A1D70Z Performance of Urinary Filtration, Intermittent, Less than 6 Hours Per Day (ICD-10-PCS; 2021-09-21)
PROC: 5A1D70Z Performance of Urinary Filtration, Intermittent, Less than 6 Hours Per Day (ICD-10-PCS; 2021-09-25)
PROC: 5A1D70Z Performance of Urinary Filtration, Intermittent, Less than 6 Hours Per Day (ICD-10-PCS; 2021-09-26)
PROC: 5A1D70Z Performance of Urinary Filtration, Intermittent, Less than 6 Hours Per Day (ICD-10-PCS; 2021-09-27)
PROC: 5A1D70Z Performance of Urinary Filtration, Intermittent, Less than 6 Hours Per Day (ICD-10-PCS; 2021-09-30)
DX: K26.5 Chronic or unspecified duodenal ulcer with perforation (principal); K65.9 Peritonitis, unspecified; G93.41 Metabolic encephalopathy; N18.6 End stage renal disease; I50.32 Chronic diastolic (congestive) heart failure; E87.2 Acidosis; A04.8 Other specified bacterial intestinal infections; F23 Brief psychotic disorder; I13.2 Hypertensive heart and chronic kidney disease with heart failure and with stage 5 chronic kidney disease, or end stage renal disease; N17.9 Acute kidney failure, unspecified; E11.22 Type 2 diabetes mellitus with diabetic chronic kidney disease; D64.9 Anemia, unspecified; I25.10 Atherosclerotic heart disease of native coronary artery without angina pectoris; E78.5 Hyperlipidemia, unspecified; E88.09 Other disorders of plasma-protein metabolism, not elsewhere classified; Z53.8 Procedure and treatment not carried out for other reasons; Z99.2 Dependence on renal dialysis; Z20.822 Contact with and (suspected) exposure to COVID-19
CPT/HCPCS: 36415; 36430; 36569; 51702; 70450; 71045; 71250; 74150; 74176; 76000; 76770; 80048; 80053; 80076; 81003; 81015; 82040; 82570; 82607; 82746; 82941; 82947; 83540; 83605; 83615; 83690; 83735; 83880; 84100; 84134; 84145; 84300; 84439; 84443; 84484; 85014; 85018; 85025; 85610; 86317; 86704; 86706; 86803; 86850; 86900; 86901; 87040; 87086; 87088; 87340; 90935; 93005; 93306; 94010; 97110; 97116; 97161; 97530; 99285; C1752; C9113; J0330; J0360; J0595; J0690; J1100; J1170; J1644; J1815; J1940; J2250; J2270; J2405; J2543; J2704; J2710; J3010; J3486; J3490; J7030; J7040; J7050; J7799; P9016; P9047; Q5105; U0003